=== PATIENT | female | born 1950 | race Caucasian/White ===

== ENCOUNTER 2017-04-30 14:21 | Observation (INO) | payer MEDICARE, OTHER ==
[~2017-04-30] VITALS: Ht 170.2 cm; Wt 61.4 kg
[~2017-04-30 14:21] MED LIST: ASPI81 PO; LITH300 PO; LORA0.5T PO; TAB-TAB PO
[2017-04-30 14:43] VITALS: BP 135/69; PULSE 96; RESP 18; TEMP 98.4; O2SAT 100
[2017-04-30] MEDS ORDERED: LITH300C2 PO (14:50)
--- NOTE | 2017-04-30 14:58 | PD ---
HPI Chief Complaint: Altered Mental Status Time Seen by Provider: 14:33 Travel History International Travel<30 days: No Contact w/Intl Traveler<30days: No Traveled to known affect area: No History of Present Illness HPI The patient was seen and examined in the presence of the nurse. This patient lives alone and neighbors checked on her and found her quite confused. They say that she's been confused for 2 days. They called paramedics who brought her in. The patient cannot provide any useful history or review of systems. She says she feels fine. However she does not know the day of the week or what month or year it is. She knows that she takes lithium but has no idea why. She denies overdose or any specific physical complaint such as fever or headache or chest pain or shortness of breath etc. PFSH Past Medical History Depression: Yes Cancer: No Cardiovascular Problems: No Cerebrovascular Accident: Yes (1979, AUG) Diabetes: No Diminished Hearing: No Hepatitis: No Hiatal Hernia: No Neurologic: Yes (STROKE IN 1979) Psychiatric: Yes (bipolar) Respiratory: No Migraines: No Seizures: No Thyroid Disease: No Influenza Vaccination: No ?: Not Menopausal: Yes Past Surgical History Abdominal Surgery: No Cardiac Surgery: No Ear Surgery: No Endocrine Surgery: No Eye Surgery: No Genitourinary Surgery: No Gynecologic Surgery: No Oral Surgery: No Pacemaker: No Thoracic Surgery: No Other Surgery: Yes Social History Alcohol Use: No Tobacco Use: No Substance Use: No Allergies-Medications (Allergen,Severity, Reaction): Coded Allergies: Penicillin (Verified Allergy, Severe, 04/30/17) Ibuprofen (Verified Allergy, Mild, 04/30/17) Reported Meds & Prescriptions Reported Meds & Active Scripts Active Reported [place] Carbonate 300 Mg Cap 300 Mg PO BID Review of Systems ROS Limitations: Clinical Condition, Altered Mental Status, Poor Historian Physical Exam Narrative GENERAL: Disheveled but pleasant well-developed patient in no apparent distress. SKIN: Focused skin assessment reveals no rash and nodules. Skin is Warm and dry. HEAD: Atraumatic. Normocephalic. EYES: Pupils equal and round. No scleral icterus. No injection or drainage. ENT: No nasal bleeding or discharge. Mucous membranes pink and moist. NECK: Trachea midline. No JVD. No meningeal signs CARDIOVASCULAR: Regular rate and rhythm. No murmur appreciated. RESPIRATORY: No accessory muscle use. Clear to auscultation. Breath sounds equal bilaterally. GASTROINTESTINAL: Abdomen soft, non-tender, nondistended. Hepatic and splenic margins not palpable. MUSCULOSKELETAL: No obvious deformities. No clubbing. No cyanosis. No edema. NEUROLOGICAL: Awake and alert. No obvious cranial nerve deficits. Motor grossly within normal limits. Normal speech. She is cooperative and follows commands. PSYCHIATRIC: Appropriate mood and affect; insight and judgment poor. Data Data Last Documented VS Vital Signs Date Time Temp Pulse Resp B/P Pulse Ox O2 Delivery O2 Flow Rate FiO2 04/30/17 15:45 99 Room Air 04/30/17 14:43 98.4 96 18 135/69 Orders Complete Blood Count With Diff (04/30/17 14:58) Comprehensive Metabolic Panel (04/30/17 14:58) Creatine Kinase (Cpk) (04/30/17 14:58) Thyroid Stimulating Hormone (04/30/17 14:58) Urinalysis - C+S If Indicated (04/30/17 14:58) Ct Brain W/O Iv Contrast(Rout) (04/30/17 14:58) Ecg Monitoring (04/30/17 14:58) Iv Access Insert/Monitor (04/30/17 14:58) Cath For Specimen (04/30/17 14:58) Oximetry (04/30/17 14:58) Sodium Chloride 0.9% Flush (Ns Flush) (04/30/17 15:00) Drug Screen, Random Urine (04/30/17 14:58) Alcohol (Ethanol) (04/30/17 14:58) [place] (Li) (04/30/17 14:58) Labs Laboratory Tests Test 04/30/17 15:05 White Blood Count 8.5 TH/MM3 Red Blood Count 4.24 MIL/MM3 Hemoglobin 12.5 GM/DL Hematocrit 38.5 % Mean Corpuscular Volume 90.8 FL Mean Corpuscular Hemoglobin 29.5 PG Mean Corpuscular Hemoglobin 32.4 % Concent Red Cell Distribution Width 13.0 % Platelet Count 247 TH/MM3 Mean Platelet Volume 7.8 FL Neutrophils (%) (Auto) 77.1 % Lymphocytes (%) (Auto) 17.2 % Monocytes (%) (Auto) 4.4 % Eosinophils (%) (Auto) 1.0 % Basophils (%) (Auto) 0.3 % Neutrophils # (Auto) 6.5 TH/MM3 Lymphocytes # (Auto) 1.5 TH/MM3 Monocytes # (Auto) 0.4 TH/MM3 Eosinophils # (Auto) 0.1 TH/MM3 Basophils # (Auto) 0.0 TH/MM3 CBC Comment DIFF FINAL Differential Comment Sodium Level 144 MEQ/L Potassium Level 4.3 MEQ/L Chloride Level 113 MEQ/L Carbon Dioxide Level 23.6 MEQ/L Anion Gap 7 MEQ/L Blood Urea Nitrogen 19 MG/DL Creatinine 1.30 MG/DL Estimat Glomerular Filtration 41 ML/MIN Rate Random Glucose 98 MG/DL Calcium Level 10.0 MG/DL Total Bilirubin 0.6 MG/DL Aspartate Amino Transf 17 U/L (AST/SGOT) Alanine Aminotransferase 22 U/L (ALT/SGPT) Alkaline Phosphatase 69 U/L Total Creatine Kinase 48 U/L Total Protein 7.2 GM/DL Albumin 3.8 GM/DL Thyroid Stimulating Hormone 1.080 uIU/ML 3rd Gen Ethyl Alcohol Level LESS THAN 3 MG/DL [facility] Medical Decision Making Medical Screen Exam Complete: Yes Emergency Medical Condition: Yes Medical Record Reviewed: Yes Differential Diagnosis [place] toxicity, UTI, intracranial mass, hyponatremia Narrative Course I have reviewed the patient's electronic medical record. I have initiated an altered mental status workup. From initial examination it' s unclear why she is so altered. CBC and metabolic profile and LFTs and TSH are all normal Alcohol negative [place] level was taking significantly longer as it has to be curried up to the main hospital lab and run and there Still awaiting catheterized urine and brain CT results Case will be checked out to Dr. Darby at 4 PM to assist with disposition after workup complete. Patient is significantly altered and lives alone and likely will require hospitalization for further evaluation Diagnosis Primary Impression: Altered mental status Qualified Code: R41.82 - Altered mental status, unspecified altered mental status type Shaquille Forbes MD Apr 30, 2017 14:58
[2017-04-30] MEDS ORDERED: SODIUM CHLORIDE 0.9% FLUSH 5 ML FLUSH IV FLUSH PRN (15:00)
[2017-04-30 15:16] LABS: AUTOMATED NEUTROPHIL # 6.5 TH/MM3 (1.8-7.7); BASOPHIL % 0.3 % (0.0-2.0); EOSINOPHIL # 0.1 TH/MM3 (0-0.4); HEMATOCRIT 38.5 % (35.0-46.0); HEMO FLAGS DIFF FINAL; LYMPH % 17.2 % (9.0-44.0); LYMPHOCYTE # 1.5 TH/MM3 (1.0-4.8); MEAN CELL VOLUME 90.8 FL (80.0-100.0); MEAN CORPUSCULAR HEMOGLOBIN 29.5 PG (27.0-34.0); MEAN CORPUSCULAR HGB CONC 32.4 % (32.0-36.0); MONO % 4.4 % (0.0-8.0); NEUT % 77.1 % (16.0-70.0); PLATELET COUNT 247 TH/MM3 (150-450); RED BLOOD COUNT 4.24 MIL/MM3 (4.00-5.30); WHITE BLOOD COUNT 8.5 TH/MM3 (4.0-11.0)
[2017-04-30 15:24] LABS: CHLORIDE 113 MEQ/L (98-107); POTASSIUM 4.3 MEQ/L (3.5-5.1); SODIUM (NA) 144 MEQ/L (136-145)
[2017-04-30 15:28] LABS: ANION GAP 7 MEQ/L (5-15); BICARBONATE 23.6 MEQ/L (21.0-32.0); BLOOD UREA NITROGEN 19 MG/DL (7-18)
[2017-04-30 15:31] LABS: ALT (GPT) 22 U/L (10-53); AST (GOT) 17 U/L (15-37); GLOMERULAR FILTRATION RATE 41 ML/MIN (>89)
[2017-04-30 15:32] LABS: TOTAL BILIRUBIN ADULT 0.6 MG/DL (0.2-1.0)
[2017-04-30 15:34] LABS: ALKALINE PHOSPHATASE 69 U/L (45-117); CREATINE KINASE 48 U/L (26-192)
[2017-04-30 15:45] VITALS: O2SAT 99
--- NOTE | 2017-04-30 15:49 | RADRPT ---
EXAM DATE/TIME: 04/30/2017 15:22 [place] COMPARISON: No previous studies available for comparison. INDICATIONS : Confusion. RADIATION DOSE: 62.97 CTDIvol (mGy) MEDICAL HISTORY : Cerebrovascular disease. SURGICAL HISTORY : None. ENCOUNTER: Initial ACUITY: 2 days PAIN SCALE: 0/10 LOCATION: cranial TECHNIQUE: Multiple contiguous axial images were obtained of the head. Using automated exposure control and adj ustment of the mA and/or kV according to patient size, radiation dose was kept as low as reasonably a chievable to obtain optimal diagnostic quality images. DICOM format image data is available electro nically for review and comparison. FINDINGS: There is an old infarct in the right sylvian region that was apparent on angiogram 08/11/2008.. The l eft hemisphere is unremarkable. The posterior fossa appears normal. Ventricular size is appropriate. There is no parenchymal hemorr shaq. The orbits and paranasal sinuses are unremarkable. 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 I have no prior CT scans for sonya rison. Comparison is to angiogram 08/11/2008. Ritesh France MD FACR on April 30, 2017 at 15:36 Board Certified Radiologist. This report was verified electronically.
[2017-04-30 15:52] LABS: BLOOD, URINE TRACE (NEG); GLUCOSE,URINE NEG (NEG); KETONE, URINE TRACE mg/dL (NEG); NITRITE,URINE NEG (NEG)
[2017-04-30 15:58] LABS: URINE COLOR YELLOW (YELLW/STRAW)
[2017-04-30 15:59] LABS: AMPHETAMINE, URINE NEG (NEG); RBC, URINE 0-3 /hpf (0-3); SQUAMOUS EPITHELIAL CELL URINE 0-5 /hpf (0-5)
[2017-04-30 16:00] LABS: COMMENT (UR) CATH-CULTURE IND; CULTURE IF INDICATED CATH CULTURE IND; RENAL EPITHELIAL CELLS 0-5 /hpf
[2017-04-30 16:08] LABS: BARBITURATES, URINE NEG (NEG)
[2017-04-30 16:10] VITALS: BP 121/61; PULSE 67; RESP 14; O2SAT 100
[2017-04-30 16:12] LABS: COCAINE, URINE NEG (NEG)
[2017-04-30] MEDS ORDERED: cefTRIAXone INJ 1,000 MG in SODIUM CHLORIDE 0.9% INJ 100 ML IV ONE (16:15)
--- NOTE | 2017-04-30 16:58 | PD ---
Data Data Last Documented VS Vital Signs Date Time Temp Pulse Resp B/P Pulse Ox O2 Delivery O2 Flow Rate FiO2 04/30/17 16:10 67 14 121/61 100 Room Air 04/30/17 14:43 98.4 Orders Complete Blood Count With Diff (04/30/17 14:58) Comprehensive Metabolic Panel (04/30/17 14:58) Creatine Kinase (Cpk) (04/30/17 14:58) Thyroid Stimulating Hormone (04/30/17 14:58) Urinalysis - C+S If Indicated (04/30/17 14:58) Ct Brain W/O Iv Contrast(Rout) (04/30/17 14:58) Ecg Monitoring (04/30/17 14:58) Iv Access Insert/Monitor (04/30/17 14:58) Cath For Specimen (04/30/17 14:58) Oximetry (04/30/17 14:58) Sodium Chloride 0.9% Flush (Ns Flush) (04/30/17 15:00) Drug Screen, Random Urine (04/30/17 14:58) Alcohol (Ethanol) (04/30/17 14:58) [place] (Li) (04/30/17 14:58) Urine Culture (04/30/17 15:45) Ceftriaxone Inj (Rocephin Inj) (04/30/17 16:15) Admit Order (Ed Use Only) (04/30/17 16:54) Labs Laboratory Tests Test 04/30/17 04/30/17 15:05 15:45 White Blood Count 8.5 TH/MM3 Red Blood Count 4.24 MIL/MM3 Hemoglobin 12.5 GM/DL Hematocrit 38.5 % Mean Corpuscular Volume 90.8 FL Mean Corpuscular Hemoglobin 29.5 PG Mean Corpuscular Hemoglobin 32.4 % Concent Red Cell Distribution Width 13.0 % Platelet Count 247 TH/MM3 Mean Platelet Volume 7.8 FL Neutrophils (%) (Auto) 77.1 % Lymphocytes (%) (Auto) 17.2 % Monocytes (%) (Auto) 4.4 % Eosinophils (%) (Auto) 1.0 % Basophils (%) (Auto) 0.3 % Neutrophils # (Auto) 6.5 TH/MM3 Lymphocytes # (Auto) 1.5 TH/MM3 Monocytes # (Auto) 0.4 TH/MM3 Eosinophils # (Auto) 0.1 TH/MM3 Basophils # (Auto) 0.0 TH/MM3 CBC Comment DIFF FINAL Differential Comment Sodium Level 144 MEQ/L Potassium Level 4.3 MEQ/L Chloride Level 113 MEQ/L Carbon Dioxide Level 23.6 MEQ/L Anion Gap 7 MEQ/L Blood Urea Nitrogen 19 MG/DL Creatinine 1.30 MG/DL Estimat Glomerular Filtration 41 ML/MIN Rate Random Glucose 98 MG/DL Calcium Level 10.0 MG/DL Total Bilirubin 0.6 MG/DL Aspartate Amino Transf 17 U/L (AST/SGOT) Alanine Aminotransferase 22 U/L (ALT/SGPT) Alkaline Phosphatase 69 U/L Total Creatine Kinase 48 U/L Total Protein 7.2 GM/DL Albumin 3.8 GM/DL Thyroid Stimulating Hormone 1.080 uIU/ML 3rd Gen Ethyl Alcohol Level LESS THAN 3 MG/DL Urine Color YELLOW Urine Turbidity CLEAR Urine pH 7.0 Urine Specific [place] 1.010 Urine Protein NEG mg/dL Urine Glucose (UA) NEG mg/dL Urine Ketones TRACE mg/dL Urine Occult Blood TRACE Urine Nitrite NEG Urine Bilirubin NEG Urine Leukocyte Esterase NEG Urine RBC 0-3 /hpf Urine WBC 9-14 /hpf Urine WBC Clumps OCC Urine Squamous Epithelial 0-5 /hpf Cells Urine Renal Epithelial Cells 0-5 /hpf Microscopic Urinalysis Comment CATH-CULTURE IND Urine Opiates Screen NEG Urine Barbiturates Screen NEG Urine Amphetamines Screen NEG Urine Benzodiazepines Screen NEG Urine Cocaine Screen NEG Urine Cannabinoids Screen NEG MDM Supervised Visit with TYLER: No Narrative Course The patient was initially evaluated by the previous provider and sent out to me at the beginning of my shift pending CT head, labs, and disposition. See his note for further details. Briefly this is a 67-year-old female who lives alone who was brought in by her neighbor's who were concerned about her. Apparently over the last couple of days the patient has become more and more confused. Here she is awake and alert and is oriented to place only. She does not know why she is in the emergency department, but states that she is on lithium for bipolar disorder. She is unable to tell me the date. She denies any physical complaints. No fevers or chills. On physical exam she is awake and alert, resting comfortably. No nuchal rigidity. No focal neurologic deficits. Vital signs reviewed and are within normal limits. CBC is unremarkable. CMP is remarkable for BUN 19, creatinine 1.3, GFR 41, otherwise unremarkable. TSH is 1.08. Urine drug screen is negative for all drugs tested. Alcohol level is negative. UA shows trace ketones, trace occult blood, 9-14 wbc's, occasional WBC clumps. Patient was given a dose of Rocephin for her pyuria. CT head: Old stable infarct in the right anterior sylvian region. Again this patient lives alone. She tells me that she has not really had much to eat or drink over the last few days and she is not sure why. She denies any physical complaints. She is clearly not safe to discharge home as I do not believe she will be able to take care of herself. She will be admitted for further treatment and evaluation of altered mental status. Case discussed with hospitalist Dr. Hughes who will admit the patient to his service. [place] level pending at time of admission. Diagnosis Primary Impression: Altered mental status Qualified Code: R41.82 - Altered mental status, unspecified altered mental status type Additional Impression: Pyuria Admitting Information Admitting Physician Requests: Basil Mercado MD Apr 30, 2017 16:58
[2017-04-30] MEDS ORDERED: ONDANSETRON HCL 4 MG/2 ML VIAL IV PUSH PRN (17:00)
[2017-04-30] MEDS ORDERED: ACETAMINOPHEN 325 MG TAB PO PRN (17:00)
[2017-04-30] MEDS ORDERED: SODIUM CHLOR 0.9% 1000 ML INJ 1,000 ML IV ONE (17:00)
--- NOTE | 2017-04-30 17:06 | HHI.HP ---
HPI [facility] Primary Care Physician No Primary Care Physician Admission Diagnosis confusion, pyuria Diagnoses: (1) Altered mental status Diagnosis: Principal Chief Complaint: confusion Travel History International Travel<30 Days: No Contact w/Intl Traveler <30 Da: No Traveled to Known Affected Are: No History of Present Illness patient is a 67 y/o female with history of CVA and bipolar disorder who was brought to ER with altered mental status. patient is pleasantly confused at the time of my evaluation and is not a good historian. per ER , the patient was brought to ER after her friends found her confused. apparently this has been going on for the past couple of days. patient denies any pain, headache, focal weakness, blurred vision, fever, dysuria,nausea or vomiting. Review of Systems ROS Limitations: Altered Mental Status, Poor Historian Past Family Social History Past Medical History CVA bipolar disorder Past Surgical History denies any prior surgery. Reported Medications lithium Allergies: Coded Allergies: Penicillin (Verified Allergy, Severe, 04/30/17) Ibuprofen (Verified Allergy, Mild, 04/30/17) Active Ordered Medications Current Medications IV Flush 2 ml 2 ml UNSCH PRN IV FLUSH FLUSH AFTER USING IV ACCESS; Start at 15:00 Ceftriaxone Sodium/Sodium Chloride (Rocephin Inj/NS Inj) 100 ml @ 200 mls/hr ONCE ONCE IV Last administered on 04/30/17t 16:09; Start 04/30/17 at 16:15; Stop 04/30/17 at 16:44; Status DC Family History not significant. Social History no smoking or drinking. Physical Exam Vital Signs Vital Signs Date Time Temp Pulse Resp B/P Pulse Ox O2 Delivery O2 Flow Rate FiO2 04/30/17 16:10 67 14 121/61 100 Room Air 04/30/17 15:45 99 Room Air 04/30/17 14:43 98.4 96 18 135/69 100 Physical Exam GENERAL: This is a well-nourished, well-developed patient, in no apparent distress. SKIN: No rashes, ecchymoses or lesions. Cool and dry. HEAD: Atraumatic. Normocephalic. No temporal or scalp tenderness. EYES: Pupils equal round and reactive. Extraocular motions intact. No scleral icterus. No injection or drainage. ENT: Nose without bleeding, purulent drainage or septal hematoma. Throat without erythema, tonsillar hypertrophy or exudate. Uvula midline. Airway patent. NECK: Trachea midline. No JVD or lymphadenopathy. Supple, nontender, no meningeal signs. CARDIOVASCULAR: Regular rate and rhythm without murmurs, gallops, or rubs. RESPIRATORY: Clear to auscultation. Breath sounds equal bilaterally. No wheezes , rales, or rhonchi. GASTROINTESTINAL: Abdomen soft, non-tender, nondistended. No hepato-splenomegaly , or palpable masses. No guarding. MUSCULOSKELETAL: Extremities without clubbing, cyanosis, or edema. No joint tenderness, effusion, or edema noted. No calf tenderness. Negative Homans sign bilaterally. NEUROLOGICAL: Awake and alert.oriented to person, and partly to place and time. Laboratory Laboratory Tests Test 04/30/17 04/30/17 15:05 15:45 White Blood Count 8.5 Red Blood Count 4.24 Hemoglobin 12.5 Hematocrit 38.5 Mean Corpuscular Volume 90.8 Mean Corpuscular Hemoglobin 29.5 Mean Corpuscular Hemoglobin 32.4 Concent Red Cell Distribution Width 13.0 Platelet Count 247 Mean Platelet Volume 7.8 Neutrophils (%) (Auto) 77.1 Lymphocytes (%) (Auto) 17.2 Monocytes (%) (Auto) 4.4 Eosinophils (%) (Auto) 1.0 Basophils (%) (Auto) 0.3 Neutrophils # (Auto) 6.5 Lymphocytes # (Auto) 1.5 Monocytes # (Auto) 0.4 Eosinophils # (Auto) 0.1 Basophils # (Auto) 0.0 CBC Comment DIFF FINAL Differential Comment Sodium Level 144 Potassium Level 4.3 Chloride Level 113 Carbon Dioxide Level 23.6 Anion Gap 7 Blood Urea Nitrogen 19 Creatinine 1.30 Estimat Glomerular Filtration 41 Rate Random Glucose 98 Calcium Level 10.0 Total Bilirubin 0.6 Aspartate Amino Transf 17 (AST/SGOT) Alanine Aminotransferase 22 (ALT/SGPT) Alkaline Phosphatase 69 Total Creatine Kinase 48 Total Protein 7.2 Albumin 3.8 Thyroid Stimulating Hormone 1.080 3rd Gen Ethyl Alcohol Level LESS THAN 3 Urine Color YELLOW Urine Turbidity CLEAR Urine pH 7.0 Urine Specific [place] 1.010 Urine Protein NEG Urine Glucose (UA) NEG Urine Ketones TRACE Urine Occult Blood TRACE Urine Nitrite NEG Urine Bilirubin NEG Urine Leukocyte Esterase NEG Urine RBC 0-3 Urine WBC 9-14 Urine WBC Clumps OCC Urine Squamous Epithelial 0-5 Cells Urine Renal Epithelial Cells 0-5 Microscopic Urinalysis Comment CATH-CULTURE IND Urine Opiates Screen NEG Urine Barbiturates Screen NEG Urine Amphetamines Screen NEG Urine Benzodiazepines Screen NEG Urine Cocaine Screen NEG Urine Cannabinoids Screen NEG Date/Time Procedure Status Source Growth 04/30/17 15:45 Urine Culture Received Urine Clean Catch Pending Result Diagram: 04/30/17 1505 04/30/17 1505 Imaging Last Impressions Head CT 04/30/17 1458 Signed Impressions: Service Date/Time: Sunday, April 30, 2017 15:22 - CONCLUSION: 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 I have no prior CT scans for comparison. Comparison is to angiogram 08/11/2008. Ritesh France MD FACR Assessment and Plan Assessment and Plan A/P - acute encephalopathy CT head with old infarct. continue with neuro-checks- hold lithium while awaiting the lithium level- consult neurology -acute kidney injury; start IV fluid and monitor the renal function -questionable UTI; continue IV antibiotic and follow the UC. -history of bipolar disorder; hold lithium as noted above. -DVT prophylaxis with SCD's - consult PT and case management. Discussed Condition With ER physician and the patient. Problem Qualifiers (1) Altered mental status: Qualified Code: R41.82 - Altered mental status, unspecified altered mental status type Christos Hughes MD Apr 30, 2017 17:06
[2017-04-30 17:45] VITALS: BP 136/77; PULSE 75; RESP 18; TEMP 97; O2SAT 100
[2017-04-30 20:00] VITALS: BP 152/89; PULSE 69; RESP 20; TEMP 96.3; O2SAT 100
[2017-05-01] VITALS: BP 141/68; PULSE 62; RESP 16; TEMP 96.9; O2SAT 98
[2017-05-01 08:00] VITALS: BP 123/74; PULSE 80; RESP 16; TEMP 97.3; O2SAT 99
--- NOTE | 2017-05-01 09:05 | HHI.PR ---
Subjective Remarks in no acute distress. still pleasantly confused. denies pain. afebrile. d/w the RN and no acute issues over night. Objective Vitals Vital Signs Date Time Temp Pulse Resp B/P Pulse Ox O2 Delivery O2 Flow Rate FiO2 05/01/17 08:00 97.3 80 16 123/74 99 05/01/17 00:00 96.9 62 16 141/68 98 04/30/17 20:00 96.3 69 20 152/89 100 04/30/17 17:45 97.0 75 18 136/77 100 04/30/17 16:10 67 14 121/61 100 Room Air 04/30/17 15:45 99 Room Air 04/30/17 14:43 98.4 96 18 135/69 100 I/O 04/30/17 04/30/17 04/30/17 05/01/17 05/01/17 05/01/17 07:00 15:00 23:00 07:00 15:00 23:00 Intake Total 100 ml Balance 100 ml Intake IV Total 100 ml Result Diagram: 04/30/17 1505 04/30/17 1505 Imaging Last Impressions Head CT 04/30/17 1458 Signed Impressions: Service Date/Time: Sunday, April 30, 2017 15:22 - CONCLUSION: 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 I have no prior CT scans for comparison. Comparison is to angiogram 08/11/2008. Ritesh France MD FACR Objective Remarks GENERAL: This is a well-nourished, well-developed patient, in no apparent distress. CARDIOVASCULAR: Regular rate and regular rhythm without murmurs, gallops, or rubs. RESPIRATORY: Clear to auscultation. Breath sounds equal bilaterally. No wheezes , rales, or rhonchi. GASTROINTESTINAL: Abdomen soft, non-tender, nondistended. Normal, active bowel sounds MUSCULOSKELETAL: Extremities without clubbing, cyanosis, or edema. NEURO: awake and alert- oriented to person, place but not to time. Medications and IVs Current Medications IV Flush 2 ml 2 ml UNSCH PRN IV FLUSH FLUSH AFTER USING IV ACCESS; Start at 15:00 Ceftriaxone Sodium 1000 mg/ Sodium Chloride 100 ml @ 200 mls/hr ONCE ONCE IV Last administered on 04/30/17t 16:09; Start 04/30/17 at 16:15; Stop 04/30/17 at 16:44; Status DC Sodium Chloride 1,000 ml @ 75 mls/hr [id number] ONCE IV Last administered on 04/30 17:41; Start 04/30/17 at 17:00; Stop 05/01/17 at 06:19; Status DC Ceftriaxone Sodium/Sodium Chloride (Rocephin Inj/NS Inj) 100 ml @ 200 mls/hr Q24H IV ; Start 05/01/17 at 16:00 Ondansetron HCl (Zofran Inj) 4 mg Q8HR PRN IV PUSH NAUSEA; Start 04/30/17 at 17 :00 Acetaminophen (Tylenol) 650 mg Q4H PRN PO FEVER; Start 04/30/17 at 17:00 A/P Assessment and Plan A/P - acute encephalopathy CT head with old infarct. continue with neuro-checks- - consulted neurology -acute kidney injury; received IV fluid.will monitor the renal function -questionable UTI; continue IV antibiotic and follow the UC. -history of bipolar disorder; hold lithium for now. -DVT prophylaxis with SCD's -consulted PT and case management Christos Hughes MD May 01, 2017 09:05
[2017-05-01 10:33] LABS: BICARBONATE 24.5 MEQ/L (21.0-32.0)
[2017-05-01 12:00] VITALS: BP 114/65; PULSE 63; RESP 16; TEMP 97.9; O2SAT 96
[2017-05-01] MEDS ORDERED: LORazepam 1 MG TAB PO PRN (14:30)
[2017-05-01 16:00] VITALS: BP 138/82; PULSE 82; RESP 16; TEMP 97; O2SAT 99
[2017-05-01] MEDS: cefTRIAXone INJ 1,000 MG in SODIUM CHLORIDE 0.9% INJ 100 ML IV SCH (16:25)
--- NOTE | 2017-05-01 16:27 | PD.PSY.CON ---
Provisional Diagnosis Admission Date Apr 30, 2017 at 16:54 [place] I. Delirium due to another underlying medical condition, unspecified psychosis, history of bipolar disorder [place] II. Deferred [place] III. CVA [place] IV. [place] V. 35 History of Present Illness Service Psychiatry Consult Requested By Primary Care Physician No Primary Care Physician HPI The patient is a 67-year-old woman, domiciled alone in [place], , supportive by alf benefits, with psychiatric history of bipolar disorder, 1 remote psychiatric hospitalization, no history of suicide attempts, no history of self cutting behavior, she is on lithium 300 mg twice a day prescribed by PCP, as per brother's she has been in lithium for a long time now , with history of CVA and bipolar disorder who was brought to ER with altered mental status. On psychiatric evaluation today patient is pleasantly confused, labile, with frequent mood swings. Patient has periods of lucidity alternated with disorganized behavior and thought process. 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 As she is asked what is the reason of her tears she says "my is really really sick". But, when she is asked about her mood, she says that she is very happy and start laughing. She denies suicidal and homicidal ideation, she denies visual and auditory hallucinations. Patient is oriented in person, but completely disoriented in time and place. Due to the level of disorganization the patient is unable to provide any meaningful information for the psychiatric assessment. However, his brother Reno Lomas, who lives in [place], was able to provide some important collateral information. He says that the patient had a CVA years ago, but after this episode the patient was at baseline and she did not have any significant residual symptom. He saw her the last time a month ago in [place], she was actually planning to go back to live with him. They talk every day by phone. She has been at baseline, functioning very well and taking care of herself. But, 4 days ago he noticed that she was very confused, talking nonsense, illogical and incoherent. He clarifies that her in 2014 and since then she has been living alone. He also adds that the patient has history of bipolar disorder, she is has one hospitalization when he was very young, since he was a child he does not remember details. But, since then the patient has been taking lithium religiously. Review of Systems Constitutional: DENIES: Diaphoretic episodes, Fatigue, Fever, Weight gain, Weight loss, Chills, Dizziness, Change in appetite, Night Sweats Endocrine: DENIES: Abnorml menstrual pattern, Heat/cold intolerance, Polydipsia , Polyuria, Polyphagia Ears, nose, mouth, throat: DENIES: Tinnitus, Hearing loss, Vertigo, Nasal discharge, Oral lesions, Throat pain, Hoarseness, Ear Pain, Running Nose, Epistaxis, Sinus Pain, Toothache, Odynophagia Respiratory: DENIES: Apneas, Cough, Snoring, Wheezing, Hemoptysis, Sputum production, Shortness of breath Cardiovascular: DENIES: Chest pain, Palpitations, Syncope, Dyspnea on Exertion , PND, Lower Extremity Edema, Orthopnea, Claudication Gastrointestinal: DENIES: Abdominal pain, Black stools, Bloody stools, Constipation, Diarrhea, Nausea, Vomiting, Difficulty Swallowing, Anorexia Genitourinary: DENIES: Abnormal vaginal bleeding, Dysmenorrhea, Dyspareunia, Sexual dysfunction, Urinary frequency, Urinary incontinence, Urgency, Hematuria , Dysuria, Nocturia, Vaginal discharge Musculoskeletal: DENIES: Joint pain, Muscle aches, Stiffness, Joint Swelling, Back pain, Neck pain Integumentary: DENIES: Abnormal pigmentation, Pruritus, Rash, Nail changes, Breast masses, Breast skin changes, Nipple discharge Hematologic/lymphatic: DENIES: Bruising, Lymphadenopathy Immunologic/allergic: DENIES: Eczema, Urticaria Neurologic: DENIES: Abnormal gait, Headache, Localized weakness, Paresthesias, Seizures, Speech Problems, Tremor, Poor Balance Psychiatric: COMPLAINS OF: Confusion Past Family Social History Coded Allergies: Penicillin (Verified Allergy, Severe, 04/30/17) Ibuprofen (Verified Allergy, Mild, 04/30/17) Reported Medications [place] Carbonate 300 Mg [id number] Mg PO BID Ref 0 04/30/17 Current Medications Medications (Trade) Dose Ordered Sig/Ananth Route Start Time Stop Time Status Last Admin IV Flush 2 ml 2 ml UNSCH PRN IV FLUSH 04/30/17 15:00 (Rocephin Inj/NS Inj) 100 ml @ 200 mls/hr Q24H IV 05/01/17 16:00 (Zofran Inj) 4 mg Q8HR PRN IV PUSH 04/30/17 17:00 (Tylenol) 650 mg Q4H PRN PO 04/30/17 17:00 (Ativan) 1 mg Q6H PRN PO 05/01/17 14:30 (Elkhorn Carbonate) 300 mg BID PO 05/01/17 21:00 UNV (SEROquel) 25 mg BID@09,12 PO 05/02/17 09:00 UNV Family History No family psychiatric history Social History This was born and raised in [place], she lives alone and poor [place], she is , unemployed, supported by alf benefits, highest level of education is college Patient's Strengths (min. 2) Fdc benefits, compliant with psychotropics Physical Exam On physical exam patient is agitated, restless, but no weakness, no tremors, no EPS, no stiffness present Vital Signs Vital Signs Date Time Temp Pulse Resp B/P Pulse Ox O2 Delivery O2 Flow Rate FiO2 05/01/17 16:00 97.0 82 16 138/82 99 04/30/17 16:10 Room Air I/O 04/30/17 04/30/17 04/30/17 07:59 15:59 23:59 Intake Total 100 ml Balance 100 ml Lab Results Laboratory Tests Test 04/30/17 04/30/17 15:05 15:45 White Blood Count 8.5 Red Blood Count 4.24 Hemoglobin 12.5 Hematocrit 38.5 Mean Corpuscular Volume 90.8 Mean Corpuscular Hemoglobin 29.5 Mean Corpuscular Hemoglobin 32.4 Concent Red Cell Distribution Width 13.0 Platelet Count 247 Mean Platelet Volume 7.8 Neutrophils (%) (Auto) 77.1 Lymphocytes (%) (Auto) 17.2 Monocytes (%) (Auto) 4.4 Eosinophils (%) (Auto) 1.0 Basophils (%) (Auto) 0.3 Neutrophils # (Auto) 6.5 Lymphocytes # (Auto) 1.5 Monocytes # (Auto) 0.4 Eosinophils # (Auto) 0.1 Basophils # (Auto) 0.0 CBC Comment DIFF FINAL Differential Comment Sodium Level 144 Potassium Level 4.3 Chloride Level 113 Carbon Dioxide Level 23.6 Anion Gap 7 Blood Urea Nitrogen 19 Creatinine 1.30 Estimat Glomerular Filtration 41 Rate Random Glucose 98 Calcium Level 10.0 Total Bilirubin 0.6 Aspartate Amino Transf 17 (AST/SGOT) Alanine Aminotransferase 22 (ALT/SGPT) Alkaline Phosphatase 69 Total Creatine Kinase 48 Total Protein 7.2 Albumin 3.8 Thyroid Stimulating Hormone 1.080 3rd Gen Ethyl Alcohol Level LESS THAN 3 Urine Color YELLOW Urine Turbidity CLEAR Urine pH 7.0 Urine Specific [place] 1.010 Urine Protein NEG Urine Glucose (UA) NEG Urine Ketones TRACE Urine Occult Blood TRACE Urine Nitrite NEG Urine Bilirubin NEG Urine Leukocyte Esterase NEG Urine RBC 0-3 Urine WBC 9-14 Urine WBC Clumps OCC Urine Squamous Epithelial 0-5 Cells Urine Renal Epithelial Cells 0-5 Microscopic Urinalysis Comment CATH-CULTURE IND Urine Opiates Screen NEG Urine Barbiturates Screen NEG Urine Amphetamines Screen NEG Urine Benzodiazepines Screen NEG Urine Cocaine Screen NEG Urine Cannabinoids Screen NEG Date/Time Procedure Status Source Growth 04/30/17 15:45 Urine Culture Received Urine Clean Catch Pending Result Diagram: 04/30/17 1505 04/30/17 1505 Mental Status Examination Appearance [facility], [facility], age appearing, poorly cooperative, restless Speech: Hesitant, Incoherent Orientation: Person Memory: Impaired (describe) Thought Process: Loose Association, Tangential Thought Content: Bizarre thinking, Paranoid Language Patient has a conserve language , but limited assessed due to level of psychosis Fund of Knowledge Not able to be assessed Hallucination Type: None Attention and Concentration: Abnormal Suicidal Ideation: No Previous Suicide Attempts: No Homicidal Ideation: No Previous Homicide Attempts: No Insight: Poor Judgment: Poor Affect: Irritable, Other Affect if Inappropriate: Labile Mood: Sad Motor Activity: Normal gait Assessment & Plan Problem List: (1) Delirium due to another medical condition Assessment & Plan: Patient presents acute confusion, altered mental status, mood lability, agitation, tangential and disorganized thought process. Will restart Elkhorn 300 mg bid, will reorder level. Will start Seroquel 25 mg bid for behavior control and psychosis. Agree with neurology consult to explore neurologia causes of current presentation. Case discussed personally with Dr. Hughes Continue 1:1 sitter for safety Patient to be admitted in med psych ICD Code: F05 Assessment & Plan Estimated LOS: Petros Dominguez MD May 01, 2017 16:27
[2017-05-01 20:00] VITALS: BP 136/71; PULSE 75; RESP 16; TEMP 96.3; O2SAT 98
[2017-05-01] MEDS: LITHIUM CARBONATE 300 MG TAB PO SCH (20:29)
--- NOTE | 2017-05-01 20:29 | MB ---
cc: VIKAS GEE M.D. DATE OF CONSULTATION: 05/01/2017 REASON FOR CONSULTATION: Change in mental status. DATE OF : 1950, 67 years old. HISTORY OF PRESENT ILLNESS: The patient is a 67-year-old woman who apparently has a history of stroke, bipolar disorder, came in with altered mental status and does not know why she is really here. She states she lives alone. Her is . PAST MEDICAL HISTORY: Past medical history as stated. CURRENT MEDICATIONS: [place]. ALLERGIES PENICILLIN. IBUPROFEN FAMILY HISTORY: Noncontributory. SOCIAL HISTORY: She states she lives alone, does not smoke or drink. She is a . PHYSICAL EXAMINATION: Vitals: Temperature 97, heart rate 82, respiratory rate 16, blood pressure 138/82 sating at 99%. Neck: Her neck is supple. I do not appreciate any carotid bruits. Heart: Regular. Neurologic: She is awake and alert. She can tell me her date of but tells me she has 24, in fact she is 67. She knows [facility] at [facility] but does not know which one. She knows she lives in [place]. She thinks it is June. She does not know the day of the week or the year or the date. Speech otherwise is fluent. She is in good spirits. Pupils react. Face is symmetrical. Motor-snow, no lateralizing weakness. Gait is not assessed. LABORATORY DATA: Reviewed. Sodium today is 148, GFR is 56, TSH 1.080. CBC is really unremarkable. Toxicology screen was negative. [place] level is only 1 which is in the therapeutic range. Her urine showed trace ketones, blood 9 to 14 WBCs, occasional clumps. Culture did not show any growth. IMAGING STUDIES: CT head, old infarct, right inferior sylvian region. IMPRESSION: A 67-year-old woman with change in mental status, acute encephalopathy, some dehydration, creatinine level elevation initially, now back to normal with hydration. GFR has improved. CT does not show anything acute. RECOMMENDATIONS: Recommend getting an EEG. I would also go ahead and check a B12 level. Her thyroid TSH was unremarkable. I do not believe she has a UTI. Her urine culture is negative. Continue hydration. She has been restarted on lithium by psychiatry and added Seroquel twice a day if psychosis occurs. She has a sitter. EEG, I believe has been ordered and completed. We will have to await report. Further recommendations will be made if needed. Please call me with any questions or concerns. I will go ahead and get a vitamin B12 and RPR level as well. MD PHILLY Silva/BRAYAN /6:36 PM /8:25 PM
[2017-05-02 08:00] VITALS: BP 156/91; PULSE 84; RESP 20; TEMP 96.6; O2SAT 100
--- NOTE | 2017-05-02 08:37 | MG ---
cc: EFREM VAUGHN MD Lab No: [id number] Date: 05/01/2017 Age: 67 Sex: F Race: __ DATE OF 1950 INDICATIONS This is a 67-year-old with a history of confusion. DESCRIPTION Very apiculate looking EEG at 7 Hz background with slow 1-2 Hz delta activity occurring as well, 20 to 50 microvolts. Mild frontal slowing. Intermittent and continuous temporal region myogenic artifact. He has driving with photic stimulation. Single lead EKG showing premature contractions. INTERPRETATION Mild encephalopathy, significant artifact, can consider repeat EEG if clinically indicated. Clinical correlation. MD ABRAHAM Glover/HARMEET /7:59 AM /8:26 AM
[2017-05-02] MEDS: LITHIUM CARBONATE 300 MG TAB PO SCH ×2 (09:00→21:00)
[2017-05-02] MEDS: QUEtiapine FUMARATE 25 MG TAB PO SCH ×2 (09:46→12:21)
--- NOTE | 2017-05-02 11:19 | HHI.PR ---
Subjective Remarks Patient says she feels all right. Denies any pain. She is pleasantly disoriented. Objective Vital Signs Date Time Temp Pulse Resp B/P Pulse Ox O2 Delivery O2 Flow Rate FiO2 05/02/17 08:00 96.6 84 20 156/91 100 05/02/17 00:00 05/01/17 20:00 96.3 75 16 136/71 98 05/01/17 16:00 97.0 82 16 138/82 99 05/01/17 12:00 97.9 63 16 114/65 96 I/O 05/01/17 05/01/17 05/01/17 05/02/17 05/02/17 05/02/17 07:00 15:00 23:00 07:00 15:00 23:00 Intake Total 600 ml Balance 600 ml Intake Oral 600 ml # Voids 2 # Bowel Movements 0 Result Diagram: 04/30/17 1505 05/01/17 1010 Objective Remarks GENERAL: Sitting up in bed. Appears comfortable. Disoriented. agreeable SKIN: Warm and dry. HEAD: Normocephalic. EYES: No scleral icterus. No injection or drainage. NECK: Supple, trachea midline. No JVD CARDIOVASCULAR: Regular rate and rhythm without murmurs, gallops, or rubs. RESPIRATORY: Breath sounds equal bilaterally. No accessory muscle use. GASTROINTESTINAL: Abdomen soft, non-tender, nondistended. MUSCULOSKELETAL: No cyanosis, or edema. BACK: Nontender without obvious deformity. No CVA tenderness. A/P Assessment and Plan //acute encephalopathy CT head with old infarct. continue with neuro-checks- -Neurology following. RPR pending. Appreciate assistance. //acute kidney injury; received IV fluid.kidney function improving. Creatinine 1.3 on admission, 1.0 on 05/01. Repeat labs today. Will monitor the renal function //questionable UTI; continue IV antibiotic and follow the UC. //history of bipolar disorder; lithium level within normal limits. Continue lithium for now. //Hypernatremia. Sodium 148 yesterday. Repeat labs pending today. //DVT prophylaxis with SCD's -consulted PT and case management Matt Chua MD May 02, 2017 11:19
[2017-05-02 11:31] LABS: AUTOMATED NEUTROPHIL # 4.7 TH/MM3 (1.8-7.7); BASOPHIL % 0.7 % (0.0-2.0); EOSINOPHIL # 0.1 TH/MM3 (0-0.4); EOSINOPHIL % 2.1 % (0.0-4.0); HEMATOCRIT 36.1 % (35.0-46.0); HEMO FLAGS DIFF FINAL; LYMPHOCYTE # 1.7 TH/MM3 (1.0-4.8); MEAN CELL VOLUME 89.5 FL (80.0-100.0); MEAN CORPUSCULAR HGB CONC 32.5 % (32.0-36.0); MONO % 7.2 % (0.0-8.0); PLATELET COUNT 227 TH/MM3 (150-450); RED BLOOD COUNT 4.03 MIL/MM3 (4.00-5.30); RED CELL DISTRIBUTION WIDTH 12.6 % (11.6-17.2)
[2017-05-02 11:32] LABS: POTASSIUM 3.9 MEQ/L (3.5-5.1)
[2017-05-02] MEDS ORDERED: QUET1TAB7 PO (11:34)
[2017-05-02] MEDS ORDERED: LORA-474 PO (11:34)
[2017-05-02 11:35] LABS: BICARBONATE 23.9 MEQ/L (21.0-32.0)
[2017-05-02 12:00] VITALS: BP 125/72; PULSE 93; RESP 20; TEMP 96.2; O2SAT 100
[2017-05-02 16:00] VITALS: BP 116/69; PULSE 73; RESP 20; TEMP 96.9; O2SAT 100
[2017-05-02] MEDS: cefTRIAXone INJ 1,000 MG in SODIUM CHLORIDE 0.9% INJ 100 ML IV SCH (16:33)
[2017-05-02 20:00] VITALS: BP 118/67; PULSE 66; RESP 16; TEMP 98.4; O2SAT 95
[2017-05-02] MEDS ORDERED: BISACODYL 10 MG SUPP RECTAL PRN (22:45)
[2017-05-02] MEDS ORDERED: MAGNESIUM HYDROXIDE SUSP 30 ML CUP PO PRN (22:45)
[2017-05-02] MEDS: DOCUSATE SODIUM 100 MG CAP PO SCH (22:57)
[2017-05-03] VITALS: BP 105/62; PULSE 66; RESP 16; TEMP 97.4; O2SAT 95
[2017-05-03 04:00] VITALS: BP 118/72; PULSE 70; RESP 20; TEMP 97.7; O2SAT 97
[2017-05-03 06:53] LABS: AUTOMATED NEUTROPHIL # 4.2 TH/MM3 (1.8-7.7); BASOPHIL # 0.1 TH/MM3 (0-0.2); BASOPHIL % 0.8 % (0.0-2.0); EOSINOPHIL # 0.4 TH/MM3 (0-0.4); EOSINOPHIL % 4.9 % (0.0-4.0); HEMATOCRIT 35.3 % (35.0-46.0); HEMO FLAGS DIFF FINAL; LYMPH % 33.9 % (9.0-44.0); LYMPHOCYTE # 2.8 TH/MM3 (1.0-4.8); MEAN CELL VOLUME 90.1 FL (80.0-100.0); MEAN CORPUSCULAR HGB CONC 32.2 % (32.0-36.0); NEUT % 53.4 % (16.0-70.0); PLATELET COUNT 244 TH/MM3 (150-450); RED BLOOD COUNT 3.92 MIL/MM3 (4.00-5.30); RED CELL DISTRIBUTION WIDTH 12.8 % (11.6-17.2); WHITE BLOOD COUNT 8.1 TH/MM3 (4.0-11.0)
[2017-05-03 08:18] LABS: BICARBONATE 26.6 MEQ/L (21.0-32.0); MAGNESIUM 2.6 MG/DL (1.5-2.5)
[2017-05-03] MEDS: QUEtiapine FUMARATE 25 MG TAB PO SCH ×2 (09:40→12:11)
[2017-05-03] MEDS: DOCUSATE SODIUM 100 MG CAP PO SCH (09:40)
[2017-05-03] MEDS: LITHIUM CARBONATE 300 MG TAB PO SCH (09:41)
[2017-05-03] MEDS ORDERED: SODIUM CHLOR 0.9% 1000 ML INJ 1,000 ML IV ONE (11:30)
[2017-05-03 12:00] VITALS: BP 123/73; PULSE 88; RESP 17; TEMP 98; O2SAT 98
--- NOTE | 2017-05-03 14:02 | HHI.PR ---
Subjective Remarks Patient seen and evaluated in follow-up for confusion, encephalopathy and mood liability requiring a sitter. Disorganized thought is persistent. Patient is with poor oral intake and appears dehydrated with hypernatremia today. Patient is complaining of vague CP today, very poorly described due to poor mental status Objective Vitals Vital Signs Date Time Temp Pulse Resp B/P Pulse Ox O2 Delivery O2 Flow Rate FiO2 05/03/17 12:00 98.0 88 17 123/73 98 05/03/17 04:00 97.7 70 20 118/72 97 05/03/17 00:00 97.4 66 16 105/62 95 05/02/17 20:00 98.4 66 16 118/67 95 05/02/17 16:00 96.9 73 20 116/69 100 I/O 05/02/17 05/02/17 05/02/17 05/03/17 05/03/17 05/03/17 06:59 14:59 22:59 06:59 14:59 22:59 Intake Total 1657 ml 414 ml 60 ml Balance 1657 ml 414 ml 60 ml Intake Oral 1170 ml 120 ml 60 ml IV Total 487 ml 294 ml # Voids 3 1 1 # Bowel Movements 0 1 Result Diagram: 05/03/17 0632 05/03/17 0632 Imaging Last Impressions Head CT 04/30/17 1458 Signed Impressions: Service Date/Time: Sunday, April 30, 2017 15:22 - CONCLUSION: 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 I have no prior CT scans for comparison. Comparison is to angiogram 08/11/2008. Ritesh France MD FACR Objective Remarks GENERAL: This is a well-nourished, well-developed patient, complaining of CP CARDIOVASCULAR: Regular rate and rhythm without murmurs, gallops, or rubs. RESPIRATORY: Clear to auscultation. Breath sounds equal bilaterally. No wheezes , rales, or rhonchi. GASTROINTESTINAL: Abdomen soft, non-tender, nondistended. Normal active bowel sounds MUSCULOSKELETAL: Extremities without clubbing, cyanosis, or edema. NEURO: Alert disoriented, calm A/P Problem List: (1) Altered mental status ICD Code: R41.82 Status: Acute Plan: Patient with encephalopathy and delirium Continue lithium, Seroquel EEG does show encephalopathic pattern Patient has a history of bipolar disorder. (2) Hypernatremia ICD Code: E87.0 Status: Acute Plan: Likely volume depleted, will try IV fluids and monitor progress (3) Chest pain, atypical ICD Code: R07.89 Status: Acute Plan: toponin, ekg cxray pending likely non cardiac Discharge Planning Appropriate for inpatient psych Problem Qualifiers (1) Altered mental status: Qualified Code: R41.82 - Altered mental status, unspecified altered mental status type Adia Franz MD May 03, 2017 14:02
--- NOTE | 2017-05-03 17:16 | RADRPT ---
EXAM DATE/TIME: 05/03/2017 16:41 [place] COMPARISON: No previous studies available for comparison. INDICATIONS : Chest pain. MEDICAL HISTORY : None. SURGICAL HISTORY : None. ENCOUNTER: Initial ACUITY: 1 day PAIN SCORE: 10/17 LOCATION: Bilateral chest FINDINGS: A single view of the chest demonstrates the lungs to be symmetrically aerated without evidence of mas s, infiltrate or effusion. The cardiomediastinal contours are unremarkable. Osseous structures are intact. CONCLUSION: No acute disease. Francesco Ramos MD on May 03, 2017 at 17:14 Board Certified Radiologist. This report was verified electronically.
--- NOTE | 2017-05-21 16:11 | HHI.DS ---
Discharge Summary Admission Date Apr 30, 2017 at 16:54 Discharge Date: May 03, 2017 Admitting Diagnosis confusion, pyuria (1) Altered mental status ICD Code: R41.82 (2) Hypernatremia ICD Code: E87.0 (3) Chest pain, atypical ICD Code: R07.89 Procedures none Brief History - From Admission patient is a 67 y/o female with history of CVA and bipolar disorder who was brought to ER with altered mental status. patient is pleasantly confused at the time of my evaluation and is not a good historian. per ER , the patient was brought to ER after her friends found her confused. apparently this has been going on for the past couple of days. patient denies any pain, headache, focal weakness, blurred vision, fever, dysuria,nausea or vomiting. Significant Findings eeg : encephalopathy Imaging Last Impressions Chest X-Ray 05/03/17 1544 Signed Impressions: Service Date/Time: , May 03, 2017 16:41 - CONCLUSION: No acute disease. Francesco Ramos MD Head CT 04/30/17 1458 Signed Impressions: Service Date/Time: Sunday, April 30, 2017 15:22 - CONCLUSION: 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 I have no prior CT scans for comparison. Comparison is to angiogram 08/11/2008. Ritesh France MD FACR PE at Discharge GENERAL: This is a well-nourished, well-developed patient, complaining of CP CARDIOVASCULAR: Regular rate and rhythm without murmurs, gallops, or rubs. RESPIRATORY: Clear to auscultation. Breath sounds equal bilaterally. No wheezes , rales, or rhonchi. GASTROINTESTINAL: Abdomen soft, non-tender, nondistended. Normal active bowel sounds MUSCULOSKELETAL: Extremities without clubbing, cyanosis, or edema. NEURO: Alert disoriented, calm Pt update on day of discharge see progress note Hospital Course patient evaluated for encephalopathy and organic causes thereof. She was seen by psychiatry and neurology. She was admitted to psychiatry after discharge. Pt Condition on Discharge: Good Discharge Disposition: Disc to Psych Care Fac Discharge Time: <= 30 minutes Discharge Instructions DIET: Follow Instructions for: As Tolerated, No Restrictions Activities you can perform: Regular-No Restrictions Other Activity Instructions: Up with supervision. Adia Franz MD May 21, 2017 16:11
== END 2017-05-03 15:33 ==
LOC: PHED 14:21 → PHEDA 16:54 → PH3A 17:38
PROVIDERS: ADMIT Hospitalist; ATTEND Hospitalist
DX: G93.40 Encephalopathy, unspecified (principal); N17.9 Acute kidney failure, unspecified; R41.82 Altered mental status, unspecified; N39.0 Urinary tract infection, site not specified; E87.0 Hyperosmolality and hypernatremia; E86.0 Dehydration; R07.89 Other chest pain; F31.9 Bipolar disorder, unspecified; Z86.73 Personal history of transient ischemic attack (TIA), and cerebral infarction without residual deficits; Z79.899 Other long term (current) drug therapy
CPT/HCPCS: 70450; 76937; 80048; 80053; 80178; 80307; 81001; 82550; 82607; 84443; 85025; 86592; 87086; 95819; 96365; 97162; 99285; G0378; G8987; G8988; J0696; J7030; P9612; 71010; 80069; 83735

== ENCOUNTER 2017-05-03 10:40 | Inpatient (IN) | payer MEDICARE, OTHER ==
[~2017-05-03] VITALS: Ht 170.2 cm; Wt 55.8 kg
[~2017-05-03 10:40] MED LIST changes: -ASPI81 PO; -LITH300 PO; +LITH300C2 PO; +LORA-474 PO; -LORA0.5T PO; +QUET1TAB7 PO; -TAB-TAB PO
[2017-05-03 17:57] VITALS: BP 176/82; PULSE 72; RESP 16; TEMP 97.1; O2SAT 100
--- NOTE | 2017-05-03 20:45 | EKG ---
Date Performed: 05/03/2017 Time Performed: 19:54:21 PTAGE: 67 years EKG: Sinus rhythm NONSPECIFIC T-WAVE ABNORMALITY BORDERLINE ECG Compared to prior electrocardiogram, Nonspecific T wav e changes are now present . PREVIOUS TRACING : 07/03/2011 07.16 DOCTOR: Steve Costello Interpretating Date/Time 05/03/2017 20:43:35
[2017-05-03] MEDS: QUEtiapine FUMARATE 25 MG TAB PO SCH (21:04)
[2017-05-03] MEDS: DEXT 5%-NACL 0.45% 1000 ML INJ 1,000 ML IV SCH (21:29)
[2017-05-04 06:47] VITALS: BP 126/68; PULSE 83; RESP 16; TEMP 98.3; O2SAT 99
[2017-05-04 07:34] LABS: AUTOMATED NEUTROPHIL # 4.8 TH/MM3 (1.8-7.7); BASOPHIL % 0.6 % (0.0-2.0); EOSINOPHIL # 0.3 TH/MM3 (0-0.4); EOSINOPHIL % 4.3 % (0.0-4.0); HEMO FLAGS DIFF FINAL; LYMPH % 22.8 % (9.0-44.0); LYMPHOCYTE # 1.7 TH/MM3 (1.0-4.8); MEAN CELL VOLUME 91.1 FL (80.0-100.0); MEAN CORPUSCULAR HEMOGLOBIN 29.8 PG (27.0-34.0); MEAN CORPUSCULAR HGB CONC 32.7 % (32.0-36.0); MONO % 6.3 % (0.0-8.0); PLATELET COUNT 213 TH/MM3 (150-450); RED BLOOD COUNT 4.28 MIL/MM3 (4.00-5.30); RED CELL DISTRIBUTION WIDTH 13.4 % (11.6-17.2); WHITE BLOOD COUNT 7.3 TH/MM3 (4.0-11.0)
[2017-05-04 07:49] LABS: BICARBONATE 25.2 MEQ/L (21.0-32.0); POTASSIUM 3.7 MEQ/L (3.5-5.1)
[2017-05-04] MEDS: QUEtiapine FUMARATE 25 MG TAB PO SCH ×2 (09:12→21:00)
[2017-05-04] MEDS: LITHIUM CARBONATE 300 MG TAB PO SCH ×2 (09:12→21:00)
[2017-05-04] MEDS: DEXT 5%-NACL 0.45% 1000 ML INJ 1,000 ML IV SCH (09:25)
--- NOTE | 2017-05-04 15:32 | PD.CONS ---
HPI Service [facility] Consult Requested By Psychiatry team Reason for Consult Follow-up Altered mental status Primary Care Physician Unknown Diagnoses: History of Present Illness Written by Mikael Rascon, acting as scribe for Dr. Colvin on 05/04/17 at 15:14. This note was transcribed by jose KAUR. I, Dr. Sara Colvin personally performed the history, physical exam, and medical decision making; and confirmed the accuracy of the information in the transcribed note. Authenticated by Dr. Sara Colvin on 05/04/17 at 15:14. Patient is a 67-year-old female with primary medical history of CVA in 2007, bipolar disorder who came in initially to the hospital for altered mental status. She is found to be on acute kidney injury and was started on IV fluid hydration. She had a history of bipolar disorder on lithium, lithium levels were within normal. She is now admitted to medical psychiatry unit for further evaluation. Consulted for continues medical management and follow up on altered mental status. Patient seen and examined today. Appears to have some confusion but otherwise able to follow commands and respond to some questions. She denies any other medical history except for she has CVA in 2007 that she reports doesn't have any residual weakness for it. States that she is now trying to eating better and trying to drink more. Denies pain and discomfort. Denies SOB/ dyspnea. Denies chest pain, palpitations, headaches, dizziness. Denies fevers, chills, n/ v/d. Denies dysuria. Review of Systems Except as stated in HPI: all other systems reviewed are Neg Past Family Social History Allergies: Coded Allergies: Penicillin (Verified Allergy, Severe, 04/30/17) Ibuprofen (Verified Allergy, Mild, 04/30/17) Past Medical History CVA in 2007 Bipolar disorder Past Surgical History None Reported Medications Reported Meds & Active Scripts Active Reported [place] Carbonate 300 Mg Cap 300 Mg PO BID Active Ordered Medications Current Medications Medications (Trade) Dose Ordered Sig/Ananth Route Start Time Stop Time Status Last Admin Quetiapine Fumarate 50 mg 50 mg BID PO 05/03/17 21:00 05/04/17 09:12 (D5W-1/2 NS 1000 ml Inj) 1,000 ml @ 50 mls/hr Q20H IV 05/03/17 21:30 05/04/17 09:25 (Lithotabs) 300 mg Q12HR PO 05/04/17 09:00 05/04/17 09:12 Family History States mother and father are . Mom at the age of 71, old age. Dad at age 68 from heart attack. Social History Denies alcohol use Denies Tobacco Use Denies Illicit Drug Use Physical Exam Vital Signs Vital Signs Date Time Temp Pulse Resp B/P Pulse Ox O2 Delivery O2 Flow Rate FiO2 05/04/17 06:47 98.3 83 16 126/68 99 05/03/17 17:57 97.1 72 16 176/82 100 Physical Exam GENERAL: This is a well-nourished, well-developed patient, in no apparent distress. SKIN: No rashes, ecchymoses or lesions. Cool and dry. HEAD: Normocephalic. EYES: Pupils equal round and reactive. Extraocular motions intact. No scleral icterus. No injection or drainage. ENT: Nose without bleeding. Throat without erythema. Uvula midline. Airway patent. NECK: Trachea midline. Supple, nontender, no meningeal signs. CARDIOVASCULAR: Regular rate and rhythm without murmurs, gallops, or rubs. RESPIRATORY: Clear to auscultation. Breath sounds equal bilaterally. No wheezes , rales, or rhonchi. GASTROINTESTINAL: Abdomen soft, non-tender, nondistended. Bowel sounds active 4 . No guarding. MUSCULOSKELETAL: Extremities without clubbing, cyanosis, or edema. NEUROLOGICAL: Awake and alert. Periods of confusion otherwise follows commands and responds to questions. Motor and sensory grossly within normal limits. Normal speech. Laboratory Laboratory Tests Test 05/04/17 05/04/17 07:03 11:41 White Blood Count 7.3 Red Blood Count 4.28 Hemoglobin 12.8 Hematocrit 39.0 Mean Corpuscular Volume 91.1 Mean Corpuscular Hemoglobin 29.8 Mean Corpuscular Hemoglobin 32.7 Concent Red Cell Distribution Width 13.4 Platelet Count 213 Mean Platelet Volume 7.4 Neutrophils (%) (Auto) 66.0 Lymphocytes (%) (Auto) 22.8 Monocytes (%) (Auto) 6.3 Eosinophils (%) (Auto) 4.3 Basophils (%) (Auto) 0.6 Neutrophils # (Auto) 4.8 Lymphocytes # (Auto) 1.7 Monocytes # (Auto) 0.5 Eosinophils # (Auto) 0.3 Basophils # (Auto) 0.0 CBC Comment DIFF FINAL Differential Comment Sodium Level 145 Potassium Level 3.7 Chloride Level 114 Carbon Dioxide Level 25.2 Anion Gap 6 Blood Urea Nitrogen 11 Creatinine 0.97 Estimat Glomerular Filtration 58 Rate Random Glucose 118 Calcium Level 9.6 [place] Level 0.8 Result Diagram: 05/04/1770205/04/17702 Assessment and Plan Problem List: (1) Hypernatremia ICD Code: E87.0 Status: Acute (2) Altered mental status ICD Code: R41.82 Status: Acute Assessment and Plan Patient is a 67-year-old female with primary medical history of CVA in 2007, bipolar disorder who came in initially to the hospital for altered mental status. She is found to be on acute kidney injury and was started on IV fluid hydration. She had a history of bipolar disorder on lithium, lithium levels were within normal. She is now admitted to medical psychiatry unit for further evaluation. Consulted for continues medical management and follow up on altered mental status. Bipolar disorder - Managed by psychiatry team Metabolic encephalopathy Altered mental status - Head CT showed old stable infarct right anterior sylvian region. - EEG shows encephalopathic pattern - [place] level 0.8, within normal - U tox reviewed negative - Monitor mental status Hypernatremia - IV fluids provided D5 half NS 50ml/hr - Improving Na 147 --> 150 --145 - Trend Sodium levels DVT prop ambulatory Code Status Full code Discussed Condition With Patient, nursing Mikael Crisostomo May 04, 2017 15:32 Sara Colvin MD May 04, 2017 22:49
--- NOTE | 2017-05-04 17:32 | HHI.HP ---
Provisional Diagnosis Admission Date May 03, 2017 at 10:40 Schwertner I. Delirium, bipolar disorder, rule out acute manic episode Schwertner II. Deferred Schwertner III. Cerebrovascular accident in 2008 Schwertner IV. Good social support, chronic mental illness Schwertner V. 35 Certification of Person's Competence To Provide Express and Informed Consent I have personally examined Geri Parham , a person being served at [facility] on, May 04, 2017 17:27. Express and informed consent means consent voluntarily given in writing, by a competent person, after sufficient explanation and disclosure of the subject matter involved to enable the person to make a knowing and willful decision without any element of force, fraud, deceit, duress, or other form of constraint or coercion. This person is 18 years of age or older, is not now known to be incompetent to consent to treatment with a guardian advocate, and does not have a health care surrogate or proxy currently making medical treatment decisions. I have found this person to be one of the following: [] Competent to provide express and informed consent, as defined above, for voluntary admission to this facility and is competent to provide express and informed consent for treatment. He/she has the consistent capacity to make well reasoned, willful, and knowing decisions concerning his or her medical or mental health treatment. The person fully and consistently understands the purpose of the admission for examination/placement and is fully capable of personally exercising all rights assured under [place] Incompetent to provide express and informed consent to voluntary admission, and this is incompetent to provide express and informed consent to treatment. The person must be transferred to involuntary status and a petition for a guardian advocate filed with the Circuit Court. [x] Refusing to provide express and informed consent to voluntary admission but is competent to provide express and informed consent for treatment. The person must be discharged or transferred to involuntary status. Form shall be completed within 24 hours of a person's arrival at the receiving facility and filed in the clinical record of each person: 1. Admitted on a voluntary basis 2. Permitted to provide express and informed consent to his/her own treatment 3. Allowed to transfer from involuntary to voluntary status 4. Prior to permitting a person to consent to his or her own treatment after having been previously found incompetent to consent to treatment. History of Present Illness Capacity: Has Capacity (past capacity for treatment) HPI Patient is 67-year-old woman, , living alone, with a past psychiatric history of bipolar disorder, denies any previous psychiatric hospitalizations but as per chart had 1 remote psychiatric hospitalization, denies any previous suicide attempts, denies any suicide attempts, denies any self injurious behavior, was brought into the ER with altered mental status. As per Dr. Pendleton consult note: On psychiatric evaluation today patient is pleasantly confused, labile, with frequent mood swings. Patient has periods of lucidity alternated with disorganized behavior and thought process. 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 As she is asked what is the reason of her tears she says "my is really really sick". But, when she is asked about her mood, she says that she is very happy and start laughing. She denies suicidal and homicidal ideation, she denies visual and auditory hallucinations. Patient is oriented in person, but completely disoriented in time and place. As per collateral information obtained by Dr. Daniels, brother Reno Lomas stated the patient had a CVA use ago but did not have any residual symptoms. He states that patient has been at baseline functioning very well care of herself but 4 days ago he noticed that she was very confused talking nonsensical logical and coherent. Mr. Nunez clarifies that patients in 2014 and since has been living alone. As per nursing report patient had been noticed to have evidence of forgetfulness since arrival to the unit. Patient seen today along with nurse, found lying on hospital bed ready to eat breakfast. Patient was noted to be calm and cooperative with interview but noticed to have lability of mood and tangential at times. When asked patient why she was in the hospital she states all I know I was brought in by rescue squad. Patient was found to be alert and oriented 3 at time of interview in contrast to last evening was reported disorientation by nursing staff. Patient states that her had possibly less than a year ago and that she was still having difficulty with his passing. Patient states that her mood has been fine but that she was still sad at times with again about her . She stated that she has been sleeping fine. Possible weeks with some decreased appetite and energy abilities and concentration she denies feeling sad or depressed and denies feeling helpless or hopeless. She denies any racing thoughts or irritability lately having episodes of decreased need for sleep. Patient denies any auditory or visual hallucinations at this time she denies any suicidal or homicidal ideations. Patient did endorse some paranoia in regards to people taking things her belongings and asked blog writer if her belongings were locked away. Patient noted to be confused as far as why she was brought to the hospital and wasnt able to recall events prior to her coming to the hospital she stated that she had just woken up at the hospital. She does recall having been transferred to this facility by the police. Currently she states feeling a lot better, denies any suicidal or homicidal ideation at this time denies any visual or auditory hallucinations at this time. Past psychiatric history: Previous psychiatric diagnoses of bipolar disorder, denies previous psychiatric hospitalizations, denies previous suicide attempts or self-injurious behavior, Christa be followed up as with outpatient psychiatrist Dr. Valencia whom she last saw March she reports Dr. Valencia had retired. Currently no outpatient services, current medications lithium 300 mg twice a day. She states she has been medication for many years and that her last lithium level was 1.0. She denies any history of sexual or physical abuse. Family psychiatric history: Denies Substance use history: Patient denies any history of tobacco alcohol or illicit drug use. Past medical history: Cerebrovascular accident in 2007 Allergies: Penicillin Social history: Patient is , living alone, supported financially with [place] [facility] benefits, has a brother Mr. Umanzor , highest education is 12th grade., Hospitalist consult reviewed and appreciated: recommendations - will continue with IV fluids for hypernatremia. EKG reviewed: Report states nonspecific T-wave abnormality Review of Systems ROS Limitations: Altered Mental Status Constitutional: DENIES: Diaphoretic episodes, Fatigue, Fever, Weight gain, Weight loss, Chills, Dizziness, Change in appetite, Night Sweats Endocrine: DENIES: Abnorml menstrual pattern, Heat/cold intolerance, Polydipsia , Polyuria, Polyphagia Eyes: DENIES: Blurred vision, Diplopia, Eye inflammation, Eye pain, Vision loss , Photosensitivity, Double Vision Ears, nose, mouth, throat: DENIES: Tinnitus, Hearing loss, Vertigo, Nasal discharge, Oral lesions, Throat pain, Hoarseness, Ear Pain, Running Nose, Epistaxis, Sinus Pain, Toothache, Odynophagia Respiratory: DENIES: Apneas, Cough, Snoring, Wheezing, Hemoptysis, Sputum production, Shortness of breath Cardiovascular: DENIES: Chest pain, Palpitations, Syncope, Dyspnea on Exertion , PND, Lower Extremity Edema, Orthopnea, Claudication Gastrointestinal: DENIES: Abdominal pain, Black stools, Bloody stools, Constipation, Diarrhea, Nausea, Vomiting, Difficulty Swallowing, Anorexia Genitourinary: DENIES: Abnormal vaginal bleeding, Dysmenorrhea, Dyspareunia, Sexual dysfunction, Urinary frequency, Urinary incontinence, Urgency, Hematuria , Dysuria, Nocturia, Vaginal discharge Musculoskeletal: DENIES: Joint pain, Muscle aches, Stiffness, Joint Swelling, Back pain, Neck pain Hematologic/lymphatic: DENIES: Bruising, Lymphadenopathy Immunologic/allergic: DENIES: Eczema, Urticaria Neurologic: DENIES: Abnormal gait, Headache, Localized weakness, Paresthesias, Seizures, Speech Problems, Tremor, Poor Balance Psychiatric: COMPLAINS OF: Confusion, Mood changes (lability of mood) Past Psych History Psychological trauma history Denies any sexual or physical abuse Violence risk - others (6 mos) Low Violence risk - self (6 mos) Low Substance Abuse History Drugs/Alcohol past 12 months Denies any alcohol tobacco or illicit drug use Past Family Social History Coded Allergies: Penicillin (Verified Allergy, Severe, 04/30/17) Ibuprofen (Verified Allergy, Mild, 04/30/17) Reported Medications Govan Carbonate 300 Mg [id number] Mg PO BID Ref 0 04/30/17 Current Medications Medications (Trade) Dose Ordered Sig/Ananth Route Start Time Stop Time Status Last Admin Quetiapine Fumarate 50 mg 50 mg BID PO 05/03/17 21:00 05/04/17 09:12 (D5W-1/2 NS 1000 ml Inj) 1,000 ml @ 50 mls/hr Q20H IV 05/03/17 21:30 05/04/17 09:25 (Lithotabs) 300 mg Q12HR PO 05/04/17 09:00 05/04/17 09:12 Family History Denies any family history of mental illness Social History Patient is a , living alone, supportive financially via [place] [facility] benefits , has education is 12th grade. She has a brother Al Burn who is involved in her care. Patient's Strengths (min. 2) Verbal, communicative, good social support Physical Exam On my examination today, the patient appears to be in no acute physical distress. No motor abnormalities noted.. Labs and vitals reviewed: Vital Signs Vital Signs Date Time Temp Pulse Resp B/P Pulse Ox O2 Delivery O2 Flow Rate FiO2 05/04/17 06:47 98.3 83 16 126/68 99 I/O 05/03/17 05/03/17 05/04/17 08:00 16:00 00:00 Intake Total 480 ml Balance 480 ml Lab Results Labs reviewed. [place] level: 0.8 (05/04/2017) Mental Status Examination Appearance Patient appears stated age, found lying in hospital bed, and hospital gown, noted to be disheveled, fair hygiene, cooperative with interview, noted to have inappropriate laughing at times, fair eye contact, speech normal rate, at times elevated tone Speech: Tangential Orientation: Person Memory: Impaired (describe) (poor immediate recent and remote memory) Thought Process: Loose Association, Tangential Thought Content: Paranoid (paranoid that people wanted to take her things) Language Fluent Fund of Knowledge Fair Hallucination Type: None (denied any perceptual disturbances) Attention and Concentration: Easily Distracted Suicidal Ideation: No Previous Suicide Attempts: No Homicidal Ideation: No Previous Homicide Attempts: No Insight: Poor Judgment: Poor Affect: Other (labile) Affect if Inappropriate: Labile Mood: Other ("fine") Assessment & Plan Problem List: (1) Delirium due to another medical condition ICD Code: F05 Assessment & Plan Estimated LOS: 5-7 days. Patient is a 67-year-old woman , , living alone, who carries diagnoses of bipolar disorder, who was brought into the ER due to altered mental status. Patient was found today to be confused at times exhibited expansive mood, tangential and disorganized at times with her thought process. Patient is unable to recall events prior to coming to the hospital or events that led up to her hospitalization. Patient still confused as to which hospital she is in. Patient likely to be in delirium although she rule out manic episode secondary to bipolar disorder. Patient will continue to be worked up by primary medical team causes of her altered mental status. Patient will continue on lithium 300 by mouth twice a day for mood stabilization as well as Seroquel 50 mg by mouth twice a day as an adjunct. Patient will continue to be monitored and managed while on the inpatient unit by primary psychiatry service and primary medical team. Supportive psychotherapy provided, psychoeducation provided. Discharge planning and process. Discharge Planning In progress Request HC Surrog/Guard Advoc?: No Quang Hodges MD May 04, 2017 17:32
[2017-05-04 17:47] VITALS: BP 157/67; PULSE 106; RESP 16; TEMP 98.6; O2SAT 95
[2017-05-05] MEDS: DEXT 5%-NACL 0.45% 1000 ML INJ 1,000 ML IV SCH (05:20)
[2017-05-05 05:49] VITALS: BP 126/61; PULSE 92; RESP 16; TEMP 97.6; O2SAT 96
[2017-05-05 06:08] VITALS: BP 126/61; PULSE 92; RESP 16; TEMP 97.6; O2SAT 96
[2017-05-05] MEDS: QUEtiapine FUMARATE 25 MG TAB PO SCH ×2 (07:33→21:00)
[2017-05-05] MEDS: LITHIUM CARBONATE 300 MG TAB PO SCH ×2 (07:34→21:00)
--- NOTE | 2017-05-05 10:41 | HHI.PR ---
Subjective Remarks Follow-up visit history of CVA in 2008, bipolar disorder, altered mental status , SAM. Patient seen and examined today. Patient appears confused. Follows commands but unable to properly respond to questions. She now she is in the state [facility], the [facility] and would diverge her conversation to somebody placed her here or in she says here is the hospital. She also day burst conversation to different topics, disorganized thoughts in response to questions. As per staff, she did not eat her breakfast. Continues to have poor appetite. Denies pain or discomfort, denies nausea, vomiting, diarrhea. Denies chest pain, palpitations, headaches, dizziness. Denies fevers or chills. Objective Vitals Vital Signs Date Time Temp Pulse Resp B/P Pulse Ox O2 Delivery O2 Flow Rate FiO2 05/05/17 06:08 97.6 92 16 126/61 96 05/05/17 05:49 97.6 92 16 126/61 96 05/04/17 17:47 98.6 106 16 157/67 95 I/O 05/04/17 05/04/17 05/04/17 05/05/17 05/05/17 05/05/17 06:59 14:59 22:59 06:59 14:59 22:59 Intake Total 953 ml 960 ml 480 ml 50 ml Balance 953 ml 960 ml 480 ml 50 ml Intake Oral 480 ml 960 ml 480 ml 50 ml IV Total 473 ml # Voids 1 2 2 1 Result Diagram: 05/04/17 0703 05/04/17 0703 Objective Remarks GENERAL: This is a thinly appearing, well-developed patient, in no apparent distress. SKIN: No rashes, ecchymoses or lesions. Cool and dry. HEAD: Normocephalic. EYES: Pupils equal round and reactive. Extraocular motions intact. No scleral icterus. No injection or drainage. ENT: Nose without bleeding. Throat without erythema. Uvula midline. Airway patent. NECK: Trachea midline. Supple, nontender, no meningeal signs. CARDIOVASCULAR: Regular rate and rhythm without murmurs, gallops, or rubs. RESPIRATORY: Clear to auscultation. Breath sounds equal bilaterally. No wheezes , rales, or rhonchi. GASTROINTESTINAL: Abdomen soft, non-tender, nondistended. Bowel sounds active 4 . No guarding. MUSCULOSKELETAL: Extremities without clubbing, cyanosis, or edema. NEUROLOGICAL: Awake and alert. Periods of confusion otherwise follows commands and responds to questions. Motor and sensory grossly within normal limits. Normal speech. A/P Problem List: (1) Hypernatremia ICD Code: E87.0 Status: Acute (2) Altered mental status ICD Code: R41.82 Status: Acute Assessment and Plan Patient is a 67-year-old female with primary medical history of CVA in 2007, bipolar disorder who came in initially to the hospital for altered mental status. She is found to be on acute kidney injury and was started on IV fluid hydration. She had a history of bipolar disorder on lithium, lithium levels were within normal. She is now admitted to medical psychiatry unit for further evaluation. Consulted for continues medical management and follow up on altered mental status. Bipolar disorder - Managed by psychiatry team Metabolic encephalopathy Altered mental status - Head CT showed old stable infarct right anterior sylvian region. - EEG shows encephalopathic pattern - [place] level 0.8, within normal - U tox reviewed negative. - Labs reviewed within normal - Speech consult for cognitive evaluation. Patient may have some underlying dementia. Hypernatremia - IV fluids provided D5 half NS 50ml/hr. DC tomorrow - Improving Na 147 --> 150 --145 - Trend Sodium levels Poor appetite Weakness - Physical therapy to evaluate and treat - IV Fluids for now but will DC stoney - Check prealbumin, bmp - Ensure with meals DVT prop ambulatory Full code Discussed Condition With Patient, nursing, Mikael Dexter May 05, 2017 10:41
--- NOTE | 2017-05-05 16:08 | HHI.PYPN ---
Subjective Remarks Patient seen in her bed with nurse Irina, chart review, patient calm pleasant with me at this time denying suicidality homicidality voices or visions has been compliant with her medications. For now continue treatment Review of Systems Except as stated in HPI: all other systems reviewed are Neg Objective Alert: Yes [place]: Person, Place Mood: Calm Affect: Euthymic Memory Intact: Comment (fair) Hallucinations: Other (denies) Delusions: No Delusion Type: Other (deny) Suicidal: Ideation ( ) Homicidal: Ideation (denies) Insight/Judgment Poor Vitals/IOs Vital Signs Date Time Temp Pulse Resp B/P Pulse Ox O2 Delivery O2 Flow Rate FiO2 05/05/17 06:08 97.6 92 16 126/61 96 Intake and Output 05/04/17 05/04/17 05/04/17 07:59 15:59 23:59 Intake Total 713 ml 720 ml 480 ml Balance 713 ml 720 ml 480 ml Assessment & Plan Problem List: (1) Delirium due to another medical condition ICD Code: F05 Assessment & Plan Estimated LOS: days patient continues to resolve showing no acute problems at the present time compliant medication Justification for Cont. Inpt. At this time patient will decompensate if placed a lower level of care Discharge Planning To be determined Request HC Surrog/Guard Advoc?: No Cezar Crawley MD May 05, 2017 16:08
[2017-05-05 18:00] VITALS: BP 111/66; PULSE 84; RESP 16; TEMP 99.1; O2SAT 96
[2017-05-06] MEDS: DEXT 5%-NACL 0.45% 1000 ML INJ 1,000 ML IV SCH (01:20)
--- NOTE | 2017-05-06 08:18 | HHI.PYPN ---
Subjective Remarks Patient seen in her room with nurse Torres, chart review, patient compliant medications. Patient calm and pleasant with me today denies suicidality homicidality voices or visions. [place] level drawn at 05/04 his 0.8. For now continue treatment Review of Systems Except as stated in HPI: all other systems reviewed are Neg Objective Alert: Yes [place]: Person, Place Mood: Calm Affect: Euthymic Memory Intact: Comment (fair) Hallucinations: Other (denies) Delusions: No Delusion Type: Other (deny) Suicidal: Ideation ( ) Homicidal: Ideation (denies) Insight/Judgment Poor Vitals/IOs Vital Signs Date Time Temp Pulse Resp B/P Pulse Ox O2 Delivery O2 Flow Rate FiO2 05/05/17 18:00 99.1 84 16 111/66 96 Intake and Output 05/05/17 05/05/17 05/05/17 07:59 15:59 23:59 Intake Total 50 ml 950 ml 240 ml Balance 50 ml 950 ml 240 ml Assessment & Plan Problem List: (1) Delirium due to another medical condition ICD Code: F05 Assessment & Plan Estimated LOS: days patient calm cooperative today with improved eye contact, she now denies suicidality homicidality voices or visions. Is compliant with her medication. For now continue treatment Justification for Cont. Inpt. At this time patient will decompensate if placed in the lower level of care Discharge Planning To be determined Request HC Surrog/Guard Advoc?: No Cezar Crawley MD May 06, 2017 08:18
[2017-05-06] MEDS: LITHIUM CARBONATE 300 MG TAB PO SCH ×2 (08:24→21:00)
[2017-05-06] MEDS: QUEtiapine FUMARATE 25 MG TAB PO SCH ×2 (08:24→21:00)
[2017-05-06 08:27] LABS: HEMATOCRIT 37.8 % (35.0-46.0); MEAN CORPUSCULAR HEMOGLOBIN 29.9 PG (27.0-34.0); MEAN CORPUSCULAR HGB CONC 32.9 % (32.0-36.0); PLATELET COUNT 247 TH/MM3 (150-450); RED BLOOD COUNT 4.16 MIL/MM3 (4.00-5.30); RED CELL DISTRIBUTION WIDTH 13.5 % (11.6-17.2); REVIEW FLAG FINAL; WHITE BLOOD COUNT 10.8 TH/MM3 (4.0-11.0)
[2017-05-06 08:54] LABS: BICARBONATE 20.5 MEQ/L (21.0-32.0); POTASSIUM 4.3 MEQ/L (3.5-5.1)
[2017-05-06 09:21] LABS: INDIRECT BILIRUBIN 0.3 MG/DL (0.0-0.8); TOTAL BILIRUBIN ADULT 0.4 MG/DL (0.2-1.0)
--- NOTE | 2017-05-06 12:01 | HHI.PR ---
Subjective Remarks Follow-up visit history of CVA in 2008, bipolar disorder, altered mental status , SAM. Patient seen and examined today. More awake and alert. States she needs to go to the bathroom and able to walk around. Discuss with patient we can discontinue the IV fluids as long as she continues to hydrate and eat. She is on supplements as per staff, patient is eating and hydrating more. Denies pain and discomfort. Denies SOB/ dyspnea. Denies chest pain, palpitations, headaches, dizziness. Denies fevers, chills, n/v/d. Objective Vitals Vital Signs Date Time Temp Pulse Resp B/P Pulse Ox O2 Delivery O2 Flow Rate FiO2 05/05/17 18:00 99.1 84 16 111/66 96 I/O 05/05/17 05/05/17 05/05/17 05/06/17 05/06/17 05/06/17 07:00 15:00 23:00 07:00 15:00 23:00 Intake Total 50 ml 360 ml 830 ml 853 ml 240 ml Balance 50 ml 360 ml 830 ml 853 ml 240 ml Intake Oral 50 ml 360 ml 240 ml 120 ml 240 ml IV Total 590 ml 733 ml # Voids 1 2 Result Diagram: 05/06/17 0816 05/06/17 0816 Objective Remarks GENERAL: This is a thinly appearing, well-developed patient, in no apparent distress. SKIN: Warm and dry. HEAD: Normocephalic. EYES: Pupils equal round and reactive. No scleral icterus. No injection or drainage. ENT: Nose without bleeding. Throat without erythema. Uvula midline. Airway patent. NECK: Trachea midline. Supple, nontender, no meningeal signs. CARDIOVASCULAR: Regular rate and rhythm without murmurs, gallops, or rubs. RESPIRATORY: Clear to auscultation. Breath sounds equal bilaterally. No wheezes , rales, or rhonchi. GASTROINTESTINAL: Abdomen soft, non-tender, nondistended. Bowel sounds active 4 . No guarding. MUSCULOSKELETAL: Extremities without clubbing, cyanosis, or edema. NEUROLOGICAL: Awake and alert. Periods of confusion otherwise follows commands and responds to questions. Motor and sensory grossly within normal limits. Normal speech. A/P Problem List: (1) Hypernatremia ICD Code: E87.0 Status: Acute (2) Altered mental status ICD Code: R41.82 Status: Acute Assessment and Plan Patient is a 67-year-old female with primary medical history of CVA in 2007, bipolar disorder who came in initially to the hospital for altered mental status. She is found to be on acute kidney injury and was started on IV fluid hydration. She had a history of bipolar disorder on lithium, lithium levels were within normal. She is now admitted to medical psychiatry unit for further evaluation. Consulted for continues medical management and follow up on altered mental status. Bipolar disorder - Managed by psychiatry team Metabolic encephalopathy Altered mental status - Head CT showed old stable infarct right anterior sylvian region. - EEG shows encephalopathic pattern - [place] level 0.8, within normal - U tox reviewed negative. - Labs reviewed within normal - Speech consult for cognitive evaluation. Patient may have some underlying dementia. - Speech therapy assessment [facility] examination was administered and patient scored 9/30 indicating dementia. Recommends unable to be home alone without any supervision. - Altered mental status and confusion may have been secondary to underlying dementia. CKD - Patient probably has underlying chronic kidney disease. EGFR 50s - Continue to encourage by mouth fluid hydration. Slightly elevated creatinine today 1.03 - Monitor renal indicis Hypernatremia - IV fluids provided D5 half NS 50ml/hr. - Improving Na 147 --> 150 --145 --> 143 - DC IV Poor appetite Weakness - Physical therapy to evaluate and treat - Pre-albumin 23 - Ensure with meals - Encourage by mouth intake Stable from Hospitalist standpoint, may transfer to the regular psych floor. We will sign off. Reconsult as needed. DVT prop ambulatory Full code Discussed Condition With Patient, nursing, Mikael Dexter May 06, 2017 12:01
[2017-05-06 17:30] VITALS: BP 143/67; PULSE 85; RESP 16; TEMP 98.1; O2SAT 96
--- NOTE | 2017-05-06 17:34 | HHI.PR ---
Subjective Remarks The patient is in bed, doesn't appear in distress. . Says she is eating better , she is also keeping hydrated, has a good UOP, no n/v/d/c. Feels improving.She would like to go home tomorrow if possible. Objective Vitals Vital Signs Date Time Temp Pulse Resp B/P Pulse Ox O2 Delivery O2 Flow Rate FiO2 05/05/17 18:00 99.1 84 16 111/66 96 I/O 05/05/17 05/05/17 05/05/17 05/06/17 05/06/17 05/06/17 06:59 14:59 22:59 06:59 14:59 22:59 Intake Total 50 ml 360 ml 830 ml 853 ml 480 ml 960 ml Balance 50 ml 360 ml 830 ml 853 ml 480 ml 960 ml Intake Oral 50 ml 360 ml 240 ml 120 ml 480 ml 960 ml IV Total 590 ml 733 ml # Voids 1 2 Result Diagram: 05/06/1781505/06/17 0816 Objective Remarks GENERAL: This is a thinly appearing, well-developed patient, in no apparent distress. NECK: Trachea midline. Supple, nontender, no meningeal signs. CARDIOVASCULAR: Regular rate and rhythm without murmurs, gallops, or rubs. RESPIRATORY: Clear to auscultation. Breath sounds equal bilaterally. No wheezes , rales, or rhonchi. GASTROINTESTINAL: Abdomen soft, non-tender, nondistended. Bowel sounds active 4 . No guarding. MUSCULOSKELETAL: Extremities without clubbing, cyanosis, or edema. NEUROLOGICAL: Awake and alert. Periods of confusion otherwise follows commands and responds to questions. Motor and sensory grossly within normal limits. Normal speech. A/P Problem List: (1) Hypernatremia ICD Code: E87.0 Status: Acute (2) Altered mental status ICD Code: R41.82 Status: Acute Assessment and Plan Patient is a 67-year-old female with primary medical history of CVA in 2007, bipolar disorder who came in initially to the hospital for altered mental status. She is found to be on acute kidney injury and was started on IV fluid hydration. She had a history of bipolar disorder on lithium, lithium levels were within normal. She is now admitted to medical psychiatry unit for further evaluation. Consulted for continues medical management and follow up on altered mental status. Bipolar disorder- Managed by psychiatry team Metabolic encephalopathy Altered mental status Head CT showed old stable infarct right anterior [place]lv[place] region. EEG shows encephalopathic pattern [place] level 0.8, within normal U tox reviewed negative. Labs reviewed within normal Speech consult for cognitive evaluation. Patient may have some underlying dementia. Speech therapy assessment [facility] examination was administered and patient scored 9/30 indicating dementia. Recommends unable to be home alone without any supervision. Altered mental status and confusion may have been secondary to underlying dementia. CKD Patient probably has underlying chronic kidney disease. EGFR 50s Continue to encourage by mouth fluid hydration. Slightly elevated creatinine today 1.03 Monitor renal indicis Hypernatremia IV fluids provided D5 half NS 50ml/hr. Improving Na 147 --> 150 --145 --> 143 DC IV Poor appetite Weakness Physical therapy to evaluate and treat Pre-albumin 23 Ensure with meals Encourage by mouth intake Stable from Hospitalist standpoint, may transfer to the medical floor or discharge home to follow up with PCP and consultants. We will sign off. Reconsult as needed. DVT prop ambulatory Full code Discussed with the patient, nurse Sara Colvin MD May 06, 2017 17:34
[2017-05-07 04:54] VITALS: BP 142/77; PULSE 87; RESP 15; TEMP 98.7; O2SAT 97
[2017-05-07] MEDS: QUEtiapine FUMARATE 25 MG TAB PO SCH ×2 (07:55→20:20)
[2017-05-07] MEDS: LITHIUM CARBONATE 300 MG TAB PO SCH ×2 (07:55→20:21)
--- NOTE | 2017-05-07 08:34 | HHI.PR ---
Subjective Remarks In bed. She appears in not acute distress. Since able to eat today. Did not have diarrhea. No fever or chills. She is able to eat. Objective Vitals Vital Signs Date Time Temp Pulse Resp B/P Pulse Ox O2 Delivery O2 Flow Rate FiO2 05/07/17 04:54 98.7 87 15 142/77 97 05/06/17 17:30 98.1 85 16 143/67 96 I/O 05/06/17 05/06/17 05/06/17 05/07/17 05/07/17 05/07/17 06:59 14:59 22:59 06:59 14:59 22:59 Intake Total 853 ml 480 ml 1200 ml Balance 853 ml 480 ml 1200 ml Intake Oral 120 ml 480 ml 1200 ml IV Total 733 ml # Voids 2 2 2 Result Diagram: 05/06/17 0816 05/06/17 0816 Objective Remarks GENERAL: This is a thinly appearing, well-developed patient, in no apparent distress. NECK: Trachea midline. Supple, nontender, no meningeal signs. CARDIOVASCULAR: Regular rate and rhythm without murmurs, gallops, or rubs. RESPIRATORY: Clear to auscultation. Breath sounds equal bilaterally. No wheezes , rales, or rhonchi. GASTROINTESTINAL: Abdomen soft, non-tender, nondistended. Bowel sounds active 4 . No guarding. MUSCULOSKELETAL: Extremities without clubbing, cyanosis, or edema. NEUROLOGICAL: Awake and alert. Periods of confusion otherwise follows commands and responds to questions. Motor and sensory grossly within normal limits. Normal speech. A/P Problem List: (1) Hypernatremia ICD Code: E87.0 Status: Acute (2) Altered mental status ICD Code: R41.82 Status: Acute Assessment and Plan Patient is a 67-year-old female with primary medical history of CVA in 2007, bipolar disorder who came in initially to the hospital for altered mental status. She is found to be on acute kidney injury and was started on IV fluid hydration. She had a history of bipolar disorder on lithium, lithium levels were within normal. She is now admitted to medical psychiatry unit for further evaluation. Consulted for continues medical management and follow up on altered mental status. Bipolar disorder- Managed by psychiatry team Metabolic encephalopathy Altered mental status Head CT showed old stable infarct right anterior sylvian region. EEG shows encephalopathic pattern [place] level 0.8, within normal U tox reviewed negative. Labs reviewed within normal Speech consult for cognitive evaluation. Patient may have some underlying dementia. Speech therapy assessment [facility] SLUMS examination was administered and patient scored 9/30 indicating dementia. Recommends unable to be home alone without any supervision. Altered mental status and confusion may have been secondary to underlying dementia. CKD Patient probably has underlying chronic kidney disease. EGFR 50s Continue to encourage by mouth fluid hydration. Slightly elevated creatinine today 1.03 Monitor renal indicis Hypernatremia IV fluids provided D5 half NS 50ml/hr. Improving Na 147 --> 150 --145 --> 143 DC IV Poor appetite Weakness Physical therapy to evaluate and treat Pre-albumin 23 Ensure with meals Encourage by mouth intake Stable from Hospitalist standpoint, may transfer to the medical floor or discharge home to follow up with PCP and consultants. We will sign off. Reconsult as needed. DVT prop ambulatory Full code Discussed with the patient, nurse Sara Colvin MD May 07, 2017 08:34
[2017-05-07 10:23] LABS: BICARBONATE 23.4 MEQ/L (21.0-32.0); POTASSIUM 4.2 MEQ/L (3.5-5.1)
--- NOTE | 2017-05-07 11:06 | PD.TTN ---
Present for Treatment Team Treatment Team Staff: Provider, Nurse, Psych Therapist, Occupational Therapist Patient Problems 1. Discharge planning 2. Medication compliance 3. Knowledge deficit 4. Lack of coping skills Progress Toward Goals Provider Input: Dr. Hodges, treating psychiatrist will be changing patient's medications.; and observed patient for compliant of being dizzy. Nurse Input: Radha Thorpe, LEOLA reports that patient is eating meals and taking her medication. Nurse reports that patient compliant about being dizzy. Psych Therapist Input: Counselor will encouarge patient with home health service when d/c Occupational Therapist Input: MARIEL Espana will assist patient with participating with activities. Documentation Teaching Recipient: Patient Frannie Pineda [facility] May 07, 2017 11:06
[2017-05-07 12:28] LABS: CALCIUM-PROTEIN CORRECTED 10.4 MG/DL (8.5-10.1)
--- NOTE | 2017-05-07 17:12 | HHI.PYPN ---
Subjective Remarks Patient is 67-year-old woman, , living alone, with a past psychiatric history of bipolar disorder, denies any previous psychiatric hospitalizations but as per chart had 1 remote psychiatric hospitalization, denies any previous suicide attempts, denies any suicide attempts, denies any self injurious behavior, was brought into the ER with altered mental status. Patient was seen by medical team on 05/05/17 which consequently placed requesting PT eval and speech consult for cognitive evaluation. Speech therapy consult reviewed and reports patient with dementia as she scored 9/30 on [facility] SLUMS and recommended that patient will require supervision. Physical therapy also evaluated patient and reported patient with mild balance deficits; recommends physical therapy 3-5 times a week for duration of stay as well as recommends supervision upon discharge as patient noted with short term memory deficits. Medicine follow up reports patient currently medically stable. Patient seen for follow-up along with counselors and nurse; chart reviewed. As per nursing report, patient was noted to be brighter yesterday and brother called concerned about patient living alone. Patient found lying on hospital bed, noted to be calm and cooperative with interview. She states that the weekend was fine and recalls having spoken to brother. She reports that this morning she was feeling a bit dizzy but that her mood has been fine, reports sleeping ok, fair appetite, energy and concentration. Patient unable to recall events that led to her hospitalization but is oriented to person, place. The possibility of living in a fci was presented but was not amenable to that as she states would like to live back in her home. The option of having home health services was also brought up and stated that she would consider it. Currently patient reports feeling alright denies SI, HI, AVH or delusions at this time. Review of Systems Except as stated in HPI: all other systems reviewed are Neg Other No other somatic complaints Objective Alert: Yes [place]: Person, Place Mood: Calm Affect: Euthymic Memory Intact: Comment (fair) Hallucinations: Other (denies) Delusions: No Delusion Type: Other (denies) Suicidal: Ideation (denies SI) Homicidal: Ideation (denies HI) Insight/Judgment Insight limited, impulse control fair, judgement limited Remarks Patient appears stated age, found lying in hospital bed, in hospital pajamas, fair hygiene, mildly disheveled, calm and cooperative with interview, fair eye contact, speech normal rate tone and prosody, language fluent and spontaneous. Labs Test 05/07/17 09:29 Sodium Level 141 MEQ/L Potassium Level 4.2 MEQ/L Chloride Level 109 MEQ/L Carbon Dioxide Level 23.4 MEQ/L Anion Gap 9 MEQ/L Blood Urea Nitrogen 14 MG/DL Creatinine 1.02 MG/DL Estimat Glomerular Filtration 54 ML/MIN Rate Random Glucose 105 MG/DL Calcium Level 10.1 MG/DL Protein Corrected Calcium 10.4 MG/DL Phosphorus Level 3.0 MG/DL Total Protein 6.8 GM/DL Albumin 3.3 GM/DL Vitals/IOs Vital Signs Date Time Temp Pulse Resp B/P Pulse Ox O2 Delivery O2 Flow Rate FiO2 05/07/17 04:54 98.7 87 15 142/77 97 Intake and Output 05/06/17 05/06/17 05/06/17 07:59 15:59 23:59 Intake Total 1093 ml 240 ml 1200 ml Balance 1093 ml 240 ml 1200 ml Assessment & Plan Problem List: (1) Delirium due to another medical condition ICD Code: F05 Assessment & Plan Estimated LOS: 3-5 days. Patient is 67-year-old woman, , living alone, with a past psychiatric history of bipolar disorder, denies any previous psychiatric hospitalizations but as per chart had 1 remote psychiatric hospitalization, denies any previous suicide attempts, denies any suicide attempts, denies any self injurious behavior, was brought into the ER with altered mental status. Patient's delirium appears to be resolving; no longer noted to be disorganized but at times tangential. Patient reporting some dizziness which medications will be adjusted. Patient with likely neurocognitive disorder, which supervision was recommended post discharge as per PT evaluation and speech evaluation but patient at this time refusing consideration fci placement or home services at this time. OT consult placed for evaluation. Continue [place] 300mg PO BID for mood stabilization, decrease quetiapine to 25mg PO AM and 50mg PO HS. Supportive psychotherapy provided. Discharge planning in progress. Justification for Cont. Inpt. At this time patient at risk of decompensating if placed in the lower level of care Discharge Planning in progress Request HC Surrog/Guard Advoc?: Quang Rodrigez MD May 07, 2017 17:12
[2017-05-07 18:00] VITALS: BP 119/58; PULSE 81; RESP 15; TEMP 99.5; O2SAT 97
[2017-05-07] MEDS ORDERED: ONDANSETRON ODT 4 MG TAB PO PRN (20:00)
[2017-05-08 05:20] VITALS: BP 112/56; PULSE 63; RESP 16; TEMP 96.7; O2SAT 96
[2017-05-08] MEDS ORDERED: QUEtiapine FUMARATE 25 MG TAB PO SCH (09:00)
[2017-05-08] MEDS: LITHIUM CARBONATE 300 MG TAB PO SCH ×2 (09:05→21:13)
--- NOTE | 2017-05-08 15:37 | HHI.PYPN ---
Subjective Remarks Patient is 67-year-old woman, , living alone, with a past psychiatric history of bipolar disorder, denies any previous psychiatric hospitalizations but as per chart had 1 remote psychiatric hospitalization, denies any previous suicide attempts, denies any suicide attempts, denies any self injurious behavior, was brought into the ER with altered mental status. Patient was seen for follow up; chart reviewed. As per nursing report, patient at times noted to be confused and noted with some paranoia referring to the computers but unclear. Patient was seen with nurse and counselor, found sitting on bed, calm and cooperative but throughout the interview noted to be irritable. Patient reports that she had watched television yesterday and reports having slept fine. Patient states wanting to go home and when asked what her plan would be when she got there she states that she would need to go grocery shopping. She states that her friend can take her but that she also has three cars which she can drive to the local grocery store. When asked who this friend was, she had difficulty recalling the person but also mentioned that her brother could also take her as he lives close but he is actually living out of state. When mentioned that the brother lives out of state, patient noted to be confused and becoming upset. Patient at this time unable to formulate a concrete plan and appears to have difficulty with this. Patient also noted to not have showered since admission to the unit despite encouragement. Patient noted to be disheveled with poor hygiene. Patient through out this admission has had physical therapy, speech therapy recommend supervision as they have noted patient with poor cognitive testing and will require 24hr supervision or services put in place. Patient was presented with option to live in a facility where she would receive constant supervision but refuses at this time and requests to go home. Patients brother has expressed to team his concern that his sister could not manage by herself and is planning on coming down to the hospital to meet with patient and team to discuss services available as he also does not want patient placed in detention at this time. Review of Systems Except as stated in HPI: all other systems reviewed are Neg Other No other somatic complaints Objective Alert: Yes [place]: Person, Place Mood: Calm Affect: Euthymic Memory Intact: Comment (fair) Hallucinations: Other (denies) Delusions: Yes (endorsing some paranoia) Delusion Type: Paranoid Suicidal: Ideation (denies SI) Homicidal: Ideation (denies HI) Insight/Judgment poor insight, fair impulse control, poor judgement Vitals/IOs Vital Signs Date Time Temp Pulse Resp B/P Pulse Ox O2 Delivery O2 Flow Rate FiO2 05/08/17 05:20 96.7 63 16 112/56 96 Intake and Output 05/07/17 05/07/17 05/08/17 08:00 16:00 00:00 Intake Total 360 ml 240 ml 1220 ml Balance 360 ml 240 ml 1220 ml Assessment & Plan Problem List: (1) Delirium due to another medical condition ICD Code: F05 (2) Major neurocognitive disorder ICD Code: F03.90 Assessment & Plan Estimated LOS: 5-7 days. Patient is 67-year-old woman, , living alone, with a past psychiatric history of bipolar disorder, denies any previous psychiatric hospitalizations but as per chart had 1 remote psychiatric hospitalization, denies any previous suicide attempts, denies any suicide attempts, denies any self injurious behavior, was brought into the ER with altered mental status. Patient at time of admission likely with delirium due to metabolic encephalopathy, CKD, hypernatremia but currently medically stable but noted to have cognitive deficits which impact her ability to care for self at this time. Patient with noted cognitive assessments which indicate neurocognitive deficits which 24hr supervision is recommended. Patient at this time has poor insight, poor tesing on cognitive testing which indicate likely neurocognitive disorder and is unsafe for discharge without support and services in place. Plan : Petition for Involuntary Inpatient placement completed; consult placed for second opinion. Legal document to request for Health care surrogate/proxy completed. Patient to continue current treatment, encourage improvement of hygiene, family meeting this week to discuss discharge plan. Justification for Cont. Inpt. Patient at risk for decompensation if at lower level of care. Discharge Planning In process Request HC Surrog/Guard Advoc?: Yes Quang Hodges MD May 08, 2017 15:37
[2017-05-08 18:44] VITALS: BP 115/72; PULSE 82; RESP 16; TEMP 98.2; O2SAT 95
[2017-05-08] MEDS: QUEtiapine FUMARATE 25 MG TAB PO SCH (21:06)
[2017-05-09 05:49] VITALS: BP 127/71; PULSE 94; RESP 14; TEMP 97.3; O2SAT 93
--- NOTE | 2017-05-09 08:45 | PD.PSY.CON ---
Provisional Diagnosis Admission Date May 03, 2017 at 10:40 [place] I. Delirium, bipolar disorder, rule out acute manic episode [place] II. Deferred [place] III. Cerebrovascular accident in 2007 [place] IV. Good social support, chronic mental illness [place] V. 35 History of Present Illness Service Psychiatry Consult Requested By Reason for Consult Second opinion Primary Care Physician Unknown HPI Patient is 67-year-old woman, , living alone, with a past psychiatric history of bipolar disorder, denies any previous psychiatric hospitalizations but as per chart had 1 remote psychiatric hospitalization, denies any previous suicide attempts, denies any suicide attempts, denies any self injurious behavior, was brought into the ER with altered mental status. As per Dr. Pendleton consult note: On psychiatric evaluation today patient is pleasantly confused, labile, with frequent mood swings. Patient has periods of lucidity alternated with disorganized behavior and thought process. 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 As she is asked what is the reason of her tears she says "my is really really sick". But, when she is asked about her mood, she says that she is very happy and start laughing. She denies suicidal and homicidal ideation, she denies visual and auditory hallucinations. Patient is oriented in person, but completely disoriented in time and place. As per collateral information obtained by Dr. Daniels, brother Reno Lomas stated the patient had a CVA use ago but did not have any residual symptoms. He states that patient has been at baseline functioning very well care of herself but 4 days ago he noticed that she was very confused talking nonsensical logical and coherent. Mr. Nunez clarifies that patients in 2014 and since has been living alone. As per nursing report patient had been noticed to have evidence of forgetfulness since arrival to the unit. Patient seen today along with nurse, found lying on hospital bed ready to eat breakfast. Patient was noted to be calm and cooperative with interview but noticed to have lability of mood and tangential at times. When asked patient why she was in the hospital she states all I know I was brought in by rescue squad. Patient was found to be alert and oriented 3 at time of interview in contrast to last evening was reported disorientation by nursing staff. Patient states that her had possibly less than a year ago and that she was still having difficulty with his passing. Patient states that her mood has been fine but that she was still sad at times with again about her . She stated that she has been sleeping fine. Possible weeks with some decreased appetite and energy abilities and concentration she denies feeling sad or depressed and denies feeling helpless or hopeless. She denies any racing thoughts or irritability lately having episodes of decreased need for sleep. Patient denies any auditory or visual hallucinations at this time she denies any suicidal or homicidal ideations. Patient did endorse some paranoia in regards to people taking things her belongings and asked tech writer if her belongings were locked away. Patient noted to be confused as far as why she was brought to the hospital and wasnt able to recall events prior to her coming to the hospital she stated that she had just woken up at the hospital. She does recall having been transferred to this facility by the police. Currently she states feeling a lot better, denies any suicidal or homicidal ideation at this time denies any visual or auditory hallucinations at this time. Patient is seen today for second opinion, patient reports feeling better, but immediately start crying for no reason, she was unable to elaborate about her feelings, she seems to be very labile also disorganized, partially oriented in time and place. Compliant with her medications, denies suicidal and homicidal ideation, denies visual and auditory hallucinations. But, as per nurses patient has been episodically agitated and disorganized. Review of Systems Endocrine: DENIES: Abnorml menstrual pattern, Heat/cold intolerance, Polydipsia , Polyuria, Polyphagia Eyes: DENIES: Blurred vision, Diplopia, Eye inflammation, Eye pain, Vision loss , Photosensitivity, Double Vision Ears, nose, mouth, throat: DENIES: Tinnitus, Hearing loss, Vertigo, Nasal discharge, Oral lesions, Throat pain, Hoarseness, Ear Pain, Running Nose, Epistaxis, Sinus Pain, Toothache, Odynophagia Respiratory: DENIES: Apneas, Cough, Snoring, Wheezing, Hemoptysis, Sputum production, Shortness of breath Cardiovascular: DENIES: Chest pain, Palpitations, Syncope, Dyspnea on Exertion , PND, Lower Extremity Edema, Orthopnea, Claudication Gastrointestinal: DENIES: Abdominal pain, Black stools, Bloody stools, Constipation, Diarrhea, Nausea, Vomiting, Difficulty Swallowing, Anorexia Genitourinary: DENIES: Abnormal vaginal bleeding, Dysmenorrhea, Dyspareunia, Sexual dysfunction, Urinary frequency, Urinary incontinence, Urgency, Hematuria , Dysuria, Nocturia, Vaginal discharge Musculoskeletal: DENIES: Joint pain, Muscle aches, Stiffness, Joint Swelling, Back pain, Neck pain Integumentary: DENIES: Abnormal pigmentation, Pruritus, Rash, Nail changes, Breast masses, Breast skin changes, Nipple discharge Hematologic/lymphatic: DENIES: Bruising, Lymphadenopathy Immunologic/allergic: DENIES: Eczema, Urticaria Neurologic: DENIES: Abnormal gait, Headache, Localized weakness, Paresthesias, Seizures, Speech Problems, Tremor, Poor Balance Psychiatric: DENIES: Anxiety, Confusion, Mood changes, Depression, Hallucinations, Agitation, Suicidal Ideation, Homicidal Ideation, Delusions Past Family Social History Coded Allergies: Penicillin (Verified Allergy, Severe, 04/30/17) Ibuprofen (Verified Allergy, Mild, 04/30/17) Active Scripts Lorazepam (Ativan)1 Mg Tab1 Mg PO Q6H PRN (ANXIETY) 30 Days Prov:Matt Chua MD 05/02/17 Quetiapine 25 Mg Tab25 Mg PO BID@09,12 30 Days Prov:Matt Chua MD 05/02/17 Reported Medications [place] Carbonate 300 Mg Stb235 Mg PO BID Ref 0 04/30/17 Current Medications Medications (Trade) Dose Ordered Sig/Ananth Route Start Time Stop Time Status Last Admin (Lithotabs) 300 mg Q12HR PO 05/04/17 09:00 05/08/17 21:13 (SEROquel) 50 mg HS PO 05/07/17 21:00 05/08/17 21:06 (SEROquel) 25 mg DAILY PO 05/08/17 09:00 05/08/17 09:04 (Zofran Odt) 4 mg Q6H PRN PO 05/07/17 20:00 Family History No family psychiatric history Social History The patient was born and raised in [place], she lives alone and [place], she is , unemployed, supported by long term benefits, highest level of education is college Patient's Strengths (min. 2) Verbal, communicative, good social support Physical Exam Vital Signs Vital Signs Date Time Temp Pulse Resp B/P Pulse Ox O2 Delivery O2 Flow Rate FiO2 05/09/17 05:49 97.3 94 14 127/71 93 I/O 8/1/17 8/1/17 8/2/17 08:00 16:00 00:00 Intake Total 240 ml 1680 ml 1200 ml Balance 240 ml 1680 ml 1200 ml Mental Status Examination Appearance woman, [facility], good hygiene, labile, superficially cooperative Speech: Tangential Orientation: Person Memory: Impaired (describe) (poor immediate recent and remote memory) Thought Process: Loose Association, Tangential Thought Content: Paranoid (paranoid that people wanted to take her things) Hallucination Type: None (denied any perceptual disturbances) Attention and Concentration: Easily Distracted Suicidal Ideation: No Previous Suicide Attempts: No Homicidal Ideation: No Previous Homicide Attempts: No Insight: Poor Judgment: Poor Affect: Other (labile) Affect if Inappropriate: Labile Mood: Other ("fine") Assessment & Plan Problem List: (1) Delirium due to another medical condition Assessment & Plan: I have examined and seen this patient, review documentation , discussed the case with Dr. Hodges, and I completely agree and concur with his plan and assessment. Consult appreciated. ICD Code: F05 (2) Major neurocognitive disorder ICD Code: F03.90 Assessment & Plan Estimated LOS: days Request HC Surrog/Guard Advoc?: Yes Petros Ramirez MD May 09, 2017 08:45
[2017-05-09] MEDS: LITHIUM CARBONATE 300 MG TAB PO SCH (09:00)
[2017-05-09] MEDS: QUEtiapine FUMARATE 25 MG TAB PO SCH ×2 (10:38→21:27)
--- NOTE | 2017-05-09 10:50 | HHI.PYPN ---
Subjective Remarks Patient is 67-year-old woman, , living alone, with a past psychiatric history of bipolar disorder, denies any previous psychiatric hospitalizations but as per chart had 1 remote psychiatric hospitalization, denies any previous suicide attempts, denies any suicide attempts, denies any self injurious behavior, was brought into the ER with altered mental status. Patient is seen for follow-up; chart reviewed. As per nursing report patient was noted to be walking around this morning looking for her and. Patient noted to be confused at times looking for payee which appears to be a person whom she thought was her roommate. Patient seen today with nurse for follow up and found lying on hospital bed in hospital [facility]. Patient noted to be confused this morning, oriented to person place but not time or situation. Patient states that she had been here since 5 AM but then later reports that she had been here over a week. She states that she has seen her nephew Lurdes this morning and having been on the unit within fluctuates as far as inconsistency in her story. Patient states that she has been not too great because she continues to be in the hospital patient noted to be paranoid at this time and when asked about this she states that certain people she says certain people can t be trusted. Patient was noted to be walking into other patients rooms and had to be redirected multiple times back to her room. Review of Systems Except as stated in HPI: all other systems reviewed are Neg Other Denies any other somatic complaint Objective Alert: Yes [place]: Person, Place Mood: Other (irritable) Affect: Other (congruent with mood) Memory Intact: Comment (impaired) Hallucinations: Other (denies) Delusions: Yes (endorsing some paranoia) Delusion Type: Paranoid Suicidal: Ideation (denies SI) Homicidal: Ideation (denies HI) Insight/Judgment Poor insight, poor impulse control, poor judgment Remarks Patient appears stated age in hospital [facility], improved hygiene is patient showered yesterday, fair grooming, partially cooperative in interview today. Fair eye contact, speech normal tone and volume and prosody language fluent and spontaneous Vitals/IOs Vital Signs Date Time Temp Pulse Resp B/P Pulse Ox O2 Delivery O2 Flow Rate FiO2 05/09/17 05:49 97.3 94 14 127/71 93 Intake and Output 05/08/17 05/08/17 05/09/17 08:00 16:00 00:00 Intake Total 240 ml 1680 ml 1200 ml Balance 240 ml 1680 ml 1200 ml Assessment & Plan Problem List: (1) Delirium due to another medical condition ICD Code: F05 (2) Major neurocognitive disorder ICD Code: F03.90 Assessment & Plan Estimated LOS: 5-7 days. Patient is 67-year-old woman, , living alone, with a past psychiatric history of bipolar disorder, denies any previous psychiatric hospitalizations but as per chart had 1 remote psychiatric hospitalization, denies any previous suicide attempts, denies any suicide attempts, denies any self injurious behavior, was brought into the ER with altered mental status. Patient noted to be more confused today, and required multiple redirections status patient was found walking around the unit and going into other patients rooms. Patient noted to be slightly more irritable today and not oriented. Patient continues on involuntary admission status requests for health care surrogate/proxy pending. Increase quetiapine back to 50 mg by mouth twice a day. Continue lithium 300 mg twice a day. Labs will be ordered to check lithium levels chemistries and TSH. Patients brother plans to come in tomorrow for family meeting to discuss placement of services as patient at this time continues to require supervision and likely unable to care for self alone due to current cognitive deficits. Justification for Cont. Inpt. Patient at risk for decompensation if at lower level of care. Discharge Planning In process Request HC Surrog/Guard Advoc?: Yes Quang Hodges MD May 09, 2017 10:50
[2017-05-09] MEDS ORDERED: HALOPERIDOL 5 MG TAB PO ONE (12:00)
[2017-05-09] MEDS ORDERED: LORazepam 2 MG/ML VIAL ONE (13:02)
[2017-05-09] MEDS ORDERED: LORazepam 2 MG/ML VIAL IM ONE (13:30)
[2017-05-09 13:31] LABS: BICARBONATE 24.2 MEQ/L (21.0-32.0); POTASSIUM 4.3 MEQ/L (3.5-5.1)
--- NOTE | 2017-05-09 15:07 | PD.PSY.CON ---
Provisional Diagnosis Admission Date May 03, 2017 at 10:40 [place] I. Delirium, bipolar disorder, rule out acute manic episode [facility] II. Deferred [facility] III. Cerebrovascular accident in 2007 [place] IV. Good social support, chronic mental illness [place] V. 35 History of Present Illness Service Psychiatry Consult Requested By Dr. Hodges Reason for Consult Second opinion [place] act Primary Care Physician Unknown HPI Patient is 67-year-old woman, , living alone, with a past psychiatric history of bipolar disorder, denies any previous psychiatric hospitalizations but as per chart had 1 remote psychiatric hospitalization, denies any previous suicide attempts, denies any suicide attempts, denies any self injurious behavior, was brought into the ER with altered mental status. As per Dr. Pendleton consult note: On psychiatric evaluation today patient is pleasantly confused, labile, with frequent mood swings. Patient has periods of lucidity alternated with disorganized behavior and thought process. 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 As she is asked what is the reason of her tears she says "my is really really sick". But, when she is asked about her mood, she says that she is very happy and start laughing. She denies suicidal and homicidal ideation, she denies visual and auditory hallucinations. Patient is oriented in person, but completely disoriented in time and place. As per collateral information obtained by Dr. Daniels, brother Reno Lomas stated the patient had a CVA use ago but did not have any residual symptoms. He states that patient has been at baseline functioning very well care of herself but 4 days ago he noticed that she was very confused talking nonsensical logical and coherent. Mr. Nunez clarifies that patients in 2014 and since has been living alone. As per nursing report patient had been noticed to have evidence of forgetfulness since arrival to the unit. Patient seen today along with nurse, found lying on hospital bed ready to eat breakfast. Patient was noted to be calm and cooperative with interview but noticed to have lability of mood and tangential at times. When asked patient why she was in the hospital she states all I know I was brought in by rescue squad. Patient was found to be alert and oriented 3 at time of interview in contrast to last evening was reported disorientation by nursing staff. Patient states that her had possibly less than a year ago and that she was still having difficulty with his passing. Patient states that her mood has been fine but that she was still sad at times with again about her . She stated that she has been sleeping fine. Possible weeks with some decreased appetite and energy abilities and concentration she denies feeling sad or depressed and denies feeling helpless or hopeless. She denies any racing thoughts or irritability lately having episodes of decreased need for sleep. Patient denies any auditory or visual hallucinations at this time she denies any suicidal or homicidal ideations. Patient did endorse some paranoia in regards to people taking things her belongings and asked ad writer if her belongings were locked away. Patient noted to be confused as far as why she was brought to the hospital and wasnt able to recall events prior to her coming to the hospital she stated that she had just woken up at the hospital. She does recall having been transferred to this facility by the police. Currently she states feeling a lot better, denies any suicidal or homicidal ideation at this time denies any visual or auditory hallucinations at this time. Patient is seen today for second opinion, patient reports feeling better, but immediately start crying for no reason, she was unable to elaborate about her feelings, she seems to be very labile also disorganized, partially oriented in time and place. Compliant with her medications, denies suicidal and homicidal ideation, denies visual and auditory hallucinations. But, as per nurses patient has been episodically agitated and disorganized I agree with. Above note dictated by Dr. Hodges. Dr. perez assigned first opinion petition supporting [facility]. I agree. Patient meets criteria for involuntary psychiatric hospitalization of the [place] thus I'll cosign second opinion petition supporting [facility] Past Family Social History Coded Allergies: Penicillin (Verified Allergy, Severe, 04/30/17) Ibuprofen (Verified Allergy, Mild, 04/30/17) Active Scripts Lorazepam (Ativan)1 Mg Tab1 Mg PO Q6H PRN (ANXIETY) 30 Days Prov:Matt Chua MD 05/02/17 Quetiapine 25 Mg Tab25 Mg PO BID@09,12 30 Days Prov:Matt Chua MD 05/02/17 Reported Medications [place] Carbonate 300 Mg [id number] Mg PO BID Ref 0 04/30/17 Current Medications Medications (Trade) Dose Ordered Sig/Ananth Route Start Time Stop Time Status Last Admin (Lithotabs) 300 mg Q12HR PO 05/04/17 09:00 05/09/17 09:00 (SEROquel) 50 mg HS PO 05/07/17 21:00 05/08/17 21:06 (Zofran Odt) 4 mg Q6H PRN PO 05/07/17 20:00 (SEROquel) 50 mg DAILY PO 05/10/17 09:00 05/09/17 10:38 Patient's Strengths (min. 2) Verbal, communicative, good social support Physical Exam Vital Signs Vital Signs Date Time Temp Pulse Resp B/P Pulse Ox O2 Delivery O2 Flow Rate FiO2 05/09/17 05:49 97.3 94 14 127/71 93 I/O 05/08/17 05/08/17 05/08/17 07:59 15:59 23:59 Intake Total 240 ml 1680 ml 1200 ml Balance 240 ml 1680 ml 1200 ml Mental Status Examination Speech: Tangential Orientation: Person Memory: Impaired (describe) (poor immediate recent and remote memory) Thought Process: Loose Association, Tangential Thought Content: Paranoid (paranoid that people wanted to take her things) Hallucination Type: None (denied any perceptual disturbances) Attention and Concentration: Easily Distracted Suicidal Ideation: No Previous Suicide Attempts: No Homicidal Ideation: No Previous Homicide Attempts: No Insight: Poor Judgment: Poor Affect: Other (labile) Affect if Inappropriate: Labile Mood: Other ("fine") Assessment & Plan Problem List: (1) Delirium due to another medical condition ICD Code: F05 (2) Major neurocognitive disorder ICD Code: F03.90 Assessment & Plan Estimated LOS: days Request HC Surrog/Guard Advoc?: Yes Cezar Crawley MD May 09, 2017 15:07
[2017-05-09] MEDS ORDERED: PILL SPLITTER OTHER PRN (16:15)
[2017-05-09] MEDS ORDERED: LORazepam 2 MG/ML VIAL IM PRN (17:00)
[2017-05-09 18:52] VITALS: BP 97/52; PULSE 74; RESP 18; TEMP 98.6; O2SAT 95
[2017-05-09] MEDS ORDERED: LITHIUM CARBONATE 300 MG TAB PO SCH (21:00)
[2017-05-10 05:45] VITALS: BP 103/52; PULSE 82; RESP 16; TEMP 98; O2SAT 96
[2017-05-10] MEDS: QUEtiapine FUMARATE 25 MG TAB PO SCH ×2 (08:50→21:13)
--- NOTE | 2017-05-10 12:42 | HHI.PR ---
Subjective Remarks Patient in bed. She was noted with decreased PO intake yesterday. No fever or chills. No n/v/d/c. She is eating much better today. Kidney function is noted elevated and also BP into a lower side. Encouraged PO intake. Also started IVF. brother at bedside, supportive. Objective Vitals Vital Signs Date Time Temp Pulse Resp B/P Pulse Ox O2 Delivery O2 Flow Rate FiO2 05/10/17 05:45 98.0 82 16 103/52 96 05/09/17 18:52 98.6 74 18 97/52 95 I/O 05/09/17 05/09/17 05/09/17 05/10/17 05/10/17 05/10/17 07:00 15:00 23:00 07:00 15:00 23:00 Intake Total 1080 ml 720 ml 480 ml 414 ml 360 ml Output Total 1 ml Balance 1080 ml 720 ml 479 ml 414 ml 360 ml Intake Oral 1080 ml 720 ml 480 ml 414 ml 360 ml Output Urine Total 1 ml # Voids 3 0 0 Result Diagram: 05/06/17 0816 05/09/17 1227 Objective Remarks GENERAL: This is a thinly appearing, well-developed patient, in no apparent distress. NECK: Trachea midline. Supple, nontender, no meningeal signs. CARDIOVASCULAR: Regular rate and rhythm without murmurs, gallops, or rubs. RESPIRATORY: Clear to auscultation. Breath sounds equal bilaterally. No wheezes , rales, or rhonchi. GASTROINTESTINAL: Abdomen soft, non-tender, nondistended. Bowel sounds active 4 . No guarding. MUSCULOSKELETAL: Extremities without clubbing, cyanosis, or edema. NEUROLOGICAL: Awake and alert. Periods of confusion otherwise follows commands and responds to questions. Motor and sensory grossly within normal limits. Normal speech. A/P Problem List: (1) Hypernatremia ICD Code: E87.0 Status: Acute (2) Altered mental status ICD Code: R41.82 Status: Acute Assessment and Plan Patient is a 67-year-old female with primary medical history of CVA in 2007, bipolar disorder who came in initially to the hospital for altered mental status. She is found to be on acute kidney injury and was started on IV fluid hydration. She had a history of bipolar disorder on lithium, lithium levels were within normal. She is now admitted to medical psychiatry unit for further evaluation. Consulted for continues medical management and follow up on altered mental status. Bipolar disorder- Managed by psychiatry team Metabolic encephalopathy Altered mental status Head CT showed old stable infarct right anterior [place] region. EEG shows encephalopathic pattern [place] level 0.8, within normal U tox reviewed negative. Labs reviewed within normal Speech consult for cognitive evaluation. Patient may have some underlying dementia. Speech therapy assessment [facility] examination was administered and patient scored 9/30 indicating dementia. Recommends unable to be home alone without any supervision. Altered mental status and confusion may have been secondary to underlying dementia. SAM on CKD Patient probably has underlying chronic kidney disease. EGFR 50s / patient was not eating well and noted elevated Cr and BUN, decreased GFR. Continue to encourage by mouth fluid hydration. Started IVF. Monitor renal indices Hypernatremia. Resolved. Received IV fluids. Monitor Na levels and adjust meds as need. Poor appetite Weakness Physical therapy to evaluate and treat Pre-albumin 23 Ensure with meals Encourage by mouth intake DVT prop ambulatory Full code Discussed with the patient, nurse, family at bedside Sara Colvin MD May 10, 2017 12:42
[2017-05-10] MEDS ORDERED: SODIUM CHLOR 0.9% 1000 ML INJ 1,000 ML IV ONE (13:00)
[2017-05-10] MEDS: SODIUM CHLOR 0.9% 1000 ML INJ 1,000 ML IV SCH ×2 (13:00→18:00)
--- NOTE | 2017-05-10 14:53 | EKG ---
Date Performed: 05/09/2017 Time Performed: 16:40:29 PTAGE: 67 years EKG: Sinus rhythm WITH OCCASIONAL SUPRAVENTRICULAR PREMATURE COMPLEXES BORDERLINE ECG PREVIOUS TRACING : 05/03/2017 19.54 Since previous tracing, no significant change noted DOCTOR: Yuliet Elliott Interpretating Date/Time 05/10/2017 14:52:02
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
[2017-05-10 18:01] VITALS: BP 103/52; PULSE 82; RESP 16; TEMP 98
[2017-05-10 18:04] VITALS: BP 103/52; PULSE 82; RESP 16; TEMP 98; O2SAT 96
[2017-05-11 05:47] VITALS: BP 124/70; PULSE 104; RESP 16; TEMP 98.3; O2SAT 96
[2017-05-11 08:01] LABS: AUTOMATED NEUTROPHIL # 3.7 TH/MM3 (1.8-7.7); BASOPHIL % 0.6 % (0.0-2.0); EOSINOPHIL # 0.1 TH/MM3 (0-0.4); EOSINOPHIL % 2.4 % (0.0-4.0); HEMATOCRIT 33.9 % (35.0-46.0); HEMO FLAGS DIFF FINAL; LYMPH % 21.9 % (9.0-44.0); LYMPHOCYTE # 1.3 TH/MM3 (1.0-4.8); MEAN CELL VOLUME 91.3 FL (80.0-100.0); MEAN CORPUSCULAR HGB CONC 32.9 % (32.0-36.0); MONO % 11.7 % (0.0-8.0); NEUT % 63.4 % (16.0-70.0); PLATELET COUNT 255 TH/MM3 (150-450); RED BLOOD COUNT 3.71 MIL/MM3 (4.00-5.30); RED CELL DISTRIBUTION WIDTH 13.9 % (11.6-17.2); WHITE BLOOD COUNT 5.9 TH/MM3 (4.0-11.0)
[2017-05-11 08:32] LABS: BICARBONATE 24.8 MEQ/L (21.0-32.0)
--- NOTE | 2017-05-11 09:03 | HHI.PR ---
Subjective Remarks Eating better today. She is feeling better. No n/v/d/c. Kidney function improved significantly. Objective Vitals Vital Signs Date Time Temp Pulse Resp B/P Pulse Ox O2 Delivery O2 Flow Rate FiO2 05/11/17 05:47 98.3 104 16 124/70 96 05/10/17 18:04 98.0 82 16 103/52 96 05/10/17 18:01 98.0 82 16 103/52 I/O 05/10/17 05/10/17 05/10/17 05/11/17 05/11/17 05/11/17 06:59 14:59 22:59 06:59 14:59 22:59 Intake Total 414 ml 3280 ml 1940 ml Balance 414 ml 3280 ml 1940 ml Intake Oral 414 ml 3280 ml 960 ml IV Total 980 ml # Voids 0 2 1 2 Result Diagram: 05/11/17 0720 05/11/17 0720 Objective Remarks GENERAL: This is a thinly appearing, well-developed patient, in no apparent distress. NECK: Trachea midline. Supple, nontender, no meningeal signs. CARDIOVASCULAR: Regular rate and rhythm without murmurs, gallops, or rubs. RESPIRATORY: Clear to auscultation. Breath sounds equal bilaterally. No wheezes , rales, or rhonchi. GASTROINTESTINAL: Abdomen soft, non-tender, nondistended. Bowel sounds active 4 . No guarding. MUSCULOSKELETAL: Extremities without clubbing, cyanosis, or edema. NEUROLOGICAL: Awake and alert. Periods of confusion otherwise follows commands and responds to questions. Motor and sensory grossly within normal limits. Normal speech. A/P Problem List: (1) Hypernatremia ICD Code: E87.0 Status: Acute (2) Altered mental status ICD Code: R41.82 Status: Acute Assessment and Plan Patient is a 67-year-old female with primary medical history of CVA in 2007, bipolar disorder who came in initially to the hospital for altered mental status. She is found to be on acute kidney injury and was started on IV fluid hydration. She had a history of bipolar disorder on lithium, lithium levels were within normal. She is now admitted to medical psychiatry unit for further evaluation. Consulted for continues medical management and follow up on altered mental status. Bipolar disorder- Managed by psychiatry team Metabolic encephalopathy Altered mental status Head CT showed old stable infarct right anterior sylvian region. EEG shows encephalopathic pattern [place] level 0.8, within normal U tox reviewed negative. Labs reviewed within normal Speech consult for cognitive evaluation. Patient may have some underlying dementia. Speech therapy assessment [facility] SLU[facility] examination was administered and patient scored 9/30 indicating dementia. Recommends unable to be home alone without any supervision. Altered mental status and confusion may have been secondary to underlying dementia. SAM on CKD Patient probably has underlying chronic kidney disease. EGFR 50s 8/2 patient was not eating well and noted elevated Cr and BUN, decreased GFR. Continue to encourage by mouth fluid hydration. Started IVF. Kidney function improved, DC IVF , encouraged PO intake. Monitor renal indices Hypernatremia. Resolved. Received IV fluids. Monitor Na levels and adjust meds as need. Poor appetite Weakness Physical therapy to evaluate and treat Pre-albumin 23 Ensure with meals Encourage by mouth intake DVT prop ambulatory Full code Discussed with the patient, nurse, Dr Hodges psych Stable can be DC from hospitalist standpoint. Sara Colvin MD May 11, 2017 09:03
[2017-05-11] MEDS: QUEtiapine FUMARATE 25 MG TAB PO SCH (09:45)
[2017-05-11] MEDS ORDERED: QUET1TAB7 PO (14:57)
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
== END 2017-05-11 15:55 | disposition home or self-care (01) | DRG 71 ==
LOC: H4EA 10:40 → H250 05-09 14:30 → H4EA 05-09 16:29
PROVIDERS: ADMIT Student in an Organized Health Care Education/Training Program; ATTEND Student in an Organized Health Care Education/Training Program
DX: G93.41 Metabolic encephalopathy (principal); N17.9 Acute kidney failure, unspecified; E87.0 Hyperosmolality and hypernatremia; F05 Delirium due to known physiological condition; Z86.73 Personal history of transient ischemic attack (TIA), and cerebral infarction without residual deficits; F31.9 Bipolar disorder, unspecified; N18.9 Chronic kidney disease, unspecified; E86.0 Dehydration; F01.50 Vascular dementia, unspecified severity, without behavioral disturbance, psychotic disturbance, mood disturbance, and anxiety
CPT/HCPCS: 80048; 80069; 80076; 80178; 84134; 84155; 84443; 85025; 85027; 93005; J2060; J7030

== ENCOUNTER 2017-09-24 08:06 | Emergency (ER) | payer MEDICARE, OTHER ==
[~2017-09-24] VITALS: Ht 170.2 cm; Wt 49.0 kg
[2017-09-24 08:10] VITALS: BP 129/85; PULSE 76; RESP 16; TEMP 97.3; O2SAT 99
[2017-09-24] MEDS ORDERED: METR-1 PO (09:07)
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
== END 2017-09-24 09:21 | disposition home or self-care (01) ==
LOC: PHED 08:06
DX: N76.0 Acute vaginitis (principal)
CPT/HCPCS: 87210; 99284

== ENCOUNTER 2017-10-13 08:38 | Observation (INO) | payer MEDICARE, OTHER ==
[~2017-10-13] VITALS: Ht 170.2 cm; Wt 47.4 kg
[~2017-10-13 08:38] MED LIST changes: -LITH300C2 PO; -LORA-474 PO; +METR-1 PO; -QUET1TAB7 PO
[2017-10-13 09:03] VITALS: BP 115/77; PULSE 109; RESP 18; TEMP 97.8; O2SAT 100
--- NOTE | 2017-10-13 09:08 | PD ---
HPI Chief Complaint: General Weakness Time Seen by Provider: 08:57 Travel History International Travel<30 days: No Contact w/Intl Traveler<30days: No Traveled to known affect area: No History of Present Illness HPI 67 y/o female presents with generalized weakness with decreased intake over the past couple of weeks. She had a fall a couple days ago from her generalized weakness and has a bump to her head. She states she is not hurting anywhere and denies any other concurrent complaints. She states today she is afraid to get up because she is afraid she will fall again and that is why she called the ambulance. She feels worse when she moves around. She denies other modifying factors. Quality is weak. Severity is all over. Duration is couple of weeks. She is coming from home. PFSH Past Medical History Anxiety: Yes Depression: Yes Cancer: No Cardiovascular Problems: No Cerebrovascular Accident: Yes (1979, AUG) Diabetes: No Diminished Hearing: No Headaches: No Hepatitis: No Hiatal Hernia: No Hypertension: No Neurologic: Yes (STROKE IN 1979) Psychiatric: Yes (bipolar) Respiratory: No Migraines: No Seizures: No Thyroid Disease: No ?: Not Menopausal: Yes Past Surgical History Abdominal Surgery: No Cardiac Surgery: No Ear Surgery: No Endocrine Surgery: No Eye Surgery: No Genitourinary Surgery: No Gynecologic Surgery: No Neurologic Surgery: No Oral Surgery: No Pacemaker: No Thoracic Surgery: No Tonsillectomy: Yes Other Surgery: No Social History Alcohol Use: No Tobacco Use: No Substance Use: No Allergies-Medications (Allergen,Severity, Reaction): Coded Allergies: penicillin G (Unverified Allergy, Severe, 05/22/17) ibuprofen (Unverified Allergy, Mild, 05/22/17) Reported Meds & Prescriptions Reported Meds & Active Scripts Active Flagyl (Metronidazole) 500 Mg Tab 500 Mg PO BID 7 Days Review of Systems Except as stated in HPI: all other systems reviewed are Neg Physical Exam Narrative GENERAL: Well-nourished, well-developed patient. SKIN: Warm and dry. HEAD: Normocephalic and old hematoma noted to right forehead EYES: No injection or drainage. ENT: No nasal drainage noted. NECK: Supple, trachea midline. Nontender in midline with palpation and range of motion CARDIOVASCULAR: Regular rate and rhythm RESPIRATORY: Breath sounds equal bilaterally. No accessory muscle use. GASTROINTESTINAL: Abdomen soft, non-tender, nondistended. EXTREMITIES: No edema. No tender over main extremities BACK: Nontender without obvious deformity. NEUROLOGICAL: Awake and alert. Motor and sensory grossly within normal limits. Normal speech. Data Data Last Documented VS Vital Signs Date Time Temp Pulse Resp B/P (MAP) Pulse Ox O2 Delivery O2 Flow Rate FiO2 10/13/17 11:20 107 18 159/61 (93) 100 Room Air 10/13/17 09:03 97.8 Orders Orders Magnesium (Mg) (10/13/17 08:57) Phosphorus (Po4) (10/13/17 08:57) Complete Blood Count With Diff (10/13/17 08:57) Comprehensive Metabolic Panel (10/13/17 08:57) Ckmb (Isoenzyme) Profile (10/13/17 08:57) Troponin I (10/13/17 08:57) Urinalysis - C+S If Indicated (10/13/17 08:57) Act Partial Throm Time (Ptt) (10/13/17 08:57) Prothrombin Time / Inr (Pt) (10/13/17 08:57) Ct Brain W/O Iv Contrast(Rout) (10/13/17 ) Chest, Single Ap (10/13/17 ) Electrocardiogram (10/13/17 ) Iv Access Insert/Monitor (10/13/17 08:57) Ecg Monitoring (10/13/17 08:57) Oximetry (10/13/17 08:57) Sodium Chlorid 0.9% 500 Ml Inj (Ns 500 M (10/13/17 10:00) Admit Order (Ed Use Only) (10/13/17 13:16) Labs Laboratory Tests Test 10/13/17 09:05 10/13/17 11:09 White Blood Count 5.3 TH/MM3 Red Blood Count 4.93 MIL/MM3 Hemoglobin 14.2 GM/DL Hematocrit 42.2 % Mean Corpuscular Volume 85.7 FL Mean Corpuscular Hemoglobin 28.8 PG Mean Corpuscular Hemoglobin Concent 33.6 % Red Cell Distribution Width 14.9 % Platelet Count 179 TH/MM3 Mean Platelet Volume 9.3 FL Neutrophils (%) (Auto) 64.4 % Lymphocytes (%) (Auto) 25.0 % Monocytes (%) (Auto) 8.9 % Eosinophils (%) (Auto) 1.1 % Basophils (%) (Auto) 0.6 % Neutrophils # (Auto) 3.4 TH/MM3 Lymphocytes # (Auto) 1.3 TH/MM3 Monocytes # (Auto) 0.5 TH/MM3 Eosinophils # (Auto) 0.1 TH/MM3 Basophils # (Auto) 0.0 TH/MM3 CBC Comment DIFF FINAL Differential Comment Prothrombin Time 11.1 SEC Prothromb Time International Ratio 1.1 RATIO Activated Partial Thromboplast Time 20.1 SEC Blood Urea Nitrogen 23 MG/DL Creatinine 1.05 MG/DL Random Glucose 90 MG/DL Total Protein 7.5 GM/DL Albumin 3.9 GM/DL Calcium Level 10.9 MG/DL Phosphorus Level 2.6 MG/DL Magnesium Level 2.1 MG/DL Alkaline Phosphatase 42 U/L Aspartate Amino Transf (AST/SGOT) 24 U/L Alanine Aminotransferase (ALT/SGPT) 20 U/L Total Bilirubin 1.5 MG/DL Sodium Level 144 MEQ/L Potassium Level 3.8 MEQ/L Chloride Level 108 MEQ/L Carbon Dioxide Level 20.3 MEQ/L Anion Gap 16 MEQ/L Estimat Glomerular Filtration Rate 53 ML/MIN Total Creatine Kinase 88 U/L Troponin I LESS THAN 0.02 NG/ML Urine Color YELLOW Urine Turbidity CLEAR Urine pH 6.0 Urine Specific [place] 1.013 Urine Protein TRACE mg/dL Urine Glucose (UA) NEG mg/dL Urine Ketones 80 mg/dL Urine Occult Blood NEG Urine Nitrite NEG Urine Bilirubin NEG Urine Urobilinogen LESS THAN 2.0 MG/DL Urine Leukocyte Esterase NEG Urine RBC LESS THAN 1 /hpf Urine WBC LESS THAN 1 /hpf Urine Hyaline Casts 3 /lpf Urine Mucus FEW /lpf Microscopic Urinalysis Comment CULT NOT INDICATED MDM Medical Decision Making Medical Screen Exam Complete: Yes Emergency Medical Condition: Yes Medical Record Reviewed: Yes (past history confirmed) Interpretation(s) CBC & BMP Diagram 10/13/17 09:05 Total Protein 7.5, Albumin 3.9, Calcium Level 10.9 H, Phosphorus Level 2.6, Magnesium Level 2.1, Alkaline Phosphatase 42 L, Aspartate Amino Transf (AST/SGOT ) 24, Alanine Aminotransferase (ALT/SGPT) 20, Total Bilirubin 1.5 H Last [address] 10/13/17 0000 Signed Impressions: Service Date/Time: Friday, October 13, 2017 09:15 - CONCLUSION: 1. 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 2. Mild periventricular and subcortical white matter small vessel ischemic changes bilaterally. 3. No acute infarct, acute hemorrhage, mass effect or extra axial fluid collections. Francesco Ramos MD Chest X-Ray 10/13/17 0000 Signed Impressions: Service Date/Time: Friday, October 13, 2017 09:32 - CONCLUSION: No acute disease. Francesco Ramos MD Differential Diagnosis Fracture, bleed, anemia, renal failure, UTI Narrative Course Will check blood work, imaging and monitor Lab work shows mild signs of dehydration. No traumatic findings on workup. Concern is for patient living at home by herself without a primary care physician and at risk for fall again. Try to get patient up to ambulate again and she states she was dizzy and was able to ambulate with assistance. She agrees to observation for further care. Physician Communication Physician Communication dr obrien agrees to admit Diagnosis Primary Impression: Weakness Additional Impression: Fall Qualified Codes: W19.XXXA - Unspecified fall, initial encounter Admitting Information Admitting Physician Requests: Observation Avelina Jon MD Oct 13, 2017 09:08
[2017-10-13 09:12] LABS: AUTOMATED NEUTROPHIL # 3.4 TH/MM3 (1.8-7.7); BASOPHIL % 0.6 % (0.0-2.0); EOSINOPHIL # 0.1 TH/MM3 (0-0.4); EOSINOPHIL % 1.1 % (0.0-4.0); HEMATOCRIT 42.2 % (35.0-46.0); HEMOGLOBIN 14.2 GM/DL (11.6-15.3); LYMPHOCYTE # 1.3 TH/MM3 (1.0-4.8); MEAN CELL VOLUME 85.7 FL (80.0-100.0); MEAN CORPUSCULAR HEMOGLOBIN 28.8 PG (27.0-34.0); MEAN CORPUSCULAR HGB CONC 33.6 % (32.0-36.0); MEAN PLATELET VOLUME 9.3 FL (7.0-11.0); MONO % 8.9 % (0.0-8.0); MONOCYTE # 0.5 TH/MM3 (0-0.9); NEUT % 64.4 % (16.0-70.0); PLATELET COUNT 179 TH/MM3 (150-450); RED BLOOD COUNT 4.93 MIL/MM3 (4.00-5.30); RED CELL DISTRIBUTION WIDTH 14.9 % (11.6-17.2); WHITE BLOOD COUNT 5.3 TH/MM3 (4.0-11.0)
[2017-10-13 09:29] LABS: INTERNATIONAL NORMALIZED RATIO 1.1 RATIO; PROTHROMBIN TIME - PATIENT 11.1 SEC (9.8-11.6)
[2017-10-13 09:33] LABS: ALT (GPT) 20 U/L (10-53); PHOSPHORUS 2.6 MG/DL (2.5-4.9)
[2017-10-13 09:42] LABS: ALBUMIN 3.9 GM/DL (3.4-5.0); ALKALINE PHOSPHATASE 42 U/L (45-117); BICARBONATE 20.3 MEQ/L (21.0-32.0); BLOOD UREA NITROGEN 23 MG/DL (7-18); CALCIUM 10.9 MG/DL (8.5-10.1); CHLORIDE 108 MEQ/L (98-107); CREATININE 1.05 MG/DL (0.50-1.00); GLOMERULAR FILTRATION RATE 53 ML/MIN (>89); GLUCOSE,RANDOM 90 MG/DL (74-106); SODIUM (NA) 144 MEQ/L (136-145); TOTAL BILIRUBIN ADULT 1.5 MG/DL (0.2-1.0); TOTAL PROTEIN 7.5 GM/DL (6.4-8.2); TROPONIN I LESS THAN 0.02 NG/ML (0.02-0.05)
[2017-10-13 09:43] LABS: AST (GOT) 24 U/L (15-37); MAGNESIUM 2.1 MG/DL (1.5-2.5)
--- NOTE | 2017-10-13 09:51 | RADRPT ---
EXAM DATE/TIME: 10/13/2017 09:15 [facility] COMPARISON: CT BRAIN W/O CONTRAST, April 30, 2017, 15:22. INDICATIONS : Fall yesterday, right forehead hematoma. RADIATION DOSE: 56.35 CTDIvol (mGy) MEDICAL HISTORY : Stroke. SURGICAL HISTORY : Tonsillectomy. ENCOUNTER: Initial ACUITY: 1 day PAIN SCALE: 0/10 LOCATION: Bilateral head TECHNIQUE: Multiple contiguous axial images were obtained of the head. Using automated exposure control and adj ustment of the mA and/or kV according to patient size, radiation dose was kept as low as reasonably a chievable to obtain optimal diagnostic quality images. DICOM format image data is available electro nically for review and comparison. FINDINGS: CEREBRUM: An old infarct involving the right frontoparietal region is stable. Mild periventricular and subcorti andrew white matter small vessel ischemic changes are noted bilaterally. There is no acute infarct, acut e hemorrhage, mass effect or extra-axial fluid collections. POSTERIOR FOSSA: The cerebellum and brainstem are intact. The 4th ventricle is midline. The cerebellopontine angle i s unremarkable. EXTRACRANIAL: The visualized portion of the orbits is intact. SKULL: The calvaria is intact. No evidence of skull fracture. CONCLUSION: 1. 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 2. Mild periventricular and subcortical white matter small vessel ischemic changes bilaterally. 3. No acute infarct, acute hemorrhage, mass effect or extra axial fluid collections. Francesco Ramos MD on October 13, 2017 at 9:46 Board Certified Radiologist. This report was verified electronically.
--- NOTE | 2017-10-13 09:52 | RADRPT ---
EXAM DATE/TIME: 10/13/2017 09:32 [facility] COMPARISON: CHEST SINGLE AP, May 03, 2017, 16:41. INDICATIONS : Shortness of breath post fall. MEDICAL HISTORY : Stroke. SURGICAL HISTORY : Tonsillectomy. ENCOUNTER: Initial ACUITY: 1 day PAIN SCORE: 0/10 LOCATION: Bilateral chest FINDINGS: A single view of the chest demonstrates the lungs to be symmetrically aerated without evidence of mas s, infiltrate or effusion. The cardiomediastinal contours are unremarkable. Osseous structures are intact. CONCLUSION: No acute disease. Francesco Ramos MD on October 13, 2017 at 9:49 Board Certified Radiologist. This report was verified electronically.
[2017-10-13] MEDS ORDERED: SODIUM CHLORID 0.9% 500 ML INJ 500 ML IV ONE (10:00)
[2017-10-13 11:20] VITALS: BP 159/61; PULSE 107; RESP 18; O2SAT 100
[2017-10-13 11:28] LABS: BILIRUBIN, URINE NEG (NEG); BLOOD, URINE NEG (NEG); GLUCOSE,URINE NEG (NEG); HYALINE CAST, URINE 3 /lpf (RARE); KETONE, URINE 80 mg/dL (NEG); MUCUS URINE FEW /lpf (OCC); NITRITE,URINE NEG (NEG); URINE COLOR YELLOW (YELLW/STRAW); URINE LEUKOCYTE ESTERASE NEG (NEG)
[2017-10-13] MEDS ORDERED: LACTULOSE SYRUP 20 GM/30 ML CUP PO PRN (14:30)
[2017-10-13] MEDS ORDERED: NS + KCL 20 MEQ INJ 1,000 ML IV SCH (14:30)
[2017-10-13] MEDS ORDERED: ACETAMINOPHEN 325 MG TAB PO PRN (14:30)
[2017-10-13] MEDS ORDERED: ONDANSETRON HCL 4 MG/2 ML VIAL IVP PRN (14:30)
[2017-10-13] MEDS ORDERED: SENNOSIDES 8.6 MG TAB PO PRN (14:30)
[2017-10-13] MEDS ORDERED: MAGNESIUM HYDROXIDE SUSP 30 ML CUP PO PRN (14:30)
[2017-10-13] MEDS ORDERED: BISACODYL 10 MG SUPP RECTAL PRN (14:30)
[2017-10-13] MEDS ORDERED: NALOXONE HCL 0.4 MG/ML AMP IV PUSH PRN (14:30)
--- NOTE | 2017-10-13 14:32 | HHI.HP ---
[facility] No Primary Care Physician Admission Diagnosis weakness, fall Diagnoses: (1) Dehydration (2) Weakness (3) Fall Chief Complaint: Fall Travel History International Travel<30 Days: No Contact w/Intl Traveler <30 Da: No Traveled to Known Affected Are: No History of Present Illness It is a 67-year-old female with past history of CVA who presented to the emergency department with altered mental status. She states that she fell yesterday. She denies any lightheadedness or dizziness. Denies loss of consciousness. She states "I just tripped". She did hit her head and has a contusion on the right forehead. She denies vision changes, headache. No chest pain or dyspnea. States that she feels "dehydrated". She apparently has not been eating well for the past week or so. Denies abdominal pain, nausea, vomiting. Review of Systems Constitutional: DENIES: Fever, Chills, Night Sweats Eyes: DENIES: Blurred vision, Vision loss Ears, nose, mouth, throat: DENIES: Hearing loss Respiratory: DENIES: Cough, Wheezing, Sputum production, Shortness of breath Cardiovascular: DENIES: Chest pain, Palpitations, Dyspnea on Exertion, Lower Extremity Edema Gastrointestinal: DENIES: Abdominal pain, Constipation, Diarrhea, Nausea, Vomiting Genitourinary: DENIES: Urinary frequency, Urinary incontinence, Urgency, Hematuria, Dysuria, Nocturia Musculoskeletal: DENIES: Joint pain, Muscle aches Integumentary: DENIES: Pruritus, Rash Hematologic/lymphatic: DENIES: Bruising Neurologic: DENIES: Headache Past Family Social History Past Medical History CVA Bipolar disorder Past Surgical History Tonsillectomy at age 17 Reported Medications Flagyl Allergies: Coded Allergies: penicillin G (Unverified Allergy, Severe, 05/22/17) ibuprofen (Unverified Allergy, Mild, 05/22/17) Family History Father of an aneurysm. Mother had COPD. Social History Denies alcohol, tobacco, or illicit drug use. Physical Exam Vital Signs Vital Signs Date Time Temp Pulse Resp B/P (MAP) Pulse Ox O2 Delivery O2 Flow Rate FiO2 10/13/17 11:20 107 18 159/61 (93) 100 Room Air 10/13/17 09:03 18 100 Room Air 10/13/17 09:03 105 18 100 Room Air 10/13/17 09:03 97.8 109 18 115/77 (90) 100 Room Air Physical Exam GENERAL: Elderly female in no acute distress. HEENT: Normocephalic, atraumatic. Pupils equal, round and reactive. Extraocular movements intact. No scleral icterus. No injection or drainage. Oropharynx is clear. Mucous membranes are somewhat dry. There is contusion and swelling over the right forehead. CARDIOVASCULAR: Regular rate and rhythm without murmurs, gallops, or rubs. RESPIRATORY: Clear to auscultation. No wheezes, rales, or rhonchi. Breathing is non-labored. GASTROINTESTINAL: Abdomen soft, non-tender, nondistended. EXTREMITIES: No lower extremity edema. No calf tenderness. PSYCH: Alert and oriented x 3. Laboratory Laboratory Tests Test 10/13/17 09:05 10/13/17 11:09 White Blood Count 5.3 Red Blood Count 4.93 Hemoglobin 14.2 Hematocrit 42.2 Mean Corpuscular Volume 85.7 Mean Corpuscular Hemoglobin 28.8 Mean Corpuscular Hemoglobin Concent 33.6 Red Cell Distribution Width 14.9 Platelet Count 179 Mean Platelet Volume 9.3 Neutrophils (%) (Auto) 64.4 Lymphocytes (%) (Auto) 25.0 Monocytes (%) (Auto) 8.9 Eosinophils (%) (Auto) 1.1 Basophils (%) (Auto) 0.6 Neutrophils # (Auto) 3.4 Lymphocytes # (Auto) 1.3 Monocytes # (Auto) 0.5 Eosinophils # (Auto) 0.1 Basophils # (Auto) 0.0 CBC Comment DIFF FINAL Differential Comment Prothrombin Time 11.1 Prothromb Time International Ratio 1.1 Activated Partial Thromboplast Time 20.1 Blood Urea Nitrogen 23 Creatinine 1.05 Random Glucose 90 Total Protein 7.5 Albumin 3.9 Calcium Level 10.9 Phosphorus Level 2.6 Magnesium Level 2.1 Alkaline Phosphatase 42 Aspartate Amino Transf (AST/SGOT) 24 Alanine Aminotransferase (ALT/SGPT) 20 Total Bilirubin 1.5 Sodium Level 144 Potassium Level 3.8 Chloride Level 108 Carbon Dioxide Level 20.3 Anion Gap 16 Estimat Glomerular Filtration Rate 53 Total Creatine Kinase 88 Troponin I LESS THAN 0.02 Urine Color YELLOW Urine Turbidity CLEAR Urine pH 6.0 Urine Specific [place] 1.013 Urine Protein TRACE Urine Glucose (UA) NEG Urine Ketones 80 Urine Occult Blood NEG Urine Nitrite NEG Urine Bilirubin NEG Urine Urobilinogen LESS THAN 2.0 Urine Leukocyte Esterase NEG Urine RBC LESS THAN 1 Urine WBC LESS THAN 1 Urine Hyaline Casts 3 Urine Mucus FEW Microscopic Urinalysis Comment CULT NOT INDICATED Result Diagram: 10/13/1790410/13/17904 Imaging Last Impressions Head CT 10/13/17 0000 Signed Impressions: Service Date/Time: Friday, October 13, 2017 09:15 - CONCLUSION: 1. 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 2. Mild periventricular and subcortical white matter small vessel ischemic changes bilaterally. 3. No acute infarct, acute hemorrhage, mass effect or extra axial fluid collections. Francesco Ramos MD Chest X-Ray 10/13/17 0000 Signed Impressions: Service Date/Time: Friday, October 13, 2017 09:32 - CONCLUSION: No acute disease. Francesco Ramos MD Caprini VTE Risk Assessment Caprini VTE Risk Assessment: Mod/High Risk (score >= 2) Caprini Risk Assessment Model Point Value = 1 Point Value = 2 Point Value = 3 Point Value = 5 Age 41-60 Minor surgery BMI > 25 kg/m2 Swollen legs Varicose veins or History of unexplained or recurrent spontaneous Oral contraceptives or hormone replacement Sepsis (< 1 month) Serious lung disease, including pneumonia (< 1 month) Abnormal pulmonary function Acute myocardial infarction Congestive heart failure (< 1 month) History of inflammatory bowel disease Medical patient at bed rest Age 61-74 Arthroscopic surgery Major open surgery (> 45 min) Laparoscopic surgery (> 45 min) Malignancy Confined to bed (> 72 hours) Immobilizing plaster cast Central venous access Age >= 75 History of VTE Family history of VTE Factor V Leiden Prothrombin [id number] Lupus anticoagulant Anticardiolipin antibodies Elevated serum homocysteine Heparin-induced thrombocytopenia Other congenital or acquired thrombophilia Stroke (< 1 month) Elective arthroplasty Hip, pelvis, or leg fracture Acute spinal cord injury (< 1 month) Prophylaxis Regimen Total Risk Factor Score Risk Level Prophylaxis Regimen 0-1 Low Early ambulation 2 Moderate Order ONE of the following: *Sequential Compression Device (SCD) *Heparin 5000 units SQ BID 3-4 Higher Order ONE of the following medications: *Heparin 5000 units SQ TID *Enoxaparin/Lovenox 40 mg SQ daily (WT < 150 kg, CrCl > 30 mL/min) *Enoxaparin/Lovenox 30 mg SQ daily (WT < 150 kg, CrCl > 10-29 mL/min) *Enoxaparin/Lovenox 30 mg SQ BID (WT < 150 kg, CrCl > 30 mL/min) AND/OR *Sequential Compression Device (SCD) 5 or more Highest Order ONE of the following medications: *Heparin 5000 units SQ TID (Preferred with Epidurals) *Enoxaparin/Lovenox 40 mg SQ daily (WT < 150 kg, CrCl > 30 mL/min) *Enoxaparin/Lovenox 30 mg SQ daily (WT < 150 kg, CrCl > 10-29 mL/min) *Enoxaparin/Lovenox 30 mg SQ BID (WT < 150 kg, CrCl > 30 mL/min) AND *Sequential Compression Device (SCD) Assessment and Plan Assessment and Plan 1. Fall, head injury: CT of the head shows no acute injury. Physical therapy eval. 2. Mild dehydration: Continue gentle IV fluid hydration. Monitor labs. 3. History of CVA: The patient's description of this episode does not sound like CVA, as she states that it was a mechanical trip and fall. Will monitor neuro checks. CT of the head is negative for acute changes. 4. Acute kidney injury: BUN and creatinine are slightly elevated over patient's baseline. Continue gentle IV fluid hydration. Recheck labs in the morning. 5. DVT prophylaxis: Heparin. Problem Qualifiers (1) Fall: Qualified Codes: W19.XXXA - Unspecified fall, initial encounter Shaquille Kinsey MD Oct 13, 2017 14:32
[2017-10-13] MEDS: HEPARIN SODIUM - SQ 10,000 UNITS/ML VIAL SQ SCH (19:08)
[2017-10-13 20:25] VITALS: BP 109/65; PULSE 112; RESP 16; TEMP 97.9; O2SAT 97
[2017-10-13] MEDS: DOCUSATE SODIUM 50 MG/SENNA 8.6 MG TAB PO SCH (21:00)
[2017-10-13 21:49] VITALS: O2SAT 98
[2017-10-14] VITALS (7 sets, daily range): BP systolic 117–152; BP diastolic 55–75; PULSE 70–99; RESP 16–20; TEMP 98.2–98.6; O2SAT 96–98
[2017-10-14] MEDS: HEPARIN SODIUM - SQ 10,000 UNITS/ML VIAL SQ SCH ×2 (03:00→15:16)
[2017-10-14 06:27] LABS: CALCIUM 9.7 MG/DL (8.5-10.1)
[2017-10-14] MEDS ORDERED: POTASSIUM CHLORIDE 10 MEQ CAP PO ONE (06:45)
[2017-10-14] MEDS ORDERED: POTASSIUM CHLOR 20 MEQ PREMIX 100 ML IV ONE (07:45)
[2017-10-14 07:49] LABS: MAGNESIUM 1.9 MG/DL (1.5-2.5)
--- NOTE | 2017-10-14 08:54 | HHI.PR ---
Subjective Remarks in no acute distress. denies chest pain or sob. says that had a fair sleep last night. no new complaints. Objective Vitals Vital Signs Date Time Temp Pulse Resp B/P (MAP) Pulse Ox O2 Delivery O2 Flow Rate FiO2 10/14/17 08:21 98.5 73 18 152/55 (87) 98 10/14/17 04:27 98.5 73 16 117/60 (79) 97 10/14/17 00:43 98.2 85 18 118/75 (89) 96 10/13/17 21:49 98 10/13/17 20:25 97.9 112 16 109/65 (80) 97 10/13/17 11:20 107 18 159/61 (93) 100 Room Air 10/13/17 09:03 18 100 Room Air 10/13/17 09:03 105 18 100 Room Air 10/13/17 09:03 97.8 109 18 115/77 (90) 100 Room Air I/O 10/13/17 10/13/17 10/13/17 10/14/17 10/14/17 10/14/17 07:00 15:00 23:00 07:00 15:00 23:00 Intake Total 200 ml 300 ml Balance 200 ml 300 ml Intake Oral 200 ml 300 ml Result Diagram: 10/13/17 0905 10/14/17 0525 Imaging Last Impressions Head CT 10/13/17 0000 Signed Impressions: Service Date/Time: Friday, October 13, 2017 09:15 - CONCLUSION: 1. 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 2. Mild periventricular and subcortical white matter small vessel ischemic changes bilaterally. 3. No acute infarct, acute hemorrhage, mass effect or extra axial fluid collections. Francesco Ramos MD Chest X-Ray 10/13/17 0000 Signed Impressions: Service Date/Time: Friday, October 13, 2017 09:32 - CONCLUSION: No acute disease. Francesco Ramos MD Objective Remarks GENERAL: This is a well-nourished, well-developed patient, in no apparent distress. CARDIOVASCULAR: Regular rate and regular rhythm without murmurs, gallops, or rubs. RESPIRATORY: Clear to auscultation. Breath sounds equal bilaterally. No wheezes , rales, or rhonchi. GASTROINTESTINAL: Abdomen soft, non-tender, nondistended. Normal, active bowel sounds MUSCULOSKELETAL: Extremities without clubbing, cyanosis, or edema. NEURO: Alert & Oriented x4 to person, place, time, situation. Moves all ext x4 Medications and IVs Inpatient Medications Acetaminophen (Tylenol) 650 mg Q4H PRN PO TEMP > 100.4; Start 10/13/17 at 14:30 Bisacodyl (Dulcolax Supp) 10 mg DAILY PRN RECTAL SEVERE CONSITIPATION; Start at 14:30 Heparin Sodium (Porcine) (Heparin Inj) 5,000 units Q12H SQ Last administered on 10/14/17at 03:00; Start 10/13/17 at 15:00 Lactulose (Lactulose Liq) 30 ml DAILY PRN PO SEVERE CONSITIPATION; Start at 14:30 Magnesium Hydroxide (Milk Of Magnesia Liq) 30 ml Q12H PRN PO Mild constipation ; Start 10/13/17 at 14:30 Naloxone HCl (Narcan Inj) 0.4 mg UNSCH PRN IV PUSH SEE LABEL COMMENTS; Start at 14:30 Ondansetron HCl (Zofran Inj) 4 mg Q6H PRN IVP NAUSEA OR VOMITING; Start at 14:30 Potassium Chloride/Sodium Chloride 1,000 ml @ 42 mls/hr [id number] IV Last administered on 10/13/17at 19:09; Start 10/13/17 at 14:30 Potassium Chloride 100 ml @ 50 mls/hr BOLUS ONCE IV ; Start 10/14/17 at 07:45; Stop 10/14/17 at 09:44 Potassium Chloride (KCl) 20 meq ONCE ONCE PO Last administered on 10/14/17at 07: 35; Start 10/14/17 at 06:45; Stop 10/14/17 at 06:47; Status DC Senna/Docusate Sodium (Eden-Colace) 1 tab BID PO ; Start 10/13/17 at 21:00 Sennosides (Senokot) 17.2 mg Q12H PRN PO Moderate constipation; Start 10/13/17 at 14:30 Sodium Chloride 500 ml @ 500 mls/hr BOLUS ONCE IV Last administered on at 10:00; Start 10/13/17 at 10:00; Stop 10/13/17 at 10:59; Status DC A/P Problem List: (1) Dehydration ICD Code: E86.0 - Dehydration (2) Weakness ICD Code: R53.1 - Weakness Status: Acute (3) Fall ICD Code: W19.XXXA - Unspecified fall, initial encounter Status: Acute Assessment and Plan 1. Fall, head injury: CT of the head shows no acute injury. Physical therapy eval. 2. Mild dehydration: Continue gentle IV fluid hydration. 3. History of CVA: The patient's description of this episode does not sound like CVA, as she states that it was a mechanical trip and fall. Will monitor neuro checks. CT of the head is negative for acute changes. 4. Acute kidney injury: BUN and creatinine are slightly elevated over patient's baseline. Continue gentle IV fluid hydration. 5. hypokalemia; replaced; check the level today. 6. DVT prophylaxis: Heparin. Discharge Planning pending PT evaluation. Problem Qualifiers (1) Fall: Qualified Codes: W19.XXXA - Unspecified fall, initial encounter Christos Hughes MD Oct 14, 2017 08:54
[2017-10-14] MEDS: DOCUSATE SODIUM 50 MG/SENNA 8.6 MG TAB PO SCH ×2 (09:09→20:45)
[2017-10-14] MEDS ORDERED: SERO50TA PO (12:57)
--- NOTE | 2017-10-14 13:50 | EKG ---
Date Performed: 10/13/2017 Time Performed: 09:13:34 PTAGE: 67 years EKG: SINUS TACHYCARDIA WITH FREQUENT VENTRICULAR PREMATURE COMPLEXES MODERATE ST DEPRESSION ABNO RMAL ECG PREVIOUS TRACING : 05/09/2017 16.40 Since previous tracing, the PVCs are new. Previous tracing showed PACs. ST-T changes are new. DOCTOR: Pola Centeno Interpretating Date/Time 10/14/2017 13:50:12
--- NOTE | 2017-10-14 13:53 | EKG ---
Date Performed: 10/13/2017 Time Performed: 10:10:30 PTAGE: 67 years EKG: Sinus rhythm WITH FREQUENT VENTRICULAR PREMATURE COMPLEXES MODERATE ST DEPRESSION ABNORMAL ECG PREVIOUS TRACING 10/13/17 Compared to prior tracing no significant change DOCTOR: Pola Centeno Interpretating Date/Time 10/14/2017 13:52:19
--- NOTE | 2017-10-14 13:53 | EKG ---
Date Performed: 10/13/2017 Time Performed: 09:20:35 PTAGE: 67 years EKG: Sinus tachycardia with frequent PVCs in a bigeminal pattern Diffuse nonspecific ST-T wave c hange PREVIOUS TRACING : 10/13/2017 09.13 Since previous tracing, no significant change. DOCTOR: Pola Centeno Interpretating Date/Time 10/16/2017 08:16:36
--- NOTE | 2017-10-14 15:15 | HHI.DCPOC ---
Discharge Care Plan Diagnosis: (1) Dehydration (2) Weakness (3) Fall (4) Acute kidney injury (5) Hypokalemia Goals to Promote Your Health * To prevent worsening of your condition and complications * To maintain your health at the optimal level Directions to Meet Your Goals Increase fluid intake Take your medications as prescribed Follow your dietary instruction Follow activity as directed Keep your appointments as scheduled Take your immunizations and boosters as scheduled If your symptoms worsen call your PCP, if no PCP go to Urgent Care Center or Emergency Room Smoking is Dangerous to Your Health. Avoid second hand smoke Call the 24-hour hour crisis hotline for domestic abuse at Chelle Lopez Oct 14, 2017 15:15
[2017-10-14] MEDS: POTASSIUM CHLORIDE 10 MEQ CONTROLLED RELEASE TAB PO SCH ×2 (17:40→20:45)
[2017-10-14] MEDS: SODIUM CHLOR 0.9% 1000 ML INJ 1,000 ML IV SCH (18:44)
[2017-10-15] VITALS: BP 141/71; PULSE 89; RESP 18; TEMP 97.9; O2SAT 98
[2017-10-15] MEDS: HEPARIN SODIUM - SQ 10,000 UNITS/ML VIAL SQ SCH (03:00)
[2017-10-15 04:00] VITALS: BP 170/81; PULSE 89; RESP 17; TEMP 97.6; O2SAT 96
[2017-10-15] MEDS: SODIUM CHLOR 0.9% 1000 ML INJ 1,000 ML IV SCH (06:20)
[2017-10-15 07:30] VITALS: PULSE 84
[2017-10-15 07:45] LABS: BICARBONATE 26.3 MEQ/L (21.0-32.0); CALCIUM 9.6 MG/DL (8.5-10.1); CREATININE 0.93 MG/DL (0.50-1.00)
[2017-10-15 08:00] VITALS: BP 135/77; PULSE 95; RESP 18; TEMP 97.5; O2SAT 99
--- NOTE | 2017-10-15 08:51 | HHI.PR ---
Subjective Remarks in no acute distress. denies pain. d/w the RN and no acute issues over night. Objective Vitals Vital Signs Date Time Temp Pulse Resp B/P (MAP) Pulse Ox O2 Delivery O2 Flow Rate FiO2 10/15/17 08:00 97.5 95 18 135/77 (96) 99 10/15/17 04:00 97.6 89 17 170/81 (110) 96 10/15/17 00:00 97.9 89 18 141/71 (94) 98 10/14/17 16:10 98.2 70 18 122/60 (80) 10/14/17 15:25 88 10/14/17 12:54 98.6 99 20 119/69 (86) 96 I/O 10/14/17 10/14/17 10/14/17 10/15/17 10/15/17 10/15/17 07:00 15:00 23:00 07:00 15:00 23:00 Intake Total 300 ml 240 ml 300 ml 700 ml Balance 300 ml 240 ml 300 ml 700 ml Intake Oral 300 ml 240 ml 300 ml 300 ml IV Total 400 ml # Voids 1 Result Diagram: 10/13/17 0905 10/15/17 0557 Imaging Last Impressions Head CT 10/13/17 0000 Signed Impressions: Service Date/Time: Friday, October 13, 2017 09:15 - CONCLUSION: 1. 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 2. Mild periventricular and subcortical white matter small vessel ischemic changes bilaterally. 3. No acute infarct, acute hemorrhage, mass effect or extra axial fluid collections. Francesco Ramos MD Chest X-Ray 10/13/17 0000 Signed Impressions: Service Date/Time: Friday, October 13, 2017 09:32 - CONCLUSION: No acute disease. Francesco Ramos MD Objective Remarks GENERAL: This is a well-nourished, well-developed patient, in no apparent distress. CARDIOVASCULAR: Regular rate and regular rhythm without murmurs, gallops, or rubs. RESPIRATORY: Clear to auscultation. Breath sounds equal bilaterally. No wheezes , rales, or rhonchi. GASTROINTESTINAL: Abdomen soft, non-tender, nondistended. Normal, active bowel sounds MUSCULOSKELETAL: Extremities without clubbing, cyanosis, or edema. NEURO: Alert & Oriented x4 to person, place, time, situation. Moves all ext x4 Medications and IVs Inpatient Medications Acetaminophen (Tylenol) 650 mg Q4H PRN PO TEMP > 100.4; Start 10/13/17 at 14:30 Bisacodyl (Dulcolax Supp) 10 mg DAILY PRN RECTAL SEVERE CONSITIPATION; Start at 14:30 Heparin Sodium (Porcine) (Heparin Inj) 5,000 units Q12H SQ Last administered on 10/14/17at 15:16; Start 10/13/17 at 15:00 Lactulose (Lactulose Liq) 30 ml DAILY PRN PO SEVERE CONSITIPATION; Start at 14:30 Magnesium Hydroxide (Milk Of Magnesia Liq) 30 ml Q12H PRN PO Mild constipation ; Start 10/13/17 at 14:30 Naloxone HCl (Narcan Inj) 0.4 mg UNSCH PRN IV PUSH SEE LABEL COMMENTS; Start at 14:30 Ondansetron HCl (Zofran Inj) 4 mg Q6H PRN IVP NAUSEA OR VOMITING; Start at 14:30 Potassium Chloride/Sodium Chloride 1,000 ml @ 42 mls/hr [id number] IV Last administered on 10/13/17at 19:09; Start 10/13/17 at 14:30; Stop 10/14/17 at 15:06; Status DC Potassium Chloride (KCl) 30 meq Q3HR PO Last administered on 10/14/17at 20:45; Start 10/14/17 at 17:00; Stop 10/14/17 at 20:01; Status DC Senna/Docusate Sodium (Eden-Colace) 1 tab BID PO Last administered on 10/14/17at 20:45; Start 10/13/17 at 21:00 Sennosides (Senokot) 17.2 mg Q12H PRN PO Moderate constipation; Start 10/13/17 at 14:30 Sodium Chloride 1,000 ml @ 75 mls/hr [id number] IV Last administered on 10/14/17at 18:44; Start 10/14/17 at 17:00 A/P Problem List: (1) Dehydration ICD Code: E86.0 - Dehydration (2) Weakness ICD Code: R53.1 - Weakness Status: Acute (3) Fall ICD Code: W19.XXXA - Unspecified fall, initial encounter Status: Acute Assessment and Plan 1. Fall, head injury: CT of the head shows no acute injury. evaluated by Physical therapy. 2. Mild dehydration: Continue gentle IV fluid hydration. 3. History of CVA: The patient's description of this episode does not sound like CVA, as she states that it was a mechanical trip and fall. Will monitor neuro checks. CT of the head is negative for acute changes. 4. Acute kidney injury: received gentle IV fluid hydration. 5. hypokalemia; replaced. 6. DVT prophylaxis: Heparin. Discharge Planning dc home today with f/u by pcp. see med list. d/w the patient and RN. Problem Qualifiers (1) Fall: Qualified Codes: W19.XXXA - Unspecified fall, initial encounter Christos Hughes MD Oct 15, 2017 08:51
[2017-10-15] MEDS: DOCUSATE SODIUM 50 MG/SENNA 8.6 MG TAB PO SCH (09:36)
[2017-10-15 12:00] VITALS: BP 131/60; PULSE 89; RESP 18; TEMP 97.6; O2SAT 99
--- NOTE | 2017-10-15 13:33 | HHI.FF ---
Face to Face Verification Diagnosis: (1) Altered mental status (2) Dehydration (3) Hypokalemia (4) Weakness (5) Fall (6) Acute kidney injury Home Health Nursing Order: Medical education Signs/symptoms of disease process Medication education-adverse effect Nursing assessment with vital signs Drive Tester Order: To Evaluate: Living conditions/environment, Support services Order: To Provide: Long range planning, Community services I have seen patient Geri Parham on 10/15/17. My clinical findings support the need for the requested home health care services because: Deconditioned w/ increased weakness Limited ability to care for self Impaired cognition/judgement High risk of falls I certify that my clinical findings support that this patient is homebound because: Impaired cognitive ability/safety Unsafe to leave home unassisted Unable to use public transportation Chelle Lopez Oct 15, 2017 13:33
== END 2017-10-15 14:58 | disposition home or self-care (01) ==
LOC: NEPE 08:38 → NEDH 13:17 → NEPHCDU 15:08
PROVIDERS: ADMIT Internal Medicine; ATTEND Internal Medicine
DX: S09.90XA Unspecified injury of head, initial encounter (principal); E86.0 Dehydration; R53.1 Weakness; N17.9 Acute kidney failure, unspecified; E87.6 Hypokalemia; R94.31 Abnormal electrocardiogram [ECG] [EKG]; W19.XXXA Unspecified fall, initial encounter; Z86.73 Personal history of transient ischemic attack (TIA), and cerebral infarction without residual deficits
CPT/HCPCS: 70450; 71045; 80048; 80053; 81001; 82550; 83735; 84100; 84132; 84484; 85025; 85610; 85730; 93005; 96361; 96365; 96366; 96372; 97161; 99285; G0378; G8987; G8988; J1644; J3480; J7030; J7040

== ENCOUNTER 2017-11-17 20:29 | Observation (INO) | payer MEDICARE, OTHER ==
[~2017-11-17] VITALS: Ht 170.2 cm; Wt 45.0 kg
[2017-11-17 20:43] VITALS: BP 131/76; PULSE 71; RESP 16; TEMP 97.6; O2SAT 100
--- NOTE | 2017-11-17 20:56 | PD ---
HPI Chief Complaint: failure to thrive Time Seen by Provider: 20:46 Travel History International Travel<30 days: No Contact w/Intl Traveler<30days: No Traveled to known affect area: No History of Present Illness HPI apparently patient had not been seen by family for at least 5 days they requested a well checkup at which time first responders found patient sitting on couch in the dark, empty fridge, and her only complaint to responders was that she was hungry. patient sherin acted and brought in for further evaluation.....patient other than asking for food, did not voice any complaint. PFSH Past Medical History Autoimmune Disease: No Anxiety: Yes Depression: Yes Cancer: No Cardiovascular Problems: No Cerebrovascular Accident: Yes (AUG 1980) Diabetes: No Diminished Hearing: No Endocrine: No Genitourinary: No Headaches: No Hepatitis: No Hiatal Hernia: No Hypertension: No Immune Disorder: No Musculoskeletal: No Neurologic: Yes (STROKE IN 1979) Psychiatric: Yes (bipolar) Reproductive: No (NO CHILDREN) Respiratory: No Migraines: No Seizures: No Sickle Cell Disease: No Thyroid Disease: No Menopausal: Yes Past Surgical History Abdominal Surgery: No Cardiac Surgery: No Ear Surgery: No Endocrine Surgery: No Eye Surgery: No Genitourinary Surgery: No Gynecologic Surgery: No Neurologic Surgery: No Oral Surgery: No Pacemaker: No Thoracic Surgery: No Tonsillectomy: Yes Other Surgery: No Social History Alcohol Use: No Tobacco Use: No Substance Use: No Allergies-Medications (Allergen,Severity, Reaction): Coded Allergies: penicillin G (Unverified Allergy, Severe, 11/17/17) ibuprofen (Unverified Allergy, Mild, 11/17/17) Reported Meds & Prescriptions Reported Meds & Active Scripts Active No Active Prescriptions or Reported Medications Review of Systems ROS Limitations: Poor Historian Except as stated in HPI: all other systems reviewed are Neg General / Constitutional: No: Fever Eyes: No: Visual changes HENT: No: Headaches Cardiovascular: No: Chest Pain or Discomfort Respiratory: No: Shortness of Breath Gastrointestinal: No: Abdominal Pain Genitourinary: No: Dysuria Musculoskeletal: No: Pain Skin: No Rash Neurologic: No: Weakness Psychiatric: No: Depression Endocrine: No: Polydipsia Hematologic/Lymphatic: No: Easy Bruising Physical Exam Exam Limitations: Poor Historian Narrative GENERAL: thin elderly female SKIN: Warm and dry. HEAD: Atraumatic. Normocephalic. posterior scalp has a healing 2cm scalp lac to posterior scalp EYES: Pupils equal and round. No scleral icterus. No injection or drainage. ENT: No nasal bleeding or discharge. dry oral mucosa NECK: Trachea midline. No JVD. CARDIOVASCULAR: Regular rate and rhythm. RESPIRATORY: No accessory muscle use. Clear to auscultation. Breath sounds equal bilaterally. GASTROINTESTINAL: Abdomen soft, non-tender, nondistended. MUSCULOSKELETAL: Extremities without clubbing, cyanosis, or edema. No obvious deformities. NEUROLOGICAL: Awake and alert. No obvious cranial nerve deficits. Motor grossly within normal limits. Five out of 5 muscle strength in the arms and legs. Normal speech. PSYCHIATRIC: Appropriate mood and affect; insight and judgment normal. Data Data Last Documented VS Orders Orders Complete Blood Count With Diff (11/17/17 20:47) Comprehensive Metabolic Panel (11/17/17 20:47) Thyroid Stimulating Hormone (11/17/17 20:47) Urinalysis - C+S If Indicated (11/17/17 20:47) Oximetry (11/17/17 20:47) Iv Access Insert/Monitor (11/17/17 20:47) Ecg Monitoring (11/17/17 20:47) Psych Screen (11/17/17 20:47) Drug Screen, Random Urine (11/17/17 20:47) Alcohol (Ethanol) (11/17/17 20:47) Salicylates (Aspirin) (11/17/17 20:47) Tylenol (Acetaminophen) (11/17/17 20:47) Sodium Chlor 0.9% 1000 Ml Inj (Ns 1000 M (11/17/17 21:00) Ct Brain W/O Iv Contrast(Rout) (11/17/17 20:48) Admit Order (Ed Use Only) (11/17/17 23:34) Consult Psychiatry (11/17/17 ) Place In Observation (11/17/17 ) Vital Signs (Adult) Q4H (11/17/17 23:34) Activity Oob With Assistance (11/17/17 23:34) Intake + Output DESIRE.QSHIFT (11/17/17 23:34) Diet Regular Basic (11/18/17 Breakfast) Sodium Chlor 0.9% 1000 Ml Inj (Ns 1000 M (11/17/17 23:34) Sodium Chloride 0.9% Flush (Ns Flush) (11/17/17 23:45) Sodium Chloride 0.9% Flush (Ns Flush) (11/18/17 09:00) Ondansetron Inj (Zofran Inj) (11/17/17 23:45) Comprehensive Metabolic Panel (11/18/17 06:00) Complete Blood Count With Diff (11/18/17 06:00) Troponin I (11/18/17 06:00) Pt Request For Service (11/17/17 23:34) Case Management Consult (11/17/17 23:34) Scd Bilateral/Knee High DESIRE.BID (11/17/17 23:34) Antonio Bilateral/Knee High DESIRE.QSHIFT (11/17/17 23:36) Acetaminophen (Tylenol) (11/17/17 23:45) Acetamin-Hydrocod 325-5 Mg ([place] 5-325 (11/17/17 23:45) Acetamin-Hydrocod 325-10 Mg ([place] 10-32 (11/17/17 23:45) Docusate Sodium-Senna (Eden-Colace) (11/18/17 09:00) Magnesium Hydroxide Liq (Milk Of Magnesi (11/17/17 23:45) Sennosides (Senokot) (11/17/17 23:45) Bisacodyl Supp (Dulcolax Supp) (11/17/17 23:45) Lactulose Liq (Lactulose Liq) (11/17/17 23:45) Labs Laboratory Tests Test 11/17/17 20:55 White Blood Count 6.1 TH/MM3 Red Blood Count 4.45 MIL/MM3 Hemoglobin 13.1 GM/DL Hematocrit 39.0 % Mean Corpuscular Volume 87.7 FL Mean Corpuscular Hemoglobin 29.3 PG Mean Corpuscular Hemoglobin Concent 33.5 % Red Cell Distribution Width 14.8 % Platelet Count 173 TH/MM3 Mean Platelet Volume 10.3 FL Neutrophils (%) (Auto) 73.6 % Lymphocytes (%) (Auto) 16.1 % Monocytes (%) (Auto) 9.6 % Eosinophils (%) (Auto) 0.1 % Basophils (%) (Auto) 0.6 % Neutrophils # (Auto) 4.5 TH/MM3 Lymphocytes # (Auto) 1.0 TH/MM3 Monocytes # (Auto) 0.6 TH/MM3 Eosinophils # (Auto) 0.0 TH/MM3 Basophils # (Auto) 0.0 TH/MM3 CBC Comment DIFF FINAL Differential Comment Blood Urea Nitrogen 33 MG/DL Creatinine 1.22 MG/DL Random Glucose 80 MG/DL Total Protein 6.7 GM/DL Albumin 3.4 GM/DL Calcium Level 10.3 MG/DL Alkaline Phosphatase 45 U/L Aspartate Amino Transf (AST/SGOT) 29 U/L Alanine Aminotransferase (ALT/SGPT) 13 U/L Total Bilirubin 1.3 MG/DL Sodium Level 138 MEQ/L Potassium Level 4.3 MEQ/L Chloride Level 102 MEQ/L Carbon Dioxide Level 17.8 MEQ/L Anion Gap 18 MEQ/L Estimat Glomerular Filtration Rate 44 ML/MIN Thyroid Stimulating Hormone 3rd Gen LESS THAN 0.005 uIU/ML Salicylates Level LESS THAN 1.7 MG/DL Acetaminophen Level LESS THAN 2.0 MCG/ML Ethyl Alcohol Level LESS THAN 3 MG/DL MDM Medical Decision Making Medical Screen Exam Complete: Yes Emergency Medical Condition: Yes Medical Record Reviewed: Yes Differential Diagnosis HYPOTHYROID V HYPERTHYROID V ICH V ANEMIA V DEHYDRATION V ELECTROLYTE ABNL Narrative Course PATIENT IS UNDER A DRAKE ACT HOLD, PRESENTLY CT HEAD NEG ICH, NO ANEMIA, NO ABNL ELECTROLYTE HOWEVER DID HAVE VERY LOW TSH C/W HYPERTHYROID Diagnosis Primary Impression: Delirium due to another medical condition Additional Impression: Hyperthyroidism Admitting Information Admitting Physician Requests: Observation Scripts No Active Prescriptions or Reported Meds Roberto Pimentel MD Nov 17, 2017 20:56
[2017-11-17] MEDS ORDERED: SODIUM CHLOR 0.9% 1000 ML INJ 1,000 ML IV ONE (21:00)
[2017-11-17 21:11] VITALS: RESP 16; O2SAT 97
--- NOTE | 2017-11-17 21:37 | RADRPT ---
EXAM DATE/TIME: 11/17/2017 21:20 [facility] COMPARISON: CT BRAIN W/O CONTRAST, October 13, 2017, 9:15. INDICATIONS : Trauma; fall. RADIATION DOSE: 35.53 CTDIvol (mGy) MEDICAL HISTORY : Stroke. SURGICAL HISTORY : None. ENCOUNTER: Initial ACUITY: 1 day PAIN SCALE: 5/10 LOCATION: cranial TECHNIQUE: Multiple contiguous axial images were obtained of the head. Using automated exposure control and adj ustment of the mA and/or kV according to patient size, radiation dose was kept as low as reasonably a chievable to obtain optimal diagnostic quality images. DICOM format image data is available electro nically for review and comparison. FINDINGS: CEREBRUM: Stable area of encephalomalacia in the right anterior suprasylvian region. Ventricles sulci and basa l cisterns are stable from prior. No evidence of acute hemorrhage, mass effect, or extra-axial fluid or blood. No evidence of acute infarct. POSTERIOR FOSSA: The cerebellum and brainstem are intact. The 4th ventricle is midline. The cerebellopontine angle i s unremarkable. EXTRACRANIAL: The visualized portion of the orbits is intact. SKULL: The calvaria is intact. No evidence of skull fracture. CONCLUSION: No acute findings in the brain. William Rodriguez MD on November 17, 2017 at 21:34 Board Certified Radiologist. This report was verified electronically.
[2017-11-17 21:54] LABS: AUTOMATED NEUTROPHIL # 4.5 TH/MM3 (1.8-7.7); BASOPHIL % 0.6 % (0.0-2.0); EOSINOPHIL % 0.1 % (0.0-4.0); HEMOGLOBIN 13.1 GM/DL (11.6-15.3); LYMPH % 16.1 % (9.0-44.0); MEAN CELL VOLUME 87.7 FL (80.0-100.0); MEAN CORPUSCULAR HEMOGLOBIN 29.3 PG (27.0-34.0); MEAN CORPUSCULAR HGB CONC 33.5 % (32.0-36.0); MEAN PLATELET VOLUME 10.3 FL (7.0-11.0); MONO % 9.6 % (0.0-8.0); MONOCYTE # 0.6 TH/MM3 (0-0.9); NEUT % 73.6 % (16.0-70.0); PLATELET COUNT 173 TH/MM3 (150-450); RED BLOOD COUNT 4.45 MIL/MM3 (4.00-5.30); RED CELL DISTRIBUTION WIDTH 14.8 % (11.6-17.2); WHITE BLOOD COUNT 6.1 TH/MM3 (4.0-11.0)
[2017-11-17 22:20] LABS: ACETAMINOPHEN LESS THAN 2.0 MCG/ML (10.0-30.0); ALBUMIN 3.4 GM/DL (3.4-5.0); ALT (GPT) 13 U/L (10-53); AST (GOT) 29 U/L (15-37); BICARBONATE 17.8 MEQ/L (21.0-32.0); BLOOD UREA NITROGEN 33 MG/DL (7-18); CALCIUM 10.3 MG/DL (8.5-10.1); CHLORIDE 102 MEQ/L (98-107); CREATININE 1.22 MG/DL (0.50-1.00); GLOMERULAR FILTRATION RATE 44 ML/MIN (>89); GLUCOSE,RANDOM 80 MG/DL (74-106); SODIUM (NA) 138 MEQ/L (136-145)
[2017-11-17 22:26] LABS: ALKALINE PHOSPHATASE 45 U/L (45-117); TOTAL BILIRUBIN ADULT 1.3 MG/DL (0.2-1.0); TOTAL PROTEIN 6.7 GM/DL (6.4-8.2)
--- NOTE | 2017-11-17 23:36 | HHI.HP ---
[facility] No Primary Care Physician Admission Diagnosis AMS, HYPERTHYROID, ALVAREZ ACT Diagnoses: (1) Encephalopathy Diagnosis: Principal (2) SAM (acute kidney injury) Diagnosis: Principal (3) Total self-care deficit Diagnosis: Principal Travel History International Travel<30 Days: No Contact w/Intl Traveler <30 Da: No Traveled to Known Affected Are: No History of Present Illness This is a 67 year old with a PMH of Anxiety, Depression, Bipolar Disorder, HTN and h/o CVA was brought to the ER under Alvarez Act after being found sitting in the dark at home. Per report, family had not heard from patient in approx 5 days, requested well-check and EMS found patient sitting on the couch in the dark complaining of being hungry. Noted to have laceration to posterior scalp, pt unable to recall events leading to injury. Pt w/o other complaints at this time. On arrival, BP 31/76, HR 71, O2 sat 100% on RA, Afebrile. CBC unremarkable. Chemistry essentially unremarkable except for and 1.22, previously 0.93 10/15/17. Alcohol negative. CT Head with no acute findings. Review of Systems Except as stated in HPI: all other systems reviewed are Neg ROS: 14 point review of systems otherwise negative. Past Family Social History Past Medical History PMH: Anxiety, Depression, Bipolar Disorder, HTN and h/o CVA Past Surgical History PAST SURGICAL HISTORY: Tonsillectomy Allergies: Coded Allergies: penicillin G (Unverified Allergy, Severe, 11/17/17) ibuprofen (Unverified Allergy, Mild, 11/17/17) Family History PAST FAMILY HISTORY: Reviewed. No h/o DM or CAD Social History PAST SOCIAL HISTORY: Negative for alcohol, tobacco or drugs. Physical Exam Vital Signs Vital Signs Date Time Temp Pulse Resp B/P (MAP) Pulse Ox O2 Delivery O2 Flow Rate FiO2 11/17/17 21:11 16 97 Room Air 11/17/17 20:43 97.6 71 16 131/76 (94) 100 Physical Exam PE: GENERAL: Middle-aged female in no acute distress. HEENT: PERRLA, EOMI. No scleral icterus or conjunctival pallor. No lid lag or facial droop. +scalp laceration CARDIOVASCULAR: Regular rate and rhythm. No obvious murmurs to auscultation. No chest tenderness to palpation. RESPIRATORY: No obvious rhonchi or wheezing. Clear to auscultation. Breath sounds equal bilaterally. GASTROINTESTINAL: Abdomen soft, non-tender, nondistended. BS normal. MUSCULOSKELETAL: Extremities without clubbing, cyanosis, or edema. No obvious deformities. NEUROLOGICAL: Awake, alert. No focal neurologic deficits. Moving both upper and lower extremities spontaneously. Laboratory Laboratory Tests Test 11/17/17 20:55 White Blood Count 6.1 Red Blood Count 4.45 Hemoglobin 13.1 Hematocrit 39.0 Mean Corpuscular Volume 87.7 Mean Corpuscular Hemoglobin 29.3 Mean Corpuscular Hemoglobin Concent 33.5 Red Cell Distribution Width 14.8 Platelet Count 173 Mean Platelet Volume 10.3 Neutrophils (%) (Auto) 73.6 Lymphocytes (%) (Auto) 16.1 Monocytes (%) (Auto) 9.6 Eosinophils (%) (Auto) 0.1 Basophils (%) (Auto) 0.6 Neutrophils # (Auto) 4.5 Lymphocytes # (Auto) 1.0 Monocytes # (Auto) 0.6 Eosinophils # (Auto) 0.0 Basophils # (Auto) 0.0 CBC Comment DIFF FINAL Differential Comment Blood Urea Nitrogen 33 Creatinine 1.22 Random Glucose 80 Total Protein 6.7 Albumin 3.4 Calcium Level 10.3 Alkaline Phosphatase 45 Aspartate Amino Transf (AST/SGOT) 29 Alanine Aminotransferase (ALT/SGPT) 13 Total Bilirubin 1.3 Sodium Level 138 Potassium Level 4.3 Chloride Level 102 Carbon Dioxide Level 17.8 Anion Gap 18 Estimat Glomerular Filtration Rate 44 Thyroid Stimulating Hormone 3rd Gen LESS THAN 0.005 Salicylates Level LESS THAN 1.7 Acetaminophen Level LESS THAN 2.0 Ethyl Alcohol Level LESS THAN 3 Result Diagram: 11/17/17205411/17/172054 Caprini VTE Risk Assessment Caprini VTE Risk Assessment: No/Low Risk (score <= 1) Caprini Risk Assessment Model Point Value = 1 Point Value = 2 Point Value = 3 Point Value = 5 Age 41-60 Minor surgery BMI > 25 kg/m2 Swollen legs Varicose veins or History of unexplained or recurrent spontaneous Oral contraceptives or hormone replacement Sepsis (< 1 month) Serious lung disease, including pneumonia (< 1 month) Abnormal pulmonary function Acute myocardial infarction Congestive heart failure (< 1 month) History of inflammatory bowel disease Medical patient at bed rest Age 61-74 Arthroscopic surgery Major open surgery (> 45 min) Laparoscopic surgery (> 45 min) Malignancy Confined to bed (> 72 hours) Immobilizing plaster cast Central venous access Age >= 75 History of VTE Family history of VTE Factor V Leiden Prothrombin [id number] Lupus anticoagulant Anticardiolipin antibodies Elevated serum homocysteine Heparin-induced thrombocytopenia Other congenital or acquired thrombophilia Stroke (< 1 month) Elective arthroplasty Hip, pelvis, or leg fracture Acute spinal cord injury (< 1 month) Prophylaxis Regimen Total Risk Factor Score Risk Level Prophylaxis Regimen 0-1 Low Early ambulation 2 Moderate Order ONE of the following: *Sequential Compression Device (SCD) *Heparin 5000 units SQ BID 3-4 Higher Order ONE of the following medications: *Heparin 5000 units SQ TID *Enoxaparin/Lovenox 40 mg SQ daily (WT < 150 kg, CrCl > 30 mL/min) *Enoxaparin/Lovenox 30 mg SQ daily (WT < 150 kg, CrCl > 10-29 mL/min) *Enoxaparin/Lovenox 30 mg SQ BID (WT < 150 kg, CrCl > 30 mL/min) AND/OR *Sequential Compression Device (SCD) 5 or more Highest Order ONE of the following medications: *Heparin 5000 units SQ TID (Preferred with Epidurals) *Enoxaparin/Lovenox 40 mg SQ daily (WT < 150 kg, CrCl > 30 mL/min) *Enoxaparin/Lovenox 30 mg SQ daily (WT < 150 kg, CrCl > 10-29 mL/min) *Enoxaparin/Lovenox 30 mg SQ BID (WT < 150 kg, CrCl > 30 mL/min) AND *Sequential Compression Device (SCD) Assessment and Plan Problem List: (1) Encephalopathy ICD Code: G93.40 - Encephalopathy, unspecified (2) SAM (acute kidney injury) ICD Code: N17.9 - Acute kidney failure, unspecified (3) Total self-care deficit ICD Code: R41.89 - Other symptoms and signs involving cognitive functions and awareness Assessment and Plan A/P: 1. Encephalopathy: found sitting on the couch in the dark, family hadn't heard from patient in 5 days, +posterior scalp wound likely from fall. Currently under Alvarez Act, will consult Psych. CT Head w/ no acute findings, images reviewed by me. Neuro checks. Check Urine Drug Screen and U/a, currently pending. 2. SAM: Creatinine 1.22, previously 0.93 and 10/15/17. UA pending. IVF for hydration, repeat labs in am. 3. Total Self Care Deficit: Pt unable to care for self at this time, found without food/water at home, evidence of recent fall w/ head injury. PT for eval /tx. Social work to assist w/ placement as needed. 4. DVT Prophylaxis: SCD/teds. 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 6. Case discussed at length with ER physician. Labs/records/imaging reviewed by me. Magalys Romero MD Nov 17, 2017 23:36
[2017-11-17] MEDS ORDERED: MAGNESIUM HYDROXIDE SUSP 30 ML CUP PO PRN (23:45)
[2017-11-17] MEDS ORDERED: ACETAMINOPHEN 325 MG TAB PO PRN (23:45)
[2017-11-17] MEDS ORDERED: BISACODYL 10 MG SUPP RECTAL PRN (23:45)
[2017-11-17] MEDS ORDERED: ACETAMINOPHEN/HYDROcodone 325 MG/10 MG TAB PO PRN (23:45)
[2017-11-17] MEDS ORDERED: LACTULOSE SYRUP 20 GM/30 ML CUP PO PRN (23:45)
[2017-11-17] MEDS ORDERED: ACETAMINOPHEN/HYDROcodone 325 MG/5 MG TAB PO PRN (23:45)
[2017-11-17] MEDS ORDERED: ONDANSETRON HCL 4 MG/2 ML VIAL IVP PRN (23:45)
[2017-11-17] MEDS ORDERED: SENNOSIDES 8.6 MG TAB PO PRN (23:45)
[2017-11-17] MEDS ORDERED: SODIUM CHLORIDE 0.9% FLUSH 10 ML FLUSH IV FLUSH PRN (23:45)
[2017-11-18 00:17] LABS: BILIRUBIN, URINE NEG (NEG); BLOOD, URINE NEG (NEG); GLUCOSE,URINE NEG (NEG); HYALINE CAST, URINE 3 /lpf (RARE); KETONE, URINE 80 mg/dL (NEG); MUCUS URINE FEW /lpf (OCC); NITRITE,URINE NEG (NEG); SQUAMOUS EPITHELIAL CELL URINE 1 /hpf (0-5); URINE COLOR YELLOW (YELLW/STRAW); URINE LEUKOCYTE ESTERASE MOD (NEG)
[2017-11-18] MEDS: SODIUM CHLOR 0.9% 1000 ML INJ 1,000 ML IV SCH ×2 (00:26→11:22)
[2017-11-18 00:33] VITALS: BP 113/60; PULSE 88; RESP 17; TEMP 97.8; O2SAT 98
[2017-11-18 03:32] VITALS: BP 95/52; PULSE 68; RESP 18; TEMP 97.9; O2SAT 99
[2017-11-18 06:13] VITALS: BP 194/81; PULSE 66; RESP 16; O2SAT 94
[2017-11-18 07:07] VITALS: BP 98/57; PULSE 79; RESP 18; TEMP 97.5; O2SAT 100
[2017-11-18 07:33] LABS: AUTOMATED NEUTROPHIL # 3.3 TH/MM3 (1.8-7.7); BASOPHIL % 0.4 % (0.0-2.0); EOSINOPHIL # 0.1 TH/MM3 (0-0.4); EOSINOPHIL % 1.3 % (0.0-4.0); HEMATOCRIT 35.5 % (35.0-46.0); HEMOGLOBIN 12.1 GM/DL (11.6-15.3); LYMPH % 22.7 % (9.0-44.0); LYMPHOCYTE # 1.2 TH/MM3 (1.0-4.8); MEAN CORPUSCULAR HEMOGLOBIN 29.6 PG (27.0-34.0); MEAN PLATELET VOLUME 9.7 FL (7.0-11.0); MONO % 13.6 % (0.0-8.0); MONOCYTE # 0.7 TH/MM3 (0-0.9); PLATELET COUNT 144 TH/MM3 (150-450); RED BLOOD COUNT 4.08 MIL/MM3 (4.00-5.30); WHITE BLOOD COUNT 5.3 TH/MM3 (4.0-11.0)
[2017-11-18 08:07] LABS: ALBUMIN 2.9 GM/DL (3.4-5.0); ALKALINE PHOSPHATASE 44 U/L (45-117); ALT (GPT) 11 U/L (10-53); AST (GOT) 17 U/L (15-37); BICARBONATE 24.6 MEQ/L (21.0-32.0); BLOOD UREA NITROGEN 28 MG/DL (7-18); CALCIUM 8.7 MG/DL (8.5-10.1); CHLORIDE 109 MEQ/L (98-107); CREATININE 0.97 MG/DL (0.50-1.00); GLOMERULAR FILTRATION RATE 58 ML/MIN (>89); GLUCOSE,RANDOM 125 MG/DL (74-106); SODIUM (NA) 144 MEQ/L (136-145); TOTAL BILIRUBIN ADULT 0.8 MG/DL (0.2-1.0); TOTAL PROTEIN 5.8 GM/DL (6.4-8.2); TROPONIN I 0.08 NG/ML (0.02-0.05)
[2017-11-18] MEDS ORDERED: SODIUM CHLORIDE 0.9% FLUSH 10 ML FLUSH IV FLUSH SCH (09:00)
[2017-11-18] MEDS ORDERED: DOCUSATE SODIUM 50 MG/SENNA 8.6 MG TAB PO SCH (09:00)
[2017-11-18] MEDS ORDERED: CIPROFLOXACIN 400 MG PREMIX 200 ML IV SCH (09:00)
--- NOTE | 2017-11-18 09:54 | HHI.PR ---
Subjective Remarks Follow up for Alvarez Act, self care deficit, SAM, UTI. The patient is seen sitting upright in bed, eating breakfast. She states she feels better today. She states over the past week she has been feeling depressed and hasn't been eating. She denies any fever/chills, abdominal pain, nausea/vomiting, or diarrhea. Discussed her abnormal urinalysis, patient denies any dysuria, suprapubic pain, or increased urinary frequency/urgency. Patient states she does not take any medications on a regular basis. She has never been told she has any problems with her thyroid. She denies any chest pain or palpitations. She has no other medical complaints at this time. Objective Vitals Vital Signs Date Time Temp Pulse Resp B/P (MAP) Pulse Ox O2 Delivery O2 Flow Rate FiO2 11/18/17 07:07 97.5 79 18 98/57 (71) 100 11/18/17 03:32 97.9 68 18 95/52 (66) 99 11/18/17 00:33 97.8 88 17 113/60 (77) 98 11/17/17 21:11 16 97 Room Air 11/17/17 20:43 97.6 71 16 131/76 (94) 100 I/O 11/17/17 11/17/17 11/17/17 11/18/17 11/18/17 11/18/17 07:00 15:00 23:00 07:00 15:00 23:00 Intake Total 591 ml Balance 591 ml Intake Oral 591 ml # Voids 1 Result Diagram: 11/18/1708 11/18/17707 Imaging Last Impressions Head CT 11/17/172047 Signed Impressions: Service Date/Time: Friday, November 17, 2017 21:20 - CONCLUSION: No acute findings in the brain. William Rodriguez MD Objective Remarks GENERAL: Thin, cachectic appearing female patient in NAD. SKIN: Warm and dry. No rash. Posterior scalp with healing 2cm laceration; no active bleeding. HEENT: Normocephalic. Atraumatic. Pupils equal and round. Mucous membranes slightly dry. NECK: Supple. Trachea midline. CARDIOVASCULAR: Regular rate and rhythm. S1, S2 noted. No murmur appreciated. RESPIRATORY: No accessory muscle use. Clear to auscultation. Breath sounds equal bilaterally. GASTROINTESTINAL: Abdomen soft, non-tender, nondistended. Normoactive bowel sounds x4. MUSCULOSKELETAL: No obvious deformities. Extremities without clubbing, cyanosis , or edema. NEUROLOGICAL: Awake and alert. No obvious cranial nerve deficits. Motor grossly within normal limits. 5/5 muscle strength in bilateral upper and lower extremities. Normal speech. PSYCHIATRIC: Depressed mood; insight and judgment normal. Medications and IVs Current Medications Medications (Trade) Dose Ordered Sig/Ananth Route Start Time Stop Time Status Last Admin Sodium Chloride 1,000 ml @ 100 mls/hr Q10H IV 11/17/17 23:34 11/18/17 00:26 (NS Flush) 2 ml UNSCH PRN IV FLUSH 11/17/17 23:45 (NS Flush) 2 ml BID IV FLUSH 11/18/17 09:00 (Zofran Inj) 4 mg Q6H PRN IVP 11/17/17 23:45 (Tylenol) 650 mg Q6H PRN PO 11/17/17 23:45 ([place] 5-325 Mg) 1 tab Q4H PRN PO 11/17/17 23:45 ([place] 10-325 Mg) 1 tab Q4H PRN PO 11/17/17 23:45 (Eden-Colace) 1 tab BID PO 11/18/17 09:00 (Milk Of Magnesia Liq) 30 ml Q12H PRN PO 11/17/17 23:45 (Senokot) 17.2 mg Q12H PRN PO 11/17/17 23:45 (Dulcolax Supp) 10 mg DAILY PRN RECTAL 11/17/17 23:45 (Lactulose Liq) 30 ml DAILY PRN PO 11/17/17 23:45 Ciprofloxacin/ Dextrose 200 ml @ 200 mls/hr Q12H IV 11/18/17 09:00 A/P Problem List: (1) Encephalopathy ICD Code: G93.40 - Encephalopathy, unspecified (2) SAM (acute kidney injury) ICD Code: N17.9 - Acute kidney failure, unspecified (3) Total self-care deficit ICD Code: R41.89 - Other symptoms and signs involving cognitive functions and awareness Assessment and Plan 67 year old with a PMH of Anxiety, Depression, Bipolar Disorder, HTN and h/o CVA was brought to the ER under Alvarez Act after being found sitting in the dark at home. Per report, family had not heard from patient in approx 5 days, requested well-check and EMS found patient sitting on the couch in the dark complaining of being hungry. Acute Encephalopathy: +posterior scalp wound likely from fall. -Currently under So1 Act, consulted Psych who recommends admission to inpatient psychiatry. -CT Head w/ no acute findings, images reviewed by me. -Monitor Neuro checks. -UDS negative -UA abnormal with moderate leuks, will treat for UTI and f/up with urine culture -Check Vitamin D, Vitamin B12, thiamine -TSH low, see below -Consult PT Depression: patient admits to feeling depressed recently with lack of appetite. Denies any suicidal ideations. -Psychiatry consulted as above, recommends admission to inpatient psychiatry SAM: Creatinine 1.22, previously 0.93 and 10/15/17. Suspect secondary to dehydration with recent poor oral intake. -Continue IVF for hydration -Avoid nephrotoxins -repeat labs show improvement with Cr 0.97 Total Self Care Deficit: Pt unable to care for self at this time, found without food/water at home, evidence of recent fall w/ head injury. -PT for eval/tx. -Social work to assist w/ placement. Abnormal UA: urinalysis with +leuks, patient asymptomatic, no urinary complaints -in light of encephalopathy, will treat with IV Cipro for now (penicillin allergy) -Await urine culture, if negative, will d/c antibiotics Elevated Troponin: Trop 0.08, patient without any complaints of chest pain or angina equivalents -trend serial cardiac enzymes and check EKG -give aspirin -check lipid panel and HgbA1c -consider nuclear stress test in am Hyperthyroidism: TSH less than 0.005, previously all TSH wnl. Patient denies any history of thyroid disease, denies being on synthroid -check T3, free T4 Hypokalemia: K 3.1, suspect secondary to poor oral intake -given po KCl 40meq x1 -check mag level and replace as needed DVT Prophylaxis: SCD/teds. Discharge Planning 1100hrs: RN informs me patient has a bed on med/psych. Will place discharge order to med/psych. Discharge patient to inpatient med/psych unit Condition on discharge: Stable Regular Diet as tolerated Ad Marie activity Rx written: Follow-up with primary care physician and psychiatrist Christi Cisneros PA-C Nov 18, 2017 9:54 am
--- NOTE | 2017-11-18 10:27 | PD.PSY.CON ---
Provisional Diagnosis Admission Date Nov 17, 2017 at 23:36 [place] I. Major neurocognitive disorder History of Present Illness Service Psychiatry Consult Requested By Dr. Dowell Reason for Consult Alvarez Act Primary Care Physician No Primary Care Physician HPI Patient is 67-year-old woman, , living alone, with a past psychiatric history of bipolar disorder, two previous psychiatric hospitalization (last at [facility] in April 2017), denies any previous suicide attempts, denies any self injurious behavior, was brought into the ER after a well check was called by patient's brother which she was found sitting on the couch in the dark, with empty fridge asking for food to EMS responders, and noted laceration to posterior scalp and brought in under Alvarez Act due to concern of patient's inability to care for self which psychiatry was consulted for evaluation. Patient was found lying in hospital bed, cooperative. Patient was noted to be appearing malnutritioned and frail. 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 Patient states that recently for the past couple of days she has been "not too good". She recalls prior to coming to the hospital that she was sitting in the living room, was feeling dehydrated and had not been eating well. When asked when the last if she had eaten patient states that she had not gone for groceries in over a month. When asked why she had not been able to do this patient was unable to provide with an answer. Patient this time is alert and oriented 3 but did admit to having increased confusion which she has noticed recently. Upon her last admission patient was discharged to her brother's care and was to be taken to [place] to live with him. Patient reports that she had gone to live in [place] with her brother and had done well there and was brought back to [place] to live on her own because "I was doing okay". Patient also reports having stopped her medications months ago as well. Currently at this time patient reports feeling "weak" denies any SI, HI, perceptual disturbances or delusions at this time. Family psychiatric history: Denies Past psychiatric history: Previous psychiatric diagnoses of bipolar disorder, two previous psychiatric hospitalizations (last here to [facility] in April 2017), denies previous suicide attempts or self-injurious behavior. Currently no outpatient services, denies current medications last taken them months ago but previously quetiapine 50 mg p.o. twice daily. She denies any history of sexual or physical abuse. Substance use history: Patient denies any history of tobacco alcohol or illicit drug use. Past medical history: Cerebrovascular accident in 2007 Allergies: Penicillin Social history: Patient is , living alone, supported financially with long-term benefits, has a brother Mr. Umanzor , highest education is 12th grade., Past Family Social History Coded Allergies: penicillin G (Unverified Allergy, Severe, 11/17/17) ibuprofen (Unverified Allergy, Mild, 11/17/17) No Active Prescriptions or Reported Meds Current Medications Medications (Trade) Dose Ordered Sig/Ananth Route Start Time Stop Time Status Last Admin Sodium Chloride 1,000 ml @ 100 mls/hr Q10H IV 11/17/17 23:34 11/18/17 00:26 (NS Flush) 2 ml UNSCH PRN IV FLUSH 11/17/17 23:45 (NS Flush) 2 ml BID IV FLUSH 11/18/17 09:00 (Zofran Inj) 4 mg Q6H PRN IVP 11/17/17 23:45 (Tylenol) 650 mg Q6H PRN PO 11/17/17 23:45 (Wisdom 5-325 Mg) 1 tab Q4H PRN PO 11/17/17 23:45 (Wisdom 10-325 Mg) 1 tab Q4H PRN PO 11/17/17 23:45 (Eden-Colace) 1 tab BID PO 11/18/17 09:00 (Milk Of Magnesia Liq) 30 ml Q12H PRN PO 11/17/17 23:45 (Senokot) 17.2 mg Q12H PRN PO 11/17/17 23:45 (Dulcolax Supp) 10 mg DAILY PRN RECTAL 11/17/17 23:45 (Lactulose Liq) 30 ml DAILY PRN PO 11/17/17 23:45 Ciprofloxacin/ Dextrose 200 ml @ 200 mls/hr Q12H IV 11/18/17 09:00 Physical Exam Vital Signs Vital Signs Date Time Temp Pulse Resp B/P (MAP) Pulse Ox O2 Delivery O2 Flow Rate FiO2 11/18/17 07:07 97.5 79 18 98/57 (71) 100 11/17/17 21:11 Room Air I/O 11/18/17 11/18/17 11/19/17 08:00 16:00 00:00 Intake Total 591 ml Balance 591 ml Lab Results Test 11/17/17 20:55 11/17/17 23:55 11/18/17 07:08 White Blood Count 6.1 TH/MM3 5.3 TH/MM3 Red Blood Count 4.45 MIL/MM3 4.08 MIL/MM3 Hemoglobin 13.1 GM/DL 12.1 GM/DL Hematocrit 39.0 % 35.5 % Mean Corpuscular Volume 87.7 FL 87.0 FL Mean Corpuscular Hemoglobin 29.3 PG 29.6 PG Mean Corpuscular Hemoglobin Concent 33.5 % 34.0 % Red Cell Distribution Width 14.8 % 15.0 % Platelet Count 173 TH/MM3 144 TH/MM3 Mean Platelet Volume 10.3 FL 9.7 FL Neutrophils (%) (Auto) 73.6 % 62.0 % Lymphocytes (%) (Auto) 16.1 % 22.7 % Monocytes (%) (Auto) 9.6 % 13.6 % Eosinophils (%) (Auto) 0.1 % 1.3 % Basophils (%) (Auto) 0.6 % 0.4 % Neutrophils # (Auto) 4.5 TH/MM3 3.3 TH/MM3 Lymphocytes # (Auto) 1.0 TH/MM3 1.2 TH/MM3 Monocytes # (Auto) 0.6 TH/MM3 0.7 TH/MM3 Eosinophils # (Auto) 0.0 TH/MM3 0.1 TH/MM3 Basophils # (Auto) 0.0 TH/MM3 0.0 TH/MM3 CBC Comment DIFF FINAL DIFF FINAL Differential Comment Blood Urea Nitrogen 33 MG/DL 28 MG/DL Creatinine 1.22 MG/DL 0.97 MG/DL Random Glucose 80 MG/DL 125 MG/DL Total Protein 6.7 GM/DL 5.8 GM/DL Albumin 3.4 GM/DL 2.9 GM/DL Calcium Level 10.3 MG/DL 8.7 MG/DL Alkaline Phosphatase 45 U/L 44 U/L Aspartate Amino Transf (AST/SGOT) 29 U/L 17 U/L Alanine Aminotransferase (ALT/SGPT) 13 U/L 11 U/L Total Bilirubin 1.3 MG/DL 0.8 MG/DL Sodium Level 138 MEQ/L 144 MEQ/L Potassium Level 4.3 MEQ/L 3.1 MEQ/L Chloride Level 102 MEQ/L 109 MEQ/L Carbon Dioxide Level 17.8 MEQ/L 24.6 MEQ/L Anion Gap 18 MEQ/L 10 MEQ/L Estimat Glomerular Filtration Rate 44 ML/MIN 58 ML/MIN Thyroid Stimulating Hormone 3rd Gen LESS THAN 0.005 uIU/ML Salicylates Level LESS THAN 1.7 MG/DL Acetaminophen Level LESS THAN 2.0 MCG/ML Ethyl Alcohol Level LESS THAN 3 MG/DL Urine Color YELLOW Urine Turbidity CLEAR Urine pH 6.0 Urine Specific [place] 1.012 Urine Protein TRACE mg/dL Urine Glucose (UA) NEG mg/dL Urine Ketones 80 mg/dL Urine Occult Blood NEG Urine Nitrite NEG Urine Bilirubin NEG Urine Urobilinogen LESS THAN 2.0 MG/DL Urine Leukocyte Esterase MOD Urine RBC 1 /hpf Urine WBC 9 /hpf Urine Squamous Epithelial Cells 1 /hpf Urine Hyaline Casts 3 /lpf Urine Mucus FEW /lpf Microscopic Urinalysis Comment CULTURE INDICATED Urine Opiates Screen NEG Urine Barbiturates Screen NEG Urine Amphetamines Screen NEG Urine Benzodiazepines Screen NEG Urine Cocaine Screen NEG Urine Cannabinoids Screen NEG Troponin I 0.08 NG/ML Date/Time Source Procedure Growth Status 11/17/17 23:55 Urine Clean Catch Urine Culture Pending Received Mental Status Examination Appearance: Disheveled Consciousness: Alert Orientation: Person, Place, Date/Time Speech: Slow Language: Adequate Fund of Knowledge: Inadequate Attention and Concentration: Adequate Memory: Impaired Mood: Sad, Anxious Affect: Anxious Thought Process & Associations: Other ([place]) Thought Content: Appropriate Hallucination Type: None Delusion Type: None Suicidal Ideation: No Suicidal Plan: No Suicidal Intention: No Homicidal Ideation: No Homicidal Plan: No Homicidal Intention: No Insight: Poor Judgment: Poor Assessment & Plan Problem List: (1) Major neurocognitive disorder ICD Codes: F03.90 - Unspecified dementia without behavioral disturbance Status: Acute Assessment & Plan Patient is a 67-year-old woman with history of bipolar disorder, major neurocognitive disorder, with previous psychiatric admissions, no prior suicide attempts of major behavior was brought into the ED due to concerns of patient's inability to care for herself when she was found dehydrated, with no food in the home, and had not been in contact with family members for several days. Patient at this time to be a danger to self due to her inability to care for self therefore required inpatient psychiatric admission for stabilization and safety. Once medically cleared patient to be transferred to the inpatient psychiatry for further evaluation and management. Collateral formation pending. Social work intervention for psychosocial assessment, individual/ group therapy. Consult appreciated. Discharge Planning To be determined Quang Hodges MD Nov 18, 2017 10:27
[2017-11-18] MEDS ORDERED: POTASSIUM CHLORIDE 20 MEQ CONTROLLED RELEASE TAB PO ONE (10:45)
[2017-11-18 11:28] VITALS: BP 126/63; PULSE 81; RESP 18; TEMP 97.9; O2SAT 97
== END 2017-11-18 14:35 ==
LOC: NEPD 20:29 → NEDA 23:36 → NEPFCDU 11-18 00:21
PROVIDERS: ADMIT Hospitalist; ATTEND Hospitalist
DX: G93.40 Encephalopathy, unspecified (principal); F03.90 Unspecified dementia, unspecified severity, without behavioral disturbance, psychotic disturbance, mood disturbance, and anxiety; F05 Delirium due to known physiological condition; R41.89 Other symptoms and signs involving cognitive functions and awareness; N17.9 Acute kidney failure, unspecified; S01.01XA Laceration without foreign body of scalp, initial encounter; E87.6 Hypokalemia; I10 Essential (primary) hypertension; E86.0 Dehydration; R74.8 Abnormal levels of other serum enzymes; R82.90 Unspecified abnormal findings in urine
CPT/HCPCS: 70450; 80053; 80307; 81001; 84443; 84484; 85025; 87086; 96361; 96365; 96366; 97161; 99285; G0378; G8987; G8988; J0744; J7030

== ENCOUNTER 2017-11-18 10:36 | Inpatient (IN) | payer MEDICARE, OTHER ==
[2017-11-18] MEDS ORDERED: ACETAMINOPHEN 325 MG TAB PO PRN (15:30)
[2017-11-18] MEDS ORDERED: ALUMINUM/MAGNESIUM/SIMETH 30 ML CUP PO PRN (15:30)
[2017-11-18] MEDS ORDERED: hydrOXYzine HCL 50 MG TAB PO PRN (15:30)
[2017-11-18 16:00] VITALS: BP 141/98; PULSE 77; RESP 16; TEMP 98.1; O2SAT 98
--- NOTE | 2017-11-18 16:27 | PD.CONS ---
HPI Service [facility] Hospitalists Consult Requested By Doctor Quang Hodges Reason for Consult Medical Management. Primary Care Physician No Primary Care Physician Diagnoses: History of Present Illness This is a pleasant 67 y/o Female with Anxiety disorder, Depression, Bipolar Disorder, Hypertension, CVA by history, who after being found sitting in the dark at home complaining of being hungry. Per report, family had not heard from patient in approx 5 days, Noted to have laceration to posterior scalp, pt unable to recall events leading to injury. vital sings and CBC BMP unremarkable, CT Head with no acute findings. the patient at this time receiving Ciprofloxacin for her UTI, found on admission performed yesterday, will continue same medicine at Psychiatric unit, also she states is not taking any medicine. Review of Systems Constitutional: DENIES: Fever, Chills, Change in appetite Endocrine: DENIES: Heat/cold intolerance Eyes: DENIES: Blurred vision, Eye pain Except as stated in HPI: all other systems reviewed are Neg Past Family Social History Allergies: Coded Allergies: penicillin G (Unverified Allergy, Severe, 11/17/17) ibuprofen (Unverified Allergy, Mild, 11/17/17) Past Medical History Anxiety Depression Bipolar Disorder HTN CVA by history Past Surgical History Tonsillectomy Reported Medications Reported Meds & Active Scripts Active No Active Prescriptions or Reported Medications Active Ordered Medications Current Medications Medications (Trade) Dose Ordered Sig/Ananth Route Start Time Stop Time Status Last Admin (Benadryl) 50 mg HS PRN PO 11/18/17 15:30 (Tylenol) 650 mg Q4H PRN PO 11/18/17 15:30 (Milk Of Magnesia Liq) 30 ml DAILY PRN PO 11/18/17 15:30 (Mag-Al Plus Susp Liq) 30 ml Q6H PRN PO 11/18/17 15:30 (Atarax) 50 mg Q6H PRN PO 11/18/17 15:30 Family History Asked and denied Social History denied toxic habits. Physical Exam Physical Exam GENERAL: Emaciated patient in no acute distress. HEENT: PERRLA, EOMI. No scleral icterus or conjunctival pallor. No lid lag or facial droop. +scalp laceration CARDIOVASCULAR: Regular rate and rhythm. No obvious murmurs to auscultation. No chest tenderness to palpation. RESPIRATORY: No obvious rhonchi or wheezing. Clear to auscultation. Breath sounds equal bilaterally. GASTROINTESTINAL: Abdomen soft, non-tender, nondistended. BS normal. MUSCULOSKELETAL: Extremities without clubbing, cyanosis, or edema. No obvious deformities. NEUROLOGICAL: Awake, alert. No focal neurologic deficits. Laboratory Test 11/17/17 20:55 White Blood Count 6.1 Red Blood Count 4.45 Hemoglobin 13.1 Hematocrit 39.0 Mean Corpuscular Volume 87.7 Mean Corpuscular Hemoglobin 29.3 Mean Corpuscular Hemoglobin Concent 33.5 Red Cell Distribution Width 14.8 Platelet Count 173 Mean Platelet Volume 10.3 Neutrophils (%) (Auto) 73.6 Lymphocytes (%) (Auto) 16.1 Monocytes (%) (Auto) 9.6 Eosinophils (%) (Auto) 0.1 Basophils (%) (Auto) 0.6 Neutrophils # (Auto) 4.5 Lymphocytes # (Auto) 1.0 Monocytes # (Auto) 0.6 Eosinophils # (Auto) 0.0 Basophils # (Auto) 0.0 CBC Comment DIFF FINAL Differential Comment Blood Urea Nitrogen 33 Creatinine 1.22 Random Glucose 80 Total Protein 6.7 Albumin 3.4 Calcium Level 10.3 Alkaline Phosphatase 45 Aspartate Amino Transf (AST/SGOT) 29 Alanine Aminotransferase (ALT/SGPT) 13 Total Bilirubin 1.3 Sodium Level 138 Potassium Level 4.3 Chloride Level 102 Carbon Dioxide Level 17.8 Anion Gap 18 Estimat Glomerular Filtration Rate 44 Thyroid Stimulating Hormone 3rd Gen LESS THAN 0.005 Salicylates Level LESS THAN 1.7 Acetaminophen Level LESS THAN 2.0 Ethyl Alcohol Level LESS THAN 3 Assessment and Plan Assessment and Plan 1. Encephalopathy: found sitting on the couch in the dark, family hadn't heard from patient in 5 days, +posterior scalp wound likely from fall. the patient was consulted to Psychiatry specialist from Hospitalist medicine and transferred not to Psychiatric unit. Improved 2. Dementia/Severe Depression, the patient states that her two years and a half ago but that now is feeling more his absence 3. SAM: Creatinine 1.22, Improved. 4. Total Self Care Deficit: Pt unable to care for self at this time, found without food/water at home, evidence of recent fall w/ head injury. PT eval and [employer] Specialist on the case. the patient states she is not been eating or drinking for some days and for this reason she is weak but is able to walk but gets dizzy. Dietitian consult in place. 5. UTI to continue Ciprofloxacin, will switch to by mouth 500 mg BID to complete seven days. Appreciated Doctor Quang Hodges for this consult, Complete all the laboratory. DVT Prophylaxis: SCD/teds. box worker DC planning. Code Status per attending physician Discussed Condition With Patient and nurse. Gasper Manley MD Nov 18, 2017 16:27
[2017-11-18 18:58] VITALS: BP 118/56; PULSE 76; RESP 16; TEMP 97.4; O2SAT 99
[2017-11-19 05:41] VITALS: BP 104/57; PULSE 68; RESP 15; TEMP 98.1; O2SAT 100
[2017-11-19] MEDS ORDERED: CIPROFLOXACIN 500 MG TAB PO ONE (09:15)
--- NOTE | 2017-11-19 10:21 | HHI.PR ---
Subjective Remarks Unable to get any history baseline dementia. Baseline degree of dementia is not known, encephalopathy component may be present. No complaints from the patient. Objective Vital Signs Date Time Temp Pulse Resp B/P (MAP) Pulse Ox O2 Delivery O2 Flow Rate FiO2 11/19/17 05:41 98.1 68 15 104/57 (73) 100 11/18/17 18:58 97.4 76 16 118/56 (76) 99 11/18/17 16:00 98.1 77 16 141/98 (112) 98 I/O 11/18/17 11/18/17 11/18/17 11/19/17 11/19/17 11/19/17 07:00 15:00 23:00 07:00 15:00 23:00 Intake Total 240 ml 120 ml 240 ml Balance 240 ml 120 ml 240 ml Intake Oral 240 ml 120 ml 240 ml # Voids 1 Objective Remarks GENERAL: NAD, A&Ox0 HEAD: Normocephalic. NECK: Supple, trachea midline. No lymphadenopathy. EYES: No scleral icterus. No injection or drainage. CARDIOVASCULAR: Regular rate and rhythm without murmurs, gallops, or rubs. RESPIRATORY: Breath sounds equal bilaterally. No accessory muscle use. GASTROINTESTINAL: Abdomen soft, non-tender, nondistended. MUSCULOSKELETAL: No cyanosis, or edema. SKIN: Warm and dry. NEURO: No focal neurological deficitis. A/P Problem List: (1) Total self-care deficit ICD Code: R41.89 - Other symptoms and signs involving cognitive functions and awareness (2) Major neurocognitive disorder ICD Code: F03.90 - Unspecified dementia without behavioral disturbance Status: Acute (3) Delirium due to another medical condition ICD Code: F05 - Delirium due to known physiological condition Status: Acute (4) Altered mental status ICD Code: R41.82 - Altered mental status, unspecified Status: Acute (5) Acute kidney injury ICD Code: N17.9 - Acute kidney failure, unspecified (6) Dehydration ICD Code: E86.0 - Dehydration Assessment and Plan 67 year old female admitted secondary to Self Care Deficit and Severe Depression with underlying Dementia. Dementia Severe Depression Management per psychiatry recommendations SAM Dehydration Resolved Total Self Care Deficit Case management consulted Patient may need placement Urinary tract infection Encephalopathy Continue ciprofloxacin until 09/24/18 Toi Brown MD Nov 19, 2017 10:21
--- NOTE | 2017-11-19 11:47 | HHI.HP ---
Provisional Diagnosis Admission Date Nov 18, 2017 at 14:50 [place] I. Major neurocognitive disorder Certification of Person's Competence To Provide Express and Informed Consent I have personally examined Geri Parham , a person being served at [facility] on, Nov 19, 2017 11:42. Express and informed consent means consent voluntarily given in writing, by a competent person, after sufficient explanation and disclosure of the subject matter involved to enable the person to make a knowing and willful decision without any element of force, fraud, deceit, duress, or other form of constraint or coercion. This person is 18 years of age or older, is not now known to be incompetent to consent to treatment with a guardian advocate, and does not have a health care surrogate or proxy currently making medical treatment decisions. I have found this person to be one of the following: [] Competent to provide express and informed consent, as defined above, for voluntary admission to this facility and is competent to provide express and informed consent for treatment. He/she has the consistent capacity to make well reasoned, willful, and knowing decisions concerning his or her medical or mental health treatment. The person fully and consistently understands the purpose of the admission for examination/placement and is fully capable of personally exercising all rights assured [place] [x] Incompetent to provide express and informed consent to voluntary admission, and this is incompetent to provide express and informed consent to treatment. The person must be transferred to involuntary status and a petition for a guardian advocate filed with the Circuit Court. [] Refusing to provide express and informed consent to voluntary admission but is competent to provide express and informed consent for treatment. The person must be discharged or transferred to involuntary status. Form shall be completed within 24 hours of a person's arrival at the receiving facility and filed in the clinical record of each person: 1. Admitted on a voluntary basis 2. Permitted to provide express and informed consent to his/her own treatment 3. Allowed to transfer from involuntary to voluntary status 4. Prior to permitting a person to consent to his or her own treatment after having been previously found incompetent to consent to treatment. History of Present Illness Capacity: Lacks Capacity HPI 11/18/17 - Patient is 67-year-old woman, , living alone, with a past psychiatric history of bipolar disorder, two previous psychiatric hospitalization (last at [facility] in April 2017), denies any previous suicide attempts, denies any self injurious behavior, was brought into the ER after a well check was called by patient's brother which she was found sitting on the couch in the dark, with empty fridge asking for food to EMS responders, and noted laceration to posterior scalp and brought in under Alvarez Act due to concern of patient's inability to care for self which psychiatry was consulted for evaluation. Patient was found lying in hospital bed, cooperative. Patient was noted to be appearing malnutritioned and frail. 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 Patient states that recently for the past couple of days she has been "not too good". She recalls prior to coming to the hospital that she was sitting in the living room, was feeling dehydrated and had not been eating well. When asked when the last if she had eaten patient states that she had not gone for groceries in over a month. When asked why she had not been able to do this patient was unable to provide with an answer. Patient this time is alert and oriented 3 but did admit to having increased confusion which she has noticed recently. Upon her last admission patient was discharged to her brother's care and was to be taken to [place] to live with him. Patient reports that she had gone to live in [place] with her brother and had done well there and was brought back to [place] to live on her own because "I was doing okay". Patient also reports having stopped her medications months ago as well. Currently at this time patient reports feeling "weak" denies any SI, HI, perceptual disturbances or delusions at this time. Family psychiatric history: Denies Past psychiatric history: Previous psychiatric diagnoses of bipolar disorder, two previous psychiatric hospitalizations (last here to [facility] in April 2017), denies previous suicide attempts or self-injurious behavior. Currently no outpatient services, denies current medications last taken them months ago but previously quetiapine 50 mg p.o. twice daily. She denies any history of sexual or physical abuse. Substance use history: Patient denies any history of tobacco alcohol or illicit drug use. Past medical history: Cerebrovascular accident in 2007 Allergies: Penicillin Social history: Patient is , living alone, supported financially with longterm benefits, has a brother Mr. Umanzor , highest education is 12th grade., Past Family Social History Coded Allergies: penicillin G (Unverified Allergy, Severe, 11/17/17) ibuprofen (Unverified Allergy, Mild, 11/17/17) No Active Prescriptions or Reported Meds Current Medications Medications (Trade) Dose Ordered Sig/Ananth Route Start Time Stop Time Status Last Admin (Benadryl) 50 mg HS PRN PO 11/18/17 15:30 (Tylenol) 650 mg Q4H PRN PO 11/18/17 15:30 (Milk Of Magnesia Liq) 30 ml DAILY PRN PO 11/18/17 15:30 (Mag-Al Plus Susp Liq) 30 ml Q6H PRN PO 11/18/17 15:30 (Atarax) 50 mg Q6H PRN PO 11/18/17 15:30 (Cipro) 500 mg Q12HR PO 11/19/17 21:00 11/25/17 23:00 Physical Exam Vital Signs Vital Signs Date Time Temp Pulse Resp B/P (MAP) Pulse Ox O2 Delivery O2 Flow Rate FiO2 11/19/17 05:41 98.1 68 15 104/57 (73) 100 I/O 11/19/17 11/19/17 11/20/17 08:00 16:00 00:00 Intake Total 120 ml 240 ml Balance 120 ml 240 ml Mental Status Examination Appearance: Disheveled Consciousness: Alert Orientation: Person, Place, Date/Time Speech: Slow Language: Adequate Fund of Knowledge: Inadequate Attention and Concentration: Adequate Memory: Impaired Mood: Sad, Anxious Affect: Anxious Thought Process & Associations: Linear, Other (concrete) Thought Content: Appropriate Hallucination Type: None Delusion Type: None Suicidal Ideation: No Suicidal Plan: No Suicidal Intention: No Homicidal Ideation: No Homicidal Plan: No Homicidal Intention: No Insight: Poor Judgment: Poor Assessment & Plan Problem List: (1) Major neurocognitive disorder ICD Codes: F03.90 - Unspecified dementia without behavioral disturbance Status: Acute Assessment & Plan Seen on 11/18/17 Estimated LOS: 5=5-7 days. Patient is a 67-year-old woman with history of bipolar disorder, major neurocognitive disorder, with previous psychiatric admissions, no prior suicide attempts of major behavior was brought into the ED due to concerns of patient's inability to care for herself when she was found dehydrated, with no food in the home, and had not been in contact with family members for several days. Patient at this time to be a danger to self due to her inability to care for self therefore required inpatient psychiatric admission for stabilization and safety. Once medically cleared patient to be transferred to the inpatient psychiatry for further evaluation and management. Collateral formation pending. Social work intervention for psychosocial assessment, individual/group therapy. Quang Hodges MD Nov 19, 2017 11:47
--- NOTE | 2017-11-19 11:59 | HHI.PYPN ---
Subjective Remarks Patient seen for follow-up, chart reviewed. Patient was found sitting in hospital bed, cooperative. Patient was alert and oriented 3 but confused as per her circumstances arrived to the hospital. Patient during interview was noted to be somewhat perseverative and continued to repeat that her had 2 years ago. Patient was attempted to recall events after her last hospitalization stated that she had returned back to live with her brother for some time and was brought back to [place] to live on her own states that she had increasing confusion but was unclear when that started. Patient states that she was doing fine initially but then stated that started getting lightheaded and was not eating right status at the time she would forget to eat. Patient denies any perceptual disturbances no delusions, denies any SI or HI. Review of Systems Except as stated in HPI: all other systems reviewed are Neg Mental Status Examination Appearance: Disheveled Consciousness: Alert Orientation: Person, Place, Date/Time Speech: Slow Language: Adequate Fund of Knowledge: Inadequate Attention and Concentration: Adequate Memory: Impaired Mood: Sad, Anxious Affect: Anxious Thought Process & Associations: Linear, Other (concrete) Thought Content: Appropriate Hallucination Type: None Delusion Type: None Suicidal Ideation: No Suicidal Plan: No Suicidal Intention: No Homicidal Ideation: No Homicidal Plan: No Homicidal Intention: No Insight: Poor Judgment: Poor Results Vitals/IOs Vital Signs Date Time Temp Pulse Resp B/P (MAP) Pulse Ox O2 Delivery O2 Flow Rate FiO2 11/19/17 05:41 98.1 68 15 104/57 (73) 100 Intake and Output 11/19/17 11/19/17 11/20/17 08:00 16:00 00:00 Intake Total 120 ml 240 ml Balance 120 ml 240 ml Assessment & Plan Problem List: (1) Major neurocognitive disorder ICD Codes: F03.90 - Unspecified dementia without behavioral disturbance Status: Acute Assessment & Plan Patient at this time continues to have confusion in regards to her living situation prior to admission. The patient's neurocognitive disorder has been impeding patient's ability to care for self and required adequate discharge planning which may include home health services or referral to custodial. Will contact patient's brother for consent for treatment. Petition for involuntary hospitalization started, second opinion requested. Start mematine 5mg PO daily for neurocognitive deficits. Continue to monitor mood and behavior. Continue recommendations for per medical team. Discharge planning in progress. Justification for Cont. Inpt. At risk for further decompensation a lower level of care Discharge Planning To be determined Quang Hodges MD Nov 19, 2017 11:58
[2017-11-19] MEDS: MEMANTINE HCL 5 MG TAB PO SCH (14:36)
[2017-11-19 14:41] LABS: BICARBONATE 28.2 MEQ/L (21.0-32.0); BLOOD UREA NITROGEN 19 MG/DL (7-18); CALCIUM 8.5 MG/DL (8.5-10.1); CHLORIDE 104 MEQ/L (98-107); CHOLESTEROL 157 MG/DL (120-200); CHOLESTEROL/ HDL RATIO 3.92 RATIO; CREATININE 0.95 MG/DL (0.50-1.00); FOLATE 5.5 NG/ML (3.1-17.5); GLOMERULAR FILTRATION RATE 59 ML/MIN (>89); GLUCOSE,RANDOM 109 MG/DL (74-106); LDL CHOLESTEROL 100 MG/DL (0-99); SODIUM (NA) 139 MEQ/L (136-145); TRIGLYCERIDES 87 MG/DL (42-150)
[2017-11-19] MEDS ORDERED: POTASSIUM CHLORIDE 20 MEQ PWD PACKET PO ONE (15:00)
[2017-11-19 17:30] LABS: HEMOGLOBIN A1C 5.3 % (4.3-6.0)
[2017-11-19 18:28] VITALS: BP 105/67; PULSE 78; RESP 15; TEMP 97.6; O2SAT 99
[2017-11-19] MEDS: CIPROFLOXACIN 500 MG TAB PO SCH (20:45)
[2017-11-20 06:00] VITALS: BP 126/82; PULSE 95; RESP 15; TEMP 97.3; O2SAT 99
--- NOTE | 2017-11-20 09:46 | HHI.PYPN ---
Subjective Remarks Patient seen for follow, chart reviewed. Patient was found lying in hospital bed noted to be somewhat upset that she is wearing adult diapers and wanting to change into her clothes. Patient noted to be somewhat confused and perseverative on having had to get up to use the restroom couple of times during the night. Patient was alert and oriented to person and place and date but not situation and having difficulty with recognizing her need for assistance as patient was not surviving alone recently in her home and unable to provide reasoning why she was not able to care for self recently. Patient reports having had difficulty sleeping last night due to having gone to the restroom a couple of times was focused on returning back to her home and worried of not wanting to give up her home. It was discussed with patient that she would continue requiring stabilization and exploration as far as what services or placement she may need postdischarge will be discussed with her as well as with her brother was involved in her care. Review of Systems Except as stated in HPI: all other systems reviewed are Neg Mental Status Examination Appearance: Disheveled Consciousness: Alert Orientation: Person, Place, Date/Time Speech: Slow Language: Adequate Fund of Knowledge: Inadequate Attention and Concentration: Adequate Memory: Impaired Mood: Sad, Anxious Affect: Anxious Thought Process & Associations: Linear, Other (concrete) Thought Content: Appropriate, Preoccupations (With getting her clothes back on and wanting to go home) Hallucination Type: None Delusion Type: None Suicidal Ideation: No Suicidal Plan: No Suicidal Intention: No Homicidal Ideation: No Homicidal Plan: No Homicidal Intention: No Insight: Poor Judgment: Poor Results Labs Labs reviewed Test 11/19/17 13:20 Blood Urea Nitrogen 19 MG/DL Creatinine 0.95 MG/DL Random Glucose 109 MG/DL Calcium Level 8.5 MG/DL Sodium Level 139 MEQ/L Potassium Level 2.7 MEQ/L Chloride Level 104 MEQ/L Carbon Dioxide Level 28.2 MEQ/L Anion Gap 7 MEQ/L Estimat Glomerular Filtration Rate 59 ML/MIN Hemoglobin A1c 5.3 % Total Creatine Kinase 66 U/L Triglycerides Level 87 MG/DL Cholesterol Level 157 MG/DL LDL Cholesterol 100 MG/DL HDL Cholesterol 40.0 MG/DL Cholesterol/HDL Ratio 3.92 RATIO Vitamin B12 Level 643 PG/ML Folate 5.5 NG/ML Thyroid Stimulating Hormone 3rd Gen LESS THAN 0.005 uIU/ML Vitals/IOs Vital Signs Date Time Temp Pulse Resp B/P (MAP) Pulse Ox O2 Delivery O2 Flow Rate FiO2 11/20/17 06:00 97.3 95 15 126/82 (97) 99 Intake and Output 11/20/17 11/20/17 11/21/17 08:00 16:00 00:00 Intake Total 120 ml Balance 120 ml Assessment & Plan Problem List: (1) Major neurocognitive disorder ICD Codes: F03.90 - Unspecified dementia without behavioral disturbance Status: Acute Assessment & Plan Patient this time patient continues with some confusion as far as circumstances that brought to the hospital with poor insight and judgment at this time due worsening of neurocognitive deficits. Patient started on memantine 5 mg p.o. daily we will continue to monitor patient's mood and behavior and consideration to restarting patient's quetiapine will be discussed with patient's brother who will be serving as patient's health care surrogate. Continue recommendations as per prior medical team. Continue to encourage patient to increase p.o. intake, continue to participate in occupational and physical therapy. Discharge planning in progress. Justification for Cont. Inpt. At risk for further decompensation if at lower level of care Discharge Planning To be determined Quang Hodges MD Nov 20, 2017 09:46
--- NOTE | 2017-11-20 10:14 | HHI.PR ---
Subjective Remarks No change in mental status or in baseline condition at this point. Potassium levels low yesterday. Labs are pending for this morning. Further treatments may be necessary. Unable to get any history baseline dementia. Objective Vital Signs Date Time Temp Pulse Resp B/P (MAP) Pulse Ox O2 Delivery O2 Flow Rate FiO2 11/20/17 06:00 97.3 95 15 126/82 (97) 99 11/19/17 18:28 97.6 78 15 105/67 (80) 99 I/O 11/19/17 11/19/17 11/19/17 11/20/17 11/20/17 11/20/17 07:00 15:00 23:00 07:00 15:00 23:00 Intake Total 120 ml 240 ml 600 ml 120 ml Balance 120 ml 240 ml 600 ml 120 ml Intake Oral 120 ml 240 ml 600 ml 120 ml # Voids 1 2 1 3 # Bowel Movements 1 Result Diagram: 11/19/17 1320 Objective Remarks GENERAL: NAD, A&Ox0 HEAD: Normocephalic. NECK: Supple, trachea midline. No lymphadenopathy. EYES: No scleral icterus. No injection or drainage. CARDIOVASCULAR: Regular rate and rhythm without murmurs, gallops, or rubs. RESPIRATORY: Breath sounds equal bilaterally. No accessory muscle use. GASTROINTESTINAL: Abdomen soft, non-tender, nondistended. MUSCULOSKELETAL: No cyanosis, or edema. SKIN: Warm and dry. NEURO: No focal neurological deficitis. A/P Problem List: (1) Total self-care deficit ICD Code: R41.89 - Other symptoms and signs involving cognitive functions and awareness (2) Major neurocognitive disorder ICD Code: F03.90 - Unspecified dementia without behavioral disturbance Status: Acute (3) Delirium due to another medical condition ICD Code: F05 - Delirium due to known physiological condition Status: Acute (4) Altered mental status ICD Code: R41.82 - Altered mental status, unspecified Status: Acute (5) Acute kidney injury ICD Code: N17.9 - Acute kidney failure, unspecified (6) Dehydration ICD Code: E86.0 - Dehydration Assessment and Plan 67 year old female admitted secondary to Self Care Deficit and Severe Depression with underlying Dementia. Hypokalemia By mouth replacement provided yesterday Labs pending for today Dementia Severe Depression Management per psychiatry recommendations SAM Dehydration Resolved Total Self Care Deficit Case management consulted Patient may need placement Urinary tract infection Encephalopathy Continue ciprofloxacin until 09/24/18 Toi Brown MD Nov 20, 2017 10:14
[2017-11-20] MEDS: CIPROFLOXACIN 500 MG TAB PO SCH ×2 (10:52→20:48)
[2017-11-20] MEDS: MEMANTINE HCL 5 MG TAB PO SCH (10:52)
[2017-11-20 10:57] LABS: BICARBONATE 30.1 MEQ/L (21.0-32.0); CALCIUM 9.3 MG/DL (8.5-10.1); CREATININE 0.84 MG/DL (0.50-1.00)
--- NOTE | 2017-11-20 13:29 | PD.PSY.CON ---
Provisional Diagnosis Admission Date Nov 18, 2017 at 14:[address] I. Major neurocognitive disorder History of Present Illness Service Psychiatry Consult Requested By Dr. Hodges Reason for Consult Second opinion Primary Care Physician No Primary Care Physician [facility] 11/18/17 - Patient is 67-year-old woman, , living alone, with a past psychiatric history of bipolar disorder, two previous psychiatric hospitalization (last at [facility] in April 2017), denies any previous suicide attempts, denies any self injurious behavior, was brought into the ER after a well check was called by patient's brother which she was found sitting on the couch in the dark, with empty fridge asking for food to EMS responders, and noted laceration to posterior scalp and brought in under Alvarez Act due to concern of patient's inability to care for self which psychiatry was consulted for evaluation. Patient was found lying in hospital bed, cooperative. Patient was noted to be appearing malnutritioned and frail. 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 Patient states that recently for the past couple of days she has been "not too good". She recalls prior to coming to the hospital that she was sitting in the living room, was feeling dehydrated and had not been eating well. When asked when the last if she had eaten patient states that she had not gone for groceries in over a month. When asked why she had not been able to do this patient was unable to provide with an answer. Patient this time is alert and oriented 3 but did admit to having increased confusion which she has noticed recently. Upon her last admission patient was discharged to her brother's care and was to be taken to [place] to live with him. Patient reports that she had gone to live in [place] with her brother and had done well there and was brought back to [place] to live on her own because "I was doing okay". Patient also reports having stopped her medications months ago as well. Currently at this time patient reports feeling "weak" denies any SI, HI, perceptual disturbances or delusions at this time. The patient is a 67-year-old woman, domiciled alone in [place], , with psychiatric history of bipolar disorder, neurocognitive disorder, 2 previous psychotic hospitalizations, she denies previous suicidal attempts, denies history of substance abuse, her last hospitalization was here at [facility] in 2016, no significant medical history, who was brought to the hospital on the Alvarez at due to concerns about her ability to take care of herself and suicidality. Patient was consulted to me for second opinion. On psychiatric evaluation the patient is superficially cooperative, kind of distant and detached, he stated that she feels very depressed, but unable to elaborate about the circumstances of her depression. She denies suicidal and homicidal ideation, she denies visual and auditory hallucinations. She doesn't appear internally stimulated, paranoid or psychotic in general. She is fully oriented 3, without attention deficit, without fluctuation of consciousness, with conserve language, immediate and recent recall. The patient denies the use of illegal drugs and alcohol. Review of Systems Constitutional: DENIES: Diaphoretic episodes, Fatigue, Fever, Weight gain, Weight loss, Chills, Dizziness, Change in appetite, Night Sweats Endocrine: DENIES: Abnorml menstrual pattern, Heat/cold intolerance, Polydipsia , Polyuria, Polyphagia Eyes: DENIES: Blurred vision, Diplopia, Eye inflammation, Eye pain, Vision loss , Photosensitivity, Double Vision Ears, nose, mouth, throat: DENIES: Tinnitus, Hearing loss, Vertigo, Nasal discharge, Oral lesions, Throat pain, Hoarseness, Ear Pain, Running Nose, Epistaxis, Sinus Pain, Toothache, Odynophagia Respiratory: DENIES: Apneas, Cough, Snoring, Wheezing, Hemoptysis, Sputum production, Shortness of breath Cardiovascular: DENIES: Chest pain, Palpitations, Syncope, Dyspnea on Exertion , PND, Lower Extremity Edema, Orthopnea, Claudication Gastrointestinal: DENIES: Abdominal pain, Black stools, Bloody stools, Constipation, Diarrhea, Nausea, Vomiting, Difficulty Swallowing, Anorexia Genitourinary: DENIES: Abnormal vaginal bleeding, Dysmenorrhea, Dyspareunia, Sexual dysfunction, Urinary frequency, Urinary incontinence, Urgency, Hematuria , Dysuria, Nocturia, Vaginal discharge Musculoskeletal: DENIES: Joint pain, Muscle aches, Stiffness, Joint Swelling, Back pain, Neck pain Integumentary: DENIES: Abnormal pigmentation, Pruritus, Rash, Nail changes, Breast masses, Breast skin changes, Nipple discharge Hematologic/lymphatic: DENIES: Bruising, Lymphadenopathy Immunologic/allergic: DENIES: Eczema, Urticaria Neurologic: DENIES: Abnormal gait, Headache, Localized weakness, Paresthesias, Seizures, Speech Problems, Tremor, Poor Balance Psychiatric: COMPLAINS OF: Depression, DENIES: Anxiety, Confusion, Mood changes , Hallucinations, Agitation, Suicidal Ideation, Homicidal Ideation, Delusions Past Family Social History Coded Allergies: penicillin G (Unverified Allergy, Severe, 11/17/17) ibuprofen (Unverified Allergy, Mild, 11/17/17) No Active Prescriptions or Reported Meds Current Medications Medications (Trade) Dose Ordered Sig/Ananth Route Start Time Stop Time Status Last Admin (Benadryl) 50 mg HS PRN PO 11/18/17 15:30 (Tylenol) 650 mg Q4H PRN PO 11/18/17 15:30 (Milk Of Magnesia Liq) 30 ml DAILY PRN PO 11/18/17 15:30 (Mag-Al Plus Susp Liq) 30 ml Q6H PRN PO 11/18/17 15:30 (Atarax) 50 mg Q6H PRN PO 11/18/17 15:30 (Cipro) 500 mg Q12HR PO 11/19/17 21:00 11/25/17 23:00 11/20/17 10:52 (Namenda) 5 mg DAILY PO 11/19/17 12:15 11/20/17 10:52 Family Psych History She denies family psychiatric history Social History Patient was born in [place], she lives in [place] alone, she is , no kids, her highest level of education is 12th grade Patient's Strengths (min. 2) Verbal communication Physical Exam Vital Signs Vital Signs Date Time Temp Pulse Resp B/P (MAP) Pulse Ox O2 Delivery O2 Flow Rate FiO2 11/20/17 06:00 97.3 95 15 126/82 (97) 99 I/O 11/20/17 11/20/17 11/21/17 08:00 16:00 00:00 Intake Total 120 ml 240 ml Balance 120 ml 240 ml Lab Results Test 11/20/17 09:50 Blood Urea Nitrogen 16 MG/DL Creatinine 0.84 MG/DL Random Glucose 131 MG/DL Calcium Level 9.3 MG/DL Sodium Level 146 MEQ/L Potassium Level 3.4 MEQ/L Chloride Level 111 MEQ/L Carbon Dioxide Level 30.1 MEQ/L Anion Gap 5 MEQ/L Estimat Glomerular Filtration Rate 68 ML/MIN Mental Status Examination Appearance: Disheveled Consciousness: Alert Orientation: Person, Place, Date/Time Speech: Slow Language: Adequate Fund of Knowledge: Inadequate Attention and Concentration: Adequate Memory: Impaired Mood: Sad, Anxious Affect: Anxious Thought Process & Associations: Linear, Other (concrete) Thought Content: Appropriate, Preoccupations (With getting her clothes back on and wanting to go home) Hallucination Type: None Delusion Type: None Suicidal Ideation: No Suicidal Plan: No Suicidal Intention: No Homicidal Ideation: No Homicidal Plan: No Homicidal Intention: No Insight: Poor Judgment: Poor Assessment & Plan Problem List: (1) Major neurocognitive disorder ICD Codes: F03.90 - Unspecified dementia without behavioral disturbance Status: Acute Assessment & Plan: I have seen and examined this patient, reviewed the documentation, discussed with Dr. Hodges, and I agree and concur with his assessment and plan. Consult appreciated. Assessment & Plan Estimated LOS: Petros Dominguez MD Nov 20, 2017 13:29
[2017-11-20] MEDS ORDERED: POTASSIUM CHLORIDE 20 MEQ PWD PACKET PO ONE (15:30)
[2017-11-20 18:17] VITALS: BP 123/82; PULSE 89; RESP 16; TEMP 98; O2SAT 98
[2017-11-20] MEDS: DOCUSATE SODIUM 100 MG CAP PO SCH (20:48)
[2017-11-20] MEDS: QUEtiapine FUMARATE 25 MG TAB PO SCH (20:48)
[2017-11-21 06:10] VITALS: BP 95/52; PULSE 65; RESP 15; TEMP 98.2; O2SAT 97
[2017-11-21 08:32] LABS: BICARBONATE 27.7 MEQ/L (21.0-32.0); CALCIUM 9.2 MG/DL (8.5-10.1); CREATININE 0.79 MG/DL (0.50-1.00)
[2017-11-21] MEDS: QUEtiapine FUMARATE 25 MG TAB PO SCH ×2 (09:00→21:10)
[2017-11-21] MEDS: MEMANTINE HCL 5 MG TAB PO SCH (09:00)
[2017-11-21] MEDS: CIPROFLOXACIN 500 MG TAB PO SCH ×2 (09:27→21:10)
[2017-11-21] MEDS: DOCUSATE SODIUM 100 MG CAP PO SCH ×2 (09:27→21:00)
--- NOTE | 2017-11-21 09:53 | HHI.PR ---
Subjective Remarks Follow-up visit on 67-year-old female with AMS, self-care deficit, acute kidney injury and dehydration. Patient is seen and examined sitting up in chair fixing to be taken off of the floor to participate in group therapy outside. She tells me she is scared, but does not specify. She denies any fevers, chills, nausea, vomiting, diarrhea, cough, SOB or pain. Discussed with nurse who does not voice any concerns at this moment. Objective Vitals Vital Signs Date Time Temp Pulse Resp B/P (MAP) Pulse Ox O2 Delivery O2 Flow Rate FiO2 11/21/17 06:10 98.2 65 15 95/52 (66) 97 11/20/17 18:17 98.0 89 16 123/82 (96) 98 I/O 11/20/17 11/20/17 11/20/17 11/21/17 11/21/17 11/21/17 07:00 15:00 23:00 07:00 15:00 23:00 Intake Total 120 ml 240 ml 1320 ml 240 ml Balance 120 ml 240 ml 1320 ml 240 ml Intake Oral 120 ml 240 ml 1320 ml 240 ml # Voids 3 1 1 # Bowel Movements 1 Result Diagram: 11/21/17 0716 Objective Remarks GENERAL: Thin white female, awake and alert in NAD. HEAD: Normocephalic. NECK: Supple, trachea midline. No lymphadenopathy. EYES: No scleral icterus. No injection or drainage. CARDIOVASCULAR: Regular rate and rhythm without murmurs, gallops, or rubs. RESPIRATORY: Breath sounds equal bilaterally. No accessory muscle use. GASTROINTESTINAL: Abdomen soft, non-tender, nondistended. Normoactive bowel sounds in all quadrants. MUSCULOSKELETAL: No cyanosis, or edema. SKIN: Pale, warm and dry. NEURO: No focal neurological deficits. A/P Assessment and Plan 67-year-old female admitted to inpatient medical psychiatry unit due to inability to take care of herself, delirium, and altered mental status. Medical team following due to hypokalemia as well as dehydration. Depression AMS/dementia -Treatment per psychiatry recommendations -CT of the head completed on 11/17 reviewed, no acute findings in the brain. Hypokalemia, resolved -BMP from this morning reviewed, potassium 4.0 HPI/dehydration, resolved -BMP from this morning reviewed, stable Self-care deficit -Case management following along for possible placement in the future -May be related to depression/underlying dementia UTI -Continue ciprofloxacin with an date 11/25 -Patient afebrile denying urinary complaints DVT prophylaxis-ambulating Discussed with nurse. Mónica Michael Nov 21, 2017 09:53
--- NOTE | 2017-11-21 14:00 | HHI.PYPN ---
Subjective Remarks Patient seen for follow-up, chart reviewed. Nursing staff reported the patient continued to be confused but was able to shower today and noted to have difficulty with managing this. Patient was found lying in hospital bed after she had showered noted to be somewhat anxious and preoccupied with having difficulty with managing ADLs such as bathing. Patient reported that she felt strange and felt like she did not know or remember how to do things. Patient is alert and oriented to person place and time continues with poor insight into circumstances that brought her into the hospital. Patient requested to be discharged home but was reminded of the for patient to be medically and psychiatrically more stable with the possibility of transfer to physical rehabilitation Center which she acknowledged. Review of Systems Except as stated in HPI: all other systems reviewed are Neg Mental Status Examination Appearance: Appropriate Consciousness: Alert Orientation: Person, Place, Date/Time Speech: Slow Language: Adequate Fund of Knowledge: Inadequate Attention and Concentration: Adequate Memory: Impaired Mood: Anxious Affect: Anxious Thought Process & Associations: Linear, Other (concrete) Thought Content: Appropriate, Preoccupations (With getting her clothes back on and wanting to go home) Hallucination Type: None Delusion Type: None Suicidal Ideation: No Suicidal Plan: No Suicidal Intention: No Homicidal Ideation: No Homicidal Plan: No Homicidal Intention: No Insight: Poor Judgment: Poor Results Labs Labs reviewed Test 11/21/17 07:16 Blood Urea Nitrogen 17 MG/DL Creatinine 0.79 MG/DL Random Glucose 95 MG/DL Calcium Level 9.2 MG/DL Sodium Level 144 MEQ/L Potassium Level 4.0 MEQ/L Chloride Level 111 MEQ/L Carbon Dioxide Level 27.7 MEQ/L Anion Gap 5 MEQ/L Estimat Glomerular Filtration Rate 73 ML/MIN Vitals/IOs Vital Signs Date Time Temp Pulse Resp B/P (MAP) Pulse Ox O2 Delivery O2 Flow Rate FiO2 11/21/17 06:10 98.2 65 15 95/52 (66) 97 Intake and Output 11/21/17 11/21/17 11/22/17 08:00 16:00 00:00 Intake Total 240 ml 360 ml Balance 240 ml 360 ml Assessment & Plan Problem List: (1) Major neurocognitive disorder ICD Codes: F03.90 - Unspecified dementia without behavioral disturbance Status: Acute Assessment & Plan Patient at this time continues to have some confusion regarding her circumstances that brought him to the hospital. Patient likely with cognitive deficits to have been related to her current decompensation continues with poor insight into this. Patient restarted on quetiapine 25 mg p.o. twice daily with upward titration as needed. Continue rest of medications. Continue recommendations per primary medical team. Patient to continue with physical therapy while on the unit. Discharge planning in progress. Justification for Cont. Inpt. At risk of further decompensation of lower level of care Discharge Planning Patient to be referred to SNF once medically and psychiatrically stable Quang Hodges MD Nov 21, 2017 14:00
[2017-11-21 18:36] VITALS: BP 114/53; PULSE 89; RESP 16; TEMP 97.7; O2SAT 99
[2017-11-22 06:47] VITALS: BP 110/57; PULSE 84; RESP 16; TEMP 97.4; O2SAT 100
[2017-11-22] MEDS: MAGNESIUM HYDROXIDE SUSP 30 ML CUP PO PRN (09:02)
[2017-11-22] MEDS: CIPROFLOXACIN 500 MG TAB PO SCH ×2 (09:02→21:15)
[2017-11-22] MEDS: QUEtiapine FUMARATE 25 MG TAB PO SCH ×2 (09:02→21:15)
[2017-11-22] MEDS: DOCUSATE SODIUM 100 MG CAP PO SCH ×2 (09:02→21:15)
[2017-11-22] MEDS: MEMANTINE HCL 5 MG TAB PO SCH (09:02)
--- NOTE | 2017-11-22 10:31 | HHI.PR ---
Subjective Remarks Follow-up visit on 67-year-old female with AMS, self-care deficit, acute kidney injury and dehydration. Patient is seen and examined sitting up in chair fixing to be taken off of the floor to participate in group therapy outside. She tells me she is scared, but does not specify. She denies any fevers, chills, nausea, vomiting, diarrhea, cough, SOB or pain. Discussed with nurse who does not voice any concerns at this moment. 11-22 no new complaints patient remains quite lethargic today lying in bed Discussed with patient and RN Objective Vitals Vital Signs Date Time Temp Pulse Resp B/P (MAP) Pulse Ox O2 Delivery O2 Flow Rate FiO2 11/22/17 06:47 97.4 84 16 110/57 (74) 100 11/21/17 18:36 97.7 89 16 114/53 (73) 99 I/O 11/21/17 11/21/17 11/21/17 11/22/17 11/22/17 11/22/17 07:00 15:00 23:00 07:00 15:00 23:00 Intake Total 1200 ml 840 ml 720 ml Balance 1200 ml 840 ml 720 ml Intake Oral 1200 ml 840 ml 720 ml # Voids 1 2 1 Result Diagram: 11/21/17 0716 Other Results Laboratory Tests Test 11/19/17 13:20 11/20/17 09:50 11/21/17 07:16 Blood Urea Nitrogen 19 MG/DL 16 MG/DL 17 MG/DL Creatinine 0.95 MG/DL 0.84 MG/DL 0.79 MG/DL Random Glucose 109 MG/DL 131 MG/DL 95 MG/DL Calcium Level 8.5 MG/DL 9.3 MG/DL 9.2 MG/DL Sodium Level 139 MEQ/L 146 MEQ/L 144 MEQ/L Potassium Level 2.7 MEQ/L 3.4 MEQ/L 4.0 MEQ/L Chloride Level 104 MEQ/L 111 MEQ/L 111 MEQ/L Carbon Dioxide Level 28.2 MEQ/L 30.1 MEQ/L 27.7 MEQ/L Anion Gap 7 MEQ/L 5 MEQ/L 5 MEQ/L Estimat Glomerular Filtration Rate 59 ML/MIN 68 ML/MIN 73 ML/MIN Hemoglobin A1c 5.3 % Total Creatine Kinase 66 U/L Triglycerides Level 87 MG/DL Cholesterol Level 157 MG/DL LDL Cholesterol 100 MG/DL HDL Cholesterol 40.0 MG/DL Cholesterol/HDL Ratio 3.92 RATIO Vitamin B12 Level 643 PG/ML Folate 5.5 NG/ML Thyroid Stimulating Hormone 3rd Gen LESS THAN 0.005 uIU/ML Objective Remarks GENERAL: Very Thin white female, awake and alert in NAD. Not very talkative today HEAD: Normocephalic. Atraumatic NECK: Supple, trachea midline. No lymphadenopathy. EYES: No scleral icterus. No injection or drainage. Pupils equal round reactive light accommodation extraocular muscles intact CARDIOVASCULAR: Regular rate and rhythm without murmurs, gallops, or rubs. S1 and S2 no S3 or S4 RESPIRATORY: Breath sounds equal bilaterally. No accessory muscle use. GASTROINTESTINAL: Abdomen soft, non-tender, nondistended. Normoactive bowel sounds in all quadrants. MUSCULOSKELETAL: No cyanosis, or edema. SKIN: Pale, warm and dry. NEURO: No focal neurological deficits. Insight and judgment limited Mood and behavior is inappropriate Medications and IVs Current Medications Diphenhydramine HCl (Benadryl) 50 mg HS PRN PO INSOMNIA; Start 11/18/17 at 15: 30 Acetaminophen (Tylenol) 650 mg Q4H PRN PO Pain 1-5 or Temp >101F; Start at 15:30 Magnesium Hydroxide (Milk Of Magnesia Liq) 30 ml DAILY PRN PO CONSTIPATION Last administered on 11/22/17at 09:02; Start 11/18/17 at 15:30 Al Hydrox/Mg Hydrox/Simethicone (Mag-Al Plus Susp Liq) 30 ml Q6H PRN PO DYSPEPSIA; Start 11/18/17 at 15:30 Hydroxyzine HCl (Atarax) 50 mg Q6H PRN PO ANXIETY; Start 11/18/17 at 15:30 Ciprofloxacin (Cipro) 500 mg Q12HR PO Last administered on 11/22/17at 09:02; Start 11/19/17 at 21:00; Stop 11/25/17 at 23:00 Ciprofloxacin (Cipro) 500 mg ONCE ONCE PO Last administered on 11/19/17at 11:19 ; Start 11/19/17 at 09:15; Stop 11/19/17 at 09:16; Status DC Memantine (Namenda) 5 mg DAILY PO Last administered on 11/22/17at 09:02; Start 11/19/17 at 12:15 Potassium Chloride (KCl Powder) 40 meq ONCE ONCE PO Last administered on at 16:00; Start 11/19/17 at 15:00; Stop 11/19/17 at 15:10; Status DC Docusate Sodium (Colace) 100 mg BID PO Last administered on 11/22/17 09:02; Start 11/20/17 at 21:00 Potassium Chloride (KCl Powder) 40 meq ONCE ONCE PO Last administered on at 17:17; Start 11/20/17 at 15:30; Stop 11/20/17 at 15:36; Status DC Quetiapine Fumarate (SEROquel) 25 mg BID PO Last administered on 11/22/17 09: 02; Start 11/20/17 at 21:00 A/P Assessment and Plan 67-year-old female admitted to inpatient medical psychiatry unit due to inability to take care of herself, delirium, and altered mental status. Medical team following due to hypokalemia as well as dehydration. Depression AMS/dementia -Treatment per psychiatry recommendations -CT of the head completed on 11/17 reviewed, no acute findings in the brain. Hypokalemia, resolved -BMP from this morning reviewed, potassium 4.0 HPI/dehydration, resolved -BMP from this morning reviewed, stable Self-care deficit -Case management following along for possible placement in the future -May be related to depression/underlying dementia UTI -Continue ciprofloxacin with an date 11/25 -Patient afebrile denying urinary complaints TSH level is quite low. We'll recheck tomorrow and add a free T4 Failure to thrive encourage by mouth intake DVT prophylaxis-ambulating Discussed with nurse. Discharge Planning Pending improvement psychiatric clearance Ritesh Olson DO Nov 22, 2017 10:31
[2017-11-22] MEDS ORDERED: PILL SPLITTER OTHER PRN (13:30)
--- NOTE | 2017-11-22 17:35 | HHI.PYPN ---
Subjective Remarks Patient seen for follow-up, chart reviewed. Patient was scheduled for mental health court and was refusing to go down to participate in hearing. Patient related found lying in hospital bed noted to be somewhat guarded states feeling depressed due to having more confusion being in the hospital. Patient states she was feeling frustrated as she was not sure what to do in the shower, where the puts towels dirty clothes. Patient denies any perceptual disturbances or delusions. Patient continues to have some confusion in regards to occurrences that happened prior to her admission. Review of Systems Except as stated in HPI: all other systems reviewed are Neg Mental Status Examination Appearance: Appropriate Consciousness: Alert Orientation: Person, Place, Date/Time Speech: Slow Language: Adequate Fund of Knowledge: Inadequate Attention and Concentration: Adequate Memory: Impaired Mood: Sad Affect: Sad, Anxious Thought Process & Associations: Linear, Other (concrete) Thought Content: Appropriate, Preoccupations (With getting her clothes back on and wanting to go home) Hallucination Type: None Delusion Type: None Suicidal Ideation: No Suicidal Plan: No Suicidal Intention: No Homicidal Ideation: No Homicidal Plan: No Homicidal Intention: No Insight: Poor Judgment: Poor Results Vitals/IOs Vital Signs Date Time Temp Pulse Resp B/P (MAP) Pulse Ox O2 Delivery O2 Flow Rate FiO2 11/22/17 06:47 97.4 84 16 110/57 (74) 100 Intake and Output 11/22/17 11/22/17 11/23/17 08:00 16:00 00:00 Intake Total 1920 ml Balance 1920 ml Assessment & Plan Problem List: (1) Major neurocognitive disorder ICD Codes: F03.90 - Unspecified dementia without behavioral disturbance Status: Acute Assessment & Plan Patient this time noted to endorse depressed mood, but denies any suicidal ideations. We will start patient on sertraline 25 mg p.o. 1 and titrated up to 50 mg p.o. daily for depression. Continue quetiapine 25 mg p.o. twice daily for mood stabilization. Continue recommendations as per prior medical team. Discharge planning in progress. Justification for Cont. Inpt. At risk for further decompensation if at lower level of care. [facility]charge [facility]. Quang Hodges MD Nov 22, 2017 17:35
[2017-11-22] MEDS: SERTRALINE HCL 50 MG TAB PO SCH (17:51)
[2017-11-22 18:00] VITALS: BP 112/83; PULSE 101; RESP 19; TEMP 97.3; O2SAT 98
[2017-11-23 06:19] VITALS: BP 131/56; PULSE 82; RESP 18; TEMP 97.8; O2SAT 99
[2017-11-23 08:22] LABS: AUTOMATED NEUTROPHIL # 2.7 TH/MM3 (1.8-7.7); BASOPHIL % 0.8 % (0.0-2.0); EOSINOPHIL # 0.2 TH/MM3 (0-0.4); HEMOGLOBIN 11.1 GM/DL (11.6-15.3); LYMPH % 33.4 % (9.0-44.0); LYMPHOCYTE # 1.7 TH/MM3 (1.0-4.8); MEAN CELL VOLUME 88.4 FL (80.0-100.0); MEAN CORPUSCULAR HEMOGLOBIN 29.8 PG (27.0-34.0); MEAN CORPUSCULAR HGB CONC 33.6 % (32.0-36.0); MONO % 10.5 % (0.0-8.0); MONOCYTE # 0.5 TH/MM3 (0-0.9); NEUT % 52.3 % (16.0-70.0); PLATELET COUNT 157 TH/MM3 (150-450); RED BLOOD COUNT 3.73 MIL/MM3 (4.00-5.30); RED CELL DISTRIBUTION WIDTH 15.8 % (11.6-17.2); WHITE BLOOD COUNT 5.2 TH/MM3 (4.0-11.0)
[2017-11-23] MEDS: SERTRALINE HCL 50 MG TAB PO SCH (08:38)
[2017-11-23] MEDS: CIPROFLOXACIN 500 MG TAB PO SCH ×2 (08:38→20:45)
[2017-11-23] MEDS: QUEtiapine FUMARATE 25 MG TAB PO SCH ×2 (08:38→20:45)
[2017-11-23] MEDS: MEMANTINE HCL 5 MG TAB PO SCH (08:38)
[2017-11-23] MEDS: DOCUSATE SODIUM 100 MG CAP PO SCH ×2 (08:38→20:45)
[2017-11-23 08:56] LABS: ALBUMIN 2.8 GM/DL (3.4-5.0); ALKALINE PHOSPHATASE 42 U/L (45-117); ALT (GPT) 22 U/L (10-53); AST (GOT) 23 U/L (15-37); BICARBONATE 29.1 MEQ/L (21.0-32.0); BLOOD UREA NITROGEN 34 MG/DL (7-18); CALCIUM 8.7 MG/DL (8.5-10.1); CHLORIDE 107 MEQ/L (98-107); CREATININE 0.81 MG/DL (0.50-1.00); FREE T4 1.21 NG/DL (0.76-1.46); GLOMERULAR FILTRATION RATE 71 ML/MIN (>89); GLUCOSE,RANDOM 104 MG/DL (74-106); MAGNESIUM 2.3 MG/DL (1.5-2.5); PHOSPHORUS 1.8 MG/DL (2.5-4.9); SODIUM (NA) 140 MEQ/L (136-145); TOTAL BILIRUBIN ADULT 0.2 MG/DL (0.2-1.0); TOTAL PROTEIN 5.7 GM/DL (6.4-8.2)
--- NOTE | 2017-11-23 11:16 | HHI.PYPN ---
Subjective Remarks Patient was seen today for psychiatric reevaluation, chart was reviewed, on psychiatric evaluation the patient presents irritable, Oppositional, she reports good mood, but her affect is flat/irritable. Patient reports that she has been doing better, reports good appetite, good sleep, improved mood. She is compliant with medications, no significant side effects reported. In charge , the patient has been secluded, poorly interactive with peers and staff. She is oriented 3, no fluctuation of consciousness present at this moment. Review of Systems Except as stated in HPI: all other systems reviewed are Neg Mental Status Examination Appearance: Appropriate Consciousness: Alert Orientation: Person, Place, Date/Time Speech: Slow Language: Adequate Fund of Knowledge: Inadequate Attention and Concentration: Adequate Memory: Impaired Mood: Sad Affect: Sad, Anxious Thought Process & Associations: Linear, Other (concrete) Thought Content: Appropriate, Preoccupations (With getting her clothes back on and wanting to go home) Hallucination Type: None Delusion Type: None Suicidal Ideation: No Suicidal Plan: No Suicidal Intention: No Homicidal Ideation: No Homicidal Plan: No Homicidal Intention: No Insight: Poor Judgment: Poor Results Labs Test 11/23/17 07:38 11/23/17 07:40 Blood Urea Nitrogen 34 MG/DL Creatinine 0.81 MG/DL Random Glucose 104 MG/DL Total Protein 5.7 GM/DL Albumin 2.8 GM/DL Calcium Level 8.7 MG/DL Phosphorus Level 1.8 MG/DL Magnesium Level 2.3 MG/DL Alkaline Phosphatase 42 U/L Aspartate Amino Transf (AST/SGOT) 23 U/L Alanine Aminotransferase (ALT/SGPT) 22 U/L Total Bilirubin 0.2 MG/DL Sodium Level 140 MEQ/L Potassium Level 4.3 MEQ/L Chloride Level 107 MEQ/L Carbon Dioxide Level 29.1 MEQ/L Anion Gap 4 MEQ/L Estimat Glomerular Filtration Rate 71 ML/MIN Free Thyroxine 1.21 NG/DL Thyroid Stimulating Hormone 3rd Gen 0.008 uIU/ML White Blood Count 5.2 TH/MM3 Red Blood Count 3.73 MIL/MM3 Hemoglobin 11.1 GM/DL Hematocrit 33.0 % Mean Corpuscular Volume 88.4 FL Mean Corpuscular Hemoglobin 29.8 PG Mean Corpuscular Hemoglobin Concent 33.6 % Red Cell Distribution Width 15.8 % Platelet Count 157 TH/MM3 Mean Platelet Volume 9.0 FL Neutrophils (%) (Auto) 52.3 % Lymphocytes (%) (Auto) 33.4 % Monocytes (%) (Auto) 10.5 % Eosinophils (%) (Auto) 3.0 % Basophils (%) (Auto) 0.8 % Neutrophils # (Auto) 2.7 TH/MM3 Lymphocytes # (Auto) 1.7 TH/MM3 Monocytes # (Auto) 0.5 TH/MM3 Eosinophils # (Auto) 0.2 TH/MM3 Basophils # (Auto) 0.0 TH/MM3 CBC Comment DIFF FINAL Differential Comment Vitals/IOs Vital Signs Date Time Temp Pulse Resp B/P (MAP) Pulse Ox O2 Delivery O2 Flow Rate FiO2 11/23/17 06:19 97.8 82 18 131/56 (81) 99 Intake and Output 11/23/17 11/23/17 11/24/17 08:00 16:00 00:00 Intake Total 0 ml 600 ml Balance 0 ml 600 ml Assessment & Plan Problem List: (1) Major neurocognitive disorder ICD Codes: F03.90 - Unspecified dementia without behavioral disturbance Status: Acute Assessment & Plan: She seems to be reasonable, poorly cooperative, but she is compliant with medications, no significant side effects reported. Continue current psychotropic regimen. Assessment & Plan Estimated LOS: days Justification for Cont. Inpt. Patient has an elevated risk of danger to herself at a lower level of care. Petros Ramirez MD Nov 23, 2017 11:16
--- NOTE | 2017-11-23 12:44 | HHI.PR ---
Subjective Remarks Follow-up visit on 67-year-old female with AMS, self-care deficit, acute kidney injury and dehydration. Patient is seen and examined sitting up in chair fixing to be taken off of the floor to participate in group therapy outside. She tells me she is scared, but does not specify. She denies any fevers, chills, nausea, vomiting, diarrhea, cough, SOB or pain. Discussed with nurse who does not voice any concerns at this moment. 2- no new complaints patient remains quite lethargic today lying in bed Discussed with patient and RN 2- WANTING TO EAT MORE TODAY STATES SHE HAS MORE OF AN APPETITE DW RN AND PT Objective Vitals Vital Signs Date Time Temp Pulse Resp B/P (MAP) Pulse Ox O2 Delivery O2 Flow Rate FiO2 11/23/17 06:19 97.8 82 18 131/56 (81) 99 11/22/17 18:00 97.3 101 19 112/83 (93) 98 I/O 11/22/17 11/22/17 11/22/17 11/23/17 11/23/17 11/23/17 07:00 15:00 23:00 07:00 15:00 23:00 Intake Total 480 ml 1920 ml 1080 ml 0 ml 600 ml Balance 480 ml 1920 ml 1080 ml 0 ml 600 ml Intake Oral 480 ml 1920 ml 1080 ml 0 ml 600 ml # Voids 1 2 3 3 Result Diagram: 11/23/17 0740 11/23/17 0738 Other Results Laboratory Tests Test 11/21/17 07:16 11/23/17 07:38 11/23/17 07:40 Blood Urea Nitrogen 17 MG/DL 34 MG/DL Creatinine 0.79 MG/DL 0.81 MG/DL Random Glucose 95 MG/DL 104 MG/DL Calcium Level 9.2 MG/DL 8.7 MG/DL Sodium Level 144 MEQ/L 140 MEQ/L Potassium Level 4.0 MEQ/L 4.3 MEQ/L Chloride Level 111 MEQ/L 107 MEQ/L Carbon Dioxide Level 27.7 MEQ/L 29.1 MEQ/L Anion Gap 5 MEQ/L 4 MEQ/L Estimat Glomerular Filtration Rate 73 ML/MIN 71 ML/MIN Total Protein 5.7 GM/DL Albumin 2.8 GM/DL Phosphorus Level 1.8 MG/DL Magnesium Level 2.3 MG/DL Alkaline Phosphatase 42 U/L Aspartate Amino Transf (AST/SGOT) 23 U/L Alanine Aminotransferase (ALT/SGPT) 22 U/L Total Bilirubin 0.2 MG/DL Free Thyroxine 1.21 NG/DL Thyroid Stimulating Hormone 3rd Gen 0.008 uIU/ML White Blood Count 5.2 TH/MM3 Red Blood Count 3.73 MIL/MM3 Hemoglobin 11.1 GM/DL Hematocrit 33.0 % Mean Corpuscular Volume 88.4 FL Mean Corpuscular Hemoglobin 29.8 PG Mean Corpuscular Hemoglobin Concent 33.6 % Red Cell Distribution Width 15.8 % Platelet Count 157 TH/MM3 Mean Platelet Volume 9.0 FL Neutrophils (%) (Auto) 52.3 % Lymphocytes (%) (Auto) 33.4 % Monocytes (%) (Auto) 10.5 % Eosinophils (%) (Auto) 3.0 % Basophils (%) (Auto) 0.8 % Neutrophils # (Auto) 2.7 TH/MM3 Lymphocytes # (Auto) 1.7 TH/MM3 Monocytes # (Auto) 0.5 TH/MM3 Eosinophils # (Auto) 0.2 TH/MM3 Basophils # (Auto) 0.0 TH/MM3 CBC Comment DIFF FINAL Differential Comment Objective Remarks GENERAL: Very Thin white female, awake and alert in NAD. Not very talkative today HEAD: Normocephalic. Atraumatic NECK: Supple, trachea midline. No lymphadenopathy. EYES: No scleral icterus. No injection or drainage. Pupils equal round reactive light accommodation extraocular muscles intact CARDIOVASCULAR: Regular rate and rhythm without murmurs, gallops, or rubs. S1 and S2 no S3 or S4 RESPIRATORY: Breath sounds equal bilaterally. No accessory muscle use. GASTROINTESTINAL: Abdomen soft, non-tender, nondistended. Normoactive bowel sounds in all quadrants. MUSCULOSKELETAL: No cyanosis, or edema. SKIN: Pale, warm and dry. NEURO: No focal neurological deficits. Insight and judgment limited Mood and behavior is inappropriate Medications and IVs Current Medications Diphenhydramine HCl (Benadryl) 50 mg HS PRN PO INSOMNIA; Start 11/18/17 at 15: 30 Acetaminophen (Tylenol) 650 mg Q4H PRN PO Pain 1-5 or Temp >101F; Start at 15:30 Magnesium Hydroxide (Milk Of Magnesia Liq) 30 ml DAILY PRN PO CONSTIPATION Last administered on 11/22/17at 09:02; Start 11/18/17 at 15:30 Al Hydrox/Mg Hydrox/Simethicone (Mag-Al Plus Susp Liq) 30 ml Q6H PRN PO DYSPEPSIA; Start 11/18/17 at 15:30 Hydroxyzine HCl (Atarax) 50 mg Q6H PRN PO ANXIETY; Start 11/18/17 at 15:30 Ciprofloxacin (Cipro) 500 mg Q12HR PO Last administered on 11/23/17at 08:38; Start 11/19/17 at 21:00; Stop 11/25/17 at 23:00 Ciprofloxacin (Cipro) 500 mg ONCE ONCE PO Last administered on 11/19/17 11:19 ; Start 11/19/17 at 09:15; Stop 11/19/17 at 09:16; Status DC Memantine (Namenda) 5 mg DAILY PO Last administered on 11/23/17 08:38; Start 11/19/17 at 12:15 Potassium Chloride (KCl Powder) 40 meq ONCE ONCE PO Last administered on at 16:00; Start 11/19/17 at 15:00; Stop 11/19/17 at 15:10; Status DC Docusate Sodium (Colace) 100 mg BID PO Last administered on 11/23/17 08:38; Start 11/20/17 at 21:00 Potassium Chloride (KCl Powder) 40 meq ONCE ONCE PO Last administered on at 17:17; Start 11/20/17 at 15:30; Stop 11/20/17 at 15:36; Status DC Quetiapine Fumarate (SEROquel) 25 mg BID PO Last administered on 11/23/17at 08: 38; Start 11/20/17 at 21:00 Sertraline HCl (Zoloft) 25 mg DAILY PO Last administered on 11/23/17 08:38; Start 11/22/17 at 13:00 Miscellaneous (Pill Splitter) 1 ea UNSCH PRN OTHER SEE LABEL COMMENTS; Start at 13:30 A/P Assessment and Plan 67-year-old female admitted to inpatient medical psychiatry unit due to inability to take care of herself, delirium, and altered mental status. Medical team following due to hypokalemia as well as dehydration. Depression AMS/dementia -Treatment per psychiatry recommendations -CT of the head completed on 11/17 reviewed, no acute findings in the brain. Hypokalemia, resolved -BMP from this morning reviewed, potassium 4.0 HPI/dehydration, resolved -BMP from this morning reviewed, stable Self-care deficit -Case management following along for possible placement in the future -May be related to depression/underlying dementia UTI -Continue ciprofloxacin with an date 11/25 -Patient afebrile denying urinary complaints TSH level is quite low. WILL CONTINUE TO MONITOR Failure to thrive encourage by mouth intake- MAY NEED STIMULANTS DVT prophylaxis-ambulating Discussed with nurse. Discharge Planning Pending improvement psychiatric clearance Ritesh Olson DO Nov 23, 2017 12:44
[2017-11-23 16:42] LABS: HEMOGLOBIN A1C 5.3 % (4.3-6.0)
[2017-11-23 18:28] VITALS: BP 129/56; PULSE 94; RESP 16; TEMP 98.1; O2SAT 96
[2017-11-24 06:31] VITALS: BP 112/57; PULSE 57; RESP 16; TEMP 97.7; O2SAT 93
[2017-11-24] MEDS: DOCUSATE SODIUM 100 MG CAP PO SCH ×2 (09:00→21:05)
--- NOTE | 2017-11-24 09:02 | HHI.PYPN ---
Subjective Remarks Patient seen in her room with RN, chart reviewed, patient discussed with nurse. Patient states she is somewhat drowsy today though no other complaints. Does denies suicidality voices or visions. Review of Systems Except as stated in HPI: all other systems reviewed are Neg Mental Status Examination Appearance: Appropriate Consciousness: Alert Orientation: Person, Place, Date/Time Speech: Slow Language: Adequate Fund of Knowledge: Inadequate Attention and Concentration: Adequate Memory: Impaired Mood: Sad Affect: Sad, Anxious Thought Process & Associations: Linear, Other (concrete) Thought Content: Appropriate, Preoccupations (With getting her clothes back on and wanting to go home) Hallucination Type: None Delusion Type: None Suicidal Ideation: No Suicidal Plan: No Suicidal Intention: No Homicidal Ideation: No Homicidal Plan: No Homicidal Intention: No Insight: Poor Judgment: Poor Results Vitals/IOs Vital Signs Date Time Temp Pulse Resp B/P (MAP) Pulse Ox O2 Delivery O2 Flow Rate FiO2 11/24/17 06:31 97.7 57 16 112/57 (16) 93 Assessment & Plan Problem List: (1) Major neurocognitive disorder ICD Codes: F03.90 - Unspecified dementia without behavioral disturbance Status: Acute Assessment & Plan Estimated LOS: days patient continues somewhat confused mildly irritable. Though denying suicidality or voices. For now continue treatment Justification for Cont. Inpt. At this time patient with decompensated place the lower level of care Discharge Planning Be determined Cezar Crawley MD Nov 24, 2017 09:02
[2017-11-24] MEDS: SERTRALINE HCL 50 MG TAB PO SCH (09:34)
[2017-11-24] MEDS: MEMANTINE HCL 5 MG TAB PO SCH (09:34)
[2017-11-24] MEDS: QUEtiapine FUMARATE 25 MG TAB PO SCH ×2 (09:34→21:05)
[2017-11-24] MEDS: CIPROFLOXACIN 500 MG TAB PO SCH ×2 (09:34→21:05)
--- NOTE | 2017-11-24 11:12 | HHI.PR ---
Subjective Remarks Follow-up visit on 67-year-old female with AMS, self-care deficit, acute kidney injury and dehydration. Patient is seen and examined sitting up in chair fixing to be taken off of the floor to participate in group therapy outside. She tells me she is scared, but does not specify. She denies any fevers, chills, nausea, vomiting, diarrhea, cough, SOB or pain. Discussed with nurse who does not voice any concerns at this moment. 2-15 no new complaints patient remains quite lethargic today lying in bed Discussed with patient and RN 2-16 WANTING TO EAT MORE TODAY STATES SHE HAS MORE OF AN APPETITE DW RN AND PT 2-17 EATING MUCH MORE FOOD DW RN AND PT Objective Vitals Vital Signs Date Time Temp Pulse Resp B/P (MAP) Pulse Ox O2 Delivery O2 Flow Rate FiO2 11/24/17 06:31 97.7 57 16 112/57 (75) 93 11/23/17 18:28 98.1 94 16 129/56 (80) 96 I/O 11/23/17 11/23/17 11/23/17 11/24/17 11/24/17 11/24/17 07:00 15:00 23:00 07:00 15:00 23:00 Intake Total 0 ml 600 ml 2760 ml 420 ml Balance 0 ml 600 ml 2760 ml 420 ml Intake Oral 0 ml 600 ml 2760 ml 420 ml # Voids 3 2 Result Diagram: 11/23/17 0740 11/23/17 0738 Other Results Laboratory Tests Test 11/23/17 07:38 11/23/17 07:40 Blood Urea Nitrogen 34 MG/DL Creatinine 0.81 MG/DL Random Glucose 104 MG/DL Total Protein 5.7 GM/DL Albumin 2.8 GM/DL Calcium Level 8.7 MG/DL Phosphorus Level 1.8 MG/DL Magnesium Level 2.3 MG/DL Alkaline Phosphatase 42 U/L Aspartate Amino Transf (AST/SGOT) 23 U/L Alanine Aminotransferase (ALT/SGPT) 22 U/L Total Bilirubin 0.2 MG/DL Sodium Level 140 MEQ/L Potassium Level 4.3 MEQ/L Chloride Level 107 MEQ/L Carbon Dioxide Level 29.1 MEQ/L Anion Gap 4 MEQ/L Estimat Glomerular Filtration Rate 71 ML/MIN Hemoglobin A1c 5.3 % Free Thyroxine 1.21 NG/DL Thyroid Stimulating Hormone 3rd Gen 0.008 uIU/ML White Blood Count 5.2 TH/MM3 Red Blood Count 3.73 MIL/MM3 Hemoglobin 11.1 GM/DL Hematocrit 33.0 % Mean Corpuscular Volume 88.4 FL Mean Corpuscular Hemoglobin 29.8 PG Mean Corpuscular Hemoglobin Concent 33.6 % Red Cell Distribution Width 15.8 % Platelet Count 157 TH/MM3 Mean Platelet Volume 9.0 FL Neutrophils (%) (Auto) 52.3 % Lymphocytes (%) (Auto) 33.4 % Monocytes (%) (Auto) 10.5 % Eosinophils (%) (Auto) 3.0 % Basophils (%) (Auto) 0.8 % Neutrophils # (Auto) 2.7 TH/MM3 Lymphocytes # (Auto) 1.7 TH/MM3 Monocytes # (Auto) 0.5 TH/MM3 Eosinophils # (Auto) 0.2 TH/MM3 Basophils # (Auto) 0.0 TH/MM3 CBC Comment DIFF FINAL Differential Comment Objective Remarks GENERAL: Very Thin white female, awake and alert in NAD. Not very talkative today HEAD: Normocephalic. Atraumatic NECK: Supple, trachea midline. No lymphadenopathy. EYES: No scleral icterus. No injection or drainage. Pupils equal round reactive light accommodation extraocular muscles intact CARDIOVASCULAR: Regular rate and rhythm without murmurs, gallops, or rubs. S1 and S2 no S3 or S4 RESPIRATORY: Breath sounds equal bilaterally. No accessory muscle use. GASTROINTESTINAL: Abdomen soft, non-tender, nondistended. Normoactive bowel sounds in all quadrants. MUSCULOSKELETAL: No cyanosis, or edema. SKIN: Pale, warm and dry. NEURO: No focal neurological deficits. Insight and judgment limited Mood and behavior is inappropriate Medications and IVs Current Medications Diphenhydramine HCl (Benadryl) 50 mg HS PRN PO INSOMNIA; Start 11/18/17 at 15: 30 Acetaminophen (Tylenol) 650 mg Q4H PRN PO Pain 1-5 or Temp >101F; Start at 15:30 Magnesium Hydroxide (Milk Of Magnesia Liq) 30 ml DAILY PRN PO CONSTIPATION Last administered on 11/22/17at 09:02; Start 11/18/17 at 15:30 Al Hydrox/Mg Hydrox/Simethicone (Mag-Al Plus Susp Liq) 30 ml Q6H PRN PO DYSPEPSIA; Start 11/18/17 at 15:30 Hydroxyzine HCl (Atarax) 50 mg Q6H PRN PO ANXIETY; Start 11/18/17 at 15:30 Ciprofloxacin (Cipro) 500 mg Q12HR PO Last administered on 11/24/17at 09:34; Start 11/19/17 at 21:00; Stop 11/25/17 at 23:00 Ciprofloxacin (Cipro) 500 mg ONCE ONCE PO Last administered on 11/19/17at 11:19 ; Start 11/19/17 at 09:15; Stop 11/19/17 at 09:16; Status DC Memantine (Namenda) 5 mg DAILY PO Last administered on 11/24/17at 09:34; Start 11/19/17 at 12:15 Potassium Chloride (KCl Powder) 40 meq ONCE ONCE PO Last administered on at 16:00; Start 11/19/17 at 15:00; Stop 11/19/17 at 15:10; Status DC Docusate Sodium (Colace) 100 mg BID PO Last administered on 11/23/17at 20:45; Start 11/20/17 at 21:00 Potassium Chloride (KCl Powder) 40 meq ONCE ONCE PO Last administered on at 17:17; Start 11/20/17 at 15:30; Stop 11/20/17 at 15:36; Status DC Quetiapine Fumarate (SEROquel) 25 mg BID PO Last administered on 11/24/17at 09: 34; Start 11/20/17 at 21:00 Sertraline HCl (Zoloft) 25 mg DAILY PO Last administered on 11/24/17at 09:34; Start 11/22/17 at 13:00 Miscellaneous (Pill Splitter) 1 ea UNSCH PRN OTHER SEE LABEL COMMENTS; Start at 13:30 A/P Assessment and Plan 67-year-old female admitted to inpatient medical psychiatry unit due to inability to take care of herself, delirium, and altered mental status. Medical team following due to hypokalemia as well as dehydration. Depression AMS/dementia -Treatment per psychiatry recommendations -CT of the head completed on 11/17 reviewed, no acute findings in the brain. Hypokalemia, resolved -BMP from this morning reviewed, potassium 4.0 HPI/dehydration, resolved -BMP from this morning reviewed, stable EATING BETTER Self-care deficit -Case management following along for possible placement in the future -May be related to depression/underlying dementia UTI -Continue ciprofloxacin with an date 11/25 -Patient afebrile denying urinary complaints TSH level is quite low. WILL CONTINUE TO MONITOR Failure to thrive encourage by mouth intake- MAY NEED STIMULANTS--TOLERATING A DIET AND EATING WELL DVT prophylaxis-ambulating Discussed with nurse. Discharge Planning Pending improvement psychiatric clearance Ritesh Olson DO Nov 24, 2017 11:12
[2017-11-24 18:24] VITALS: BP 104/55; PULSE 100; RESP 16; TEMP 98.1; O2SAT 97
[2017-11-25 06:28] VITALS: BP 94/55; PULSE 78; RESP 16; TEMP 98.1; O2SAT 96
--- NOTE | 2017-11-25 08:57 | HHI.PYPN ---
Subjective Remarks Patient seen in her room with nurse Niko, chart reviewed, patient discussed with nurse. Patient laying in bed with covers to her chin when attempting to speak with her she told us to "get out" it appears patient has had no other behavioral problems. For now continue treatment Review of Systems Except as stated in HPI: all other systems reviewed are Neg Mental Status Examination Appearance: Appropriate Consciousness: Alert Orientation: Person, Place, Date/Time Speech: Slow Language: Adequate Fund of Knowledge: Inadequate Attention and Concentration: Adequate Memory: Impaired Mood: Sad Affect: Sad, Anxious Thought Process & Associations: Linear, Other (concrete) Thought Content: Appropriate, Preoccupations (With getting her clothes back on and wanting to go home) Hallucination Type: None Delusion Type: None Suicidal Ideation: No Suicidal Plan: No Suicidal Intention: No Homicidal Ideation: No Homicidal Plan: No Homicidal Intention: No Insight: Poor Judgment: Poor Results Vitals/IOs Vital Signs Date Time Temp Pulse Resp B/P (MAP) Pulse Ox O2 Delivery O2 Flow Rate FiO2 11/25/17 06:28 98.1 78 16 94/55 (68) 96 Intake and Output 11/25/17 11/25/17 11/26/17 08:00 16:00 00:00 Intake Total 480 ml Balance 480 ml Assessment & Plan Problem List: (1) Major neurocognitive disorder ICD Codes: F03.90 - Unspecified dementia without behavioral disturbance Status: Acute Assessment & Plan Estimated LOS: days patient today irritable somewhat confused and uncooperative Justification for Cont. Inpt. At this time patient decompensated placed on the lower level of care Discharge Planning To be determined Cezar Crawley MD Nov 25, 2017 08:56
[2017-11-25] MEDS: SERTRALINE HCL 50 MG TAB PO SCH (09:32)
[2017-11-25] MEDS: QUEtiapine FUMARATE 25 MG TAB PO SCH ×2 (09:33→20:24)
[2017-11-25] MEDS: CIPROFLOXACIN 500 MG TAB PO SCH ×2 (09:33→20:24)
[2017-11-25] MEDS: MEMANTINE HCL 5 MG TAB PO SCH (09:33)
[2017-11-25] MEDS: DOCUSATE SODIUM 100 MG CAP PO SCH ×2 (09:33→20:24)
--- NOTE | 2017-11-25 10:25 | HHI.PR ---
Subjective Remarks Patient seen and examined. Temperature 98.1, pulse 78, respiratory rate 16, blood pressure 94/55, pulse ox 96 on room air. She is lying in the bed and appears comfortable. She tells me she does not want to talk to me. Wishes that I leave the room and go away. Encouraged the patient to increase oral intake Objective Vitals Vital Signs Date Time Temp Pulse Resp B/P (MAP) Pulse Ox O2 Delivery O2 Flow Rate FiO2 11/25/17 06:28 98.1 78 16 94/55 (68) 96 11/24/17 18:24 98.1 100 16 104/55 (71) 97 I/O 11/24/17 11/24/17 11/24/17 11/25/17 11/25/17 11/25/17 07:00 15:00 23:00 07:00 15:00 23:00 Intake Total 420 ml 2100 ml 480 ml Balance 420 ml 2100 ml 480 ml Intake Oral 420 ml 2100 ml 480 ml # Voids 1 1 Result Diagram: 11/23/17 0740 11/23/17 0738 Objective Remarks GENERAL: Very Thin white female, awake and alert in NAD. Not willing to speak with HEAD: Normocephalic. Atraumatic NECK: Supple, trachea midline. No lymphadenopathy. EYES: No scleral icterus. No injection or drainage. Pupils equal round reactive light accommodation extraocular muscles intact CARDIOVASCULAR: Regular rate and rhythm without murmurs, gallops, or rubs. S1 and S2 no S3 or S4 RESPIRATORY: Breath sounds equal bilaterally. No accessory muscle use. GASTROINTESTINAL: Abdomen soft, non-tender, nondistended. Normoactive bowel sounds in all quadrants. MUSCULOSKELETAL: No cyanosis, or edema. SKIN: Pale, warm and dry. NEURO: No focal neurological deficits. Insight and judgment limited Mood and behavior is inappropriate Medications and IVs Current Medications Medications (Trade) Dose Ordered Sig/Ananth Route Start Time Stop Time Status Last Admin (Benadryl) 50 mg HS PRN PO 11/18/17 15:30 (Tylenol) 650 mg Q4H PRN PO 11/18/17 15:30 (Milk Of Magnesia Liq) 30 ml DAILY PRN PO 11/18/17 15:30 11/22/17 09:02 (Mag-Al Plus Susp Liq) 30 ml Q6H PRN PO 11/18/17 15:30 (Atarax) 50 mg Q6H PRN PO 11/18/17 15:30 (Cipro) 500 mg Q12HR PO 11/19/17 21:00 11/25/17 23:00 11/25/17 09:33 (Namenda) 5 mg DAILY PO 11/19/17 12:15 11/25/17 09:33 (Colace) 100 mg BID PO 11/20/17 21:00 11/25/17 09:33 (SEROquel) 25 mg BID PO 11/20/17 21:00 11/25/17 09:33 (Zoloft) 25 mg DAILY PO 11/22/17 13:00 11/25/17 09:32 (Pill Splitter) 1 ea UNSCH PRN OTHER 11/22/17 13:30 A/P Problem List: (1) Delirium due to another medical condition ICD Code: F05 - Delirium due to known physiological condition Status: Acute (2) Major neurocognitive disorder ICD Code: F03.90 - Unspecified dementia without behavioral disturbance Status: Acute (3) Total self-care deficit ICD Code: R41.89 - Other symptoms and signs involving cognitive functions and awareness (4) Hypokalemia ICD Code: E87.6 - Hypokalemia (5) Hypernatremia ICD Code: E87.0 - Hyperosmolality and hypernatremia Status: Acute (6) Acute kidney injury ICD Code: N17.9 - Acute kidney failure, unspecified Assessment and Plan 67-year-old female admitted to inpatient medical psychiatry unit due to inability to take care of herself, delirium, and altered mental status. Medical team following due to hypokalemia as well as dehydration. Depression AMS/dementia -Treatment per psychiatry recommendations -CT of the head completed on 11/17 reviewed, no acute findings in the brain. Hypokalemia, resolved -BMP from this morning reviewed, potassium 4.0 HPI/dehydration, resolved -BMP from this morning reviewed, stable EATING BETTER Self-care deficit -Case management following along for possible placement in the future -May be related to depression/underlying dementia UTI -Continue ciprofloxacin with end date 11/25 -Patient afebrile denying urinary complaints TSH level is quite low. WILL CONTINUE TO MONITOR Failure to thrive encourage by mouth intake- MAY NEED STIMULANTS--TOLERATING A DIET AND EATING WELL DVT prophylaxis-ambulating Discharge Planning Pending medical improvement and psychiatric clearance Calvin Clark MD, R3 Nov 25, 2017 10:25
[2017-11-26 05:18] VITALS: BP 113/57; PULSE 82; RESP 15
--- NOTE | 2017-11-26 09:48 | HHI.PR ---
Subjective Remarks Follow-up visit on 67-year-old female with AMS, self-care deficit, acute kidney injury and dehydration. Patient is seen and examined sitting up in chair fixing to be taken off of the floor to participate in group therapy outside. She tells me she is scared, but does not specify. She denies any fevers, chills, nausea, vomiting, diarrhea, cough, SOB or pain. Discussed with nurse who does not voice any concerns at this moment. 2-15 no new complaints patient remains quite lethargic today lying in bed Discussed with patient and RN 2-16 WANTING TO EAT MORE TODAY STATES SHE HAS MORE OF AN APPETITE DW RN AND PT 2-17 EATING MUCH MORE FOOD DW RN AND PT 2-18 Patient seen and examined. Temperature 98.1, pulse 78, respiratory rate 16 , blood pressure 94/55, pulse ox 96 on room air. She is lying in the bed and appears comfortable. She tells me she does not want to talk to me. Wishes that I leave the room and go away. Encouraged the patient to increase oral intake 2-19 NOT VERY COOPERATIVE TODAY NOT EATING WELL TODAY DW RN AND PATIENT BEING DIFFICULT TODAY Objective Vitals Vital Signs Date Time Temp Pulse Resp B/P (MAP) Pulse Ox O2 Delivery O2 Flow Rate FiO2 11/26/17 05:18 82 15 113/57 (75) I/O 11/25/17 11/25/17 11/25/17 11/26/17 11/26/17 11/26/17 07:00 15:00 23:00 07:00 15:00 23:00 Intake Total 480 ml 60 ml Balance 480 ml 60 ml Intake Oral 480 ml 60 ml # Voids 1 4 Result Diagram: 11/23/17 0740 11/23/17 0738 Objective Remarks GENERAL: Very Thin white female, awake and alert in NAD. Not very talkative today HEAD: Normocephalic. Atraumatic NECK: Supple, trachea midline. No lymphadenopathy. EYES: No scleral icterus. No injection or drainage. Pupils equal round reactive light accommodation extraocular muscles intact CARDIOVASCULAR: Regular rate and rhythm without murmurs, gallops, or rubs. S1 and S2 no S3 or S4 RESPIRATORY: Breath sounds equal bilaterally. No accessory muscle use. GASTROINTESTINAL: Abdomen soft, non-tender, nondistended. Normoactive bowel sounds in all quadrants. MUSCULOSKELETAL: No cyanosis, or edema. SKIN: Pale, warm and dry. NEURO: No focal neurological deficits. Insight and judgment limited Mood and behavior is inappropriate Medications and IVs Current Medications Diphenhydramine HCl (Benadryl) 50 mg HS PRN PO INSOMNIA; Start 11/18/17 at 15: 30 Acetaminophen (Tylenol) 650 mg Q4H PRN PO Pain 1-5 or Temp >101F; Start at 15:30 Magnesium Hydroxide (Milk Of Magnesia Liq) 30 ml DAILY PRN PO CONSTIPATION Last administered on 11/22/17at 09:02; Start 11/18/17 at 15:30 Al Hydrox/Mg Hydrox/Simethicone (Mag-Al Plus Susp Liq) 30 ml Q6H PRN PO DYSPEPSIA; Start 11/18/17 at 15:30 Hydroxyzine HCl (Atarax) 50 mg Q6H PRN PO ANXIETY Last administered on 20:36; Start 11/18/17 at 15:30 Ciprofloxacin (Cipro) 500 mg Q12HR PO Last administered on 11/25/17at 20:24; Start 11/19/17 at 21:00; Stop 11/25/17 at 23:00; Status DC Ciprofloxacin (Cipro) 500 mg ONCE ONCE PO Last administered on 11/19/17 11:19 ; Start 11/19/17 at 09:15; Stop 11/19/17 at 09:16; Status DC Memantine (Namenda) 5 mg DAILY PO Last administered on 11/25/17at 09:33; Start 11/19/17 at 12:15 Potassium Chloride (KCl Powder) 40 meq ONCE ONCE PO Last administered on at 16:00; Start 11/19/17 at 15:00; Stop 11/19/17 at 15:10; Status DC Docusate Sodium (Colace) 100 mg BID PO Last administered on 11/25/17 20:24; Start 11/20/17 at 21:00 Potassium Chloride (KCl Powder) 40 meq ONCE ONCE PO Last administered on 17:17; Start 11/20/17 at 15:30; Stop 11/20/17 at 15:36; Status DC Quetiapine Fumarate (SEROquel) 25 mg BID PO Last administered on 2/18/18at 20: 24; Start 11/20/17 at 21:00 Sertraline HCl (Zoloft) 25 mg DAILY PO Last administered on 11/25/17at 09:32; Start 11/22/17 at 13:00 Miscellaneous (Pill Splitter) 1 ea UNSCH PRN OTHER SEE LABEL COMMENTS; Start at 13:30 A/P Problem List: (1) Delirium due to another medical condition ICD Code: F05 - Delirium due to known physiological condition Status: Acute (2) Major neurocognitive disorder ICD Code: F03.90 - Unspecified dementia without behavioral disturbance Status: Acute (3) Total self-care deficit ICD Code: R41.89 - Other symptoms and signs involving cognitive functions and awareness (4) Hypokalemia ICD Code: E87.6 - Hypokalemia (5) Hypernatremia ICD Code: E87.0 - Hyperosmolality and hypernatremia Status: Acute (6) Acute kidney injury ICD Code: N17.9 - Acute kidney failure, unspecified Assessment and Plan 67-year-old female admitted to inpatient medical psychiatry unit due to inability to take care of herself, delirium, and altered mental status. Medical team following due to hypokalemia as well as dehydration. Depression AMS/dementia -Treatment per psychiatry recommendations -CT of the head completed on 11/17 reviewed, no acute findings in the brain. Hypokalemia, resolved -BMP from this morning reviewed, potassium 4.0 HPI/dehydration, resolved -BMP from this morning reviewed, stable EATING BETTER Self-care deficit -Case management following along for possible placement in the future -May be related to depression/underlying dementia UTI -Continue ciprofloxacin with an END date 11/25 -Patient afebrile denying urinary complaints TSH level is quite low. WILL CONTINUE TO MONITOR Failure to thrive encourage by mouth intake- MAY NEED STIMULANTS--TOLERATING A DIET AND EATING WELL DVT prophylaxis-ambulating Discussed with nurse. Discharge Planning Pending improvement psychiatric clearance Ritesh Olson DO Nov 26, 2017 09:48
[2017-11-26] MEDS: MEMANTINE HCL 5 MG TAB PO SCH (10:46)
[2017-11-26] MEDS: QUEtiapine FUMARATE 25 MG TAB PO SCH ×2 (10:46→20:26)
[2017-11-26] MEDS: DOCUSATE SODIUM 100 MG CAP PO SCH ×2 (10:46→20:26)
[2017-11-26] MEDS: SERTRALINE HCL 50 MG TAB PO SCH (10:46)
--- NOTE | 2017-11-26 12:18 | HHI.PYPN ---
Subjective Remarks Patient is here for follow, chart reviewed. Discussion nursing staff reported the patient noted to be somewhat irritable, reluctant to participate in care recently. Patient was found lying hospital bed would be reluctant to enter act with interview today. Patient noted to be somewhat anxious and irritable stating "I do not know what I am doing here" and "wanting to be discharged home. Patient was reminded the patient continues to require medical psychiatric stabilization prior to discharge but would require patient to participate more in her care. Patient was perseverative on the fact that she had adult diapers on and not having her casual clothing as well which patient was reminded was next to her bedside and if needed can have assistance to have them on. Patient noted to have perseveration on have having an adult diaper which was noted to have reaction to be somewhat out proportion. Review of Systems Except as stated in HPI: all other systems reviewed are Neg Mental Status Examination Appearance: Appropriate Consciousness: Alert Orientation: Person, Place, Date/Time Speech: Slow Language: Adequate Fund of Knowledge: Inadequate Attention and Concentration: Adequate Memory: Impaired Mood: Sad, Anxious Affect: Sad, Anxious Thought Process & Associations: Disorganized Thought Content: Appropriate, Preoccupations (With getting her clothes back on and wanting to go home) Hallucination Type: None Delusion Type: None Suicidal Ideation: No Suicidal Plan: No Suicidal Intention: No Homicidal Ideation: No Homicidal Plan: No Homicidal Intention: No Insight: Poor Judgment: Poor Results Vitals/IOs Vital Signs Date Time Temp Pulse Resp B/P (MAP) Pulse Ox O2 Delivery O2 Flow Rate FiO2 11/26/17 05:18 82 15 113/57 (75) 11/25/17 06:28 98.1 96 Assessment & Plan Problem List: (1) Major neurocognitive disorder ICD Codes: F03.90 - Unspecified dementia without behavioral disturbance Status: Acute Assessment & Plan Patient today noted to have perseveration on having had little diapers which was her proportion to context. Patient noted to be somewhat confused and disorganized throughout interview. We will increase quetiapine to 50 mg p.o. twice daily, continue with the medications. Continue to encourage patient to maintain good nutritional intake as well as participating in self-care on the unit. Continue recommendations as per prior medical team. Discharge planning in progress. Justification for Cont. Inpt. At risk for further decompensation if at lower level of care Discharge Planning Possible discharge to SNF Quang Hodges MD Nov 26, 2017 12:18
[2017-11-26 12:25] LABS: BASOPHIL % 1.1 % (0.0-2.0); EOSINOPHIL # 0.1 TH/MM3 (0-0.4); EOSINOPHIL % 1.4 % (0.0-4.0); HEMATOCRIT 33.5 % (35.0-46.0); HEMOGLOBIN 11.2 GM/DL (11.6-15.3); LYMPH % 29.5 % (9.0-44.0); LYMPHOCYTE # 1.1 TH/MM3 (1.0-4.8); MEAN CELL VOLUME 89.1 FL (80.0-100.0); MEAN CORPUSCULAR HEMOGLOBIN 29.8 PG (27.0-34.0); MEAN CORPUSCULAR HGB CONC 33.4 % (32.0-36.0); MEAN PLATELET VOLUME 8.3 FL (7.0-11.0); MONO % 15.2 % (0.0-8.0); MONOCYTE # 0.6 TH/MM3 (0-0.9); NEUT % 52.8 % (16.0-70.0); PLATELET COUNT 195 TH/MM3 (150-450); RED BLOOD COUNT 3.76 MIL/MM3 (4.00-5.30); WHITE BLOOD COUNT 3.7 TH/MM3 (4.0-11.0)
[2017-11-26 12:40] LABS: ALBUMIN 2.9 GM/DL (3.4-5.0); AST (GOT) 40 U/L (15-37); BICARBONATE 25.8 MEQ/L (21.0-32.0); BLOOD UREA NITROGEN 20 MG/DL (7-18); CALCIUM 9.2 MG/DL (8.5-10.1); CHLORIDE 112 MEQ/L (98-107); CREATININE 0.81 MG/DL (0.50-1.00); GLOMERULAR FILTRATION RATE 71 ML/MIN (>89); GLUCOSE,RANDOM 90 MG/DL (74-106); SODIUM (NA) 145 MEQ/L (136-145)
[2017-11-26 12:56] LABS: ALKALINE PHOSPHATASE 48 U/L (45-117); ALT (GPT) 43 U/L (10-53); TOTAL BILIRUBIN ADULT 0.3 MG/DL (0.2-1.0)
[2017-11-26 18:41] VITALS: PULSE 16; O2SAT 98
[2017-11-27 05:45] VITALS: BP 99/54; PULSE 80; RESP 16; TEMP 98; O2SAT 98
[2017-11-27] MEDS: DOCUSATE SODIUM 100 MG CAP PO SCH ×2 (09:08→20:55)
[2017-11-27] MEDS: SERTRALINE HCL 50 MG TAB PO SCH (09:08)
[2017-11-27] MEDS: MEMANTINE HCL 5 MG TAB PO SCH (09:08)
[2017-11-27] MEDS: QUEtiapine FUMARATE 25 MG TAB PO SCH ×2 (09:08→20:55)
--- NOTE | 2017-11-27 09:48 | HHI.PYPN ---
Subjective Remarks Patient is here for follow, chart reviewed. Discussion nursing staff reported the patient ate more breakfast this morning as well as ambulated with assistance to the bathroom and that to be less withdrawn today. Patient was found lying hospital bed noted to be more cooperative and more engaging recently. Patient states that she was able to go to the restroom herself with assistance and was eating more. Patient reports that she do not wants to be able to be discharged home and it was discussed with patient the possibility of her requiring rehabilitation program prior to consideration her going home which she acknowledged. Patient was continued to be encouraged to participate in groups and activities and be more physically active and less time lying in bed which she agreed. Review of Systems Except as stated in HPI: all other systems reviewed are Neg Mental Status Examination Appearance: Appropriate Consciousness: Alert Orientation: Person, Place, Date/Time Speech: Slow Language: Adequate Fund of Knowledge: Inadequate Attention and Concentration: Adequate Memory: Impaired Mood: Sad (less so today) Affect: Sad (Less so today) Thought Process & Associations: Disorganized Thought Content: Appropriate, Preoccupations (With going home) Hallucination Type: None Delusion Type: None Suicidal Ideation: No Suicidal Plan: No Suicidal Intention: No Homicidal Ideation: No Homicidal Plan: No Homicidal Intention: No Insight: Poor Judgment: Poor Results Labs Labs reviewed Test 11/26/17 11:57 White Blood Count 3.7 TH/MM3 Red Blood Count 3.76 MIL/MM3 Hemoglobin 11.2 GM/DL Hematocrit 33.5 % Mean Corpuscular Volume 89.1 FL Mean Corpuscular Hemoglobin 29.8 PG Mean Corpuscular Hemoglobin Concent 33.4 % Red Cell Distribution Width 16.0 % Platelet Count 195 TH/MM3 Mean Platelet Volume 8.3 FL Neutrophils (%) (Auto) 52.8 % Lymphocytes (%) (Auto) 29.5 % Monocytes (%) (Auto) 15.2 % Eosinophils (%) (Auto) 1.4 % Basophils (%) (Auto) 1.1 % Neutrophils # (Auto) 2.0 TH/MM3 Lymphocytes # (Auto) 1.1 TH/MM3 Monocytes # (Auto) 0.6 TH/MM3 Eosinophils # (Auto) 0.1 TH/MM3 Basophils # (Auto) 0.0 TH/MM3 CBC Comment DIFF FINAL Differential Comment Blood Urea Nitrogen 20 MG/DL Creatinine 0.81 MG/DL Random Glucose 90 MG/DL Total Protein 6.0 GM/DL Albumin 2.9 GM/DL Calcium Level 9.2 MG/DL Alkaline Phosphatase 48 U/L Aspartate Amino Transf (AST/SGOT) 40 U/L Alanine Aminotransferase (ALT/SGPT) 43 U/L Total Bilirubin 0.3 MG/DL Sodium Level 145 MEQ/L Potassium Level 4.1 MEQ/L Chloride Level 112 MEQ/L Carbon Dioxide Level 25.8 MEQ/L Anion Gap 7 MEQ/L Estimat Glomerular Filtration Rate 71 ML/MIN Thyroid Stimulating Hormone 3rd Gen 0.008 uIU/ML Vitals/IOs Vital Signs Date Time Temp Pulse Resp B/P (MAP) Pulse Ox O2 Delivery O2 Flow Rate FiO2 11/27/17 05:45 98.0 80 16 99/54 (69) 98 Intake and Output 11/27/17 11/27/17 11/28/17 08:00 16:00 00:00 Intake Total 0 ml 360 ml Balance 0 ml 360 ml Assessment & Plan Problem List: (1) Major neurocognitive disorder ICD Codes: F03.90 - Unspecified dementia without behavioral disturbance Status: Acute Assessment & Plan Patient this time noted to have more affect willing to cooperate more in her care. Patient recently had antidepressant increased we will continue current treatment for now and continue to monitor mood and behavior. Continue encourage patient to participate with physical therapy as well as increased nutritional intake. Treatment team to explore possibility of patient to be transferred to assisted facility for physical rehabilitation. Discharge planning in progress. Justification for Cont. Inpt. At risk for further decompensation if at lower level of care Discharge Planning Possibly to assisted facility for physical rehab Quang Hodges MD Nov 27, 2017 09:48
--- NOTE | 2017-11-27 12:04 | HHI.PR ---
Subjective Remarks will not talk much, angry at staff particiapted in bingo in am but was mad about it denies any thyroid issues prior but wont answer specific questions regarding weight loss, hair loss, tachycardia , etc free t4 normal Objective Vitals Vital Signs Date Time Temp Pulse Resp B/P (MAP) Pulse Ox O2 Delivery O2 Flow Rate FiO2 11/27/17 05:45 98.0 80 16 99/54 (69) 98 11/26/17 18:41 16 98 I/O 11/26/17 11/26/17 11/26/17 11/27/17 11/27/17 11/27/17 07:00 15:00 23:00 07:00 15:00 23:00 Intake Total 60 ml 1200 ml 600 ml 0 ml 360 ml Balance 60 ml 1200 ml 600 ml 0 ml 360 ml Intake Oral 60 ml 1200 ml 600 ml 0 ml 360 ml # Voids 4 1 Result Diagram: 11/26/17 1157 11/26/17 1157 A/P Problem List: (1) Delirium due to another medical condition ICD Code: F05 - Delirium due to known physiological condition Status: Acute (2) Major neurocognitive disorder ICD Code: F03.90 - Unspecified dementia without behavioral disturbance Status: Acute (3) Total self-care deficit ICD Code: R41.89 - Other symptoms and signs involving cognitive functions and awareness (4) Hypokalemia ICD Code: E87.6 - Hypokalemia (5) Hypernatremia ICD Code: E87.0 - Hyperosmolality and hypernatremia Status: Acute (6) Acute kidney injury ICD Code: N17.9 - Acute kidney failure, unspecified Assessment and Plan free t4 normal low tsh subclinical but limited hx will sign off follow up with pcp upon discharge Miguel Angel Leigh MD Nov 27, 2017 12:04
[2017-11-27 17:49] VITALS: BP 144/67; PULSE 90; RESP 16; TEMP 97.7; O2SAT 100
[2017-11-28 04:26] VITALS: BP 115/58; PULSE 85; RESP 16; TEMP 97.7; O2SAT 97
[2017-11-28] MEDS: MEMANTINE HCL 5 MG TAB PO SCH (09:16)
[2017-11-28] MEDS: QUEtiapine FUMARATE 25 MG TAB PO SCH ×2 (09:16→21:00)
[2017-11-28] MEDS: SERTRALINE HCL 50 MG TAB PO SCH (09:16)
[2017-11-28] MEDS: DOCUSATE SODIUM 100 MG CAP PO SCH ×2 (09:16→21:00)
[2017-11-28] MEDS: MAGNESIUM HYDROXIDE SUSP 30 ML CUP PO PRN (09:59)
--- NOTE | 2017-11-28 12:48 | HHI.PYPN ---
Subjective Remarks Patient seen for follow, chart reviewed. Patient found lying in hospital bed noted to be more alert and engaging interview today. Patient noted to be smiling with brighter affect. Patient reports that she continues to feel constipated that her last bowel movement was a couple days ago. Patient reports her mood being "okay" and reported having gone to groups and play bingo which she enjoyed. Patient also reports that she feels confused at times which she believes that at times she is at home but is reminded after looking at the window that she is not there. She reports less to be confused last evening. Review of Systems Except as stated in HPI: all other systems reviewed are Neg Mental Status Examination Appearance: Appropriate Consciousness: Alert Orientation: Person, Place, Date/Time Speech: Slow Language: Adequate Fund of Knowledge: Inadequate Attention and Concentration: Adequate Memory: Impaired Mood: Appropriate Affect: Sad (Less so today) Thought Process & Associations: Linear Thought Content: Appropriate, Preoccupations (With going home) Hallucination Type: None Delusion Type: None Suicidal Ideation: No Suicidal Plan: No Suicidal Intention: No Homicidal Ideation: No Homicidal Plan: No Homicidal Intention: No Insight: Poor Judgment: Poor Results Vitals/IOs Vital Signs Date Time Temp Pulse Resp B/P (MAP) Pulse Ox O2 Delivery O2 Flow Rate FiO2 11/28/17 04:26 97.7 85 16 115/58 (77) 97 Intake and Output 11/28/17 11/28/17 11/29/17 08:00 16:00 00:00 Intake Total 480 ml Balance 480 ml Assessment & Plan Problem List: (1) Major neurocognitive disorder ICD Codes: F03.90 - Unspecified dementia without behavioral disturbance Status: Acute Assessment & Plan Patient appears to have improved mood today continues to have episodes of confusion which likely secondary to neurocognitive deficits. Patient participating in self-care more as well as some groups on the unit. Continue to monitor mood and behavior. Treatment team to continue to explore options of having patient transferred to a group home facility. Discharge planning in progress Justification for Cont. Inpt. At risk of further decompensation and lower level of care. Discharge Planning To group home facility when one is acquired. Quang Hodges MD Nov 28, 2017 12:48
[2017-11-28 18:48] VITALS: BP 92/56; PULSE 88; RESP 18; TEMP 98; O2SAT 99
[2017-11-29 06:00] VITALS: BP 115/56; PULSE 80; RESP 16; TEMP 98.1; O2SAT 97
[2017-11-29] MEDS: SERTRALINE HCL 50 MG TAB PO SCH (08:10)
[2017-11-29] MEDS: MEMANTINE HCL 5 MG TAB PO SCH (08:10)
[2017-11-29] MEDS: DOCUSATE SODIUM 100 MG CAP PO SCH ×2 (08:10→20:18)
[2017-11-29] MEDS: QUEtiapine FUMARATE 25 MG TAB PO SCH ×2 (08:10→20:18)
--- NOTE | 2017-11-29 10:30 | HHI.PYPN ---
Subjective Remarks Patient is here for follow, chart reviewed. Discussion nursing staff reported the patient has had poor nutritional intake today and noted to be depressed and withdrawn. Patient was found lying in hospital bed refusing to open her eyes and cooperating superficially today. Patient noted to be somewhat irritable endorsing feeling depressed stated wanting to go home. Patient was encouraged to improve her nutritional intake as well as participation in care and ambulation which she acknowledged but continues to have limited interaction today. Patient reports having spoken to her brother yesterday but did not elaborate and only stating that he would like her to go home soon. She denies any SI. Review of Systems Except as stated in HPI: all other systems reviewed are Neg Mental Status Examination Appearance: Appropriate Consciousness: Alert Orientation: Person, Place, Date/Time Speech: Slow Language: Adequate Fund of Knowledge: Inadequate Attention and Concentration: Adequate Memory: Impaired Mood: Sad Affect: Sad Thought Process & Associations: Linear Thought Content: Appropriate, Preoccupations (With going home) Hallucination Type: None Delusion Type: None Suicidal Ideation: No Suicidal Plan: No Suicidal Intention: No Homicidal Ideation: No Homicidal Plan: No Homicidal Intention: No Insight: Poor Judgment: Poor Results Vitals/IOs Vital Signs Date Time Temp Pulse Resp B/P (MAP) Pulse Ox O2 Delivery O2 Flow Rate FiO2 11/29/17 06:00 98.1 80 16 115/56 (75) 97 Assessment & Plan Problem List: (1) Major neurocognitive disorder ICD Codes: F03.90 - Unspecified dementia without behavioral disturbance Status: Acute Assessment & Plan Patient this time noted to be more withdrawn, depressed, but denies any suicide ideations. Patient continues to have episodes of confusion which have been distressing for the patient as she at times thinks she is at home and realizes she is still in the hospital. We will increase sertraline to 50 mg p.o. daily for depression, continue rest of medications. Continue to encourage patient to participate in adequate nutritional intake, maintenance of personal hygiene and participation in groups and activities along with working with physical therapy. Discharge planning in progress. Justification for Cont. Inpt. At risk for further decompensation at lower level of care Discharge Planning Patient to go to SNF Quang Hodges MD Nov 29, 2017 10:30
[2017-11-29 18:47] VITALS: BP 97/52; PULSE 86; RESP 16; TEMP 97.9; O2SAT 98
[2017-11-30 06:00] VITALS: BP 110/56; PULSE 77; RESP 16; TEMP 97.9; O2SAT 95
[2017-11-30] MEDS: DOCUSATE SODIUM 100 MG CAP PO SCH ×2 (09:00→20:50)
[2017-11-30] MEDS: MEMANTINE HCL 5 MG TAB PO SCH (09:32)
[2017-11-30] MEDS: QUEtiapine FUMARATE 25 MG TAB PO SCH ×2 (09:33→20:50)
[2017-11-30] MEDS: SERTRALINE HCL 50 MG TAB PO SCH (09:33)
--- NOTE | 2017-11-30 12:11 | HHI.PYPN ---
Subjective Remarks Patient seen for follow-up, chart reviewed. Discussion nursing staff reported patient did much better last evening but refusing meals yesterday. Patient was found lying in hospital bed noted to be somewhat superficially cooperative but encouraged to set up interact with interview. Patient is noted to be somewhat irritable stated that she now wants to stay here at the hospital. She continues to report feeling depressed but denied any suicide ideations. Patient reports when to go home but discussion with plan of having patient to increase or improve nutritional intake as well as participation in ADLs was reviewed which she acknowledged. Patient later during interview set up and started eating breakfast. Review of Systems Except as stated in HPI: all other systems reviewed are Neg Mental Status Examination Appearance: Appropriate Consciousness: Alert Orientation: Person, Place, Date/Time Speech: Slow Language: Adequate Fund of Knowledge: Inadequate Attention and Concentration: Adequate Memory: Impaired Mood: Sad Affect: Sad, Anxious Thought Process & Associations: Linear Thought Content: Appropriate, Preoccupations (With going home) Hallucination Type: None Delusion Type: None Suicidal Ideation: No Suicidal Plan: No Suicidal Intention: No Homicidal Ideation: No Homicidal Plan: No Homicidal Intention: No Insight: Poor Judgment: Poor Results Vitals/IOs Vital Signs Date Time Temp Pulse Resp B/P (MAP) Pulse Ox O2 Delivery O2 Flow Rate FiO2 11/30/17 06:00 97.9 77 16 110/56 (74) 95 Intake and Output 11/30/17 11/30/17 12/01/17 08:00 16:00 00:00 Intake Total 0 ml 660 ml Balance 0 ml 660 ml Assessment & Plan Problem List: (1) Major neurocognitive disorder ICD Codes: F03.90 - Unspecified dementia without behavioral disturbance Status: Acute Assessment & Plan Patient this time continues to report feeling depressed with some psychomotor retardation noted as well as some latency inpatient processing information during interview. She will recent increase in sertraline. Will continue current medication regimen and continue to monitor mood and behavior. Continue to encourage patient to maintain personal hygiene and participate in ADLs as well as groups and activities on the unit. Discharge planning in progress. Justification for Cont. Inpt. At risk of further decompensation at lower level of care Discharge Planning Patient to be discharged to SNF when psychiatrically stable. Quang Hodges MD Nov 30, 2017 12:11
[2017-11-30 18:00] VITALS: BP 95/52; PULSE 90; RESP 16; TEMP 98.8; O2SAT 97
[2017-12-01 06:34] VITALS: BP 106/57; PULSE 64; RESP 16; TEMP 98.9; O2SAT 98
[2017-12-01] MEDS: SERTRALINE HCL 50 MG TAB PO SCH (08:25)
[2017-12-01] MEDS: DOCUSATE SODIUM 100 MG CAP PO SCH ×2 (08:25→20:34)
[2017-12-01] MEDS: MEMANTINE HCL 5 MG TAB PO SCH (08:25)
[2017-12-01] MEDS: QUEtiapine FUMARATE 25 MG TAB PO SCH ×2 (08:26→20:35)
--- NOTE | 2017-12-01 16:47 | HHI.PYPN ---
Subjective Remarks Patient seen and examined with nurse in weekend coverage for Dr. Hodges. Chart reviewed. Case discussed with nursing staff. Patient ate 50% of breakfast and lunch today. On my examination today, the patient reports some ongoing depressive symptoms. She does note that she is eating better. She smiles at intervals. Denies SI or HI. Denies side effects from medications. No physical complaints. Review of Systems ROS Limitations: Poor Historian Except as stated in HPI: all other systems reviewed are Neg Mental Status Examination Appearance: Appropriate Consciousness: Alert Orientation: Person, Place, Date/Time Motor Activity: Other (no motor abnormalities noted) Speech: Hesitant Language: Adequate Fund of Knowledge: Inadequate Attention and Concentration: Adequate Mood: Sad Affect: Sad Thought Process & Associations: Linear (somewhat slowed) Thought Content: Appropriate Hallucination Type: None Delusion Type: None Suicidal Ideation: No Suicidal Plan: No Suicidal Intention: No Homicidal Ideation: No Homicidal Plan: No Homicidal Intention: No Insight: Poor Judgment: Poor Results Labs Labs reviewed. Vitals/IOs Vital Signs Date Time Temp Pulse Resp B/P (MAP) Pulse Ox O2 Delivery O2 Flow Rate FiO2 12/01/17 06:34 98.9 64 16 106/57 (73) 98 Assessment & Plan Problem List: (1) Major neurocognitive disorder ICD Codes: F03.90 - Unspecified dementia without behavioral disturbance Status: Acute Assessment & Plan Continue sertraline and other psychotropics as ordered. Continue to monitor on the inpatient unit. Continue other medications and care as ordered. Justification for Cont. Inpt. Risk for decompensation in less restrictive environment. Discharge Planning Per Dr. Hodges. Douglas Morris MD Dec 01, 2017 16:47
[2017-12-01 17:00] VITALS: BP 106/58; PULSE 68; RESP 15; TEMP 98.3; O2SAT 98
[2017-12-01] MEDS: diphenhydrAMINE HCL 50 MG CAP PO PRN (20:35)
[2017-12-02 06:00] VITALS: BP 95/54; PULSE 69; RESP 17; TEMP 97.7; O2SAT 96
[2017-12-02] MEDS: SERTRALINE HCL 50 MG TAB PO SCH (08:14)
[2017-12-02] MEDS: DOCUSATE SODIUM 100 MG CAP PO SCH ×2 (08:14→20:58)
[2017-12-02] MEDS: QUEtiapine FUMARATE 25 MG TAB PO SCH ×2 (08:15→20:58)
[2017-12-02] MEDS: MEMANTINE HCL 5 MG TAB PO SCH (08:15)
--- NOTE | 2017-12-02 16:36 | HHI.PYPN ---
Subjective Remarks Patient seen and examined with nurse in weekend coverage for Dr. Hodges. Chart reviewed. Case discussed with nursing staff. Patient refused breakfast this morning but ate 100% of lunch. On my examination today, the patient says that her mood is "5 out of 10." No SI or HI. Denies side effects from medications. No physical complaints. Review of Systems ROS Limitations: Poor Historian Except as stated in HPI: all other systems reviewed are Neg Mental Status Examination Appearance: Appropriate Consciousness: Alert Orientation: Person, Place, Date/Time Motor Activity: Other (no abnormal motor movements noted) Speech: Hesitant Language: Adequate Fund of Knowledge: Inadequate Attention and Concentration: Adequate Mood: Sad, Other ("5 out of 10") Affect: Sad Thought Process & Associations: Linear (somewhat slowed) Thought Content: Appropriate Hallucination Type: None Delusion Type: None Suicidal Ideation: No Suicidal Plan: No Suicidal Intention: No Homicidal Ideation: No Homicidal Plan: No Homicidal Intention: No Insight: Poor Judgment: Poor Results Labs Labs reviewed Vitals/IOs Vital Signs Date Time Temp Pulse Resp B/P (MAP) Pulse Ox O2 Delivery O2 Flow Rate FiO2 12/02/17 06:00 97.7 69 17 95/54 (68) 96 Intake and Output 12/02/17 12/02/17 12/03/17 08:00 16:00 00:00 Intake Total 240 ml 1200 ml Balance 240 ml 1200 ml Assessment & Plan Problem List: (1) Major neurocognitive disorder ICD Codes: F03.90 - Unspecified dementia without behavioral disturbance Status: Acute Assessment & Plan Continue Zoloft as ordered; to consider further titration of this agent. Continue other psychotropics as ordered. Continue to monitor on the inpatient unit. Continue other medications and care as ordered. Justification for Cont. Inpt. Risk for decompensation and less restrictive environment Discharge Planning Per Douglas Leigh MD Dec 02, 2017 16:36
[2017-12-02 18:08] VITALS: BP 96/46; PULSE 83; RESP 18; TEMP 97.8; O2SAT 94
[2017-12-02] MEDS: diphenhydrAMINE HCL 50 MG CAP PO PRN (20:58)
[2017-12-03 06:18] VITALS: BP 90/54; PULSE 98; RESP 16; TEMP 98.1; O2SAT 98
[2017-12-03] MEDS: DOCUSATE SODIUM 100 MG CAP PO SCH ×2 (10:14→20:34)
[2017-12-03] MEDS: QUEtiapine FUMARATE 25 MG TAB PO SCH ×2 (10:14→20:34)
[2017-12-03] MEDS: SERTRALINE HCL 50 MG TAB PO SCH (10:14)
[2017-12-03] MEDS: MEMANTINE HCL 5 MG TAB PO SCH (10:14)
--- NOTE | 2017-12-03 10:37 | HHI.PYPN ---
Subjective Remarks Patient seen for follow-up, chart reviewed. Discussion nursing staff reported the patient had refused breakfast yesterday but ate lunch and dinner, continues to be guarded with poor motivation at times. Patient was found lying in hospital bed noted to be in good spirits. Patient states that she has been feeling "good", reports feeling less depressed and was noted to get up and work immediately with physical therapy which she had refused to do earlier this morning. Patient's brother had called concerned about patient's recent irritability and feels that patient current treatment regimen is not helping at this time. Patient's brother also feels patient is able to care for herself at home alone. Review of Systems Except as stated in HPI: all other systems reviewed are Neg Mental Status Examination Appearance: Appropriate Consciousness: Alert Orientation: Person, Place, Date/Time Motor Activity: Other (no abnormal motor movements noted) Speech: Hesitant Language: Adequate Fund of Knowledge: Inadequate Attention and Concentration: Adequate Mood: Appropriate Affect: Appropriate Thought Process & Associations: Linear (somewhat slowed) Thought Content: Appropriate Hallucination Type: None Delusion Type: None Suicidal Ideation: No Suicidal Plan: No Suicidal Intention: No Homicidal Ideation: No Homicidal Plan: No Homicidal Intention: No Insight: Poor Judgment: Poor Results Vitals/IOs Vital Signs Date Time Temp Pulse Resp B/P (MAP) Pulse Ox O2 Delivery O2 Flow Rate FiO2 12/03/17 06:18 98.1 98 16 90/54 (66) 98 Intake and Output 12/03/17 12/03/17 12/04/17 08:00 16:00 00:00 Intake Total 360 ml Balance 360 ml Assessment & Plan Problem List: (1) Major neurocognitive disorder ICD Codes: F03.90 - Unspecified dementia without behavioral disturbance Status: Acute Assessment & Plan Patient this time continues to have inconsistent mood as she reported feeling depressed, unmotivated and resistant to participating care but today required some encouragement and was found to be very enthusiastic with working with physical therapy today. We will continue to titrate Zoloft for depression and continue rest of medications. Continue to monitor mood and behavior. Discharge planning in progress. Justification for Cont. Inpt. At risk for decompensation at lower level of care Discharge Planning Referral to SNF Quang Hodges MD Dec 03, 2017 10:37
--- NOTE | 2017-12-03 16:33 | PD.TTN ---
Patient Problems 1. Discharge planning 2. Medication compliance 3. Knowledge deficit 4. Lack of coping skills Progress Toward Goals Provider Present: Dr. Thomas Hodges Provider Input: 12/03/2017; patient will require skill care home as dc plan; and continues to require medication stablizing Nurse(s) Present: LEOLA Gagnon Nurse(s) Input: Patient is redirectable, eating meals and taking her medication Psychiatric Counselors Present: EDDIE Mendieta Psych Therapist Input: 12/03/2017; patient has been accepted at [facility], pending level 2 evaluation Group Spec/RT/OT/WATSON Present: SHIRLEY Meyer Group Spec/RT/OT/WATSON Input: 12/03/2017; patient does not participate with groups Documentation Scribe: EDDIE Mendieta Teaching Recipient: Frannie Zarate Dec 03, 2017 16:33
[2017-12-03 18:00] VITALS: BP 100/57; PULSE 80; RESP 16; TEMP 97.9; O2SAT 98
[2017-12-03] MEDS: diphenhydrAMINE HCL 50 MG CAP PO PRN (20:33)
[2017-12-04 04:56] VITALS: BP 104/51; PULSE 75; RESP 16; TEMP 97.9; O2SAT 98
[2017-12-04] MEDS: MEMANTINE HCL 5 MG TAB PO SCH (08:40)
[2017-12-04] MEDS: DOCUSATE SODIUM 100 MG CAP PO SCH ×2 (08:40→20:35)
[2017-12-04] MEDS: SERTRALINE HCL 50 MG TAB PO SCH (08:41)
[2017-12-04] MEDS: QUEtiapine FUMARATE 25 MG TAB PO SCH ×2 (08:43→21:00)
--- NOTE | 2017-12-04 10:58 | HHI.PYPN ---
Subjective Remarks Patient seen for follow-up, chart reviewed. Discussion nursing staff reported the patient continues to be seclusive but is getting out more from bed but not attending any groups. Patient was found lying in hospital bed noted to be initially superficial cooperative was able to engage more. She states that she slept well, eating and drinking "somewhat" and was encouraged to continue to maintain adequate nutritional intake which she acknowledged. Patient reports was "okay but did report feeling "a little depressed" as she states she wants to be able to go home. Treatment plan to have patient go into a care home facility was reviewed with patient and encouraged patient to continue to participate in her care so that she will be able to have more independence and function with her ADLs. Review of Systems Except as stated in HPI: all other systems reviewed are Neg Mental Status Examination Appearance: Appropriate Consciousness: Alert Orientation: Person, Place, Date/Time Motor Activity: Other (no abnormal motor movements noted) Speech: Hesitant Language: Adequate Fund of Knowledge: Inadequate Attention and Concentration: Adequate Mood: Other ("A little depressed") Affect: Sad Thought Process & Associations: Linear (somewhat slowed) Thought Content: Appropriate Hallucination Type: None Delusion Type: None Suicidal Ideation: No Suicidal Plan: No Suicidal Intention: No Homicidal Ideation: No Homicidal Plan: No Homicidal Intention: No Insight: Poor Judgment: Poor Results Vitals/IOs Vital Signs Date Time Temp Pulse Resp B/P (MAP) Pulse Ox O2 Delivery O2 Flow Rate FiO2 12/04/17 04:56 97.9 75 16 104/51 (68) 98 Assessment & Plan Problem List: (1) Major neurocognitive disorder ICD Codes: F03.90 - Unspecified dementia without behavioral disturbance Status: Acute Assessment & Plan Patient continued with some depressed mood although appears to be improving, continue current treatment regimen. Continue to encourage patient to participate in groups and activities and in self-care. Patient to continue with physical therapy. Continue recommendations as per prior medical team. Discharge planning in progress. Justification for Cont. Inpt. At risk for further decompensation if at lower level of care Discharge Planning custodial facility when one is acquired Quang Hodges MD Dec 04, 2017 10:58
[2017-12-04 18:08] VITALS: BP 99/53; PULSE 98; RESP 16; TEMP 98.1; O2SAT 95
[2017-12-04] MEDS: diphenhydrAMINE HCL 50 MG CAP PO PRN (20:35)
[2017-12-05 04:48] VITALS: BP 100/57; PULSE 71; RESP 16; TEMP 97.8; O2SAT 98
[2017-12-05] MEDS: SERTRALINE HCL 50 MG TAB PO SCH (09:48)
[2017-12-05] MEDS: MAGNESIUM HYDROXIDE SUSP 30 ML CUP PO PRN (09:48)
[2017-12-05] MEDS: QUEtiapine FUMARATE 25 MG TAB PO SCH (09:49)
[2017-12-05] MEDS: DOCUSATE SODIUM 100 MG CAP PO SCH (09:49)
[2017-12-05] MEDS: MEMANTINE HCL 5 MG TAB PO SCH (09:49)
[2017-12-05] MEDS ORDERED: NAME5TAB2 PO (12:30)
[2017-12-05] MEDS ORDERED: ZOLO50TA PO (12:30)
[2017-12-05] MEDS ORDERED: DOCU1CAP39 PO (12:30)
[2017-12-05] MEDS ORDERED: QUET5TAB PO (12:30)
--- NOTE | 2017-12-05 12:48 | HHI.DS ---
Psychiatry Discharge Summary Inpatient Psychiatric care?: Yes Advance Directive: Yes Mental Health AdvanceDirective: No Health Care Proxy: Yes Admission Admission Date Nov 18, 2017 at 14:50 Admission Diagnosis: (1) Major neurocognitive disorder ICD Code: F03.90 - Unspecified dementia without behavioral disturbance Brief History 11/18/17 - Patient is 67-year-old woman, , living alone, with a past psychiatric history of bipolar disorder, two previous psychiatric hospitalization (last at [facility] in April 2017), denies any previous suicide attempts, denies any self injurious behavior, was brought into the ER after a well check was called by patient's brother which she was found sitting on the couch in the dark, with empty fridge asking for food to EMS responders, and noted laceration to posterior scalp and brought in under [facility] due to concern of patient's inability to care for self which psychiatry was consulted for evaluation. Patient was found lying in hospital bed, cooperative. Patient was noted to be appearing malnutritioned and frail. 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 Patient states that recently for the past couple of days she has been "not too good". She recalls prior to coming to the hospital that she was sitting in the living room, was feeling dehydrated and had not been eating well. When asked when the last if she had eaten patient states that she had not gone for groceries in over a month. When asked why she had not been able to do this patient was unable to provide with an answer. Patient this time is alert and oriented 3 but did admit to having increased confusion which she has noticed recently. Upon her last admission patient was discharged to her brother's care and was to be taken to [place] to live with him. Patient reports that she had gone to live in [place] with her brother and had done well there and was brought back to [place] to live on her own because "I was doing okay". Patient also reports having stopped her medications months ago as well. Currently at this time patient reports feeling "weak" denies any SI, HI, perceptual disturbances or delusions at this time. The patient is a 67-year-old woman, domiciled alone in [place], , with psychiatric history of bipolar disorder, neurocognitive disorder, 2 previous psychotic hospitalizations, she denies previous suicidal attempts, denies history of substance abuse, her last hospitalization was here at [facility] in 2016, no significant medical history, who was brought to the hospital on the [facility] at due to concerns about her ability to take care of herself and suicidality. Patient was consulted to me for second opinion. On psychiatric evaluation the patient is superficially cooperative, kind of distant and detached, he stated that she feels very depressed, but unable to elaborate about the circumstances of her depression. She denies suicidal and homicidal ideation, she denies visual and auditory hallucinations. She doesn't appear internally stimulated, paranoid or psychotic in general. She is fully oriented 3, without attention deficit, without fluctuation of consciousness, with conserve language, immediate and recent recall. The patient denies the use of illegal drugs and alcohol. Tobacco Use In Past 30 Days: No Tobacco Past 30 Days Alcohol Use: Never Hospital Course Patient is 67-year-old woman, , living alone, with a past psychiatric history of bipolar disorder, two previous psychiatric hospitalization (last at [facility] in April 2017), denies any previous suicide attempts, denies any self injurious behavior, was brought into the ER after a well check was called by patient's brother which she was found sitting on the couch in the dark, with empty fridge asking for food to EMS responders, and noted laceration to posterior scalp and brought in under [place] Act due to concern of patient's inability to care for self which psychiatry was consulted for evaluation. Upon initial evaluation by psychiatry she was noted to be irritable, confused, and with depressed mood. Patient was also followed by medical team due to malnutrition, dehydration, poor nutritional intake. Physical therapy was also involved. Patient presented to mental health court and was retained for involuntary hospitalization for stabilization. Patient was restarted on quetiapine 50mg PO twice daily for mood stabilization, sertraline 100mg PO daily for depression and continued on his medications for chronic medical issues which she tolerated well. Continued to be monitored on the unit and noted to have improvement in mood which patient and was more hopeful and future oriented. Upon discharge patient stated feeling good ", stated wanting to engage in continuing treatment and continue with rehabiliation. Patient was counseled on importance of adherence to treatment, agreed to continue medical recommendations, treatment and outpatient follow-up for continuity of care. Patient; denies SI, HI, AVH or delusions. Supportive psychotherapy provided. Suicide and violence risk assessment on day of discharge both suggest lower imminent risk, and the patient's level of function is adequate for planned level of outpatient care. Patient has maximized benefit from this inpatient psychiatric hospital stay and to return to psychiatric emergency room for any concerning psychiatric symptoms. Patient agrees with plan. Results Blood Pressure 100 / 57 Vital Signs Date Time Temp Pulse Resp B/P (MAP) Pulse Ox O2 Delivery O2 Flow Rate FiO2 12/05/17 04:48 97.8 71 16 100/57 (71) 98 Laboratory Results Test 11/19/17 13:20 11/23/17 07:38 Cholesterol Level 157 MG/DL (120-200) HDL Cholesterol 40.0 MG/DL (40.0-60.0) LDL Cholesterol 100 MG/DL (0-99) Triglycerides Level 87 MG/DL (42-150) Hemoglobin A1c 5.3 % (4.3-6.0) Summary of Procedures None Pending results at discharge: No Medications # of Antipsychotic meds at D/C: 1 Approp Antipsych med options 1 - Minimum of three failed multiple trials of monotherapy. 2 - Documented plan to taper to monotherapy due to previous use of multiple meds OR cross-taper in progress at D/C. 3 - Documentation of augmentation of Clozapine. 4 - Justification other than those listed in allowable values 1-3, document here : Discharge Discharge Date: Dec 05, 2017 Discharge Diagnosis: (1) Major neurocognitive disorder ICD Code: F03.90 - Unspecified dementia without behavioral disturbance Status: Acute Pt Condition on Discharge: Stable Discharge Disposition: Discharge to SNF Discharge Instructions Diet Instructions: Heart Healthy Diet Activities you can perform: Weight Bearing as Kyle Discharge Time > 30 minutes Mental Status Examination Appearance: Appropriate Consciousness: Alert Orientation: Person, Place, Date/Time Motor Activity: Other (no abnormal motor movements noted) Speech: Hesitant Language: Adequate Fund of Knowledge: Inadequate Attention and Concentration: Adequate Mood: Appropriate Affect: Appropriate Thought Process & Associations: Intact, Linear (somewhat slowed) Thought Content: Appropriate Hallucination Type: None Delusion Type: None Suicidal Ideation: No Suicidal Plan: No Suicidal Intention: No Homicidal Ideation: No Homicidal Plan: No Homicidal Intention: No Insight: Fair Judgment: Impulsive Discharge/Advance Care Plan Health Problems: (1) Major neurocognitive disorder Goals to promote your health * To prevent worsening of your condition and complications * To maintain your health at the optimal level Directions to meet your goals Take your medications as prescribed Follow your dietary instruction Follow activity as directed Keep your appointments as scheduled Take your immunizations and boosters as scheduled If your symptoms worsen call your PCP, if no PCP go to Urgent Care Center or Emergency Room For 30/04 questions related to your inpatient stay or results of tests pending at discharge, please contact Dr. Quang Hodges at Smoking is Dangerous to Your Health. Avoid second hand smoking Quang Hodges MD Dec 05, 2017 12:48
== END 2017-12-05 13:06 | DRG 884 ==
LOC: H4EA 14:50
PROVIDERS: ADMIT Student in an Organized Health Care Education/Training Program; ATTEND Student in an Organized Health Care Education/Training Program
DX: F03.90 Unspecified dementia, unspecified severity, without behavioral disturbance, psychotic disturbance, mood disturbance, and anxiety (principal); G93.40 Encephalopathy, unspecified; N17.9 Acute kidney failure, unspecified; N39.0 Urinary tract infection, site not specified; E87.0 Hyperosmolality and hypernatremia; F05 Delirium due to known physiological condition; E46 Unspecified protein-calorie malnutrition; F01.50 Vascular dementia, unspecified severity, without behavioral disturbance, psychotic disturbance, mood disturbance, and anxiety; I10 Essential (primary) hypertension; E86.0 Dehydration; E87.6 Hypokalemia; R62.7 Adult failure to thrive; F31.9 Bipolar disorder, unspecified; S01.01XA Laceration without foreign body of scalp, initial encounter; Z86.73 Personal history of transient ischemic attack (TIA), and cerebral infarction without residual deficits; X58.XXXA Exposure to other specified factors, initial encounter; Y92.009 Unspecified place in unspecified non-institutional (private) residence as the place of occurrence of the external cause; R41.89 Other symptoms and signs involving cognitive functions and awareness; R74.8 Abnormal levels of other serum enzymes
CPT/HCPCS: 80048; 80053; 80061; 82550; 82607; 82652; 82746; 83036; 83735; 84100; 84439; 84443; 85025; Q0163

== ENCOUNTER 2018-01-17 14:03 | Inpatient (IN) | payer MEDICARE, OTHER ==
[2018-01-17] VITALS (12 sets, daily range): BP systolic 96–141; BP diastolic 54–82; PULSE 78–105; RESP 16–20; TEMP 96–97.4; O2SAT 89–100
[~2018-01-17] VITALS: Ht 177.8 cm; Wt 49.0 kg
[~2018-01-17 14:03] MED LIST changes: +DOCU1CAP39 PO; -METR-1 PO; +NAME5TAB2 PO; +QUET5TAB PO; +ZOLO50TA PO
--- NOTE | 2018-01-17 14:29 | PD ---
HPI Chief Complaint: Altered Mental Status Time Seen by Provider: 14:17 Travel History International Travel<30 days: No Contact w/Intl Traveler<30days: No Traveled to known affect area: No History of Present Illness HPI This 67-year-old female was brought by paramedics. There was sent to her house because her brother had not heard from her for 5 days. Nieves. Patient was admitted to the hospital in November of this year because of dementia. She has a history of bipolar disorder, neurocognitive disorder. She has had previous psychiatric admissions. There is no history of suicidal ideation and we are not aware of any history of substance abuse. She was Alvarez acted in November and was hospitalized apparently was doing well and was released. We were unable to get any history from the patient says she is quite confused. She was noted on her last admission that she appeared quite malnourished. PFSH Past Medical History Autoimmune Disease: No Blood Disorders: No Anxiety: Yes Depression: Yes Heart Rhythm Problems: No Cancer: No Cardiovascular Problems: No High Cholesterol: No Chemotherapy: No Chest Pain: No Congestive Heart Failure: No Cerebrovascular Accident: Yes (AUG 1980) Diabetes: No Diminished Hearing: No Endocrine: No Genitourinary: No Headaches: No Hepatitis: No Hiatal Hernia: No Hypertension: No Immune Disorder: No Musculoskeletal: No Neurologic: Yes (STROKE IN 1979and 2007) Psychiatric: No Reproductive: No (NO CHILDREN) Respiratory: No Migraines: No Radiation Therapy: No Seizures: No Sickle Cell Disease: No Thyroid Disease: No ?: Not Menopausal: Yes Past Surgical History Abdominal Surgery: No Cardiac Surgery: No Ear Surgery: No Endocrine Surgery: No Eye Surgery: No Genitourinary Surgery: No Gynecologic Surgery: No Neurologic Surgery: No Oral Surgery: No Pacemaker: No Thoracic Surgery: No Tonsillectomy: Yes Other Surgery: No Social History Alcohol Use: No Tobacco Use: No Substance Use: Yes Allergies-Medications (Allergen,Severity, Reaction): Coded Allergies: penicillin G (Unverified Allergy, Severe, 11/17/17) ibuprofen (Unverified Allergy, Mild, 11/17/17) Reported Meds & Prescriptions Reported Meds & Active Scripts Active Dok (Docusate Sodium) 100 Mg Cap 100 Mg PO BID 30 Days Namenda (Memantine) 5 Mg Tab 5 Mg PO DAILY 30 Days Quetiapine (Quetiapine Fumarate) 50 Mg Tab 50 Mg PO BID Zoloft (Sertraline HCl) 50 Mg Tab 75 Mg PO DAILY 30 Days Review of Systems ROS Limitations: Altered Mental Status Physical Exam Narrative Agitated emaciated female SKIN: Focused skin assessment warm/dry. There are multiple bruises HEAD: Atraumatic. Normocephalic. EYES: Is crusting around both eyes pupils are not clearly seen due to the lack of cooperation ENT: No nasal bleeding or discharge. Mucous membranes dry. NECK: Trachea midline. No JVD. CARDIOVASCULAR: Regular rate and rhythm. No murmur appreciated. RESPIRATORY: No accessory muscle use. Clear to auscultation. Breath sounds equal bilaterally. GASTROINTESTINAL: Abdomen soft, non-tender, nondistended. Hepatic and splenic margins not palpable. MUSCULOSKELETAL: No obvious deformities. No clubbing. No cyanosis. No edema. Patient stays in the position. I do not see any deformities but he does not cooperate for examination NEUROLOGICAL: Awake and alert. Does not answer any questions. Is calling out [employer] repeatedly Data Data Last Documented VS Vital Signs Date Time Temp Pulse Resp B/P (MAP) Pulse Ox O2 Delivery O2 Flow Rate FiO2 01/17/18 14:17 104 18 01/17/18 14:12 97.4 112/82 (92) 89 Orders Orders Electrocardiogram (01/17/18 14:21) Complete Blood Count With Diff (01/17/18 14:21) Comprehensive Metabolic Panel (01/17/18 14:21) Creatine Kinase (Cpk) (01/17/18 14:21) Troponin I (01/17/18 14:21) Prothrombin Time / Inr (Pt) (01/17/18 14:21) Act Partial Throm Time (Ptt) (01/17/18 14:21) Urinalysis - C+S If Indicated (01/17/18 14:21) Magnesium (Mg) (01/17/18 14:21) Ammonia (01/17/18 14:21) Thyroid Stimulating Hormone (01/17/18 14:21) Chest, Single Ap (01/17/18 14:21) Ct Brain W/O Iv Contrast(Rout) (01/17/18 14:21) Drug Screen, Random Urine (01/17/18 14:21) Alcohol (Ethanol) (01/17/18 14:21) Tylenol (Acetaminophen) (01/17/18 14:21) MDM Medical Decision Making Medical Screen Exam Complete: Yes Emergency Medical Condition: Yes Medical Record Reviewed: Yes Differential Diagnosis Differential includes bipolar disorder, dementia, malnutrition, dehydration, subdural, Narrative Course Patient is quite cachectic and clearly has not been caring for herself. She does have multiple bruises. At this time she is quite agitated and not cooperative. She will be given some Ativan so we can further assess her Georgi Israel MD Jan 17, 2018 14:29
[2018-01-17] MEDS ORDERED: LORazepam 2 MG/ML VIAL IV PUSH ONE ×2 (14:30→15:00)
[2018-01-17] MEDS ORDERED: SODIUM CHLOR 0.9% 1000 ML INJ 1,000 ML IV ONE ×2 (14:30→16:15)
[2018-01-17 15:16] LABS: AUTOMATED NEUTROPHIL # 6.8 TH/MM3 (1.8-7.7); BASOPHIL # 0.4 TH/MM3 (0-0.2); BASOPHIL % 4.1 % (0.0-2.0); EOSINOPHIL # 0.2 TH/MM3 (0-0.4); HEMATOCRIT 38.4 % (35.0-46.0); HEMOGLOBIN 12.6 GM/DL (11.6-15.3); LYMPH % 17.4 % (9.0-44.0); LYMPHOCYTE # 1.6 TH/MM3 (1.0-4.8); MEAN CELL VOLUME 91.3 FL (80.0-100.0); MEAN CORPUSCULAR HGB CONC 32.9 % (32.0-36.0); MEAN PLATELET VOLUME 8.5 FL (7.0-11.0); MONO % 4.7 % (0.0-8.0); MONOCYTE # 0.4 TH/MM3 (0-0.9); NEUT % 71.8 % (16.0-70.0); PLATELET COUNT 170 TH/MM3 (150-450); RED CELL DISTRIBUTION WIDTH 13.5 % (11.6-17.2); WHITE BLOOD COUNT 9.4 TH/MM3 (4.0-11.0)
[2018-01-17 15:25] LABS: CHLORIDE 117 MEQ/L (98-107); SODIUM (NA) 149 MEQ/L (136-145)
--- NOTE | 2018-01-17 15:29 | PD ---
Physical Exam Date Seen by Provider: Jan 17, 2018 Data Data Last Documented VS Vital Signs Date Time Temp Pulse Resp B/P (MAP) Pulse Ox O2 Delivery O2 Flow Rate FiO2 01/17/18 14:57 91 18 141/82 (101) 100 Room Air 01/17/18 14:12 97.4 Orders Orders Electrocardiogram (01/17/18 14:21) Complete Blood Count With Diff (01/17/18 14:21) Comprehensive Metabolic Panel (01/17/18 14:21) Creatine Kinase (Cpk) (01/17/18 14:21) Troponin I (01/17/18 14:21) Prothrombin Time / Inr (Pt) (01/17/18 14:21) Act Partial Throm Time (Ptt) (01/17/18 14:21) Urinalysis - C+S If Indicated (01/17/18 14:21) Magnesium (Mg) (01/17/18 14:21) Ammonia (01/17/18 14:21) Thyroid Stimulating Hormone (01/17/18 14:21) Chest, Single Ap (01/17/18 14:21) Ct Brain W/O Iv Contrast(Rout) (01/17/18 14:21) Drug Screen, Random Urine (01/17/18 14:21) Alcohol (Ethanol) (01/17/18 14:21) Tylenol (Acetaminophen) (01/17/18 14:21) Sodium Chlor 0.9% 1000 Ml Inj (Ns 1000 M (01/17/18 14:30) Lorazepam Inj (Ativan Inj) (01/17/18 14:30) Lorazepam Inj (Ativan Inj) (01/17/18 15:00) Lactic Acid (01/17/18 15:27) CKMB (01/17/18 14:58) CKMB% (01/17/18 14:58) Sodium Chlor 0.9% 1000 Ml Inj (Ns 1000 M (01/17/18 16:15) Admit Order (Ed Use Only) (01/17/18 16:18) Labs Laboratory Tests Test 01/17/18 11:50 01/17/18 14:50 01/17/18 14:58 01/17/18 15:55 Prothrombin Time 11.4 SEC Prothromb Time International Ratio 1.1 RATIO Activated Partial Thromboplast Time 22.6 SEC Lactic Acid Level 1.8 mmol/L Ammonia LESS THAN 10 MCMOL/L White Blood Count 9.4 TH/MM3 Red Blood Count 4.20 MIL/MM3 Hemoglobin 12.6 GM/DL Hematocrit 38.4 % Mean Corpuscular Volume 91.3 FL Mean Corpuscular Hemoglobin 30.0 PG Mean Corpuscular Hemoglobin Concent 32.9 % Red Cell Distribution Width 13.5 % Platelet Count 170 TH/MM3 Mean Platelet Volume 8.5 FL Neutrophils (%) (Auto) 71.8 % Lymphocytes (%) (Auto) 17.4 % Monocytes (%) (Auto) 4.7 % Eosinophils (%) (Auto) 2.0 % Basophils (%) (Auto) 4.1 % Neutrophils # (Auto) 6.8 TH/MM3 Lymphocytes # (Auto) 1.6 TH/MM3 Monocytes # (Auto) 0.4 TH/MM3 Eosinophils # (Auto) 0.2 TH/MM3 Basophils # (Auto) 0.4 TH/MM3 CBC Comment DIFF FINAL Differential Comment Blood Urea Nitrogen 43 MG/DL Creatinine 0.74 MG/DL Random Glucose 72 MG/DL Total Protein 6.3 GM/DL Albumin 2.8 GM/DL Calcium Level 9.1 MG/DL Magnesium Level 2.3 MG/DL Alkaline Phosphatase 62 U/L Aspartate Amino Transf (AST/SGOT) 62 U/L Alanine Aminotransferase (ALT/SGPT) 29 U/L Total Bilirubin 0.8 MG/DL Sodium Level 149 MEQ/L Potassium Level 3.8 MEQ/L Chloride Level 117 MEQ/L Carbon Dioxide Level 22.1 MEQ/L Anion Gap 10 MEQ/L Estimat Glomerular Filtration Rate 79 ML/MIN Total Creatine Kinase 940 U/L Creatine Kinase MB 3.9 NG/ML Creatine Kinase MB % 0.4 % Troponin I LESS THAN 0.02 NG/ML Thyroid Stimulating Hormone 3rd Gen 0.292 uIU/ML Ethyl Alcohol Level LESS THAN 3 MG/DL Urine Collection Type CATH Urine Color YELLOW Urine Turbidity CLEAR Urine pH 6.0 Urine Specific [place] 1.025 Urine Protein NEG mg/dL Urine Glucose (UA) NEG mg/dL Urine Ketones TRACE mg/dL Urine Occult Blood NEG Urine Nitrite NEG Urine Bilirubin NEG Urine Urobilinogen 0.2 MG/DL Urine Leukocyte Esterase NEG Urine RBC 0-3 /hpf Urine WBC 0-2 /hpf Microscopic Urinalysis Comment CATH-CULT NOT IND Urine Collection Time 15:55 MDM Medical Record Reviewed: Yes Supervised Visit with TYLER: No Interpretation(s) EKG at 1552: NSR at 87bpm, qt/qtc: 392/426, no acute st or t wave changes Vital Signs Date Time Temp Pulse Resp B/P (MAP) Pulse Ox O2 Delivery O2 Flow Rate FiO2 01/17/18 14:57 91 18 141/82 (101) 100 Room Air 01/17/18 14:17 104 18 01/17/18 14:12 97.4 105 18 112/82 (92) 89 Differential Diagnosis Dementia, dehydration, rhabdomyolysis, intracranial hemorrhage, bipolar disorder , infection Narrative Course Patient was sent to me by Dr. Cordero at change of shift, lab work and studies currently pending. Patient is a 67-year-old female who presents the emergency room by paramedics. Apparently, family members called for help as they do not hear from patient in 5 days, patient was found in her house confused with multiple bruising throughout her body. Patient was unable to provide HPI. During the course of the patients emergency department visit, the patients history, examination, and differential diagnosis were reviewed with the patient. The patient was placed on a awake overnight monitor with oximetry and frequent blood pressure monitoring. The patient had an IV access obtained and blood work sent for analysis. The patient was initially provided IVF, IV Ativan as patient was agitated upon arrival to the emergency room. The patients laboratory studies were reviewed and remarkable for: Laboratory Tests Test 01/17/18 11:50 01/17/18 14:50 01/17/18 14:58 Prothrombin Time 11.4 SEC (9.8-11.6) Prothromb Time International Ratio 1.1 RATIO Activated Partial Thromboplast Time 22.6 SEC (24.3-30.1) Ammonia LESS THAN 10 MCMOL/L White Blood Count 9.4 TH/MM3 (4.0-11.0) Red Blood Count 4.20 MIL/MM3 (4.00-5.30) Hemoglobin 12.6 GM/DL (11.6-15.3) Hematocrit 38.4 % (35.0-46.0) Mean Corpuscular Volume 91.3 FL (80.0-100.0) Mean Corpuscular Hemoglobin 30.0 PG (27.0-34.0) Mean Corpuscular Hemoglobin Concent 32.9 % (32.0-36.0) Red Cell Distribution Width 13.5 % (11.6-17.2) Platelet Count 170 TH/MM3 (150-450) Mean Platelet Volume 8.5 FL (7.0-11.0) Neutrophils (%) (Auto) 71.8 % (16.0-70.0) Lymphocytes (%) (Auto) 17.4 % (9.0-44.0) Monocytes (%) (Auto) 4.7 % (0.0-8.0) Eosinophils (%) (Auto) 2.0 % (0.0-4.0) Basophils (%) (Auto) 4.1 % (0.0-2.0) Neutrophils # (Auto) 6.8 TH/MM3 (1.8-7.7) Lymphocytes # (Auto) 1.6 TH/MM3 (1.0-4.8) Monocytes # (Auto) 0.4 TH/MM3 (0-0.9) Eosinophils # (Auto) 0.2 TH/MM3 (0-0.4) Basophils # (Auto) 0.4 TH/MM3 (0-0.2) CBC Comment DIFF FINAL Differential Comment Blood Urea Nitrogen 43 MG/DL (7-18) Creatinine 0.74 MG/DL (0.50-1.00) Random Glucose 72 MG/DL (74-106) Total Protein 6.3 GM/DL (6.4-8.2) Albumin 2.8 GM/DL (3.4-5.0) Calcium Level 9.1 MG/DL (8.5-10.1) Magnesium Level 2.3 MG/DL (1.5-2.5) Alkaline Phosphatase 62 U/L (45-117) Aspartate Amino Transf (AST/SGOT) 62 U/L (15-37) Alanine Aminotransferase (ALT/SGPT) 29 U/L (10-53) Total Bilirubin 0.8 MG/DL (0.2-1.0) Sodium Level 149 MEQ/L (136-145) Potassium Level 3.8 MEQ/L (3.5-5.1) Chloride Level 117 MEQ/L (98-107) Carbon Dioxide Level 22.1 MEQ/L (21.0-32.0) Anion Gap 10 MEQ/L (5-15) Estimat Glomerular Filtration Rate 79 ML/MIN (>89) Total Creatine Kinase 940 U/L (26-192) Troponin I LESS THAN 0.02 NG/ML Thyroid Stimulating Hormone 3rd Gen 0.292 uIU/ML (0.358-3.740) Ethyl Alcohol Level LESS THAN 3 MG/DL (0-5) Radiology studies were reviewed and remarkable for CT of the head: CONCLUSION: 1. 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 2. No acute infarct, acute hemorrhage, midline shift or extra-axial fluid collections. 3. Minimal fluid level within left maxillary sinus. Patient remains lethargic and confused and sedated in ER, I am unable to obtain HPI Previous records were reviewed, patient was recently discharged from [facility] on November 2017 for major neurocognitive disorder with unspecified dementia. As per records, patient is living home alone with a past psychiatric history of bipolar disorder with 2 previous hospitalizations in the past. Patient at that time was brought to the emergency room by EMS after patient's brother after sitting on the couch in the dark with and empty refrigerator with a posterior scalp laceration. Patient was Alvarez acted at that time due to concern for patient's inability to care for herself and psychiatry was consulted. She was found to be malnourished at that time. Patient was started on quetiapine, sertraline, and did have involuntary hospitalization for stabilization. She was monitored until she was hopeful and future oriented and was discharged when she was feeling "good" and wanting to engage in continuing treatment with continued rehab. CBC & BMP Diagram 01/17/18 14:58 Total Protein 6.3 L, Albumin 2.8 L, Calcium Level 9.1, Magnesium Level 2.3, Alkaline Phosphatase 62, Aspartate Amino Transf (AST/SGOT) 62 H, Alanine Aminotransferase (ALT/SGPT) 29, Total Bilirubin 0.8 Patient will require admission to the hospital at this time for rehydration and she will also require psychiatric evaluation. Patient is an unsafe discharge as it appears that patient is not able to care for herself, she presented to the ER in November with similar symptoms and was discharged to live home alone. . 1cc of urine was obtained by straight catheterization after 1 L of fluid was given, another bolus of IVF will be administered Case reviewed with Dr. Arellano who accepts patient to service. Diagnosis Primary Impression: Delirium due to another medical condition Additional Impressions: Major neurocognitive disorder Dehydration Altered mental status Rhabdomyolysis Abnormal TSH Admitting Information Admitting Physician Requests: Admit Brynn Espino DO Jan 17, 2018 15:29
[2018-01-17 15:30] LABS: ALBUMIN 2.8 GM/DL (3.4-5.0); BICARBONATE 22.1 MEQ/L (21.0-32.0); CALCIUM 9.1 MG/DL (8.5-10.1); GLUCOSE,RANDOM 72 MG/DL (74-106); MAGNESIUM 2.3 MG/DL (1.5-2.5)
[2018-01-17 15:30] LABS: INTERNATIONAL NORMALIZED RATIO 1.1 RATIO; PROTHROMBIN TIME - PATIENT 11.4 SEC (9.8-11.6)
[2018-01-17 15:31] LABS: BLOOD UREA NITROGEN 43 MG/DL (7-18)
[2018-01-17 15:33] LABS: ALT (GPT) 29 U/L (10-53); AST (GOT) 62 U/L (15-37)
[2018-01-17 15:34] LABS: CREATININE 0.74 MG/DL (0.50-1.00); GLOMERULAR FILTRATION RATE 79 ML/MIN (>89)
[2018-01-17 15:35] LABS: TOTAL BILIRUBIN ADULT 0.8 MG/DL (0.2-1.0); TOTAL PROTEIN 6.3 GM/DL (6.4-8.2)
[2018-01-17 15:36] LABS: ALKALINE PHOSPHATASE 62 U/L (45-117)
[2018-01-17 15:39] LABS: TROPONIN I LESS THAN 0.02 NG/ML (0.02-0.05)
--- NOTE | 2018-01-17 15:50 | RADRPT ---
EXAM DATE/TIME: 01/17/2018 15:23 [facility] COMPARISON: CT BRAIN W/O CONTRAST, November 17, 2017, 21:20. INDICATIONS : Altered mental status. RADIATION DOSE: 57.24 CTDIvol (mGy) MEDICAL HISTORY : Stroke. SURGICAL HISTORY : None. ENCOUNTER: Initial ACUITY: 1 day PAIN SCALE: Non-responsive LOCATION: cranial TECHNIQUE: Multiple contiguous axial images were obtained of the head. Using automated exposure control and adj ustment of the mA and/or kV according to patient size, radiation dose was kept as low as reasonably a chievable to obtain optimal diagnostic quality images. DICOM format image data is available electro nically for review and comparison. FINDINGS: CEREBRUM: Old infarct and chronic encephalomalacia involving the right parietal lobe are again noted. The ventr icles are normal for age. No evidence of midline shift, mass lesion, hemorrhage or acute infarction. No extra-axial fluid collections are seen. POSTERIOR FOSSA: The cerebellum and brainstem are intact. The 4th ventricle is midline. The cerebellopontine angle i s unremarkable. EXTRACRANIAL: The visualized portion of the orbits is intact. There is a minimal fluid level within left maxillary sinus. SKULL: The calvaria is intact. No evidence of skull fracture. CONCLUSION: 1. 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 2. No acute infarct, acute hemorrhage, midline shift or extra-axial fluid collections. 3. Minimal fluid level within left maxillary sinus. Francesco Ramos MD on January 17, 2018 at 15:41 Board Certified Radiologist. This report was verified electronically.
--- NOTE | 2018-01-17 16:02 | RADRPT ---
EXAM DATE/TIME: 01/17/2018 14:24 [facility] COMPARISON: CHEST SINGLE AP, October 13, 2017, 9:32. INDICATIONS : Chest pain MEDICAL HISTORY : Stroke. SURGICAL HISTORY : None. ENCOUNTER: Initial ACUITY: 1 day PAIN SCORE: 0/10 LOCATION: Bilateral chest FINDINGS: Portable AP view of the chest demonstrates a normal-sized cardiac silhouette with calcification of th e aorta. No effusion, consolidation, or pneumothorax is identified. Bones and soft tissues demonstrat e no acute finding. CONCLUSION: No acute cardiopulmonary abnormality is identified. Cezar Quinn MD on January 17, 2018 at 15:59 Board Certified Radiologist. This report was verified electronically.
[2018-01-17 16:11] LABS: BILIRUBIN, URINE NEG (NEG); BLOOD, URINE NEG (NEG); GLUCOSE,URINE NEG (NEG); KETONE, URINE TRACE mg/dL (NEG); NITRITE,URINE NEG (NEG); URINE COLOR YELLOW (YELLW/STRAW); URINE LEUKOCYTE ESTERASE NEG (NEG)
[2018-01-17 16:19] LABS: WBC, URINE 0-2 /hpf (0-5)
[2018-01-17 16:20] LABS: RBC, URINE 0-3 /hpf (0-3)
[2018-01-17 16:59] LABS: ACETAMINOPHEN LESS THAN 2.0 MCG/ML (10.0-30.0)
--- NOTE | 2018-01-17 17:29 | HHI.HP ---
[facility] No Primary Care Physician Admission Diagnosis Delirium Diagnoses: (1) Encephalopathy Diagnosis: Principal (2) Rhabdomyolysis Diagnosis: Principal (3) Dehydration Diagnosis: Principal (4) Hypernatremia Diagnosis: Principal (5) Acute kidney injury Diagnosis: Principal (6) Total self-care deficit Diagnosis: Principal Chief Complaint: Altered mental status Travel History International Travel<30 Days: No Contact w/Intl Traveler <30 Da: No Traveled to Known Affected Are: No History of Present Illness 67-year-old female who is known to the hospital for recurrent admissions for encephalopathy, dehydration, unable to care for self, history of CVA, bipolar disorder, neurocognitive disorder, multiple psychiatric admissions. Patient is unable to give any information. Information was taken from medical records and nursing staff. Apparently known is heard from her in approximately 5 days and family called her I will try to contact her however they are unsuccessful. EVAC was called to go check on her in she was subsequently brought to the hospital with altered mentation, dehydration, multiple bruises over her body, frail, cachectic, malnourished, hypernatremia, rhabdomyolysis. Patient was given IV fluids in the emergency department and subsequently it was recommended that the patient be admitted for further evaluation and management. Review of Systems ROS Limitations: Clinical Condition, Altered Mental Status Past Family Social History Past Medical History Unable to obtain information with the patient, information take her medical records Hypertension History of CVA Bipolar disorder Anxiety Depression Past Surgical History Unable to obtain information with the patient, information take her medical records Tonsillectomy Right knee surgery Reported Medications Reported Meds & Active Scripts Active Dok (Docusate Sodium) 100 Mg Cap 100 Mg PO BID 30 Days Namenda (Memantine) 5 Mg Tab 5 Mg PO DAILY 30 Days Quetiapine (Quetiapine Fumarate) 50 Mg Tab 50 Mg PO BID Zoloft (Sertraline HCl) 50 Mg Tab 75 Mg PO DAILY 30 Days Allergies: Coded Allergies: penicillin G (Unverified Allergy, Severe, 11/17/17) ibuprofen (Unverified Allergy, Mild, 11/17/17) Family History Unable to obtain information with the patient information taken from medical records Records indicate that there is no family history significant for diabetes, heart disease Social History Unable to obtain information with the patient, information take her medical records Records indicate negative for alcohol, tobacco or illicit drug Physical Exam Vital Signs Vital Signs Date Time Temp Pulse Resp B/P (MAP) Pulse Ox O2 Delivery O2 Flow Rate FiO2 01/17/18 16:34 Room Air 01/17/18 16:12 78 16 106/54 (71) 97 Room Air 01/17/18 15:42 18 96/72 (80) Room Air 01/17/18 15:11 90 18 138/71 (93) 100 Room Air 01/17/18 14:57 91 18 141/82 (101) 100 Room Air 01/17/18 14:17 104 18 01/17/18 14:12 97.4 105 18 112/82 (92) 89 Physical Exam GENERAL: Well-developed, frail and cachectic, in no acute distress. Barely arousable, unable to obtain orientation HEENT: Head is normocephalic. Facial features are symmetric. Patient does have some ecchymosis noted, multiple bruises. Eyes: Pupils equal round reactive to light. Extraocular muscles are intact. Conjunctivae were clear. NECK: Supple without any masses. Trachea midline no deviation. No JVD, no bruits are appreciated CARDIAC: Regular rhythm, regular rate. S1/S2 are heard. No murmurs gallops or rubs. LUNGS: Clear to auscultation bilaterally. No wheeze, rhonchi or rales. No use of accessory muscles on inspiration or expiration. ABDOMEN: Soft, nontender. Nondistended. Bowel sounds heard in all 4 quadrants. No organomegaly or masses. Negative rebound, negative guarding EXTREMITIES: No edema, pulses are equal bilaterally. No cyanosis or clubbing. Patient with multiple bruises on arms, back, hips, legs NEUROLOGY: P patient lethargic and somnolent. Unable to obtain mood and affect. Cranial nerves II through XII grossly intact. Moving all extremities Laboratory Laboratory Tests Test 01/17/18 11:50 01/17/18 14:50 01/17/18 14:58 01/17/18 15:55 Prothrombin Time 11.4 Prothromb Time International Ratio 1.1 Activated Partial Thromboplast Time 22.6 Lactic Acid Level 1.8 Ammonia LESS THAN 10 White Blood Count 9.4 Red Blood Count 4.20 Hemoglobin 12.6 Hematocrit 38.4 Mean Corpuscular Volume 91.3 Mean Corpuscular Hemoglobin 30.0 Mean Corpuscular Hemoglobin Concent 32.9 Red Cell Distribution Width 13.5 Platelet Count 170 Mean Platelet Volume 8.5 Neutrophils (%) (Auto) 71.8 Lymphocytes (%) (Auto) 17.4 Monocytes (%) (Auto) 4.7 Eosinophils (%) (Auto) 2.0 Basophils (%) (Auto) 4.1 Neutrophils # (Auto) 6.8 Lymphocytes # (Auto) 1.6 Monocytes # (Auto) 0.4 Eosinophils # (Auto) 0.2 Basophils # (Auto) 0.4 CBC Comment DIFF FINAL Differential Comment Blood Urea Nitrogen 43 Creatinine 0.74 Random Glucose 72 Total Protein 6.3 Albumin 2.8 Calcium Level 9.1 Magnesium Level 2.3 Alkaline Phosphatase 62 Aspartate Amino Transf (AST/SGOT) 62 Alanine Aminotransferase (ALT/SGPT) 29 Total Bilirubin 0.8 Sodium Level 149 Potassium Level 3.8 Chloride Level 117 Carbon Dioxide Level 22.1 Anion Gap 10 Estimat Glomerular Filtration Rate 79 Total Creatine Kinase 940 Creatine Kinase MB 3.9 Creatine Kinase MB % 0.4 Troponin I LESS THAN 0.02 Thyroid Stimulating Hormone 3rd Gen 0.292 Acetaminophen Level LESS THAN 2.0 Ethyl Alcohol Level LESS THAN 3 Urine Collection Type CATH Urine Color YELLOW Urine Turbidity CLEAR Urine pH 6.0 Urine Specific [place] 1.025 Urine Protein NEG Urine Glucose (UA) NEG Urine Ketones TRACE Urine Occult Blood NEG Urine Nitrite NEG Urine Bilirubin NEG Urine Urobilinogen 0.2 Urine Leukocyte Esterase NEG Urine RBC 0-3 Urine WBC 0-2 Microscopic Urinalysis Comment CATH-CULT NOT IND Urine Collection Time 15:55 Result Diagram: 01/17/18 1458 01/17/18 1458 Imaging Last Impressions Head CT 01/17/18 142 Signed Impressions: Service Date/Time: January 15:23 - CONCLUSION: 1. 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 2. No acute infarct, acute hemorrhage, midline shift or extra-axial fluid collections. 3. Minimal fluid level within left maxillary sinus. Francesco Ramos MD Chest X-Ray 01/17/18 1421 Signed Impressions: Service Date/Time: January 14:24 - CONCLUSION: No acute cardiopulmonary abnormality is identified. MD Diandra Abbasi VTE Risk Assessment Caprini VTE Risk Assessment: Mod/High Risk (score >= 2) Caprini Risk Assessment Model Point Value = 1 Point Value = 2 Point Value = 3 Point Value = 5 Age 41-60 Minor surgery BMI > 25 kg/m2 Swollen legs Varicose veins or History of unexplained or recurrent spontaneous Oral contraceptives or hormone replacement Sepsis (< 1 month) Serious lung disease, including pneumonia (< 1 month) Abnormal pulmonary function Acute myocardial infarction Congestive heart failure (< 1 month) History of inflammatory bowel disease Medical patient at bed rest Age 61-74 Arthroscopic surgery Major open surgery (> 45 min) Laparoscopic surgery (> 45 min) Malignancy Confined to bed (> 72 hours) Immobilizing plaster cast Central venous access Age >= 75 History of VTE Family history of VTE Factor V Leiden Prothrombin [id number] Lupus anticoagulant Anticardiolipin antibodies Elevated serum homocysteine Heparin-induced thrombocytopenia Other congenital or acquired thrombophilia Stroke (< 1 month) Elective arthroplasty Hip, pelvis, or leg fracture Acute spinal cord injury (< 1 month) Prophylaxis Regimen Total Risk Factor Score Risk Level Prophylaxis Regimen 0-1 Low Early ambulation 2 Moderate Order ONE of the following: *Sequential Compression Device (SCD) *Heparin 5000 units SQ BID 3-4 Higher Order ONE of the following medications: *Heparin 5000 units SQ TID *Enoxaparin/Lovenox 40 mg SQ daily (WT < 150 kg, CrCl > 30 mL/min) *Enoxaparin/Lovenox 30 mg SQ daily (WT < 150 kg, CrCl > 10-29 mL/min) *Enoxaparin/Lovenox 30 mg SQ BID (WT < 150 kg, CrCl > 30 mL/min) AND/OR *Sequential Compression Device (SCD) 5 or more Highest Order ONE of the following medications: *Heparin 5000 units SQ TID (Preferred with Epidurals) *Enoxaparin/Lovenox 40 mg SQ daily (WT < 150 kg, CrCl > 30 mL/min) *Enoxaparin/Lovenox 30 mg SQ daily (WT < 150 kg, CrCl > 10-29 mL/min) *Enoxaparin/Lovenox 30 mg SQ BID (WT < 150 kg, CrCl > 30 mL/min) AND *Sequential Compression Device (SCD) Assessment and Plan Assessment and Plan Encephalopathy, likely metabolic from dehydration Continue neuro checks CT of the brain was unremarkable Ammonia level was normal, TSH is mildly low as usual, patient does have hypernatremia Hypernatremia secondary to dehydration Continue normal saline IV fluids Monitor sodium level every 6 hours Acute kidney injury Could be secondary dehydration versus rhabdomyolysis Monitor renal function Avoid nephrotoxins Rhabdomyolysis Continue IV hydration Monitor input and output Monitor CPK Unable to care for self Consult case management for discharge planning Bipolar disorder, neurocognitive disorder Continue home medications when patient more alert May need to consult psychiatry for evaluation DVT prevention Sequential compression devices Physician Certification 2 Midnight Certification Type: Admission for Inpatient Services Order for Inpatient Services The services are ordered in accordance with Medicare regulations or non- Medicare payer requirements, as applicable. In the case of services not specified as inpatient-only, they are appropriately provided as inpatient services in accordance with the 2-midnight benchmark. Estimated LOS (days): 3 days is the estimated time the patient will need to remain in the hospital, assuming treatment plan goals are met and no additional complications. Post-Hospital Plan: Not yet determined Shaquille Metz Jan 17, 2018 17:29
[2018-01-17] MEDS ORDERED: ONDANSETRON HCL 4 MG/2 ML VIAL IVP PRN (17:30)
[2018-01-17] MEDS ORDERED: NALOXONE HCL 0.4 MG/ML AMP IV PUSH PRN (17:30)
[2018-01-17] MEDS ORDERED: SODIUM CHLOR 0.9% 1000 ML INJ 1,000 ML IV SCH (17:30)
[2018-01-17] MEDS ORDERED: SENNOSIDES 8.6 MG TAB PO PRN (17:30)
[2018-01-17] MEDS ORDERED: ACETAMINOPHEN 325 MG TAB PO PRN (17:30)
[2018-01-17] MEDS ORDERED: MAGNESIUM HYDROXIDE SUSP 30 ML CUP PO PRN (17:30)
[2018-01-17] MEDS ORDERED: BISACODYL 10 MG SUPP RECTAL PRN (17:30)
[2018-01-17] MEDS ORDERED: SODIUM CHLORIDE 0.9% FLUSH 10 ML FLUSH IV FLUSH PRN (17:30)
[2018-01-17] MEDS ORDERED: LACTULOSE SYRUP 20 GM/30 ML CUP PO PRN (17:30)
[2018-01-17] MEDS: SODIUM CHLORIDE 0.9% FLUSH 10 ML FLUSH IV FLUSH SCH (21:00)
[2018-01-17] MEDS: DOCUSATE SODIUM 50 MG/SENNA 8.6 MG TAB PO SCH (21:00)
[2018-01-18] VITALS (8 sets, daily range): BP systolic 119–159; BP diastolic 56–78; PULSE 84–102; RESP 16–20; TEMP 96.1–98; O2SAT 94–99
[2018-01-18 02:03] LABS: FREE T3 1.55 PG/ML (2.18-3.98); FREE T4 1.29 NG/DL (0.76-1.46)
[2018-01-18] MEDS: SODIUM CHLOR 0.45% 1000 ML INJ 1,000 ML IV SCH ×3 (02:55→21:11)
[2018-01-18 06:39] LABS: AUTOMATED NEUTROPHIL # 4.4 TH/MM3 (1.8-7.7); BASOPHIL % 0.7 % (0.0-2.0); EOSINOPHIL # 0.3 TH/MM3 (0-0.4); EOSINOPHIL % 4.6 % (0.0-4.0); HEMATOCRIT 35.2 % (35.0-46.0); HEMOGLOBIN 11.1 GM/DL (11.6-15.3); LYMPH % 24.7 % (9.0-44.0); LYMPHOCYTE # 1.6 TH/MM3 (1.0-4.8); MEAN CELL VOLUME 92.4 FL (80.0-100.0); MEAN CORPUSCULAR HEMOGLOBIN 29.2 PG (27.0-34.0); MEAN CORPUSCULAR HGB CONC 31.6 % (32.0-36.0); MEAN PLATELET VOLUME 7.9 FL (7.0-11.0); MONO % 3.9 % (0.0-8.0); MONOCYTE # 0.3 TH/MM3 (0-0.9); NEUT % 66.1 % (16.0-70.0); PLATELET COUNT 181 TH/MM3 (150-450); RED BLOOD COUNT 3.82 MIL/MM3 (4.00-5.30); RED CELL DISTRIBUTION WIDTH 13.1 % (11.6-17.2); WHITE BLOOD COUNT 6.6 TH/MM3 (4.0-11.0)
[2018-01-18] MEDS: DOCUSATE SODIUM 50 MG/SENNA 8.6 MG TAB PO SCH ×2 (08:17→21:00)
[2018-01-18] MEDS: SODIUM CHLORIDE 0.9% FLUSH 10 ML FLUSH IV FLUSH SCH ×2 (08:17→21:00)
[2018-01-18 08:21] LABS: ALBUMIN 2.7 GM/DL (3.4-5.0); ALT (GPT) 28 U/L (10-53); AST (GOT) 54 U/L (15-37); BLOOD UREA NITROGEN 34 MG/DL (7-18); CALCIUM 8.8 MG/DL (8.5-10.1); CHLORIDE 125 MEQ/L (98-107); CREATININE 0.69 MG/DL (0.50-1.00); GLOMERULAR FILTRATION RATE 85 ML/MIN (>89); GLUCOSE,RANDOM 64 MG/DL (74-106); SODIUM (NA) 155 MEQ/L (136-145); TOTAL BILIRUBIN ADULT 0.8 MG/DL (0.2-1.0); TOTAL PROTEIN 5.9 GM/DL (6.4-8.2)
[2018-01-18 08:24] LABS: ALKALINE PHOSPHATASE 60 U/L (45-117)
--- NOTE | 2018-01-18 09:11 | HHI.PR ---
Subjective Remarks Patient is examined today for follow-up on altered mentation, hyponatremia, dehydration, unable to care for self. Patient resting very comfortably. She is arousable, however somnolent. Vital signs are stable, afebrile Objective Vitals Vital Signs Date Time Temp Pulse Resp B/P (MAP) Pulse Ox O2 Delivery O2 Flow Rate FiO2 01/18/18 04:00 96.1 88 16 142/78 (99) 99 01/18/18 00:00 96.5 94 20 119/56 (77) 98 01/17/18 23:28 82 01/17/18 20:13 99 21 01/17/18 20:00 96.0 90 20 133/79 (97) 99 01/17/18 18:39 90 18 131/82 (98) 100 01/17/18 17:20 97 21 01/17/18 17:12 82 18 111/67 (82) 99 Room Air 01/17/18 16:42 90 18 123/68 (86) 100 Room Air 01/17/18 16:34 Room Air 01/17/18 16:12 78 16 106/54 (71) 97 Room Air 01/17/18 15:42 18 96/72 (80) Room Air 01/17/18 15:11 90 18 138/71 (93) 100 Room Air 01/17/18 14:57 91 18 141/82 (101) 100 Room Air 01/17/18 14:17 104 18 01/17/18 14:12 97.4 105 18 112/82 (92) 89 I/O 01/17/18 01/17/18 01/17/18 01/18/18 01/18/18 01/18/18 07:00 15:00 23:00 07:00 15:00 23:00 Intake Total 2132 ml 950 ml Output Total 925 ml Balance 1207 ml 950 ml Intake IV Total 2132 ml 950 ml Output Urine Total 925 ml # Voids 2 # Bowel Movements 0 Result Diagram: 01/18/18 0620 01/18/18 0620 Imaging Last Impressions Head CT 01/17/18 1421 Signed Impressions: Service Date/Time: January 15:23 - CONCLUSION: 1. 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 2. No acute infarct, acute hemorrhage, midline shift or extra-axial fluid collections. 3. Minimal fluid level within left maxillary sinus. Francesco Ramos MD Chest X-Ray 01/17/18 1421 Signed Impressions: Service Date/Time: January 14:24 - CONCLUSION: No acute cardiopulmonary abnormality is identified. Cezar Quinn MD Objective Remarks GENERAL: Well-developed, frail and cachectic, in no acute distress. Barely arousable, unable to obtain orientation HEENT: Head is normocephalic. Facial features are symmetric. Patient does have some ecchymosis noted, multiple bruises. Eyes: Extraocular muscles are intact. Conjunctivae were clear. NECK: Supple without any masses. Trachea midline no deviation. No JVD, no bruits are appreciated CARDIAC: Regular rhythm, regular rate. S1/S2 are heard. No murmurs gallops or rubs. LUNGS: Clear to auscultation bilaterally. No wheeze, rhonchi or rales. No use of accessory muscles on inspiration or expiration. ABDOMEN: Soft, nontender. Nondistended. Bowel sounds heard in all 4 quadrants. No organomegaly or masses. Negative rebound, negative guarding EXTREMITIES: No edema, pulses are equal bilaterally. No cyanosis or clubbing. Patient with multiple bruises on arms, back, hips, legs NEUROLOGY: Patient lethargic and somnolent. Unable to obtain mood and affect. Cranial nerves II through XII grossly intact. Moving all extremities Urinary Catheter: No Vascular Central Line Catheter: No A/P Assessment and Plan Encephalopathy, likely metabolic from dehydration, hypernatremia Continue neuro checks CT of the brain was unremarkable Ammonia level was normal, TSH is mildly low as usual, Patient does have significant hypernatremia Hypernatremia secondary to dehydration Continue normal saline IV fluids Monitor sodium level every 6 hours, levels have plateaued, continue monitor until normal Acute kidney injury, improving Could be secondary dehydration versus rhabdomyolysis Monitor renal function Avoid nephrotoxins Rhabdomyolysis, improving Continue IV hydration Monitor input and output Monitor CPK Unable to care for self Consult case management for discharge planning Bipolar disorder, neurocognitive disorder Continue home medications when patient more alert May need to consult psychiatry for evaluation TSH, low: appears to be chronic Free T4: 1.29, normal Free T3: 1.55, mildly low DVT prevention Sequential compression devices Discharge Planning Discharge planning depending on patient's response to treatment Shaquille Metz Jan 18, 2018 09:11
[2018-01-18] MEDS ORDERED: PILL SPLITTER OTHER PRN (11:00)
[2018-01-18] MEDS: SERTRALINE HCL 50 MG TAB PO SCH (12:31)
[2018-01-18] MEDS: MEMANTINE HCL 5 MG TAB PO SCH (12:31)
[2018-01-18] MEDS: QUEtiapine FUMARATE 25 MG TAB PO SCH ×2 (12:32→21:00)
--- NOTE | 2018-01-18 19:48 | EKG ---
Date Performed: 01/17/2018 Time Performed: 15:52:26 PTAGE: 67 years EKG: Sinus rhythm POSSIBLE LEFT ATRIAL ENLARGEMENT MINIMAL ST DEPRESSION BORDERLINE ECG Since the PREVIOUS TRACING , no significant change noted PREVIOUS TRACIN10/13/2017 10.10 DOCTOR: Jono Campbell Interpretating Date/Time 01/18/2018 19:47:46
[2018-01-18] MEDS ORDERED: VANCOMYCIN INJ 1,000 MG in SODIUM CHLOR 0.9% 250 ML INJ 250 ML IV ONE ×2 (21:00→23:30)
[2018-01-18] MEDS: AZTREONAM INJ 1,000 MG in SODIUM CHLORIDE 0.9% INJ 100 ML IV SCH (22:44)
[2018-01-19] VITALS: BP 106/58; PULSE 83; RESP 20; TEMP 97.8; O2SAT 97
[2018-01-19 04:00] VITALS: BP 110/71; PULSE 79; RESP 16; TEMP 97.1; O2SAT 99
[2018-01-19] MEDS: AZTREONAM INJ 1,000 MG in SODIUM CHLORIDE 0.9% INJ 100 ML IV SCH ×3 (04:59→21:53)
[2018-01-19 07:45] LABS: AUTOMATED NEUTROPHIL # 3.4 TH/MM3 (1.8-7.7); BASOPHIL # 0.1 TH/MM3 (0-0.2); EOSINOPHIL # 0.3 TH/MM3 (0-0.4); EOSINOPHIL % 4.4 % (0.0-4.0); HEMATOCRIT 34.8 % (35.0-46.0); HEMOGLOBIN 11.2 GM/DL (11.6-15.3); LYMPH % 31.5 % (9.0-44.0); LYMPHOCYTE # 1.9 TH/MM3 (1.0-4.8); MEAN CORPUSCULAR HEMOGLOBIN 29.3 PG (27.0-34.0); MEAN CORPUSCULAR HGB CONC 32.2 % (32.0-36.0); MEAN PLATELET VOLUME 8.1 FL (7.0-11.0); MONO % 4.2 % (0.0-8.0); MONOCYTE # 0.3 TH/MM3 (0-0.9); NEUT % 58.9 % (16.0-70.0); PLATELET COUNT 177 TH/MM3 (150-450); RED BLOOD COUNT 3.83 MIL/MM3 (4.00-5.30); RED CELL DISTRIBUTION WIDTH 13.2 % (11.6-17.2)
[2018-01-19 07:59] LABS: CHLORIDE 119 MEQ/L (98-107); SODIUM (NA) 151 MEQ/L (136-145)
[2018-01-19 08:00] VITALS: BP 126/65; PULSE 68; RESP 16; TEMP 96; O2SAT 80
[2018-01-19 08:07] LABS: ALBUMIN 2.7 GM/DL (3.4-5.0)
[2018-01-19 08:08] LABS: AST (GOT) 45 U/L (15-37); CALCIUM 8.9 MG/DL (8.5-10.1); GLUCOSE,RANDOM 88 MG/DL (74-106)
[2018-01-19 08:09] LABS: BICARBONATE 23.6 MEQ/L (21.0-32.0); BLOOD UREA NITROGEN 21 MG/DL (7-18)
[2018-01-19 08:11] LABS: ALKALINE PHOSPHATASE 60 U/L (45-117); ALT (GPT) 27 U/L (10-53); CREATININE 0.63 MG/DL (0.50-1.00); GLOMERULAR FILTRATION RATE 95 ML/MIN (>89); TOTAL BILIRUBIN ADULT 0.9 MG/DL (0.2-1.0); TOTAL PROTEIN 5.9 GM/DL (6.4-8.2)
[2018-01-19] MEDS: SODIUM CHLOR 0.45% 1000 ML INJ 1,000 ML IV SCH ×3 (08:45→21:54)
[2018-01-19] MEDS: DOCUSATE SODIUM 50 MG/SENNA 8.6 MG TAB PO SCH ×2 (09:00→21:53)
[2018-01-19] MEDS: SERTRALINE HCL 50 MG TAB PO SCH (09:00)
[2018-01-19] MEDS: SODIUM CHLORIDE 0.9% FLUSH 10 ML FLUSH IV FLUSH SCH ×2 (09:00→21:53)
[2018-01-19] MEDS: MEMANTINE HCL 5 MG TAB PO SCH (09:00)
[2018-01-19] MEDS: QUEtiapine FUMARATE 25 MG TAB PO SCH ×2 (09:00→21:54)
--- NOTE | 2018-01-19 09:37 | HHI.PR ---
Subjective Remarks Patient seen and examined today for follow-up on hypernatremia, altered mentation. Patient is improving slowly. She is actually awake today and talking. She is asking for coffee and milk. Sodium level is trending downward. Vital signs are stable, patient remains afebrile Objective Vitals Vital Signs Date Time Temp Pulse Resp B/P (MAP) Pulse Ox O2 Delivery O2 Flow Rate FiO2 01/19/18 08:00 96.0 68 16 126/65 (85) 80 01/19/18 04:00 97.1 79 16 110/71 (84) 99 01/19/18 00:00 97.8 83 20 106/58 (74) 97 01/18/18 20:00 97.6 84 16 140/67 (91) 98 01/18/18 16:00 98.0 101 18 138/70 (92) 98 01/18/18 15:18 96 21 01/18/18 15:00 87 01/18/18 12:00 98.0 100 18 159/70 (99) 96 I/O 01/18/18 01/18/18 01/18/18 01/19/18 01/19/18 01/19/18 07:00 15:00 23:00 07:00 15:00 23:00 Intake Total 950 ml 1360 ml 450 ml Balance 950 ml 1360 ml 450 ml Intake Oral 360 ml IV Total 950 ml 1000 ml 450 ml # Voids 3 6 # Bowel Movements 0 Result Diagram: 01/19/18 0620 01/19/18 0620 Objective Remarks GENERAL: Well-developed, frail and cachectic, in no acute distress. Patient is alert today. Orientated to person and place. HEENT: Head is normocephalic. Facial features are symmetric. Patient does have some ecchymosis noted, multiple bruises. Eyes: Extraocular muscles are intact. Conjunctivae were clear. NECK: Supple without any masses. Trachea midline no deviation. No JVD, no bruits are appreciated CARDIAC: Regular rhythm, regular rate. S1/S2 are heard. No murmurs gallops or rubs. LUNGS: Clear to auscultation bilaterally. No wheeze, rhonchi or rales. No use of accessory muscles on inspiration or expiration. ABDOMEN: Soft, nontender. Nondistended. Bowel sounds heard in all 4 quadrants. No organomegaly or masses. Negative rebound, negative guarding EXTREMITIES: No edema, pulses are equal bilaterally. No cyanosis or clubbing. Patient with multiple bruises on arms, back, hips, legs NEUROLOGY: Cranial nerves II through XII grossly intact. 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 evening of positive blood cultures Patient remains afebrile, no leukocytosis Patient was given vancomycin and started on Azactam Gram-positive cocci in all 4 culture bottles Repeat cultures have been ascertained Infectious disease consulted hypernatremia secondary to dehydration Continue 1/2 normal saline IV fluids Monitor sodium level every 6 hours, levels are improving Acute kidney injury, improving Could be secondary dehydration versus rhabdomyolysis Monitor renal function Avoid nephrotoxins Rhabdomyolysis, improving Continue IV hydration Monitor input and output Monitor CPK Unable to care for self Consult case management for discharge planning Bipolar disorder, neurocognitive disorder Continue home medications when patient more alert May need to consult psychiatry for evaluation TSH, low: appears to be chronic Free T4: 1.29, normal Free T3: 1.55, mildly low DVT prevention Sequential compression devices Discharge Planning Discharge planning to rehab facility once stabilized Shaquille Metz Jan 19, 2018 09:37
[2018-01-19] MEDS ORDERED: POTASSIUM CHLORIDE 20 MEQ CONTROLLED RELEASE TAB PO ONE (09:45)
[2018-01-19 12:00] VITALS: BP 106/66; PULSE 84; RESP 17; TEMP 98; O2SAT 95
[2018-01-19 16:00] VITALS: BP 111/89; PULSE 82; RESP 12; TEMP 96; O2SAT 96
[2018-01-19 20:00] VITALS: BP 102/55; PULSE 107; PULSE 85; RESP 20; TEMP 98.1; O2SAT 96
[2018-01-20] VITALS: BP 121/64; PULSE 84; RESP 20; TEMP 96.5; O2SAT 97
[2018-01-20 04:00] VITALS: BP 113/59; PULSE 74; RESP 20; TEMP 96.5; O2SAT 96
[2018-01-20] MEDS: AZTREONAM INJ 1,000 MG in SODIUM CHLORIDE 0.9% INJ 100 ML IV SCH (04:40)
[2018-01-20] MEDS: SODIUM CHLOR 0.45% 1000 ML INJ 1,000 ML IV SCH ×2 (07:27→17:30)
[2018-01-20 08:13] LABS: BICARBONATE 24.1 MEQ/L (21.0-32.0); CALCIUM 8.6 MG/DL (8.5-10.1)
[2018-01-20 08:17] LABS: CREATININE 0.74 MG/DL (0.50-1.00)
[2018-01-20] MEDS: DOCUSATE SODIUM 50 MG/SENNA 8.6 MG TAB PO SCH ×2 (08:30→20:43)
[2018-01-20] MEDS: SERTRALINE HCL 50 MG TAB PO SCH (08:30)
[2018-01-20] MEDS: QUEtiapine FUMARATE 25 MG TAB PO SCH ×2 (08:30→20:43)
[2018-01-20] MEDS: MEMANTINE HCL 5 MG TAB PO SCH (08:30)
[2018-01-20] MEDS: SODIUM CHLORIDE 0.9% FLUSH 10 ML FLUSH IV FLUSH SCH ×2 (08:33→20:43)
--- NOTE | 2018-01-20 09:08 | HHI.PR ---
Subjective Remarks Patient seen and examined today for follow-up on altered mental status, unable to care for self. Patient sitting in bed comfortable. She is alert and orientated today. Patient denies any new complaints. No change in clinical status. Patient remains afebrile. Objective Vitals Vital Signs Date Time Temp Pulse Resp B/P (MAP) Pulse Ox O2 Delivery O2 Flow Rate FiO2 01/20/18 04:00 96.5 74 20 113/59 (77) 96 01/20/18 00:00 96.5 84 20 121/64 (83) 97 01/19/18 20:00 98.1 85 20 102/55 (71) 96 01/19/18 20:00 107 01/19/18 16:00 96.0 82 12 111/89 (96) 96 01/19/18 12:00 98.0 84 17 106/66 (79) 95 I/O 01/19/18 01/19/18 01/19/18 01/20/18 01/20/18 01/20/18 07:00 15:00 23:00 07:00 15:00 23:00 Intake Total 450 ml 1500 ml 480 ml Balance 450 ml 1500 ml 480 ml Intake Oral 1500 ml 480 ml IV Total 450 ml # Voids 6 3 # Bowel Movements 0 2 Result Diagram: 01/19/1820 01/20/18 0620 Objective Remarks GENERAL: Well-developed, frail and cachectic, in no acute distress. Patient is alert today. Orientated to person, place, year, month HEENT: Head is normocephalic. Facial features are symmetric. Patient does have some ecchymosis noted, multiple bruises. Eyes: Extraocular muscles are intact. Conjunctivae were clear. NECK: Supple without any masses. Trachea midline no deviation. No JVD, no bruits are appreciated CARDIAC: Regular rhythm, regular rate. S1/S2 are heard. No murmurs gallops or rubs. LUNGS: Clear to auscultation bilaterally. No wheeze, rhonchi or rales. No use of accessory muscles on inspiration or expiration. ABDOMEN: Soft, nontender. Nondistended. Bowel sounds heard in all 4 quadrants. No organomegaly or masses. Negative rebound, negative guarding EXTREMITIES: No edema, pulses are equal bilaterally. No cyanosis or clubbing. Patient with multiple bruises on arms, back, hips, legs NEUROLOGY: Cranial nerves II through XII grossly intact. Moving all extremities Urinary Catheter: No Vascular Central Line Catheter: No A/P Assessment and Plan Positive blood cultures Animal Therapist was notified last evening of positive blood cultures Patient remains afebrile, no leukocytosis Patient was given vancomycin and started on Azactam Gram-positive cocci, staph coag negative in multiple bottles, could be contamination Repeat cultures are negative for 2 day Infectious disease consulted and indicated that cultures consistent with contamination. Discontinue all antibiotics Encephalopathy, likely metabolic from dehydration, hypernatremia, resolved Continue neuro checks CT of the brain was unremarkable Ammonia level was normal, TSH is mildly low as usual, Patient did have significant hypernatremia hypernatremia secondary to dehydration, Continue 1/2 normal saline IV fluids Monitor BMP daily Acute kidney injury, improving Could be secondary dehydration versus rhabdomyolysis Monitor renal function Avoid nephrotoxins Rhabdomyolysis, improving Continue IV hydration Monitor input and output Unable to care for self Consult case management for discharge planning Bipolar disorder, neurocognitive disorder Continue home medications when patient more alert May need to consult psychiatry for evaluation TSH, low: appears to be chronic Free T4: 1.29, normal Free T3: 1.55, mildly low DVT prevention Sequential compression devices Discharge Planning Discharge planning to rehab facility once arrangements made by case management Shaquille Metz Jan 20, 2018 09:08
--- NOTE | 2018-01-20 10:48 | PD.ID.CON ---
History of Present Illness Service ID Consult Requested By Dr Santiago Reason for Consult Bacteremia Primary Care Physician No Primary Care Physician Diagnoses: History of Present Illness Pt is demented and unable to provide me any meaninful history 67 yo female was brought by her family 2/2 inability to care for self She was found down covered with urine, feces On admission with afebriole, normal vss and w/u showed normal CBC, chemical indices, UA, head CT and CXR Blood clx however showed coag negative staph in 4/4 bottles (of different morphologies), along with bacillus in 1/4 bottles Repeat clx are negative @ 1 -2 days Review of Systems ROS Limitations: Altered Mental Status, Poor Historian Past Family Social History Allergies: Coded Allergies: penicillin G (Unverified Allergy, Severe, 11/17/17) ibuprofen (Unverified Allergy, Mild, 11/17/17) Past Medical History Unable to obtain information with the patient, information take her medical records Hypertension History of CVA Bipolar disorder Anxiety Depression Past Surgical History Unable to obtain information with the patient, information take her medical records Tonsillectomy Right knee surgery Active Ordered Medications Medications where reviewed in EMR Antibiotics Include: azactam Family History Reported Medications Reported Meds & Active Scripts Unable to obtain information with the patient information taken from medical records Records indicate that there is no family history significant for diabetes, heart disease Social History Unable to obtain information with the patient, information take her medical records Records indicate negative for alcohol, tobacco or illicit drug Physical Exam Vital Signs Vital Signs Date Time Temp Pulse Resp B/P (MAP) Pulse Ox O2 Delivery O2 Flow Rate FiO2 01/20/18 04:00 96.5 74 20 113/59 (77) 96 01/20/18 00:00 96.5 84 20 121/64 (83) 97 01/19/18 20:00 98.1 85 20 102/55 (71) 96 01/19/18 20:00 107 01/19/18 16:00 96.0 82 12 111/89 (96) 96 01/19/18 12:00 98.0 84 17 106/66 (79) 95 Physical Exam CONSTITUTIONAL/GENERAL: emaciated, in no apparent distress. TUBES/LINES/DRAINS: SKIN: No jaundice, rashes, or lesions. Ecchymoses on upper extremities. No wounds seen anteriorly. Skin temperature appropriate. Not diaphoretic. HEAD: Atraumatic. Normocephalic. EYES: Pupils equal and round and reactive. Extraocular motions intact. No scleral icterus. No injection or drainage. Fundi not examined. poor dentition ENT: Hearing grossly normal. Nose without bleeding or purulent drainage. Throat without visible erythema, exudates, masses, or lesions. NECK: Trachea midline. Supple, nontender. No palpable thyroid enlargement or nodularity. CARDIOVASCULAR: Regular rate and rhythm without murmurs, gallops, or rubs. No JVD. Peripheral pulses symmetric. RESPIRATORY/CHEST: Symmetric, unlabored respirations. Clear to auscultation. Breath sounds equal bilaterally. No wheezes, rales, or rhonchi. GASTROINTESTINAL: Abdomen soft, non-tender, nondistended. No hepato-splenomegaly , or palpable masses. No guarding. Bowel sounds present. GENITOURINARY: Without palpable bladder distension. Sun catheter in place. MUSCULOSKELETAL: Extremities without clubbing, cyanosis, or edema. No joint tenderness or effusion noted. No calf tenderness. No mottling or clubbing. muscle bulk loss o/w unremarkable LYMPHATICS: No palpable cervical or supraclavicular adenopathy. NEUROLOGICAL: Awake and alert. Motor and sensory grossly within normal limits. Follows commands.C onfused, not fully oriented to tiem and place Moves all extremities. PSYCHIATRIC: No obvious anxiety/depression. no apparent hallucinations or other psychotic thought process. Laboratory Laboratory Tests Test 01/19/18 14:10 01/19/18 22:10 01/20/18 06:20 Sodium Level 148 145 147 Blood Urea Nitrogen 27 Creatinine 0.74 Random Glucose 109 Calcium Level 8.6 Potassium Level 4.0 Chloride Level 115 Carbon Dioxide Level 24.1 Anion Gap 8 Estimat Glomerular Filtration Rate 79 Total Creatine Kinase 201 Creatine Kinase MB 0.8 Creatine Kinase MB % 0.4 Date/Time Source Procedure Growth Status 01/19/18 06:20 Blood Peripheral Aerobic Blood Culture Pending Received 01/19/18 06:20 Blood Peripheral Anaerobic Blood Culture Pending Received Result Diagram: 01/19/18 0620 01/20/18 0620 Imaging Last Impressions Head CT 01/17/18 1421 Signed Impressions: Service Date/Time: January 15:23 - CONCLUSION: 1. 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 2. No acute infarct, acute hemorrhage, midline shift or extra-axial fluid collections. 3. Minimal fluid level within left maxillary sinus. Francesco Ramos MD Chest X-Ray 01/17/18 1421 Signed Impressions: Service Date/Time: January 14:24 - CONCLUSION: No acute cardiopulmonary abnormality is identified. Cezar Quinn MD Assessment and Plan Assessment and Plan A: Coagulase negative staph bacteremia, different morphology Low grade Bacillus bactermemia - both cw contaminants MS change - likely undelying dementia I see no acute infection process R : dc abx will s/o - call if needed Discussed Condition With Lisa Zavala PA-C, MD Jan 20, 2018 10:48
--- NOTE | 2018-01-20 10:48 | HHI.PR ---
Addendum to Inpatient Note Additional Information Seen around 1030 am; full note to follow Poor historian Pt is found down at home MS change No fever BC grew coag neg staph , diff morphologies and Bacillus On exam: emaciated, poor dentition, muscle bulk loss o/w unremarkable Neuo: confused, not fully oriented to tiem and place UA/CT head/CXR - neg WBC wnl A: Coagn neg staph bacteremia - cw contaminant MS change - likely undelying dementia I see no acute infection process R : dc abx will s/o - call if needed Lisa Mosqueda MD Jan 20, 2018 10:48
[2018-01-20 12:00] VITALS: BP 130/80; PULSE 80; RESP 15; TEMP 96
--- NOTE | 2018-01-20 12:10 | HHI.DCPOC ---
Discharge Care Plan Diagnosis: (1) Encephalopathy (2) Hypernatremia (3) Acute kidney injury (4) Total self-care deficit Goals to Promote Your Health * To prevent worsening of your condition and complications * To maintain your health at the optimal level Directions to Meet Your Goals Take your medications as prescribed Follow your dietary instruction Follow activity as directed Keep your appointments as scheduled Take your immunizations and boosters as scheduled If your symptoms worsen call your PCP, if no PCP go to Urgent Care Center or Emergency Room Smoking is Dangerous to Your Health. Avoid second hand smoke Call the 24-hour hour crisis hotline for domestic abuse at Shaquille Metz Jan 20, 2018 12:10
--- NOTE | 2018-01-20 12:18 | HHI.DS ---
Discharge Summary Admission Date Jan 17, 2018 at 17:35 Discharge Date: Jan 20, 2018 Admitting Diagnosis Delirium (1) Encephalopathy ICD Code: G93.40 - Encephalopathy, unspecified Diagnosis: Principal (2) Rhabdomyolysis ICD Code: M62.82 - Rhabdomyolysis Diagnosis: Principal Status: Acute (3) Dehydration ICD Code: E86.0 - Dehydration Diagnosis: Principal (4) Hypernatremia ICD Code: E87.0 - Hyperosmolality and hypernatremia Diagnosis: Principal Status: Acute (5) Acute kidney injury ICD Code: N17.9 - Acute kidney failure, unspecified Diagnosis: Principal (6) Total self-care deficit ICD Code: R41.89 - Other symptoms and signs involving cognitive functions and awareness Diagnosis: Principal Procedures None Brief History - From Admission 67-year-old female who is known to the hospital for recurrent admissions for encephalopathy, dehydration, unable to care for self, history of CVA, bipolar disorder, neurocognitive disorder, multiple psychiatric admissions. Patient is unable to give any information. Information was taken from medical records and nursing staff. Apparently known is heard from her in approximately 5 days and family called her I will try to contact her however they are unsuccessful. EVAC was called to go check on her in she was subsequently brought to the hospital with altered mentation, dehydration, multiple bruises over her body, frail, cachectic, malnourished, hypernatremia, rhabdomyolysis. Patient was given IV fluids in the emergency department and subsequently it was recommended that the patient be admitted for further evaluation and management. CBC/BMP: 01/19/18 0620 01/20/18 0620 Significant Findings Laboratory Tests Test 01/17/18 14:50 01/17/18 14:58 01/17/18 15:55 01/17/18 17:19 Ammonia LESS THAN 10 MCMOL/L Neutrophils (%) (Auto) 71.8 % (16.0-70.0) Basophils (%) (Auto) 4.1 % (0.0-2.0) Basophils # (Auto) 0.4 TH/MM3 (0-0.2) Blood Urea Nitrogen 43 MG/DL (7-18) Random Glucose 72 MG/DL (74-106) Total Protein 6.3 GM/DL (6.4-8.2) Albumin 2.8 GM/DL (3.4-5.0) Aspartate Amino Transf (AST/SGOT) 62 U/L (15-37) Sodium Level 149 MEQ/L (136-145) Chloride Level 117 MEQ/L (98-107) Estimat Glomerular Filtration Rate 79 ML/MIN (>89) Total Creatine Kinase 940 U/L (26-192) Creatine Kinase MB 3.9 NG/ML (0.5-3.6) Troponin I LESS THAN 0.02 NG/ML Thyroid Stimulating Hormone 3rd Gen 0.292 uIU/ML (0.358-3.740) Acetaminophen Level LESS THAN 2.0 MCG/ML Urine Ketones TRACE mg/dL (NEG) Urine Benzodiazepines Screen POS (NEG) Test 01/17/18 18:26 01/17/18 21:10 01/18/18 02:10 01/18/18 06:20 Total Creatine Kinase 922 U/L (26-192) 669 U/L (26-192) Creatine Kinase MB 4.1 NG/ML (0.5-3.6) Sodium Level 151 MEQ/L (136-145) 155 MEQ/L (136-145) 155 MEQ/L (136-145) Free Triiodothyronine (T3) pg/dL 1.55 PG/ML (2.18-3.98) Red Blood Count 3.82 MIL/MM3 (4.00-5.30) Hemoglobin 11.1 GM/DL (11.6-15.3) Mean Corpuscular Hemoglobin Concent 31.6 % (32.0-36.0) Eosinophils (%) (Auto) 4.6 % (0.0-4.0) Blood Urea Nitrogen 34 MG/DL (7-18) Random Glucose 64 MG/DL (74-106) Total Protein 5.9 GM/DL (6.4-8.2) Albumin 2.7 GM/DL (3.4-5.0) Aspartate Amino Transf (AST/SGOT) 54 U/L (15-37) Chloride Level 125 MEQ/L (98-107) Carbon Dioxide Level 18.0 MEQ/L (21.0-32.0) Estimat Glomerular Filtration Rate 85 ML/MIN (>89) Test 01/18/18 08:55 01/18/18 15:20 01/18/18 20:20 01/19/18 06:20 Sodium Level 155 MEQ/L (136-145) 151 MEQ/L (136-145) 152 MEQ/L (136-145) 151 MEQ/L (136-145) Red Blood Count 3.83 MIL/MM3 (4.00-5.30) Hemoglobin 11.2 GM/DL (11.6-15.3) Hematocrit 34.8 % (35.0-46.0) Eosinophils (%) (Auto) 4.4 % (0.0-4.0) Blood Urea Nitrogen 21 MG/DL (7-18) Total Protein 5.9 GM/DL (6.4-8.2) Albumin 2.7 GM/DL (3.4-5.0) Aspartate Amino Transf (AST/SGOT) 45 U/L (15-37) Potassium Level 3.4 MEQ/L (3.5-5.1) Chloride Level 119 MEQ/L (98-107) Total Creatine Kinase 426 U/L (26-192) Test 01/19/18 14:10 01/19/18 22:10 01/20/18 06:20 Sodium Level 148 MEQ/L (136-145) 147 MEQ/L (136-145) Blood Urea Nitrogen 27 MG/DL (7-18) Random Glucose 109 MG/DL (74-106) Chloride Level 115 MEQ/L (98-107) Estimat Glomerular Filtration Rate 79 ML/MIN (>89) Total Creatine Kinase 201 U/L (26-192) Imaging Last Impressions Head CT 01/17/181420 Signed Impressions: Service Date/Time: January 15:23 - CONCLUSION: 1. 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 2. No acute infarct, acute hemorrhage, midline shift or extra-axial fluid collections. 3. Minimal fluid level within left maxillary sinus. Francesco Ramos MD Chest X-Ray 01/17/181420 Signed Impressions: Service Date/Time: January 14:24 - CONCLUSION: No acute cardiopulmonary abnormality is identified. Cezar Quinn MD PE at Discharge GENERAL: Well-developed, frail and cachectic, in no acute distress. Patient is alert today. Orientated to person, place, year, month HEENT: Head is normocephalic. Facial features are symmetric. Patient does have some ecchymosis noted, multiple bruises. Eyes: Extraocular muscles are intact. Conjunctivae were clear. NECK: Supple without any masses. Trachea midline no deviation. No JVD, no bruits are appreciated CARDIAC: Regular rhythm, regular rate. S1/S2 are heard. No murmurs gallops or rubs. LUNGS: Clear to auscultation bilaterally. No wheeze, rhonchi or rales. No use of accessory muscles on inspiration or expiration. ABDOMEN: Soft, nontender. Nondistended. Bowel sounds heard in all 4 quadrants. No organomegaly or masses. Negative rebound, negative guarding EXTREMITIES: No edema, pulses are equal bilaterally. No cyanosis or clubbing. Patient with multiple bruises on arms, back, hips, legs NEUROLOGY: Cranial nerves II through XII grossly intact. Moving all extremities Hospital Course 67-year-old female who is well-known to the hospital for recurrent admissions for encephalopathy, dehydration, unable to care for self who originally presented to hospital by EMS because family called 911 and patient was found to have altered mentation was brought to emergency department with multiple medical problems. Patient is very frail, cachectic, malnourished, severe hypernatremia, rhabdomyolysis. Patient was admitted to the hospital with IV fluids and neurological monitoring. On a daily basis patient did improve. Hypernatremia was monitored with serial sodium levels which did increase initially and IV fluids are changed to one half normal saline with continued improvement until sodium is 145. During the patient's stay, the patient's initial blood cultures were positive. 4/4 blood cultures did grow staph coag negative with bacillus species not anthrax with consistent with contamination. Infectious disease consultation was requested and was also indicated that it was contamination and discontinue all antibiotics. Patient mentation much improved. However, patient has had multiple episodes of unable to care for self with similar presentations to the hospital. DCF did come and evaluate the patient. Patient will require to go to a detention facility for continued care until deemed able to take care of herself. Patient is clinically stable this time. We will plan discharge to detention facility. Pt Condition on Discharge: Stable Discharge Disposition: Discharge to SNF Discharge Time: > 30 minutes Discharge Instructions DIET: Follow Instructions for: Heart Healthy Diet Activities you can perform: Regular-No Restrictions Follow up Referrals: PCP Follow-up - 1 Week Continued Medications: Docusate Sodium (Dok) 100 Mg Cap 100 MG PO BID for health for 30 Days, #60 CAP Memantine (Namenda) 5 Mg Tab 5 MG PO DAILY for health for 30 Days, #30 TAB Quetiapine (Quetiapine) 50 Mg Tab 50 MG PO BID for health, #60 TAB 0 Refills Sertraline (Zoloft) 50 Mg Tab 75 MG PO DAILY for health for 30 Days, #45 TAB Shaquille Metz Jan 20, 2018 12:18
[2018-01-20 16:00] VITALS: BP 130/80; PULSE 114; RESP 15; TEMP 99.6; O2SAT 99
[2018-01-20 20:00] VITALS: BP 103/61; PULSE 77; RESP 17; TEMP 97.6; O2SAT 94
[2018-01-21] VITALS: BP 106/72; PULSE 75; RESP 18; TEMP 97.9; O2SAT 96
[2018-01-21] MEDS: SODIUM CHLOR 0.45% 1000 ML INJ 1,000 ML IV SCH (03:27)
[2018-01-21 06:27] LABS: CALCIUM 9.1 MG/DL (8.5-10.1)
[2018-01-21 06:28] LABS: BICARBONATE 23.9 MEQ/L (21.0-32.0)
[2018-01-21 06:31] LABS: CREATININE 0.73 MG/DL (0.50-1.00)
[2018-01-21] MEDS: DOCUSATE SODIUM 50 MG/SENNA 8.6 MG TAB PO SCH ×2 (07:55→21:00)
[2018-01-21] MEDS: SODIUM CHLORIDE 0.9% FLUSH 10 ML FLUSH IV FLUSH SCH ×3 (07:55→21:00)
[2018-01-21] MEDS: MEMANTINE HCL 5 MG TAB PO SCH (07:55)
[2018-01-21] MEDS: QUEtiapine FUMARATE 25 MG TAB PO SCH ×2 (07:55→21:10)
[2018-01-21] MEDS: SERTRALINE HCL 50 MG TAB PO SCH (07:56)
[2018-01-21 08:00] VITALS: BP 96/54; PULSE 91; RESP 16; TEMP 96.1; O2SAT 96
--- NOTE | 2018-01-21 10:24 | HHI.PR ---
Subjective Remarks Patient seen and evaluated today in follow-up for encephalopathy and dehydration which appear to be improved. Patient tolerating diet. Care plan discussed with Zelda BHAGAT. Still awaiting placement Objective Vitals Vital Signs Date Time Temp Pulse Resp B/P (MAP) Pulse Ox O2 Delivery O2 Flow Rate FiO2 01/21/18 08:00 96.1 91 16 96/54 (68) 96 01/21/18 00:00 97.9 75 18 106/72 (83) 96 01/20/18 20:00 97.6 77 17 103/61 (75) 94 01/20/18 16:00 99.6 114 15 130/80 (97) 99 01/20/18 12:00 96.0 80 15 130/80 (97) I/O 01/20/18 01/20/18 01/20/18 01/21/18 01/21/18 01/21/18 07:00 15:00 23:00 07:00 15:00 23:00 Intake Total 480 ml 1534 ml 866 ml 240 ml Balance 480 ml 1534 ml 866 ml 240 ml Intake Oral 480 ml 1200 ml 240 ml IV Total 334 ml 866 ml # Voids 3 6 4 # Bowel Movements 0 Result Diagram: 01/19/18 0620 01/21/18 0525 Imaging Last Impressions Head CT 01/17/181420 Signed Impressions: Service Date/Time: January 15:23 - CONCLUSION: 1. 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 2. No acute infarct, acute hemorrhage, midline shift or extra-axial fluid collections. 3. Minimal fluid level within left maxillary sinus. Francesco Ramos MD Chest X-Ray 01/17/18 1421 Signed Impressions: Service Date/Time: January 14:24 - CONCLUSION: No acute cardiopulmonary abnormality is identified. Cezar Quinn MD Objective Remarks GENERAL: This is a frail female who appears older than stated age CARDIOVASCULAR: Regular rate and rhythm without murmurs, gallops, or rubs. RESPIRATORY: Clear to auscultation. Breath sounds equal bilaterally. No wheezes , rales, or rhonchi. GASTROINTESTINAL: Abdomen soft, non-tender, nondistended. Normal active bowel sounds MUSCULOSKELETAL: Extremities without clubbing, cyanosis, or edema. NEURO: Alert & Oriented x4 to person, place, time, situation. Moves all ext x4 Procedures None A/P Assessment and Plan Patient seen in follow-up for encephalopathy and rhabdomyolysis which appear resolved. Still awaiting discharge planning. Case management aware of various discharge DC IV fluids and continue oral intake Follow-up for safety Adia Franz MD Jan 21, 2018 10:24
[2018-01-21 12:00] VITALS: BP 106/59; PULSE 88; RESP 16; TEMP 96.9; O2SAT 97
[2018-01-21 16:00] VITALS: BP 112/59; PULSE 75; RESP 14; TEMP 97; O2SAT 97
[2018-01-21 20:00] VITALS: BP 104/55; PULSE 90; RESP 16; TEMP 98; O2SAT 95
[2018-01-22] VITALS: BP 93/50; PULSE 88; RESP 16; TEMP 96.2; O2SAT 98
[2018-01-22 08:00] VITALS: BP 119/59; PULSE 82; RESP 18; TEMP 96.6; O2SAT 99
[2018-01-22] MEDS: DOCUSATE SODIUM 50 MG/SENNA 8.6 MG TAB PO SCH ×2 (08:40→08:50)
[2018-01-22] MEDS: SERTRALINE HCL 50 MG TAB PO SCH (08:40)
[2018-01-22] MEDS: QUEtiapine FUMARATE 25 MG TAB PO SCH (08:40)
[2018-01-22] MEDS: MEMANTINE HCL 5 MG TAB PO SCH (08:41)
[2018-01-22] MEDS: SODIUM CHLORIDE 0.9% FLUSH 10 ML FLUSH IV FLUSH SCH (08:43)
--- NOTE | 2018-01-22 10:32 | HHI.PR ---
Subjective Remarks Patient seen again in follow-up for continue to discharge planning Patient much more alert and coherent today. Able to follow instructions well and would like to go to rehab. Discharge plan discussed with case management and nursing team Objective Vitals Vital Signs Date Time Temp Pulse Resp B/P (MAP) Pulse Ox O2 Delivery O2 Flow Rate FiO2 01/22/18 08:00 96.6 82 18 119/59 (79) 99 01/22/18 00:00 96.2 88 16 93/50 (64) 98 01/21/18 20:00 98.0 90 16 104/55 (71) 95 01/21/18 16:00 97.0 75 14 112/59 (76) 97 01/21/18 12:00 96.9 88 16 106/59 (75) 97 I/O 01/21/18 01/21/18 01/21/18 01/22/18 01/22/18 01/22/18 07:00 15:00 23:00 07:00 15:00 23:00 Intake Total 866 ml 240 ml 222 ml 459 ml Balance 866 ml 240 ml 222 ml 459 ml Intake Oral 240 ml 222 ml 459 ml IV Total 866 ml # Voids 4 5 # Bowel Movements 3 Result Diagram: 01/19/18 0620 01/21/18 0525 Objective Remarks GENERAL: This is a frail female who appears older than stated age CARDIOVASCULAR: Regular rate and rhythm without murmurs, gallops, or rubs. RESPIRATORY: Clear to auscultation. Breath sounds equal bilaterally. No wheezes , rales, or rhonchi. GASTROINTESTINAL: Abdomen soft, non-tender, nondistended. Normal active bowel sounds MUSCULOSKELETAL: Extremities without clubbing, cyanosis, or edema. NEURO: Alert & Oriented x4 to person, place, time, situation. Moves all ext x4 Procedures None A/P Assessment and Plan Patient seen in follow-up for encephalopathy and rhabdomyolysis which appear resolved. Still awaiting discharge planning. Case management aware of various discharge Continue to monitor oral intake Follow-up for safety Likely discharge to residential facility Adia Franz MD Jan 22, 2018 10:32
[2018-01-22 12:17] VITALS: BP 106/55; PULSE 81; RESP 20; TEMP 97.7; O2SAT 95
[2018-01-22 16:00] VITALS: BP 126/58; PULSE 74; RESP 14; TEMP 97.3; O2SAT 100
== END 2018-01-22 18:00 | DRG 557 ==
LOC: PHED 14:03 → INTOOBSV 16:19 → PHEDA 16:19 → OBSVTOIN 17:35 → PH3A 18:45
PROVIDERS: ADMIT Hospitalist; ATTEND Hospitalist
DX: M62.82 Rhabdomyolysis (principal); G93.41 Metabolic encephalopathy; N17.9 Acute kidney failure, unspecified; E87.0 Hyperosmolality and hypernatremia; E46 Unspecified protein-calorie malnutrition; Z68.1 Body mass index [BMI] 19.9 or less, adult; E86.0 Dehydration; F31.9 Bipolar disorder, unspecified; Z86.73 Personal history of transient ischemic attack (TIA), and cerebral infarction without residual deficits
CPT/HCPCS: 70450; 71045; 80048; 80053; 80307; 81001; 82140; 82550; 82552; 83605; 83735; 84295; 84439; 84443; 84481; 84484; 85025; 85610; 85730; 86403; 87040; 87205; 93005; 96361; 96374; 96376; J2060; J3370; J7030; J7050

== ENCOUNTER 2018-04-02 15:31 | Emergency (ER) | payer MEDICARE, OTHER ==
[2018-04-02 15:36] VITALS: BP 129/82; PULSE 95; RESP 22; TEMP 98.4; O2SAT 98
--- NOTE | 2018-04-02 16:21 | PD ---
HPI Chief Complaint: Medical Clearance Time Seen by Provider: 15:41 Travel History International Travel<30 days: No Contact w/Intl Traveler<30days: No History of Present Illness HPI The patient is 68 years old. She arrives by EMS. She had a fall from standing position 3 days prior. She struck the left forehead upon the ground. Baseline psychiatric disease symptoms were considered to be worse by the home healthcare nurse. EMS was then activated. Onset sudden. Timing constant. No anticoagulant use. Medications include Namenda, Zoloft and Seroquel. PFSH Past Medical History Autoimmune Disease: No Blood Disorders: No Anxiety: Yes Depression: Yes Heart Rhythm Problems: No Cancer: No Cardiovascular Problems: No High Cholesterol: No Chemotherapy: No Chest Pain: No Congestive Heart Failure: No Cerebrovascular Accident: Yes (AUG 1980) Diabetes: No Diminished Hearing: No Endocrine: No Genitourinary: No Headaches: No Hepatitis: No Hiatal Hernia: No Hypertension: No Immune Disorder: No Musculoskeletal: No Neurologic: Yes (STROKE IN 1979and 2007) Psychiatric: No Reproductive: No (NO CHILDREN) Respiratory: No Migraines: No Radiation Therapy: No Seizures: No Sickle Cell Disease: No Thyroid Disease: No Menopausal: Yes Past Surgical History Abdominal Surgery: No Cardiac Surgery: No Ear Surgery: No Endocrine Surgery: No Eye Surgery: No Genitourinary Surgery: No Gynecologic Surgery: No Neurologic Surgery: No Oral Surgery: No Pacemaker: No Thoracic Surgery: No Tonsillectomy: Yes Other Surgery: Yes ( & a 1966) Social History Alcohol Use: No Tobacco Use: No Substance Use: Yes Allergies-Medications (Allergen,Severity, Reaction): Coded Allergies: penicillin G (Unverified Allergy, Severe, 11/17/17) ibuprofen (Unverified Allergy, Mild, 11/17/17) Reported Meds & Prescriptions Reported Meds & Active Scripts Active Dok (Docusate Sodium) 100 Mg Cap 100 Mg PO BID 30 Days Namenda (Memantine) 5 Mg Tab 5 Mg PO DAILY 30 Days Quetiapine (Quetiapine Fumarate) 50 Mg Tab 50 Mg PO BID Zoloft (Sertraline HCl) 50 Mg Tab 75 Mg PO DAILY 30 Days Review of Systems Except as stated in HPI: all other systems reviewed are Neg General / Constitutional: No: Fever Physical Exam Narrative GENERAL: There is a minor contusion about the left forehead SKIN: Warm and dry. HEAD: Atraumatic. Normocephalic. EYES: Pupils equal and round. No scleral icterus. No injection or drainage. ENT: No nasal bleeding or discharge. Mucous membranes pink and moist. NECK: Trachea midline. No JVD. CARDIOVASCULAR: Regular rate and rhythm. RESPIRATORY: No accessory muscle use. Clear to auscultation. Breath sounds equal bilaterally. GASTROINTESTINAL: Abdomen soft, non-tender, nondistended. Hepatic and splenic margins not palpable. MUSCULOSKELETAL: Extremities without clubbing, cyanosis, or edema. No obvious deformities. NEUROLOGICAL: Patient answers questions appropriately. There is no focal neurologic deficit. Speech memory and mentation normal. PSYCHIATRIC: Appropriate mood and affect; insight and judgment normal. Data Data Last Documented VS Vital Signs Date Time Temp Pulse Resp B/P (MAP) Pulse Ox O2 Delivery O2 Flow Rate FiO2 04/02/18 15:36 98.4 95 22 129/82 (98) [address] Brain W/O Iv Contrast(Rout) (04/02/18 15:42) Ed Discharge Order (04/02/18 16:47) [facility] Medical Decision Making Medical Screen Exam Complete: Yes Emergency Medical Condition: Yes Medical Record Reviewed: Yes Differential Diagnosis Intracranial hemorrhage, scalp contusion, skull fracture Narrative Course Head CT is unremarkable. Pt ready for discharge. Follow-up with primary care provider. Diagnosis Primary Impression: Fall Qualified Codes: W19.XXXA - Unspecified fall, initial encounter Additional Impressions: Scalp contusion Qualified Codes: S00.03XA - Contusion of scalp, initial encounter Major neurocognitive disorder Referrals: Primary Care Physician Med/Other Pt SpecificInfo: No Change to Meds Disposition: 01 DISCHARGE HOME Condition: Stable Toi Smith MD Apr 02, 2018 16:21
--- NOTE | 2018-04-02 16:44 | RADRPT ---
EXAM DATE: 04/02/2018 4:28 PM EDT AGE/SEX: 68 years / Female INDICATIONS: Trauma, fall. CLINICAL DATA: This is the patient's initial encounter. Patient reports that signs and symptoms have been present for 1 day and indicates a pain score of 3/10. MEDICAL/SURGICAL HISTORY: Cerebrovascular disease. None. RADIATION DOSE: 34.54 CTDI (mGy) COMPARISON: [facility], CT BRAIN W/O CONTRAST, 01/17/2018. . TECHNIQUE: CT of the head without contrast. Using automated exposure control and adjustment of the mA and/or kV according to patient size, radiation dose was kept as low as reasonably achievable to ob tain optimal diagnostic quality images. DICOM format image data is available electronically for revi ew and comparison. FINDINGS: Cerebrum: Stable encephalomalacia in the right parietal mid convexities. Mild diffuse cerebral atrop hy. The ventricles are normal for degree of atrophy. No evidence of midline shift, mass lesion, hemor rhage or acute infarction. No extraaxial fluid collections are seen. Posterior Fossa: The cerebellum and brainstem are intact. The 4th ventricle is midline. The cerebe llopontine angle is unremarkable. Extracranial: The visualized portion of the orbits is intact. Skull: The calvaria is intact. No evidence of skull fracture. CONCLUSION: 1. Stable chronic right MCA territory infarct. 2. No acute intracranial abnormality. Electronically signed by: Virgil Wade MD 04/02/2018 4:43 PM EDT
== END 2018-04-02 17:21 | disposition home or self-care (01) ==
LOC: NEPD 15:31
DX: S00.03XA Contusion of scalp, initial encounter (principal); F01.50 Vascular dementia, unspecified severity, without behavioral disturbance, psychotic disturbance, mood disturbance, and anxiety; W18.30XA Fall on same level, unspecified, initial encounter; F32.9 Major depressive disorder, single episode, unspecified; F41.9 Anxiety disorder, unspecified; Z86.73 Personal history of transient ischemic attack (TIA), and cerebral infarction without residual deficits; Z88.6 Allergy status to analgesic agent; Z88.0 Allergy status to penicillin; Z79.899 Other long term (current) drug therapy
CPT/HCPCS: 70450

== ENCOUNTER 2018-04-08 11:18 | Inpatient (IN) ==
[2018-04-08] MEDS ORDERED: Sod Chloride 0.9% Inj 1,000 ML IV.SIG ONE (12:23)
--- NOTE | 2018-04-08 12:36 | ED ---
HPI General Chief complaint: Psychiatric Symptoms Stated complaint: psych eval/ evac/ vcso Time Seen by Provider: 04/08/18 12:04 Source: patient, RN notes reviewed and police Mode of arrival: EMS Limitations: other (poor historian) History of Present Illness HPI narrative: 68-year-old female presents to the emergency department for evaluation. Patient is currently under a Alvarez act. According to the Alvarez act , the patient was found wandering, stumbling, in the middle of the road. She had urinated and defecated on herself. When I asked the patient why she is in the middle road, she states she was trying to get to a neighbor's house. The patient denies any thoughts of hurting herself or anybody else. She is a poor historian. She states she has no chronic medical problems and takes no prescribed medications. She states she is unsure if she has a psychiatric problem, but states she has been here for psych issues in the past. Upon review of chart, I found that the patient has recurrent admissions for encephalopathy, dehydration, unable to care for self, history of CVA, bipolar disorder, neurocognitive disorder, multiple psychiatric admissions. The patient denies any fevers or chills. She denies any headache. She denies any injury or trauma. No chest pain or shortness breath. No abdominal pain. No nausea, vomiting, diarrhea. Patient was recently here on April 02, 2018 after fall. She has CT of the brain completed at that time which showed stable chronic right MCA territory infarct, no acute intracranial abnormality. Moderate severity. Related Data Home Medications Medication Instructions Recorded Confirmed No Known Home Medications 04/08/18 04/08/18 Allergies Allergy/AdvReac Type Severity Reaction Status Date / Time penicillin G Allergy Severe Hives Verified 04/08/18 11:48 ibuprofen Allergy Mild Hives Verified 04/08/18 11:48 Review of Systems ROS Unobtainable All other systems reviewed negative except as stated in HPI [facility] Medical History Medical History Patient denies medical problems (Acute) Surgical History Surgical History History of tonsillectomy (Acute) Social History Social History Substance History: No History of Abuse Second Hand Smoke Exposure: No Smoking Status: Never smoker How Often Do You Have a Drink Containing Alcohol: Never Immunization History Tetanus Immunization: >5 Years Hx Influenza Vaccine This Season: No Exam Const General: cooperative and no acute distress Nutritional Appearance: thin Orientation: alert, awake and oriented x3 Limitations: other limitations (Poor historian) [facility] [place] Head: normal to inspection Ears: hearing grossly normal bilaterally, TM normal on the right and TM normal on the left Nose: external nose normal Face and sinus: normal facial exam Throat: posterior oropharynx normal Eyes General: appearance normal, both eyes and all related structures Alignment and Position: alignment normal Periorbital: periorbital findings normal Eyelids: eyelids normal Conjunctivae: conjunctivae normal Pupils: PERRL EOM: EOM intact bilaterally Neck Neck: normal visual inspection Chest Chest: normal inspection of the chest Resp Effort & Inspection: normal respiratory effort Auscultation: clear to auscultation bilaterally Cardio Rate: regular rate Rhythm: regular rhythm Pulses: radial pulses present and dorsalis pedis present GI Inspection: normal to inspection Palpation: soft and nontender Back/Spine/Pelvis Back: no CVA tenderness Cervical Spine: normal cervical lordosis Thoracic/Lumbar Spine: thoracic and lumbar spine normal to inspection Skin General: no rashes or lesions noted Trauma: no lacerations or abrasions Neuro General: alert, awake and oriented x3 Cranial Nerves: CN's II-XI intact bilaterally Speech: speech normal Motor: muscle tone normal throughout Sensory Exam: no sensory deficits noted Coordination: [id number] test normal and nobc-kc-swsh test normal Extrem General: normal to inspection and full ROM Psych Appearance: disheveled Mental Status: mental status grossly normal Speech and Movement: speech and movement normal Attitude: cooperative Course Initial Documented Vital Signs Temperature 98.1 F 04/08/18 11:48 Pulse Rate 68 04/08/18 11:48 Respiratory Rate 17 04/08/18 11:48 Blood Pressure 129/87 04/08/18 11:48 Pulse Oximetry 99 04/08/18 11:48 Last Documented Vital Signs Temperature 98.0 F 04/08/18 14:27 Pulse Rate 57 L 04/08/18 21:50 Respiratory Rate 18 04/08/18 21:50 Blood Pressure 120/66 04/08/18 21:50 Pulse Oximetry 98 04/08/18 21:50 Medical Decision Making MDM Narrative Medical decision making narrative: 68-year-old female presents to the emergency department under Alvarez act by local police after found wandering in the road disheveled. The patient is alert and oriented to person, place, time. She has no medical complaints. Upon review of chart, patient does have psychiatric history. She just had CT scan of the head done last week which showed no acute intracranial abnormality. EKG shows sinus rhythm, heart rate 73. CBC, CMP, TSH , CK, troponin, acetaminophen level, salicylate level, alcohol level, urine drug screen, UA are ordered and pending. Patient is given normal saline 1 L IV bolus. CBC shows no acute abnormality. CMP shows creatinine of 1.12, hyperglycemia of 149. TSH is 0.168 - this is not new for patient when reviewing previous visits. CK is 50. Troponin is less than 0.02. Acetaminophen level is less than 2.0. Salicylate level is less than 1.7. Alcohol level is less than 3. Coags show no acute abnormality. UDS is negative. UA is negative for acute infection. CT of the brain shows no acute intracranial abnormality. Patient became disruptive, hostile during visit. She was given Ativan 1 mg IV. Patient is now resting comfortable. Patient is medically cleared for psychiatric screening and disposition. Patient was admitted by the psychiatrist. Differential Diagnosis Differential Diagnosis: Psychiatric illness versus electrolyte abnormality versus UTI Medical Records Medical records reviewed: Yes I reviewed the patient's medical records. Lab Data Result diagrams: 04/08/18 12:30 04/08/18 12:30 Lab Results 04/08/18 04/08/18 04/08/18 Range/Units 12:30 12:30 12:30 WBC 5.6 (4.0-11.0) th/mm3 RBC 3.84 L (4.00-5.30) mil/mm3 Hgb 11.4 L (11.6-15.3) gm/dL Hct 34.1 L (35.0-46.0) % MCV 88.9 (80.0-100.0) fL MCH 29.7 (27.0-34.0) pg MCHC 33.4 (32.0-36.0) % RDW 13.7 (11.6-17.2) % Plt Count 198 (150-450) th/mm3 MPV 8.1 (7.0-11.0) fL Neut % (Auto) 58.3 (16.0-70.0) % Lymph % (Auto) 28.6 (9.0-44.0) % Josephine % (Auto) 10.7 H (0.0-8.0) % Eos % (Auto) 1.5 (0.0-4.0) % Baso % (Auto) 0.9 (0.0-2.0) % Neut # (Auto) 3.3 (1.8-7.7) th/mm3 Lymph # (Auto) 1.6 (1.0-4.8) th/mm3 Josephine # (Auto) 0.6 (0.0-0.9) th/mm3 Eos # (Auto) 0.1 (0.0-0.4) th/mm3 Baso # (Auto) 0.0 (0.0-0.2) th/mm3 WBC Differential . Differential Comment Auto diff final PT 10.2 (9.8-11.6) sec INR 1.0 Ratio APTT 24.3 (24.3-30.1) sec Sodium 141 (136-145) meq/L Potassium 3.6 (3.5-5.1) meq/L Chloride 108 H (98-107) meq/L Carbon Dioxide 22.7 (21.0-32.0) meq/L Anion Gap 10 (5-15) meq/L BUN 17 (7-18) mg/dL Creatinine 1.12 H (0.50-1.00) mg/dL Estimated GFR 49 L (>89) mL/min POC Glucose (68-110) mg/dl Random Glucose 149 H (74-106) mg/dL Calcium 8.7 (8.5-10.1) mg/dL Total Bilirubin 0.3 (0.2-1.0) mg/dL AST 19 (15-37) U/L ALT 26 (10-53) U/L Alkaline Phosphatase 61 (45-117) U/L Total Creatine Kinase 50 (26-192) U/L Troponin I Less than 0.02 L (0.02-0.05) ng/mL Total Protein 6.3 L (6.4-8.2) g/dL Albumin 3.1 L (3.4-5.0) g/dL TSH 0.168 L (0.358-3.740) uIU/mL Urine Color (Yellw/Straw) Urine Clarity (Clear) Urine pH (5.0-8.5) Ur Specific [place] (1.002-1.035) Urine Protein (Neg-Trace) mg/dL Urine Glucose (UA) (Negative) mg/dL Urine Ketones (Negative) mg/dL Urine Occult Blood (Negative) Urine Nitrate (Negative) Urine Bilirubin (Negative) Urine Urobilinogen (Less than 2) mg/dL Ur Leukocyte Esterase (Negative) Urine RBC (0-3) /hpf Urine WBC (0-5) /hpf Micro UA Comment Urine Culture Comments Salicylates (2.8-20.0) mg/dL Urine Opiates Screen (Neg) Acetaminophen Less than 2.0 L (10.0-30.0) mcg/mL Ur Barbiturates Screen (Neg) Ur Amphetamines Screen (Neg) U Benzodiazepines Scrn (Neg) Urine Cocaine Screen (Neg) U Cannabinoids Screen (Neg) Serum Alcohol Less than 3 (0-5) mg/dL 04/08/18 04/08/18 04/08/18 Range/Units 12:30 12:30 12:41 WBC (4.0-11.0) th/mm3 RBC (4.00-5.30) mil/mm3 Hgb (11.6-15.3) gm/dL Hct (35.0-46.0) % MCV (80.0-100.0) fL MCH (27.0-34.0) pg MCHC (32.0-36.0) % RDW (11.6-17.2) % Plt Count (150-450) th/mm3 MPV (7.0-11.0) fL Neut % (Auto) (16.0-70.0) % Lymph % (Auto) (9.0-44.0) % Josephine % (Auto) (0.0-8.0) % Eos % (Auto) (0.0-4.0) % Baso % (Auto) (0.0-2.0) % Neut # (Auto) (1.8-7.7) th/mm3 Lymph # (Auto) (1.0-4.8) th/mm3 Josephine # (Auto) (0.0-0.9) th/mm3 Eos # (Auto) (0.0-0.4) th/mm3 Baso # (Auto) (0.0-0.2) th/mm3 WBC Differential Differential Comment PT (9.8-11.6) sec INR Ratio APTT (24.3-30.1) sec Sodium (136-145) meq/L Potassium (3.5-5.1) meq/L Chloride (98-107) meq/L Carbon Dioxide (21.0-32.0) meq/L Anion Gap (5-15) meq/L BUN (7-18) mg/dL Creatinine (0.50-1.00) mg/dL Estimated GFR (>89) mL/min POC Glucose 160 H (68-110) mg/dl Random Glucose (74-106) mg/dL Calcium (8.5-10.1) mg/dL Total Bilirubin (0.2-1.0) mg/dL AST (15-37) U/L ALT (10-53) U/L Alkaline Phosphatase (45-117) U/L Total Creatine Kinase (26-192) U/L Troponin I (0.02-0.05) ng/mL Total Protein (6.4-8.2) g/dL Albumin (3.4-5.0) g/dL TSH (0.358-3.740) uIU/mL Urine Color (Yellw/Straw) Urine Clarity (Clear) Urine pH (5.0-8.5) Ur Specific [place] (1.002-1.035) Urine Protein (Neg-Trace) mg/dL Urine Glucose (UA) (Negative) mg/dL Urine Ketones (Negative) mg/dL Urine Occult Blood (Negative) Urine Nitrate (Negative) Urine Bilirubin (Negative) Urine Urobilinogen (Less than 2) mg/dL Ur Leukocyte Esterase (Negative) Urine RBC (0-3) /hpf Urine WBC (0-5) /hpf Micro UA Comment Urine Culture Comments Salicylates Less than 1.7 L (2.8-20.0) mg/dL Urine Opiates Screen (Neg) Acetaminophen Cancelled (10.0-30.0) mcg/mL Ur Barbiturates Screen (Neg) Ur Amphetamines Screen (Neg) U Benzodiazepines Scrn (Neg) Urine Cocaine Screen (Neg) U Cannabinoids Screen (Neg) Serum Alcohol (0-5) mg/dL 04/08/18 04/08/18 Range/Units 17:50 17:50 WBC (4.0-11.0) th/mm3 RBC (4.00-5.30) mil/mm3 Hgb (11.6-15.3) gm/dL Hct (35.0-46.0) % MCV (80.0-100.0) fL MCH (27.0-34.0) pg MCHC (32.0-36.0) % RDW (11.6-17.2) % Plt Count (150-450) th/mm3 MPV (7.0-11.0) fL Neut % (Auto) (16.0-70.0) % Lymph % (Auto) (9.0-44.0) % Josephine % (Auto) (0.0-8.0) % Eos % (Auto) (0.0-4.0) % Baso % (Auto) (0.0-2.0) % Neut # (Auto) (1.8-7.7) th/mm3 Lymph # (Auto) (1.0-4.8) th/mm3 Josephine # (Auto) (0.0-0.9) th/mm3 Eos # (Auto) (0.0-0.4) th/mm3 Baso # (Auto) (0.0-0.2) th/mm3 WBC Differential Differential Comment PT (9.8-11.6) sec INR Ratio APTT (24.3-30.1) sec Sodium (136-145) meq/L Potassium (3.5-5.1) meq/L Chloride (98-107) meq/L Carbon Dioxide (21.0-32.0) meq/L Anion Gap (5-15) meq/L BUN (7-18) mg/dL Creatinine (0.50-1.00) mg/dL Estimated GFR (>89) mL/min POC Glucose (68-110) mg/dl Random Glucose (74-106) mg/dL Calcium (8.5-10.1) mg/dL Total Bilirubin (0.2-1.0) mg/dL AST (15-37) U/L ALT (10-53) U/L Alkaline Phosphatase (45-117) U/L Total Creatine Kinase (26-192) U/L Troponin I (0.02-0.05) ng/mL Total Protein (6.4-8.2) g/dL Albumin (3.4-5.0) g/dL TSH (0.358-3.740) uIU/mL Urine Color Yellow (Yellw/Straw) Urine Clarity Clear (Clear) Urine pH 7.0 (5.0-8.5) Ur Specific [place] 1.008 (1.002-1.035) Urine Protein Negative (Neg-Trace) mg/dL Urine Glucose (UA) Negative (Negative) mg/dL Urine Ketones Negative (Negative) mg/dL Urine Occult Blood Negative (Negative) Urine Nitrate Negative (Negative) Urine Bilirubin Negative (Negative) Urine Urobilinogen Less than 2 (Less than 2) mg/dL Ur Leukocyte Esterase Trace H (Negative) Urine RBC Less than 1 (0-3) /hpf Urine WBC Less than 1 (0-5) /hpf Micro UA Comment Cath-culture not ind Urine Culture Comments Cath-cult not ind Salicylates (2.8-20.0) mg/dL Urine Opiates Screen Neg (Neg) Acetaminophen (10.0-30.0) mcg/mL Ur Barbiturates Screen Neg (Neg) Ur Amphetamines Screen Neg (Neg) U Benzodiazepines Scrn Neg (Neg) Urine Cocaine Screen Neg (Neg) U Cannabinoids Screen Neg (Neg) Serum Alcohol (0-5) mg/dL Imaging Data Radiologist's impression: ITS Impressions Head CT 04/08/18 14:16 CONCLUSION: 1. Old right frontal infarct. 2. No acute intracranial abnormality. Discharge Plan Discharge Condition Condition: Stable Discharge Details Discharge Problem: Acute psychosis, Medical clearance for psychiatric admission Physicians Team ED Provider: Yesika Bell ED Midlevel Provider: Rajwinder Alex Primary Care Provider: Primary Care Marylou Woodard Attending Provider: Petros Ramirez Rxs /Orders / Referrals /Forms Prescriptions: No Action No Known Home Medications RF: 0 Discharge Interventions Interventions: Vital Signs Last Done: 04/08/18 21:50 Status ED Status: Admitted Patient
[2018-04-08 13:06] LABS: Baso % (Auto) 0.9 % (0.0-2.0); Eos # (Auto) 0.1 th/mm3 (0.0-0.4); Eos % (Auto) 1.5 % (0.0-4.0); Hematocrit 34.1 % (35.0-46.0); Hemoglobin 11.4 gm/dL (11.6-15.3); Lymph # (Auto) 1.6 th/mm3 (1.0-4.8); Lymph % (Auto) 28.6 % (9.0-44.0); Mean Corpuscular HGB Conc 33.4 % (32.0-36.0); Mean Corpuscular Hemoglobin 29.7 pg (27.0-34.0); Mean Corpuscular Volume 88.9 fL (80.0-100.0); Mean Platelet Volume 8.1 fL (7.0-11.0); Mono # (Auto) 0.6 th/mm3 (0.0-0.9); Mono % (Auto) 10.7 % (0.0-8.0); Neut # (Auto) 3.3 th/mm3 (1.8-7.7); Neut % (Auto) 58.3 % (16.0-70.0); Platelet Count 198 th/mm3 (150-450); Red Blood Count 3.84 mil/mm3 (4.00-5.30); Red Cell Distribution Width 13.7 % (11.6-17.2); White Blood Count 5.6 th/mm3 (4.0-11.0)
[2018-04-08 13:14] LABS: Activated Partial Thrombo Time 24.3 sec (24.3-30.1); Prothrombin Time 10.2 sec (9.8-11.6)
[2018-04-08 13:23] LABS: Alanine Aminotransferase 26 U/L (10-53); Albumin 3.1 g/dL (3.4-5.0); Anion Gap 10 meq/L (5-15); Aspartate Aminotransferase 19 U/L (15-37); Blood Urea Nitrogen 17 mg/dL (7-18); Calcium 8.7 mg/dL (8.5-10.1); Carbon Dioxide 22.7 meq/L (21.0-32.0); Chloride 108 meq/L (98-107); Glomerular Filtration Rate 49 mL/min (>89); Glucose,Random 149 mg/dL (74-106); Potassium 3.6 meq/L (3.5-5.1); Sodium 141 meq/L (136-145)
[2018-04-08 13:34] LABS: Alkaline Phosphatase 61 U/L (45-117); Thyroid Stimulating Hormone 0.168 uIU/mL (0.358-3.740); Total Protein 6.3 g/dL (6.4-8.2)
[2018-04-08 13:36] LABS: Creatine Kinase 50 U/L (26-192)
[2018-04-08 18:13] LABS: Bilirubin,Urine Negative (Negative); Clarity,Urine Clear (Clear); Color,Urine Yellow (Yellw/Straw); Glucose,Urine (UA) Negative (Negative); Leukocyte Esterase,Urine Trace (Negative); Nitrite,Urine Negative (Negative); Specific Gravity,Urine 1.008 (1.002-1.035)
[2018-04-08 18:19] LABS: Amphetamine Screen,Urine Neg (Neg); Barbiturate Screen,Urine Neg (Neg); Cannabinoid Screen,Urine Neg (Neg); Cocaine Screen,Urine Neg (Neg); Opiate Screen,Urine Neg (Neg)
[2018-04-09] MEDS ORDERED: Aluminum/Magnesium/Simethacone Susp 30 ML UDC PO PRN (04:55)
[2018-04-09] MEDS ORDERED: Acetaminophen 325 MG Tablet PO PRN (04:55)
[2018-04-09] MEDS: LORazepam 0.5 MG Tablet PO PRN (09:53)
--- NOTE | 2018-04-09 11:28 | P.HPPSY ---
Provisional Diagnosis Admission Date: April 08, 2018 21:43 [place] I.: Dementia without behavioral disturbances Competence Certification of Person's Competence To Provide Express and Informed Consent I have personally examined Geri Parham, a person being served at [facility] on, April 09, 2018 1128. Express and informed consent means consent voluntarily given in writing, by a competent person, after sufficient explanation and disclosure of the subject matter involved to enable the person to make a knowing and willful decision without any element of force, fraud, deceit, duress, or other form of constraint or coercion. This person is 18 years of age or older, is not now known to be incompetent to consent to treatment with a guardian advocate, and does not have a health care surrogate or proxy currently making medical treatment decisions. I have found this person to be one of the following: [] Competent to provide express and informed consent, as defined above, for voluntary admission to this facility and is competent to provide express and informed consent for treatment. He/she has the consistent capacity to make well reasoned, willful, and knowing decisions concerning his or her medical or mental health treatment. The person fully and consistently understands the purpose of the admission for examination/placement and is fully capable of personally exercising all rights assured under [place]xxx] Incompetent to provide express and informed consent to voluntary admission , and this is incompetent to provide express and informed consent to treatment. The person must be transferred to involuntary status and a petition for a guardian advocate filed with the Circuit Court. [] Refusing to provide express and informed consent to voluntary admission but is competent to provide express and informed consent for treatment. The person must be discharged or transferred to involuntary status. Form shall be completed within 24 hours of a person's arrival at the receiving facility and filed in the clinical record of each person: 1. Admitted on a voluntary basis 2. Permitted to provide express and informed consent to his/her own treatment 3. Allowed to transfer from involuntary to voluntary status 4. Prior to permitting a person to consent to his or her own treatment after having been previously found incompetent to consent to treatment. History of Present Illness Capacity: Lacks capacity History of Present Illness: Patient is 67-year-old woman, , living alone, with a past psychiatric history of bipolar disorder, two previous psychiatric hospitalization (last at [place] in 2017), denies any previous suicide attempts, denies any self injurious behavior, known to the hospital for recurrent admissions for encephalopathy, dehydration, unable to care for self, history of CVA, neurocognitive disorder, who was brought into the ED under Alvarez act that she was found wandering the street covered in feces which her neighbors had called police and was subsequently brought to the hospital for further evaluation and management. As per Alvarez act patient was found wandering , stumbling and middle of the road covered in feces. Patient was found sitting in hospital chair in day room noted to be somewhat irritable and superficially cooperative interview today. Patient is alert and oriented x3 but states that she has been feeling confused lately stating that her neighbors were worried that she was not doing well and had police bring her to the hospital. Patient reports not taking any medications recently and that she had been at home for some time after being discharged from a rehabilitation center. Patient states having spoken to her brother "the other night" unable to elaborate conversation. Patient noted to be paranoid and suspicious during interview, at times with some disorganized behavior and focusing on when she will be receiving her lunch. Family psychiatric history: Denies Past psychiatric history: Previous psychiatric diagnoses of bipolar disorder, two previous psychiatric hospitalizations (last here to [place] in April 2017), denies previous suicide attempts or self-injurious behavior. Currently no outpatient services, denies current medications last taken them months ago but previously quetiapine 50 mg p.o. twice daily. She denies any history of sexual or physical abuse.Substance use history: Patient denies any history of tobacco alcohol or illicit drug use. Past medical history: Cerebrovascular accident in 2007 Allergies: Penicillin Social history: Patient is , living alone, supported financially with residential benefits, has a brother Mr. Umanzor , highest education is 12th grade., - Inpatient Certification I certify that the inpatient services were ordered in accordance with Medicare regulations governing the order. This includes certification that hospital inpatient services are reasonable and necessary and in the case of services not specified as inpatient-only under 42 CFR 419.22(n), that they are appropriately provided as inpatient services in accordance to with the 2-midnight benchmark under 43 CFR 412.3(e) I certify that inpatient psychiatric hospital services are medically necessary. Evaluation and treatment and/or diagnostic testing are expected to improve the patient's condition. The patient needs on a daily basis, active treatment furnished directly by or requiring the supervision of inpatient psychiatric facility personnel. Plans for Post Hospital Care: Not yet determined Review of Systems All other systems reviewed negative except as stated in [facility] - History History Provided By: Patient - Medical History Medical History: Medical History (Last Reviewed 04/09/18 @ 07:40 by Darcy Umaña) Patient denies medical problems - Surgical History Surgical History: Surgical History (Last Reviewed 04/08/18 @ 12:37 by CABRERA Christy) History of tonsillectomy - Tobacco History Second Hand Smoke Exposure: No Smoking Status: Never smoker - Alcohol History How Often Do You Have a Drink Containing Alcohol: Never - Substance Use History Substance History: No History of Abuse - Immunization History Tetanus Immunization: >5 Years Hx Influenza Vaccine This Season: No Quality Measures - Psychiatric History Violence risk to others in the last 6 months: Low Violence risk to self in the last 6 months: Low - Substance Abuse History Drug or alcohol use in the past 12 months: Denies - Patient Strengths Patient's strengths (minimum of 2): Verbal and communicative Medications and Allergies Active Medications: Active Medications Acetaminophen (Tylenol) 650 mg PO Q4H PRN PRN Reason: Pain 1-5 or Temp >101F Al Hydrox/Mg Hydrox/Simethicone (Mag-Al Plus Susp Liq) 30 ml PO Q6H PRN PRN Reason: DYSPEPSIA Al Hydroxide/Mg Hydroxide (Milk Of Magnesia Liq) 30 ml PO DAILY PRN PRN Reason: CONSTIPATION Lorazepam (Ativan) 0.5 mg PO Q12H PRN PRN Reason: MODERATE TO SEVERE ANXIETY Last Admin: 04/09/18 09:53 Dose: 0.5 mg Lorazepam (Ativan Inj) 0.5 mg IM Q12H PRN PRN Reason: MODERATE TO SEVERE ANXIETY Memantine (Namenda) 5 mg PO DAILY [facility] Nicotine (Habitrol 21 Mg Patch.24 Hr) 1 patch T-DERMAL DAILY [facility] Last Admin: 04/09/18 08:10 Dose: Not Given Patch Removal (Remove Old Patch) 1 each T-DERMAL DAILY [facility] Last Admin: 04/09/18 08:10 Dose: Not Given Quetiapine Fumarate (Seroquel) 12.5 mg PO BID [facility] Sertraline HCl (Zoloft) 25 mg PO DAILY [facility] Sodium Chloride (Ns Flush) 2 ml IV.FLUSH PRN PRN PRN Reason: FLUSH AFTER USING IV ACCESS Last Admin: 04/08/18 15:00 Dose: 2 ml Allergies Allergy/AdvReac Type Severity Reaction Status Date / Time penicillin G Allergy Severe Hives Verified 04/08/18 11:48 ibuprofen Allergy Mild Hives Verified 04/08/18 11:48 Home Medications Medication Instructions Recorded Confirmed Type memantine [Namenda] 5 mg PO DAILY 04/09/18 04/09/18 History quetiapine [Seroquel] 50 mg PO BID 04/09/18 04/09/18 History sertraline [Zoloft] 75 mg PO DAILY 04/09/18 04/09/18 History Results - Labs CBC & Chem 7: 04/08/18 12:30 04/09/18 10:44 Labs: Laboratory Results - last 24 hr 04/08/18 04/08/18 04/08/18 12:30 12:30 12:30 WBC 5.6 RBC 3.84 L Hgb 11.4 L Hct 34.1 L MCV 88.9 MCH 29.7 MCHC 33.4 RDW 13.7 Plt Count 198 MPV 8.1 Neut % (Auto) 58.3 Lymph % (Auto) 28.6 [place] % (Auto) 10.7 H Eos % (Auto) 1.5 Baso % (Auto) 0.9 Neut # (Auto) 3.3 Lymph # (Auto) 1.6 [place] # (Auto) 0.6 Eos # (Auto) 0.1 Baso # (Auto) 0.0 WBC Differential . Differential Comment Auto diff final PT 10.2 INR 1.0 APTT 24.3 Sodium 141 Potassium 3.6 Chloride 108 H Carbon Dioxide 22.7 Anion Gap 10 BUN 17 Creatinine 1.12 H Estimated GFR 49 L POC Glucose Random Glucose 149 H Calcium 8.7 Total Bilirubin 0.3 AST 19 ALT 26 Alkaline Phosphatase 61 Total Creatine Kinase 50 Troponin I Less than 0.02 L Total Protein 6.3 L Albumin 3.1 L TSH 0.168 L Urine Color Urine Clarity Urine pH Ur Specific [place] Urine Protein Urine Glucose (UA) Urine Ketones Urine Occult Blood Urine Nitrate Urine Bilirubin Urine Urobilinogen Ur Leukocyte Esterase Urine RBC Urine WBC Micro UA Comment Urine Culture Comments Salicylates Urine Opiates Screen Acetaminophen Less than 2.0 L Ur Barbiturates Screen Ur Amphetamines Screen U Benzodiazepines Scrn Urine Cocaine Screen U Cannabinoids Screen Serum Alcohol Less than 3 04/08/18 04/08/18 04/08/18 12:30 12:30 12:41 WBC RBC Hgb Hct MCV MCH MCHC RDW Plt Count MPV Neut % (Auto) Lymph % (Auto) [place] % (Auto) Eos % (Auto) Baso % (Auto) Neut # (Auto) Lymph # (Auto) [place] # (Auto) Eos # (Auto) Baso # (Auto) WBC Differential Differential Comment PT INR APTT Sodium Potassium Chloride Carbon Dioxide Anion Gap BUN Creatinine Estimated GFR POC Glucose 160 H Random Glucose Calcium Total Bilirubin AST ALT Alkaline Phosphatase Total Creatine Kinase Troponin I Total Protein Albumin TSH Urine Color Urine Clarity Urine pH Ur Specific [place] Urine Protein Urine Glucose (UA) Urine Ketones Urine Occult Blood Urine Nitrate Urine Bilirubin Urine Urobilinogen Ur Leukocyte Esterase Urine RBC Urine WBC Micro UA Comment Urine Culture Comments Salicylates Less than 1.7 L Urine Opiates Screen Acetaminophen Cancelled Ur Barbiturates Screen Ur Amphetamines Screen U Benzodiazepines Scrn Urine Cocaine Screen U Cannabinoids Screen Serum Alcohol 04/08/18 04/08/18 17:50 17:50 WBC RBC Hgb Hct MCV MCH MCHC RDW Plt Count MPV Neut % (Auto) Lymph % (Auto) [place] % (Auto) Eos % (Auto) Baso % (Auto) Neut # (Auto) Lymph # (Auto) [place] # (Auto) Eos # (Auto) Baso # (Auto) WBC Differential Differential Comment PT INR APTT Sodium Potassium Chloride Carbon Dioxide Anion Gap BUN Creatinine Estimated GFR POC Glucose Random Glucose Calcium Total Bilirubin AST ALT Alkaline Phosphatase Total Creatine Kinase Troponin I Total Protein Albumin TSH Urine Color Yellow Urine Clarity Clear Urine pH 7.0 Ur Specific [place] 1.008 Urine Protein Negative Urine Glucose (UA) Negative Urine Ketones Negative Urine Occult Blood Negative Urine Nitrate Negative Urine Bilirubin Negative Urine Urobilinogen Less than 2 Ur Leukocyte Esterase Trace H Urine RBC Less than 1 Urine WBC Less than 1 Micro UA Comment Cath-culture not ind Urine Culture Comments Cath-cult not ind Salicylates Urine Opiates Screen Neg Acetaminophen Ur Barbiturates Screen Neg Ur Amphetamines Screen Neg U Benzodiazepines Scrn Neg Urine Cocaine Screen Neg U Cannabinoids Screen Neg Serum Alcohol - Imaging Impressions Head CT 04/08/18 14:16 CONCLUSION: 1. Old right frontal infarct. 2. No acute intracranial abnormality. Exam Vital signs: Vital Signs 04/08/18 11:48 04/08/18 12:10 04/08/18 13:01 Temperature 98.1 F Pulse Rate 68 85 Respiratory Rate 17 Blood Pressure 129/87 Pulse Oximetry 99 99 04/08/18 14:27 04/08/18 16:42 04/08/18 17:00 Temperature 98.0 F Pulse Rate 76 67 Respiratory Rate 17 19 18 Blood Pressure 124/81 120/58 L 140/72 Pulse Oximetry 95 99 04/08/18 20:00 04/08/18 21:50 04/09/18 06:00 Temperature 97.9 F Pulse Rate 65 57 L 53 L Respiratory Rate 16 18 16 Blood Pressure 112/72 120/66 123/59 L Pulse Oximetry 96 98 97 04/09/18 08:00 Temperature Pulse Rate Respiratory Rate Blood Pressure Pulse Oximetry 96 Intake & Output 04/08/18 04/09/18 04/09/18 18:59 06:59 18:59 Intake Total 1000 / 1000 Balance 1000 / 1000 Weight 56 kg Intake: IV 1000 / 1000 NS Inj 1,000 ML @ Wide Open IV. 1000 / 1000 SIG BOLUS ONE Rx#:[id number] Narrative: Patient not noted to be acute distress but noted to be appearing malnourished, no gross motor of maladies, no signs of EPS or tremor, no signs of psychomotor agitation or retardation. Mental Status Examination Appearance: Disheveled Consciousness: Alert, Vigilant, Highly distractible Orientation: Person, Place, Date/Time Speech: Unremarkable Language: Adequate Fund of Knowledge: Inadequate Attention and Concentration: Easily distracted Memory: Impaired Mood: Anxious, Irritable Affect: Anxious Thought Process & Associations: Disorganized (At times), Other ([place]) Thought Content: Hallucinations, Delusional Hallucination Type: Auditory Delusion Type: Paranoid Suicidal Ideation: No Suicidal Plan: No Suicidal Intention: No Homicidal Ideation: No Homicidal Plan: No Homicidal Intention: No Judgment: Poor Assessment and Plan - Assessment (1) Dementia Code(s): F03.90 - Unspecified dementia without behavioral disturbance Status: Acute - Plan Plan: Estimated LOS: [7-10] days Patient is a 68 y/o woman, , unemployed on social security benefits, domiciled alone, with past psychiatric history of bipolar disorder, dementia, prior psychiatric admissions, no prior SA, history of nonadherence to treatment who was brought in under Alvarez act due to confusion and found wandering in the street which patient at continued risk for self care deficit which patient require inpatient stabilization at this time. Petition for involuntary admission started, second opinion requested. Patient lacks capacity to consent to treatment. Will require brother as health care surrogate and guardian advocate. Patient noted to be paranoid, easily agitated , with labile mood, and poor insight. Start quetiapoine 12.5 mg PO BID with upward titration for psychosis and mood stabilization; sertraline 25mg PO daily and memantine 5mg PO daily. Monitor mood and behavior. Discharge planning in progress. Justification for Continued Inpatient Stay: At risk of further decompensation a lower level of care. Request Healthcare Surrogate/Guardian Advocate?: Yes (1) Dementia Qualifiers: Dementia type: unspecified type Dementia behavioral disturbance: without behavioral disturbance Qualified Code(s): F03.90 - Unspecified dementia without behavioral disturbance
[2018-04-09 11:29] LABS: Carbon Dioxide 25.8 meq/L (21.0-32.0); Potassium 3.8 meq/L (3.5-5.1)
[2018-04-09 11:32] LABS: Chol/HDL Ratio 3.28 Ratio; HDL Cholesterol 56.6 mg/dL (40.0-60.0)
--- NOTE | 2018-04-09 12:03 | ECG ---
Date Performed: 04/08/2018 Time Performed: 11:53:42 PTAGE: 68 years EKG: Sinus rhythm WITH OCCASIONAL VENTRICULAR PREMATURE COMPLEXES BORDERLINE ECG PREVIOUS TRACING : 01/17/2018 15.52 Since the previous tracing, no significant change noted DOCTOR: Jono Campbell Interpretating Date/Time 04/09/2018 12:02:33
--- NOTE | 2018-04-09 14:18 | P.CONPSY ---
Provisional Diagnosis Admission Date: April 08, 2018 21:43 [place] I.: Unspecified psychosis, major neurocognitive disorder, without behavioral disturbances History of Present Illness Service: Psychiatry Primary Care Provider: No Primary Care Physician Family Provider: No Primary Care Physician Chief Complaint: Self neglecting behavior History of Present Illness: The patient is a 68-year-old woman, domiciled alone in [place], , with psychiatric history of bipolar disorder, neurocognitive disorder, 4 previous psychiatric hospitalizations, she denies previous suicidal attempts, denies history of substance abuse, her last hospitalization was here at [facility] in 2017 under the care of Dr. Hodges, the condition reviewed, no significant medical history, who was brought to the hospital on the [place] at due to concerns about her ability to take care of herself and suicidality. Patient was consulted to me for second opinion. On psychiatric evaluation the patient is superficially cooperative, kind of distant and detached, he stated that she feels very depressed, very anxious, but unable to elaborate about the circumstances of her depression. She denies suicidal and homicidal ideation, she denies visual and auditory hallucinations. She doesn't appear internally stimulated, paranoid or psychotic in general. She is fully oriented 3, without attention deficit, without fluctuation of consciousness, with conserve language, immediate and recent recall. The patient denies the use of illegal drugs and alcohol. [facility] - History History Provided By: Patient - Medical History Medical History: Medical History (Last Reviewed 04/09/18 @ 07:40 by Darcy Umaña) Patient denies medical problems - Surgical History Surgical History: Surgical History (Last Reviewed 04/08/18 @ 12:37 by CABRERA Christy) History of tonsillectomy - Tobacco History Second Hand Smoke Exposure: No Smoking Status: Never smoker - Alcohol History How Often Do You Have a Drink Containing Alcohol: Never - Substance Use History Substance History: No History of Abuse - Immunization History Tetanus Immunization: >5 Years Hx Influenza Vaccine This Season: No Medications and Allergies Active Medications: Active Medications Acetaminophen (Tylenol) 650 mg PO Q4H PRN PRN Reason: Pain 1-5 or Temp >101F Al Hydrox/Mg Hydrox/Simethicone (Mag-Al Plus Susp Liq) 30 ml PO Q6H PRN PRN Reason: DYSPEPSIA Al Hydroxide/Mg Hydroxide (Milk Of Magnesia Liq) 30 ml PO DAILY PRN PRN Reason: CONSTIPATION Lorazepam (Ativan) 0.5 mg PO Q12H PRN PRN Reason: MODERATE TO SEVERE ANXIETY Last Admin: 04/09/18 09:53 Dose: 0.5 mg Lorazepam (Ativan Inj) 0.5 mg IM Q12H PRN PRN Reason: MODERATE TO SEVERE ANXIETY Memantine (Namenda) 5 mg PO DAILY [facility] Nicotine (Habitrol 21 Mg Patch.24 Hr) 1 patch T-DERMAL DAILY [facility] Last Admin: 04/09/18 08:10 Dose: Not Given Patch Removal (Remove Old Patch) 1 each T-DERMAL DAILY [facility] Last Admin: 04/09/18 08:10 Dose: Not Given Quetiapine Fumarate (Seroquel) 12.5 mg PO BID [facility] Sertraline HCl (Zoloft) 25 mg PO DAILY [facility] Sodium Chloride (Ns Flush) 2 ml IV.FLUSH PRN PRN PRN Reason: FLUSH AFTER USING IV ACCESS Last Admin: 04/08/18 15:00 Dose: 2 ml Allergies Allergy/AdvReac Type Severity Reaction Status Date / Time penicillin G Allergy Severe Hives Verified 04/08/18 11:48 ibuprofen Allergy Mild Hives Verified 04/08/18 11:48 Home Medications Medication Instructions Recorded Confirmed Type memantine [Namenda] 5 mg PO DAILY 04/09/18 04/09/18 History quetiapine [Seroquel] 50 mg PO BID 04/09/18 04/09/18 History sertraline [Zoloft] 75 mg PO DAILY 04/09/18 04/09/18 History Exam Vital signs: Vital Signs 04/08/18 14:27 04/08/18 16:42 04/08/18 17:00 Temperature 98.0 F Pulse Rate 76 67 Respiratory Rate 17 19 18 Blood Pressure 124/81 120/58 L 140/72 Pulse Oximetry 95 99 04/08/18 20:00 04/08/18 21:50 04/09/18 06:00 Temperature 97.9 F Pulse Rate 65 57 L 53 L Respiratory Rate 16 18 16 Blood Pressure 112/72 120/66 123/59 L Pulse Oximetry 96 98 97 04/09/18 08:00 Temperature Pulse Rate Respiratory Rate Blood Pressure Pulse Oximetry 96 Intake & Output 07/02/18 07/03/18 07/03/18 18:59 06:59 18:59 Intake Total 1000 / 1000 Balance 1000 / 1000 Weight 56 kg Intake: IV 1000 / 1000 NS Inj 1,000 ML @ Wide Open IV. 1000 / 1000 SIG BOLUS ONE Rx#:[id number] Mental Status Examination Appearance: Appropriate, Other Consciousness: Alert, Asleep, Lethargic, Vigilant Orientation: Person, Place Speech: Unremarkable Language: Adequate Fund of Knowledge: Adequate Attention and Concentration: Adequate Memory: Impaired Mood: Appropriate, Manic Affect: Appropriate, Euthymic Thought Process & Associations: Intact Thought Content: Appropriate Hallucination Type: None Suicidal Ideation: No Suicidal Plan: No Suicidal Intention: No Homicidal Ideation: No Homicidal Plan: No Homicidal Intention: No Insight: Fair Judgment: Impulsive Assessment and Plan - Assessment (1) Dementia Code(s): F03.90 - Unspecified dementia without behavioral disturbance Status: Acute - Plan Plan: Estimated LOS: [] I have seen and examined this patient today, reviewed documentation, I agree and concur with Dr. Hodges assessment and plan. Justification for Continued Inpatient Stay: Patient has an elevated risk to decompensate at a lower level of care. (1) Dementia Qualifiers: Dementia type: unspecified type Dementia behavioral disturbance: without behavioral disturbance Qualified Code(s): F03.90 - Unspecified dementia without behavioral disturbance
[2018-04-09] MEDS: QUEtiapine 25 MG Tablet PO SCH (20:57)
[2018-04-10] MEDS: Sertraline 50 MG Tablet PO SCH (08:36)
[2018-04-10] MEDS: QUEtiapine 25 MG Tablet PO SCH ×2 (08:38→20:45)
[2018-04-10] MEDS: LORazepam 0.5 MG Tablet PO PRN (12:56)
--- NOTE | 2018-04-10 16:07 | P.PNPSY ---
Subjective Remarks: Patient seen for follow-up, chart reviewed. Discussion with nursing staff reported that the patient noted to be confused, paranoid, was able to be compliant with medications this morning. Patient was found lying hospital bed appearing to be asleep was noted to be alert but eventually engage in interview today. Patient states that she is sleeping well, eating and drinking well, reports having auditory hallucinations recently telling her to "lay down". Patient denies any visual disturbances and stating "I am still confused". Patient initially reluctant to comply her chewable was encouraged to do so which she agreed. Collateral information obtained by patient's brother over the phone today reported the patient had gone to health rehab after her last admission it was discharged home with services including psychiatric visiting nurse and home visits with a physician. He also mentions that DCF had once gone out to her home with concerns of patient being able to care for self and was cleared. He expresses concern of patient's ability to care for self in light of her current presentation upon admission. Review of Systems All other systems reviewed negative except as stated in HPI Mental Status Examination Appearance: Appropriate, Other Consciousness: Alert, Asleep, Lethargic, Vigilant Orientation: Person, Place Speech: Unremarkable Language: Adequate Fund of Knowledge: Adequate Attention and Concentration: Adequate Memory: Impaired Mood: Appropriate, Manic Affect: Appropriate, Euthymic Thought Process & Associations: Intact Thought Content: Appropriate Hallucination Type: None Suicidal Ideation: No Suicidal Plan: No Suicidal Intention: No Homicidal Ideation: No Homicidal Plan: No Homicidal Intention: No Insight: Fair Judgment: Impulsive Assessment and Plan - Assessment (1) Dementia Code(s): F03.90 - Unspecified dementia without behavioral disturbance Status: Acute - Plan Plan: Patient continues with episodes of confusion although alert oriented 3 at this time. Patient also noted to be very paranoid and anxious throughout the day requiring redirection. We will increase quetiapine 25 mg p.o. twice daily for mood stabilization, continue rest of medications. Continue to monitor mood and behavior. Discharge planning in progress. Justification for Continued Inpatient Stay: At risk for further decompensation if at lower level of care (1) Dementia Qualifiers: Dementia type: unspecified type Dementia behavioral disturbance: without behavioral disturbance Qualified Code(s): F03.90 - Unspecified dementia without behavioral disturbance
[2018-04-11] MEDS: Sertraline 50 MG Tablet PO SCH (09:55)
[2018-04-11] MEDS: QUEtiapine 25 MG Tablet PO SCH ×2 (09:58→20:47)
--- NOTE | 2018-04-11 18:03 | P.PNPSY ---
Subjective Remarks: Patient seen for follow-up, chart reviewed. Discussion with nursing staff reported that the patient sleeping intermittently during the day and napping, but continues to be very paranoid. Patient was found lying hospital bed noted B asleep was able to wake up for interview. Patient states that she continues to feel "confused" had some difficulty with sleep last evening, but has been out for meals. Patient denies any perceptional services but continues to have paranoia "sometimes" but not able to specify why. Patient does not recall speaking to patient's brother yesterday and asked when she be able to communicate with him. Review of Systems All other systems reviewed negative except as stated in HPI Mental Status Examination Appearance: Appropriate, Disheveled Consciousness: Alert, Vigilant, Highly distractible Orientation: Person, Place, Date/Time Speech: Unremarkable Language: Adequate Fund of Knowledge: Inadequate Attention and Concentration: Easily distracted Memory: Impaired Mood: Anxious, Irritable Affect: Anxious Thought Process & Associations: Disorganized (At times) Thought Content: Hallucinations, Delusional Hallucination Type: None Delusion Type: Paranoid Suicidal Ideation: No Suicidal Plan: No Suicidal Intention: No Homicidal Ideation: No Homicidal Plan: No Homicidal Intention: No Insight: Fair Judgment: Poor Assessment and Plan - Assessment (1) Dementia Code(s): F03.90 - Unspecified dementia without behavioral disturbance Status: Acute - Plan Plan: Patient this time continues with confusion at times although alert and oriented 3. Patient also noted was some paranoia on the unit. Recent increase in quetiapine, we will maintain current dose for now as patient to be less labile, less paranoid. We will continue to monitor mood and behavior. Discharge planning a progress. Justification for Continued Inpatient Stay: At risk for further decompensation if at lower level of care. Request Healthcare Surrogate/Guardian Advocate?: Yes (1) Dementia Qualifiers: Dementia type: unspecified type Dementia behavioral disturbance: without behavioral disturbance Qualified Code(s): F03.90 - Unspecified dementia without behavioral disturbance
[2018-04-12] MEDS: Sertraline 50 MG Tablet PO SCH (08:59)
[2018-04-12] MEDS: QUEtiapine 25 MG Tablet PO SCH ×2 (09:00→20:33)
--- NOTE | 2018-04-12 17:25 | P.PNPSY ---
Subjective Remarks: Patient seen for follow, chart reviewed. Discussion nursing staff reported the patient compliant with medications, continues to be confused. Patient was found lying hospital bed noted B, cooperative. Patient noted with brighter affect today stating that she slept well last evening and that her mood has been "okay". Patient denies any physical complaints at this time reports tolerating medications well. Patient continues with confusion at this time surrounding events that brought her to the hospital but is alert and oriented to person place and time. Review of Systems All other systems reviewed negative except as stated in HPI Mental Status Examination Appearance: Appropriate Consciousness: Alert, Vigilant Orientation: Person, Place, Date/Time Speech: Unremarkable Language: Adequate Fund of Knowledge: Inadequate Attention and Concentration: Easily distracted Memory: Impaired Mood: Anxious, Irritable Affect: Anxious Thought Process & Associations: Disorganized (At times) Thought Content: Hallucinations (Lessening), Delusional Hallucination Type: None Delusion Type: Paranoid Suicidal Ideation: No Suicidal Plan: No Suicidal Intention: No Homicidal Ideation: No Homicidal Plan: No Homicidal Intention: No Insight: Fair Judgment: Poor Assessment and Plan - Assessment (1) Dementia Code(s): F03.90 - Unspecified dementia without behavioral disturbance Status: Acute - Plan Plan: Patient appears to have improved affect, noted to be less paranoid but continues to be present. We will continue current treatment. We will continue to monitor mood and behavior. This was planning a progress. Justification for Continued Inpatient Stay: At risk for further decompensation if at lower level of care Request Healthcare Surrogate/Guardian Advocate?: Yes (1) Dementia Qualifiers: Dementia type: unspecified type Dementia behavioral disturbance: without behavioral disturbance Qualified Code(s): F03.90 - Unspecified dementia without behavioral disturbance
[2018-04-13] MEDS: Sertraline 50 MG Tablet PO SCH (08:54)
[2018-04-13] MEDS: QUEtiapine 25 MG Tablet PO SCH ×2 (08:55→21:14)
--- NOTE | 2018-04-13 16:57 | P.PNPSY ---
Subjective Remarks: Pt seen and discussed with staff. Pt was admitted to [facility] due to confusion and self-neglect. She has been cooperative with medications and care. She has been isolative to her room and has been exhibiting some paranoid behavior. No SI/HI Mental Status Examination Appearance: Appropriate Consciousness: Alert, Vigilant Orientation: Person, Place, Date/Time Speech: Unremarkable Language: Adequate Fund of Knowledge: Inadequate Attention and Concentration: Easily distracted Memory: Impaired Mood: Anxious, Irritable Affect: Anxious Thought Process & Associations: Disorganized (At times) Thought Content: Hallucinations (Lessening), Delusional Hallucination Type: None Delusion Type: Paranoid Suicidal Ideation: No Suicidal Plan: No Suicidal Intention: No Homicidal Ideation: No Homicidal Plan: No Homicidal Intention: No Insight: Fair Judgment: Poor Assessment and Plan - Assessment (1) Dementia Code(s): F03.90 - Unspecified dementia without behavioral disturbance Status: Acute - Plan Plan: Continue current tx plan. Justification for Continued Inpatient Stay: risks of decompensation Request Healthcare Surrogate/Guardian Advocate?: Yes (1) Dementia Qualifiers: Dementia type: unspecified type Dementia behavioral disturbance: without behavioral disturbance Qualified Code(s): F03.90 - Unspecified dementia without behavioral disturbance
[2018-04-14] MEDS: Sertraline 50 MG Tablet PO SCH (08:10)
[2018-04-14] MEDS: QUEtiapine 25 MG Tablet PO SCH ×2 (08:10→21:33)
--- NOTE | 2018-04-14 12:55 | P.PNPSY ---
Subjective Remarks: Pt seen and discussed with staff. She was compliant with medications and care. She has been watchful and vigilant on unit, but today has been more interactive. She continues to exhibit bizarre behavior at times but no aggression or agitation. Mental Status Examination Appearance: Appropriate Consciousness: Alert, Vigilant Orientation: Person, Place, Date/Time Speech: Unremarkable Language: Adequate Fund of Knowledge: Inadequate Attention and Concentration: Easily distracted Memory: Impaired Mood: Anxious, Irritable Affect: Anxious Thought Process & Associations: Disorganized (At times) Thought Content: Hallucinations (Lessening), Delusional Hallucination Type: None Delusion Type: Paranoid Suicidal Ideation: No Suicidal Plan: No Suicidal Intention: No Homicidal Ideation: No Homicidal Plan: No Homicidal Intention: No Insight: Fair Judgment: Poor Assessment and Plan - Assessment (1) Dementia Code(s): F03.90 - Unspecified dementia without behavioral disturbance Status: Acute - Plan Plan: Continue current tx plan. Justification for Continued Inpatient Stay: risk of decompensation Request Healthcare Surrogate/Guardian Advocate?: Yes (1) Dementia Qualifiers: Dementia type: unspecified type Dementia behavioral disturbance: without behavioral disturbance Qualified Code(s): F03.90 - Unspecified dementia without behavioral disturbance
[2018-04-15] MEDS: Sertraline 50 MG Tablet PO SCH (09:23)
[2018-04-15] MEDS: QUEtiapine 25 MG Tablet PO SCH ×2 (09:25→21:13)
--- NOTE | 2018-04-15 15:11 | P.PNPSY ---
Subjective Remarks: Patient seen for follow, chart reviewed. Discussion nursing staff reported the patient confused at times, compliant with medications noted to be somewhat paranoid at times. Patient was found lying hospital bed noted B, cooperative. Patient noted with brighter affect today smiling during interview stating that she is feeling "confused" and when asked about where she was confused about she was unable to answer. Patient was able to state place and time correctly, but has poor recollection of the event that prior to the hospital regarding her self -care deficit. Patient states she does get confused at times and noted to be somewhat disorganized at times. She reports having spoken to her brother but unable to recall conversation. Patient denies any perceptional services or delusions but appear to be somewhat paranoid on the unit. Review of Systems All other systems reviewed negative except as stated in HPI Mental Status Examination Appearance: Appropriate Consciousness: Alert, Vigilant Orientation: Person, Place, Date/Time Speech: Unremarkable Language: Adequate Fund of Knowledge: Inadequate Attention and Concentration: Easily distracted Memory: Impaired Mood: Anxious Affect: Anxious Thought Process & Associations: Disorganized (At times) Thought Content: Delusional Hallucination Type: None Delusion Type: Paranoid Suicidal Ideation: No Suicidal Plan: No Suicidal Intention: No Homicidal Ideation: No Homicidal Plan: No Homicidal Intention: No Insight: Fair Judgment: Poor Assessment and Plan - Assessment (1) Dementia Code(s): F03.90 - Unspecified dementia without behavioral disturbance Status: Acute - Plan Plan: Patient noted to continue with paranoia, likely from confusion and disorientation at times although patient is able to stay time and place correctly when asked. Patient noted with less anxiety and better affect today. We will continue current treatment. We will continue to monitor for orthostatic hypotension as patient currently on psychotropic medications. Continue to monitor mood and behavior. Treatment team explore options for placement. Discharge planning a progress Justification for Continued Inpatient Stay: At risk for further decompensation if at lower level of care Request Healthcare Surrogate/Guardian Advocate?: Yes (1) Dementia Qualifiers: Dementia type: unspecified type Dementia behavioral disturbance: without behavioral disturbance Qualified Code(s): F03.90 - Unspecified dementia without behavioral disturbance
[2018-04-16] MEDS: QUEtiapine 25 MG Tablet PO SCH ×2 (08:59→21:12)
[2018-04-16] MEDS: Sertraline 50 MG Tablet PO SCH (08:59)
--- NOTE | 2018-04-16 13:39 | P.PNPSY ---
Subjective Remarks: Patient seen for follow-up, chart reviewed. Discussion with nursing staff reported that the patient continued to be confused, showering, nervous at times , but compliant with slept well last evening with no behavioral disturbances patient was found to be calm and cooperative with interview, patient was found heavily on the unit noted be somewhat disorganized, back and forth from her room to the hallway stating that she had been feeling "confused" but that her mood has been "fine". Patient reports tolerating her medications well, sleeping well, no difficulty with appetite, denying any perceptual disturbances. Patient noted to be less paranoid today, improved affect. Review of Systems All other systems reviewed negative except as stated in HPI Mental Status Examination Appearance: Appropriate Consciousness: Alert, Vigilant Orientation: Person, Place, Date/Time Speech: Unremarkable Language: Adequate Fund of Knowledge: Inadequate Attention and Concentration: Easily distracted Memory: Impaired Mood: Anxious Affect: Anxious Thought Process & Associations: Disorganized (At times) Thought Content: Delusional Hallucination Type: None Delusion Type: Paranoid (Lessening) Suicidal Ideation: No Suicidal Plan: No Suicidal Intention: No Homicidal Ideation: No Homicidal Plan: No Homicidal Intention: No Insight: Fair Judgment: Poor Assessment and Plan - Assessment (1) Dementia Code(s): F03.90 - Unspecified dementia without behavioral disturbance Status: Acute - Plan Plan: Patient this time continues with confusion which is likely baseline for her current neurocognitive deficits. No behavioral disturbances. Continue current treatment. Continue to monitor mood and behavior. Discharge planning a progress. Justification for Continued Inpatient Stay: At risk for further decompensation if at lower level of care Request Healthcare Surrogate/Guardian Advocate?: Yes (1) Dementia Qualifiers: Dementia type: unspecified type Dementia behavioral disturbance: without behavioral disturbance Qualified Code(s): F03.90 - Unspecified dementia without behavioral disturbance
[2018-04-17] MEDS: Sertraline 50 MG Tablet PO SCH (09:58)
[2018-04-17] MEDS: QUEtiapine 25 MG Tablet PO SCH (09:58)
--- NOTE | 2018-04-17 17:42 | P.PNPSY ---
Subjective Remarks: Patient seen for follow-up, chart reviewed. Discussion with nursing staff reported that the patient with sad affect, calm and cooperative, comes out for meals but mostly seclusive. Patient was found to be calm and cooperative with interview, report sleeping well, eating well, has not showered and when encouraged agrees but then reluctant. Palomo states that her mood is "anxious " as she will present to mental health court tomorrow. She agrees to attend groups and reports having spoke to her brother which she cannot recall what she spoke about. Review of Systems All other systems reviewed negative except as stated in HPI Mental Status Examination Appearance: Appropriate Consciousness: Alert, Vigilant Orientation: Person, Place, Date/Time Speech: Unremarkable Language: Adequate Fund of Knowledge: Inadequate Attention and Concentration: Easily distracted Memory: Impaired Mood: Anxious Affect: Anxious Thought Process & Associations: Disorganized (At times) Thought Content: Delusional Hallucination Type: None Delusion Type: Paranoid (Lessening) Suicidal Ideation: No Suicidal Plan: No Suicidal Intention: No Homicidal Ideation: No Homicidal Plan: No Homicidal Intention: No Insight: Fair Judgment: Poor Assessment and Plan - Assessment (1) Dementia Code(s): F03.90 - Unspecified dementia without behavioral disturbance Status: Acute - Plan Plan: Patient continues with confusion at times despite being A&O x 3. Patient continues to be somewhat paranoid but redirectible. Will continue current treatment, monitor mood and behavior, encourage patient to shower. Dischage planning in progress. Justification for Continued Inpatient Stay: At risk for further decompensation at lower level of care. Request Healthcare Surrogate/Guardian Advocate?: Yes (1) Dementia Qualifiers: Dementia type: unspecified type Dementia behavioral disturbance: without behavioral disturbance Qualified Code(s): F03.90 - Unspecified dementia without behavioral disturbance
[2018-04-18] MEDS: Sertraline 50 MG Tablet PO SCH (09:00)
[2018-04-18] MEDS: QUEtiapine 25 MG Tablet PO SCH ×2 (09:00→21:26)
--- NOTE | 2018-04-18 17:19 | P.PNPSY ---
Subjective Remarks: Patient seen for follow-up, chart reviewed. Discussion nursing staff reported the patient continues to be somewhat paranoid, but compliant with medications with no behavioral disturbances. Patient was presented to mental health court today which patient was retained for involuntary hospitalization as well as for further stabilization. Patient was later seen and noted to be suspicious of court today and confused. She denies any physical complaints; perceptual disturbances nor any delusions. Review of Systems All other systems reviewed negative except as stated in HPI Mental Status Examination Appearance: Appropriate Consciousness: Alert, Vigilant Orientation: Person, Place, Date/Time Speech: Unremarkable Language: Adequate Fund of Knowledge: Inadequate Attention and Concentration: Easily distracted Memory: Impaired Mood: Anxious Affect: Anxious Thought Process & Associations: Disorganized (At times) Thought Content: Delusional Hallucination Type: None Delusion Type: Paranoid (Lessening) Suicidal Ideation: No Suicidal Plan: No Suicidal Intention: No Homicidal Ideation: No Homicidal Plan: No Homicidal Intention: No Insight: Fair Judgment: Poor Assessment and Plan - Assessment (1) Dementia Code(s): F03.90 - Unspecified dementia without behavioral disturbance Status: Acute - Plan Plan: Patient this time continues with baseline confusion, paranoid but less intense but compliant with treatment. Patient was retained to mental health court for involuntary hospitalization for further stabilization as well as for treatment team to arrange for safe discharge plan. Continue current treatment. Continue to monitor mood and behavior. Discharge planning in progress. Justification for Continued Inpatient Stay: At risk for further decompensation if at lower level of care Request Healthcare Surrogate/Guardian Advocate?: Yes (1) Dementia Qualifiers: Dementia type: unspecified type Dementia behavioral disturbance: without behavioral disturbance Qualified Code(s): F03.90 - Unspecified dementia without behavioral disturbance
[2018-04-19] MEDS: QUEtiapine 25 MG Tablet PO SCH ×2 (05:15→21:07)
[2018-04-19] MEDS: Sertraline 50 MG Tablet PO SCH (09:12)
--- NOTE | 2018-04-19 12:56 | P.PNPSY ---
Subjective Remarks: Patient seen for follow-up, chart reviewed. Discussion nursing staff reported the patient ate breakfast, continues to be confused about why she is here in the hospital, compliant with medications has not showered since admission. Patient was found lying hospital bed stated that she is feeling "tired" and that she is "confused still". Patient states that she feels more confused during the evening at bedtime. Patient was encouraged to shower which she continued to be reluctant to do and to be more participatory in groups and activities which she continues to be reluctant. Patient denies any SI or HI, denies any perceptional disturbances or delusions. Review of Systems All other systems reviewed negative except as stated in HPI Mental Status Examination Appearance: Appropriate Consciousness: Alert, Vigilant Orientation: Person, Place, Date/Time Speech: Unremarkable Language: Adequate Fund of Knowledge: Inadequate Attention and Concentration: Easily distracted Memory: Impaired Mood: Anxious Affect: Anxious Thought Process & Associations: Disorganized (At times) Thought Content: Delusional Hallucination Type: None Delusion Type: Paranoid (Lessening) Suicidal Ideation: No Suicidal Plan: No Suicidal Intention: No Homicidal Ideation: No Homicidal Plan: No Homicidal Intention: No Insight: Fair Judgment: Poor Assessment and Plan - Assessment (1) Dementia Code(s): F03.90 - Unspecified dementia without behavioral disturbance Status: Acute - Plan Plan: Patient this time continues with mostly in the evening and afternoon likely from . Patient is aware most of the time of where she is but continues to be confused on how or why she is in a house. Patient has failed previous attempts to be home with services and likely will require a structured environment as patient appears to have difficulty caring for self. We will continue current treatment. Treatment he will continue to explore options of disposition. Discharge planning a progress. Justification for Continued Inpatient Stay: At risk of further decompensation at lower level of care. Request Healthcare Surrogate/Guardian Advocate?: Yes (1) Dementia Qualifiers: Dementia type: unspecified type Dementia behavioral disturbance: without behavioral disturbance Qualified Code(s): F03.90 - Unspecified dementia without behavioral disturbance
[2018-04-20] MEDS: QUEtiapine 25 MG Tablet PO SCH ×3 (09:50→20:37)
[2018-04-20] MEDS: Sertraline 50 MG Tablet PO SCH (09:50)
--- NOTE | 2018-04-20 12:59 | P.PNPSY ---
Subjective Remarks: Patient was seen and case discussed with nursing. Patient is alert and oriented 3 today. She is seclusive per nursing. Insight remains poor concerning her reasons for admission. Not had any visitors or phone calls per patient. No hallucinations were elicited. Mental Status Examination Appearance: Appropriate Consciousness: Alert, Vigilant Orientation: Person, Place, Date/Time Speech: Unremarkable Language: Adequate Fund of Knowledge: Inadequate Attention and Concentration: Easily distracted Memory: Impaired Mood: Anxious Affect: Anxious Thought Process & Associations: Disorganized (At times) Thought Content: Derealization Hallucination Type: None Delusion Type: Paranoid (Lessening) Suicidal Ideation: No Suicidal Plan: No Suicidal Intention: No Homicidal Ideation: No Homicidal Plan: No Homicidal Intention: No Insight: Fair Judgment: Poor Assessment and Plan - Assessment (1) Dementia Code(s): F03.90 - Unspecified dementia without behavioral disturbance Status: Acute - Plan Plan: Continue current treatment plan Justification for Continued Inpatient Stay: Patient would decompensate in a less restrictive setting Request Healthcare Surrogate/Guardian Advocate?: Yes (1) Dementia Qualifiers: Dementia type: unspecified type Dementia behavioral disturbance: without behavioral disturbance Qualified Code(s): F03.90 - Unspecified dementia without behavioral disturbance
[2018-04-21] MEDS: Sertraline 50 MG Tablet PO SCH (09:28)
[2018-04-21] MEDS: QUEtiapine 25 MG Tablet PO SCH ×2 (09:33→20:22)
--- NOTE | 2018-04-21 13:22 | P.PNPSY ---
Subjective Remarks: Patient was seen and case discussed with nursing. Patient remains very seclusive to her bed. She is alert and oriented 3. She was encouraged to socialize and says she will think about it. She remains anxious throughout the day constantly asking the nurse of the time. She is fixated on discharge and getting back to her house. Not participating in the therapeutic milieu Mental Status Examination Appearance: Appropriate Consciousness: Alert, Vigilant Orientation: Person, Place, Date/Time Speech: Unremarkable Language: Adequate Fund of Knowledge: Inadequate Attention and Concentration: Easily distracted Memory: Impaired Mood: Anxious Affect: Anxious Thought Process & Associations: Disorganized (At times) Thought Content: Derealization Hallucination Type: None Delusion Type: Paranoid (Lessening) Suicidal Ideation: No Suicidal Plan: No Suicidal Intention: No Homicidal Ideation: No Homicidal Plan: No Homicidal Intention: No Insight: Fair Judgment: Poor Assessment and Plan - Assessment (1) Dementia Code(s): F03.90 - Unspecified dementia without behavioral disturbance Status: Acute - Plan Plan: Continue current treatment plan Justification for Continued Inpatient Stay: Patient would decompensate in a less restrictive setting Request Healthcare Surrogate/Guardian Advocate?: Yes (1) Dementia Qualifiers: Dementia type: unspecified type Dementia behavioral disturbance: without behavioral disturbance Qualified Code(s): F03.90 - Unspecified dementia without behavioral disturbance
[2018-04-22] MEDS: QUEtiapine 25 MG Tablet PO SCH ×3 (08:34→20:38)
[2018-04-22] MEDS: Sertraline 50 MG Tablet PO SCH (08:34)
--- NOTE | 2018-04-22 17:28 | P.PNPSY ---
Subjective Remarks: Patient seen for follow-up, chart reviewed. Discussion nursing staff reported the patient is confusing at times but no behavioral disturbances. Patient was found lying hospital bed noted B, cooperative. Patient states that she is sleeping well, appetite has been fair, reports feeling "tired" per continues report feeling confused in the evenings. Patient had difficulty recalling when she has not spoken to her brother. Patient noted with less paranoia now. Review of Systems All other systems reviewed negative except as stated in HPI Mental Status Examination Appearance: Appropriate Consciousness: Alert, Vigilant Orientation: Person, Place, Date/Time Speech: Unremarkable Language: Adequate Fund of Knowledge: Inadequate Attention and Concentration: Easily distracted Memory: Impaired Mood: Appropriate Affect: Anxious Thought Process & Associations: Disorganized (At times) Thought Content: Derealization Hallucination Type: None Delusion Type: Paranoid (Lessening) Suicidal Ideation: No Suicidal Plan: No Suicidal Intention: No Homicidal Ideation: No Homicidal Plan: No Homicidal Intention: No Insight: Fair Judgment: Poor Assessment and Plan - Assessment (1) Dementia Code(s): F03.90 - Unspecified dementia without behavioral disturbance Status: Acute - Plan Plan: Patient this time with continued confusion mostly in the evenings likely , no behavioral disturbances has been compliant with treatment. Treatment team continues to attempt to locate referral to facility where patient will have more structure and supervision to address self-care deficits. Discharge planning a progress. Justification for Continued Inpatient Stay: At risk of further decompensation a lower level care. Request Healthcare Surrogate/Guardian Advocate?: Yes (1) Dementia Qualifiers: Dementia type: unspecified type Dementia behavioral disturbance: without behavioral disturbance Qualified Code(s): F03.90 - Unspecified dementia without behavioral disturbance
[2018-04-23] MEDS: QUEtiapine 25 MG Tablet PO SCH ×2 (08:37→20:15)
[2018-04-23] MEDS: Sertraline 50 MG Tablet PO SCH (08:37)
--- NOTE | 2018-04-23 17:35 | P.PNPSY ---
Subjective Remarks: Patient seen for follow, chart reviewed. Discussion nursing staff reported the patient was less paranoid ideations, has not been attending groups but has been out for meals and has not showered since admission. Patient was found lying hospital bed noted B, cooperative. Patient states that she is still feeling confused in the evening but not as much, "every now and then". Patient reports her mood has been okay, sleeping well, denying any perceptional services, feeling less paranoid. Patient states she has been attending groups but has yet to shower was encouraged which patient continued to be noted to be reluctant to do. Review of Systems All other systems reviewed negative except as stated in HPI Mental Status Examination Appearance: Appropriate Consciousness: Alert, Vigilant Orientation: Person, Place, Date/Time Speech: Unremarkable Language: Adequate Fund of Knowledge: Inadequate Attention and Concentration: Easily distracted Memory: Impaired Mood: Appropriate Affect: Anxious Thought Process & Associations: Disorganized (At times) Thought Content: Derealization (Less so) Hallucination Type: None Delusion Type: Paranoid (Lessening) Suicidal Ideation: No Suicidal Plan: No Suicidal Intention: No Homicidal Ideation: No Homicidal Plan: No Homicidal Intention: No Insight: Fair Judgment: Poor Assessment and Plan - Assessment (1) Dementia Code(s): F03.90 - Unspecified dementia without behavioral disturbance Status: Acute - Plan Plan: Patient continued with episodic confusion mostly in the evening, continues to be noted to be somewhat paranoid but lessening. Patient has yet to maintain personal hygiene and requires encouragement. Patient to continue current treatment. Continue to monitor behavior. Discharge planning a progress. Justification for Continued Inpatient Stay: At risk of further decompensation a lower level of care. Request Healthcare Surrogate/Guardian Advocate?: Yes (1) Dementia Qualifiers: Dementia type: unspecified type Dementia behavioral disturbance: without behavioral disturbance Qualified Code(s): F03.90 - Unspecified dementia without behavioral disturbance
[2018-04-24] MEDS: Sertraline 50 MG Tablet PO SCH (08:22)
[2018-04-24] MEDS: QUEtiapine 25 MG Tablet PO SCH ×2 (08:23→20:54)
--- NOTE | 2018-04-24 13:42 | P.PNPSY ---
Subjective Remarks: Patient seen for follow, chart reviewed. Discussion nursing staff reported that she had showered yesterday and attended group. Patient was found lying hospital bed noted to be in good spirits. Patient states that she been feeling "alright" stating having slept well last evening had attended groups discharge yesterday which she felt good about. Patient denies any depressive symptoms, feeling "less confused" and that has reported speaking with her brother last evening. Patient denies any perceptional services or delusions. Review of Systems All other systems reviewed negative except as stated in HPI Mental Status Examination Appearance: Appropriate Consciousness: Alert, Vigilant Orientation: Person, Place, Date/Time Speech: Unremarkable Language: Adequate Fund of Knowledge: Inadequate Attention and Concentration: Easily distracted Memory: Impaired Mood: Appropriate Affect: Appropriate Thought Process & Associations: Disorganized (At times) Thought Content: Derealization (Less so) Hallucination Type: None Delusion Type: Paranoid (Lessening) Suicidal Ideation: No Suicidal Plan: No Suicidal Intention: No Homicidal Ideation: No Homicidal Plan: No Homicidal Intention: No Insight: Fair Judgment: Poor Assessment and Plan - Assessment (1) Dementia Code(s): F03.90 - Unspecified dementia without behavioral disturbance Status: Acute - Plan Plan: Patient noted with improved mood feeling less anxious and there to be less paranoid today. Patient to participate in groups and showered yesterday. Patient requires encouragement to direction to maintain adequate ADLs and would decompensate in a less restrictive environment without supervision. Treatment he will continue to pursue referral to a facility where she has a structured due to concerns of self-care deficit secondary to neurocognitive deficits. We will continue current treatment. Continue to monitor mood and behavior. Discharge planning a progress. Justification for Continued Inpatient Stay: At risk for further decompensation if at lower level of care Request Healthcare Surrogate/Guardian Advocate?: Yes (1) Dementia Qualifiers: Dementia type: unspecified type Dementia behavioral disturbance: without behavioral disturbance Qualified Code(s): F03.90 - Unspecified dementia without behavioral disturbance
[2018-04-25] MEDS: QUEtiapine 25 MG Tablet PO SCH (08:20)
[2018-04-25] MEDS: Sertraline 50 MG Tablet PO SCH (08:20)
--- NOTE | 2018-04-25 19:17 | P.DSPSY ---
Psychiatry Discharge Summary Inpatient Psychiatric care?: Yes Advance Directives: No Mental Health Advance Directive: No Health Care Proxy: No - Admission Admission Date: April 08, 2018 21:43 - Admission Diagnosis (1) Dementia Code(s): F03.90 - Unspecified dementia without behavioral disturbance Brief History: Patient is 67-year-old woman, , living alone, with a past psychiatric history of bipolar disorder, two previous psychiatric hospitalization (last at [facility] in 2017), denies any previous suicide attempts, denies any self injurious behavior, known to the hospital for recurrent admissions for encephalopathy, dehydration, unable to care for self, history of CVA, neurocognitive disorder, who was brought into the ED under [email or web address] act that she was found wandering the street covered in feces which her neighbors had called police and was subsequently brought to the hospital for further evaluation and management. As per [email or web address] act patient was found wandering , stumbling and middle of the road covered in feces. Patient was found sitting in hospital chair in day room noted to be somewhat irritable and superficially cooperative interview today. Patient is alert and oriented x3 but states that she has been feeling confused lately stating that her neighbors were worried that she was not doing well and had police bring her to the hospital. Patient reports not taking any medications recently and that she had been at home for some time after being discharged from a rehabilitation center. Patient states having spoken to her brother "the other night" unable to elaborate conversation. Patient noted to be paranoid and suspicious during interview, at times with some disorganized behavior and focusing on when she will be receiving her lunch. Family psychiatric history: Denies Past psychiatric history: Previous psychiatric diagnoses of bipolar disorder, two previous psychiatric hospitalizations (last here to [facility] in April 2017), denies previous suicide attempts or self-injurious behavior. Currently no outpatient services, denies current medications last taken them months ago but previously quetiapine 50 mg p.o. twice daily. She denies any history of sexual or physical abuse.Substance use history: Patient denies any history of tobacco alcohol or illicit drug use. Past medical history: Cerebrovascular accident in 2007 Allergies: Penicillin Social history: Patient is , living alone, supported financially with custodial benefits, has a brother Mr. Umanzor , highest education is 12th grade., Tobacco Use In Past 30 Days: No How Often Do You Have a Drink Containing Alcohol: Never Hospital Course: Patient is 67-year-old woman, , living alone, with a past psychiatric history of bipolar disorder, two previous psychiatric hospitalization (last at [facility] in 2017), denies any previous suicide attempts, denies any self injurious behavior, known to the hospital for recurrent admissions for encephalopathy, dehydration, unable to care for self, history of CVA, neurocognitive disorder, who was brought into the ED under [employer] act that she was found wandering the street covered in feces which her neighbors had called police and was subsequently brought to the hospital for further evaluation and management. Patient was resumed on quetiapine 25mg BID along with medications for chronic medical illnesses which she tolerated well with no adverse drug reactions. She was noted to require redirection at times with occasional episodes of confusion but did not have any episodes of agitation and continued with treatment. Patient was observed to have confusion at baseline secondary to neurocognitive deficits. Patient was observed to have poor immediate and recall memory. Patient was noted to have been compliant with treatment, cooperative with staff. Upon discharge patient stated that she was feeling good, denied any psychotic symptoms, denied any SI, HI or delusions with no behavioral dyscontrol during hospitalization. Patient agreed to continue medication regimen and outpatient follow up for continuity of care. Patient will be discharged to nursing facility. I have counseled the patient regarding warning signs for need to return to the psychiatric emergency room as part of a general safety plan. Patient advised to call 911 or go nearest ED in case of emergency. Patient and family agree with plan. - Discharge Discharge Date: 04/25/18 - Discharge Diagnosis (1) Dementia Code(s): F03.90 - Unspecified dementia without behavioral disturbance Status: Acute Discharge Disposition: Alf Facility - Discharge Instructions Discharge Diet: Heart Healthy Diet Activities You Can Perform: Weight Bearing As Tolerat - Discharge Time > 30 minutes Mental Status Examination Appearance: Appropriate Consciousness: Alert, Vigilant Orientation: Person, Place, Date/Time Speech: Unremarkable Language: Adequate Fund of Knowledge: Inadequate Attention and Concentration: Easily distracted Memory: Impaired Mood: Appropriate Affect: Appropriate Thought Process & Associations: Disorganized (At times) Thought Content: Appropriate Hallucination Type: None Delusion Type: None Suicidal Ideation: No Suicidal Plan: No Suicidal Intention: No Homicidal Ideation: No Homicidal Plan: No Homicidal Intention: No Insight: Fair Judgment: Poor Discharge/Advance Care Plan - Results Vital Signs: Last Vital Signs Temp 97.6 F 04/25/18 06:34 Pulse 74 04/25/18 06:34 Resp 16 04/25/18 06:34 BP 98/54 L 04/25/18 06:34 Pulse Ox 98 04/25/18 06:34 Lab Results: Laboratory Results Triglycerides 131 mg/dL (42-150) 04/09/18 10:44 Cholesterol 186 mg/dL (120-200) 04/09/18 10:44 LDL Cholesterol, Calc 103 mg/dL (0-99) H 04/09/18 10:44 HDL Cholesterol 56.6 mg/dL (40.0-60.0) 04/09/18 10:44 TSH 0.168 uIU/mL (0.358-3.740) L 04/08/18 12:30 Urine Culture Comments Cath-cult not ind 04/08/18 17:50 Summary of Procedures: none Imaging: ITS Impressions Head CT 04/08/18 14:16 CONCLUSION: 1. Old right frontal infarct. 2. No acute intracranial abnormality. Pending Results: None - Medications Number of antipsychotic medications at discharge: 1 - Discharge Care Plan Goals to Promote Your Health: * To prevent worsening of your condition and complications * To maintain your health at the optimal level Directions to Meet Your Goals: Take your medications as prescribed Follow your dietary instruction Follow activity as directed Keep your appointments as scheduled Take your immunizations and boosters as scheduled If your symptoms worsen call your PCP, if no PCP go to Urgent Care Center or Emergency Room For 30/04 questions related to your inpatient stay or results of tests pending at discharge, please contact Dr. Quang Hodges MD at Smoking is Dangerous to Your Health. Avoid second hand smoking (1) Dementia Qualifiers: Dementia type: unspecified type Dementia behavioral disturbance: without behavioral disturbance Qualified Code(s): F03.90 - Unspecified dementia without behavioral disturbance (1) Dementia Qualifiers: Dementia type: unspecified type Dementia behavioral disturbance: without behavioral disturbance Qualified Code(s): F03.90 - Unspecified dementia without behavioral disturbance
== END 2018-04-25 14:40 ==
LOC: NEPC 11:18 → NEDA 21:43 → H250 22:10 → H260 04-18 12:27
PROVIDERS: ADMIT Student in an Organized Health Care Education/Training Program; ATTEND Student in an Organized Health Care Education/Training Program